=== PATIENT | male | born 1940 | race Caucasian/White ===

== ENCOUNTER 2024-06-18 13:44 | Outpatient (NON) | payer MEDICARE, SELFPAY ==
--- OUTSIDE RECORDS SUMMARY | 2024-06-18 13:55 | XMS_ITS | Clinical Summary ---
Author Organization [facility] Address [address] [place] [address] Care Team Providers Care Wash Tub Machine Operator Name Role Phone Wali Ashley MD Primary Care Provider [phone] Source Comments [facility],non-owned Affiliates and Associated Physician Practices is amultiple site organization consisting of ambulatory clinics and hospital sitesin [place], [place], [place] and [place]. This disclosure is being madepursuant to the Care Everywhere program and may not contain all information available regarding this patient. Last updated 17.[facility] Allergies Active Allergy Reactions Criticality Noted Date Comments Sulfa Drugs 05/04/2014 Medications * Be aware that medications may not be up to date on this document. Alwaysverify current medications with the patient. omeprazole (PRILOSEC) 20 MG capsule 5 Active donepezil (ARICEPT) 10 MG tablet 5 Active diltiazem coated beads 24hr (CARDIZEM CD) 300 MG capsule 5 Active fenofibrate (LOFIBRA) 160 MG tablet 5 Active losartan (COZAAR) 100 MG tablet 5 Active traMADol (ULTRAM) 50 MG tablet 0 5 Active VENTOLIN HFA 108 (90 BASE) MCG/ACT inhaler 0 5 Active VOLTAREN 1 % gel 1 5 Active fluticasone propionate (FLONASE) 50 MCG/ACT nasal spray 5 Active aspirin (ASPIRIN) 81 MG chew tablet Take 81 mg by mouth once daily. Active cetirizine (ZYRTEC ALLERGY) 10 MG tablet Take 10 mg by mouth once daily. Active acetaminophen (TYLENOL) 500 MG tabletIndicatio ns:Osteoarthrit is,Pseudogout,H and pain, unspecified laterality Take 2 Tabs by mouth 3 times daily. Maximum allowable Acetaminophen amount = 4 Grams (4000 mg) / 24 hours. 5 Active predniSONE (DELTASONE) 20 MG tabletIndicatio ns:Pseudogout Take 1 Tab by mouth 2 times daily. for 5 to 7 days for Arthritis flare ups 40 Tab 3 5 Active predniSONE (DELTASONE) 10 MG tabletIndicatio ns:Pseudogout Take 1-2 Tabs by mouth once daily. 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 Gender Identity Not on file Sexual Orientation Not on file Occupation Industry Job Start Date Job End Date REtired Not on file Not on file Not on file Last Filed Vital Signs Vital Sign Reading Time Taken Comments Blood Pressure 116/72 08/24/2014 1:09 PM CDT Pulse 60 08/24/2014 1:09 PM CDT Temperature - - Respiratory Rate - - Oxygen Saturation - - Inhaled Oxygen Concentration - - Weight 89 kg (196 lb 3.2 oz) 08/24/2014 1:09 PM CDT Height 175.3 cm (5' 9 ) 08/24/2014 1:09 PM CDT Body Mass Index 28.97 08/24/2014 1:09 PM CDT Plan of Treatment Health Maintenance Due Date Last Done Comments DTAP/TDAP/TD VACCINES (1 - Tdap) 10/03/1959 PNEUMOCOCCAL VACCINE 50+ (1 of 1 - PCV) 1990 ZOSTER VACCINE (1 of 2) 1990 Respiratory Syncytial Virus (RSV) Vaccine Pt: or over 60 yrs (1 - 1-dose 75+ series) 10/03/2015 COVID-19 VACCINE (3 - season) 2023 04/20/2020, 03/28/2020 DEPRESSION SCREENING 02/12/2024 MEDICARE AWV CALENDAR YEAR 2024 INFLUENZA VACCINE Completed 12/13/2023, , 11/21/2017, Additional history exists HEPATITIS B VACCINE Aged Out No longe r eligible based on patient's age to complete this topic HIB VACCINE Aged Out No longer eligi ble based on patient's age to complete this topic HPV VACCINE Aged Out No longer eligi ble based on patient's age to complete this topic MENINGOCOCCAL (Group B) VACCINE SHARED DECISION-MAKING Aged Out No longer eligible based on patient's age to complete this topic MENINGOCOCCAL GROUPS A/C/Y/W VACCINE Aged Out No longer eligible based on patient's age to complete this topic Insurance [facility] MANAGED MEDICARE ADV Care Teams Wash Tub Machine Operator Relationship Specialty Start Date End Date Wali Ashley MD PCP - General Gastroenterology 03/07/15
--- OUTSIDE RECORDS SUMMARY | 2024-06-18 13:55 | XMS_ITS | Encounter Summary ---
[facility] Address [address] [place] [address] Phone Care Team Providers Care Evp Strategy Name Role Phone Ranjan Lawrence MD Unavailable [phone] Thelma Love PT Unavailable Unavailable Karissa Salas PTA Unavailable Unavailable Salas Monterroso MD Primary Care Provider [phone] Stewart Rahman MD Unavailable Immanuel Conway MD Unavailable Angie Garcia MD Unavailable [phone] Rolando Narvaez NP Unavailable [phone] Grisel Almodovar OD Unavailable [phone] Horace Pacheco MD Unavailable [phone] Purvi Da Silva NP Unavailable [phone] Jon Mares MD Unavailable Salas Morales MD Unavailable [phone] Chase Mancuso MD Unavailable [phone] Agustin Lancaster MD PhD Unavailable [phone] Encounter Details Date Type Department Care Team (Late st Contact Info) Description 09/15/2019 Orders Only [facility] [address] [place] [address] Scanning, Provider Social History Tobacco Use Types Packs/Day Years Used Date Smoking Tobacco: Never Smokeless Tobacco: Never Alcohol Use Standard Drinks/Week Comments Yes 1 (1 standard drink = 0.6 oz pur e alcohol) occasionally PHQ-2 Answer Date Recorded PHQ-2 Score 1 02/19/2019 Sex and Gender Information Value Date Recorded Sex Assigned at Not on file 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 Gender Identity Not on file Sexual Orientation Not on file documented as of this encounter Plan of Treatment Not on file documented as of this encounter Procedures Procedure Name Priority Date/Time Associated Diagnosis Comments CARDIOLOGY DOCUMENT SCAN 09/15/2019 documented in this encounter Results * SCAN - CARDIOLOGY (09/15/2019) Anatomical Region Laterality Modality Other us Provider Scanning CV CARDIAC SERVICES PROCEDURES Final Result documented in this encounter Visit Diagnoses Not on filedocumented in this encounter Additional Health Concerns Infection Onset Date Last Indicated Resolved Time COVID: Suspected 10/27/2020 10/27/2020 10/27/2020 5:28 PM CDT COVID: Suspected 12/13/2023 12/13/2023 12/13/2023 12:03 PM CDT COVID: Suspected 12/26/2023 12/26/2023 12/26/2023 3:24 PM MUSICAL ENGINEER MDR gram neg/ESBL 04/26/2024 05/06/2024 documented as of this encounter Care Teams Evp Strategy Relationship Specialty Start Date End Date Salas Monterroso MD [address] [place] [address] PCP - General 02/27/18 Ranjan Lawrence MD Consulting Physician Cardiovascular Disease 09/11/16 Thelma Love, TISH Physical Therapist Physical Therapy 06/11/17 Karissa Salas PTA Equipment Operator [employer] Physical Therapy 06/17/17 Stewart Rahman MD [address] [place], [place] [address] Consulting Physician Cardiovascular Disease 04/19/18 [place] [address] [address] Consulting Physician Cardiology 08/30/18 Angie Garcia MD [address] [place], [place] [address] Consulting Physician Pain Management 08/12/19 Rolando Narvaez NP [address] [place] [address] Nurse Practitioner Pain Management 12/11/19 Grisel Almodovar OD [address] [place] [address] Consulting Physician Optometry 01/25/21 Horace Pacheco MD [address] [place] [address] Referring Physician Cardiology 06/21/21 Purvi Da Silva NP [address] [place] [address] Nurse Practitioner General Surgery 07/10/22 Jon Mares MD [address] [place] [address] Consulting Physician General Surgery 08/10/22 Salas Morales MD [address] [place] [address] Consulting Physician Nephrology 09/25/22 Chase Mancuso MD [id number] [place] [address] Surgeon Vascular Surgery 02/19/24 Agustin Lancaster MD PhD [address] [place] [address] Consulting Physician Neurosurgery 12/03/23 documented as of this encounter
--- OUTSIDE RECORDS SUMMARY | 2024-06-18 13:55 | XMS_ITS | Encounter Summary ---
Author Organization [facility] Address [address] [place] [address] Phone Care Team Providers Care Harness Repairer Name Role Phone Salas Monterroso MD Primary Care Provider [phone] Encounter Details Date Type Department Care Team (Late st Contact Info) Description 05/14/2024 [facility] [address] [place] [id number] Gabriela Musa, RETAIL FURNITURE SALES, PLATE SENSITIZER [address] [place] [address] Social History Tobacco Use Types Packs/Day Years Used Date Smoking Tobacco: Never Assessed [facility] Utilities Answer Date Recorded In the past 12 months has e electric, gas, oil, or water company threatened to shut off services in your home? No 05/18/2024 Social Connection and Isolation Panel [NHANES] A nswer Date Recorded In a typical week, how many times do you talk on the phone with family, friends, or neighbors? Three times a week 05/19/19 How often do you get togethe r with friends or relatives? Once a week 05/18/2024 How often do you attend chur ch or restoration services? 1 to 4 times per year 05/18/2024 Do you belong to any clubs o r organizations such as caodaism groups, unions, fraternal or athletic groups, or school groups? No 05/18/2024 How often do you attend meet ings of the clubs or organizations you belong to? Never 05/18/2024 Are you , , di vorced, , never , or living with a partner? Patient declined 05/18/2024 AUDIT-C Answer Date Recorded Q1: How often do you have a drink containing alcohol? Never 05/18/2024 Q2: How many drinks containi ng alcohol do you have on a typical day when you are drinking? Patient does not drink Q3: How often do you have si x or more drinks on one occasion? Never 05/18/2024 Overall Financial Resource Strain (CARDIA) Answe r Date Recorded How hard is it for you to pa y for the very basics like food, housing, medical care, and heating? Not very hard 05/18/2024 [facility] - Occupational Stress Questionnaire Answer Date Recorded Do you feel stress - tense, restless, nervous, or anxious, or unable to sleep at night because your mind is troubled all the time - these days? Only a little 05/18/2024 Exercise Vital Sign Answer Date Recorde d On average, how many days pe r week do you engage in moderate to strenuous exercise (like a brisk walk)? 0 days 05/18/2024 On average, how many minutes do you engage in exercise at this level? 0 min 05/18/2024 Hunger Vital Sign Answer Date Recorded Within the past 12 months, y ou worried that your food would run out before you got the money to buy more. Never true 05/19/19 25 Within the past 12 months, t he food you bought just didn't last and you didn't have money to get more. Never true 05/18/2024 PRAPARE - Transportation Answer Date Re corded In the past 12 months, has l ack of transportation kept you from medical appointments or from getting medications? No 08/2024 In the past 12 months, has l ack of transportation kept you from meetings, work, or from getting things needed for daily living? No 05/18/2024 Housing Stability Vital Sign Answer Derek e Recorded In the last 12 months, was t here a time when you were not able to pay the mortgage or rent on time? No 05/18/2024 In the past 12 months, how m any times have you moved where you were living? 1 05/18/2024 At any time in the past 12 m [facility], were you homeless or living in a alf (including now)? No 05/18/2024 Sex and Gender Information Value Date Recorded Sex Assigned at Not on file Legal Sex Male 12:29 AM CDT Gender Identity Not on file Sexual Orientation Not on file documented as of this encounter Plan of Treatment Not on file documented as of this encounter Visit Diagnoses Not on filedocumented in this encounter Care Teams Harness Repairer Relationship Specialty Start Date End Date Salas Monterroso MD [address], [place] [id number] PCP - General Infectious Disease 01/10/24 documented as of this encounter
--- OUTSIDE RECORDS SUMMARY | 2024-06-18 13:55 | XMS_ITS | Continuity of Care Document ---
Author Organization [facility] Address [address] [facility] [place] [address] Mel[address] [place] [phone] Phone Care Team Providers Care Square Cutter Name Role Phone Angela Ritter OD Unavailable Unavailable Allergies, Adverse Reactions, Alerts Substance Reaction Status Criticality Sulfa (Sulfonamide Antibiotics) Active No Information Medications Medication Instructions Dosage Effective Dates (start - stop) Status Comments Myxredlin (regular insulin) 100 unit/100 mL (1 unit/mL) IV solution - Active Repatha SureClick 140 mg/mL subcutaneous pen injector inject 1 milliliter by subcutaneous route every 2 weeks in the abdomen, thigh, or outer area of upper arm (rotate sites) 140 MG - Active PreserVision AREDS-2 250 mg-90 mg-40 mg-1 mg capsule take 1 capsule by oral route 2 times every day 1 capsule - Active Tylophen 500 mg capsule take 2 capsule by oral route every 6 hours as needed - Active aspirin 81 mg tablet,delayed release take 1 tablet by oral route every day 81 MG - Active buspirone 10 mg tablet take 1 tablet by oral route 2 times every day 10 MG - Active donepezil 10 mg tablet take 1 tablet by oral route every day in the evening 10 MG - Active famotidine 40 mg tablet take 1 tablet by oral route every day at bedtime 40 MG - Active Flovent Diskus 50 mcg/actuation powder for inhalation inhale 2 puff by inhalation route 2 times every day - Active metoprolol succinate ER 25 mg tablet,extended release 24 hr take 1 tablet by oral route every day 25 MG - Active nitroglycerin 0.[address] 1 tablet by sublingual route at 1st sign of attack; may repeat every 5 minutes up to 3 tabs; if norelief seek medical help 0.4 MG - Active spironolactone 25 mg tablet take 1 tablet by oral route every day 25 MG - Active tramadol 50 mg tablet take 1 tablet by oral route every 6 hours as needed 50 MG - Active Procedures Procedure Date No Charge Refraction Post-op Follow-up Visit No Charge Refraction After Cataract Laser Surgery Office/outpatient Visit, Est No Charge Refraction SCODI, Retina No Charge Optomap Fundus Photos 024 Eye Exam & Treatment No Charge Orbscan SCODI, Retina Office/outpatient Visit, Est Office/outpatient Visit, Est Fundus Photography W/ Report Eye Exam, New Patient Advance Directives Directive Yes / No Effective Date File Name No Information Encounters Encounter Description Practice Location Reason(s) For Visit Diagnoses Date Provider Providers Copied on [facility], [address], [place], [place], [id number], [place] tel:[phone] SEC Dese[place] Contrerasa l Post-Op (chief complaint) Post op visit 5 Stone MARCOS Angela. [address], [address], [place], [place], [id number], [place]. tel:[phone] Referring Provider: Salas Monterroso MD, [address], [place], [address]. tel:[phone] Office/outpa tient Visit, [facility], [address], [place], [place], [id number], [place] tel:[phone] SEC Desean TURNER Professiona l YAG capsulotomy evaluation (chief complaint) Other secondary cataract, left eyePresence of intraocular lens 5 Jewels Pedro. [address], [address], [place], [place], [id number], [place]. tel:[phone] Referring Provider: Salas Monterroso MD, [address], [place], [address]. tel:[phone] [facility], [address] [place] [address] [address], [place], [place], [id number], tel:[phone] SEC [place] Diabetic eye exam (chief complaint) Nexdtve age-related mclr degn, bilateral, intermed dry stageAnterio r basement membrane dystrophy (ABMD) of both eyesCentral corneal opacity of left eyePresence of intraocular lensVitreous degeneration , bilateralPre diabetesDry eye syndrome of bilateral lacrimal glands 4 Stone OD Angela. [address] [place] [address] [address], [address], [place], [place], [id number], . tel:[phone] Referring Provider: Salas Monterroso MD, [address], [place], [address]. tel:[phone] Office/outpa tient Visit, Est [facility], [address] [place] [address] [address], [place], [place], [id number], [place] tel:[phone] SEC [place] Professiona l Follow up visit (chief complaint) Nexdtve age-related mclr degn, bilateral, intermed dry stageAnterio r basement membrane dystrophy (ABMD) of both eyesCentral corneal opacity of left eyePresence of intraocular lensVitreous degeneration , bilateral 3 Stone OD Angela. [address] [place] [address] [address] [facility], [address], [place], [place], [id number], [place]. tel:[phone] Referring Provider: Salas Monterroso MD, [address], [place], [address]. tel:[phone] Office/outpa tient Visit, [facility], [address] [place] [address] [address], [place], [place], [id number], [place] tel:[phone] SEC [place] Professiona l redness (chief complaint) Subconjuncti marisela hemorrhage of left eye 3 Stone OD Angela. [address], [address], [place], [place], [id number], . tel:[phone] Referring Provider: Salas Monterroso MD, [address], [place], [address]. tel:[phone] [facility], [address] [facility] [address], [place], [place], [id number], tel:[phone] SEC [place] Professiona l Complete Exam (chief complaint) Presence of intraocular lensDry eye syndrome of bilateral lacrimal glandsVitreo us degeneration , bilateralNex dtve age-related mclr degn, bilateral, intermed dry stagePeriphe ral retinal degeneration Central corneal opacity of left eye 3 Stone MARCOS [place]. [address] [facility], [address], [place], [place], [id number], . tel:[phone] Referring Provider: Salas Monterroso MD, [address], [place], [address]. tel:[phone] Family History Family Member Type Diagnosis Age At Onset No Information Payers Payer name Insurance type Covered democrat ID Authoriza tion(s) No Information Social History Type Description Quantity Date Captured Comments Alcohol Use Details Caffeine Use Details Tobacco Use Status Current non-smoker Smoking Status Never smoker Non-Smoking Tobacco Use Details : No Details Available : No Details Available Sex Male Chief Complaint And Reason For Visit From encounter dated '04/23/2024 11:15'. Post-Op (chief complaint). Description: The 83 year old patient presents for a 10 day post op yag pc OS. Patient states his vision OS seems to be more clear. Patient states OD vision is still better then OS. Reason For Referral Reason For Referral No Information Plan Of Treatment Date Type Action Status Appointment Boni Green BOOKED Patient Education Dry Eyes: Care Instruct ions completed Patient Education Age-Related Ma cular Degeneration: Care Instructions completed Patient Education Subconjunctival Hemorrh age: Care Instructions completed Patient Education Dry Eyes: Care Instruct ions completed History Of Present Illness Encounter Date Complaint History Of Prese nt Illness Post-Op The 83 year old patient presents for a 10 day post op yag pc OS. Patient states his vision OS seems to be more clear. Patient states OD vision is still better then OS. YAG capsulotomy evaluation The 8 3 year old patient presents for evaluation of YAG capsulotomy evaluation in the left eye. Pt referred by Dr. Ritter for PCO OS. Pt is struggling to read small print even with glasses on. Pt has trouble seeing to drive in rain or at night due to glare from headlights. Diabetic eye exam The 83 year ol d patient presents for evaluation of Diabetic eye exam in the right eye and left eye. 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 Pt is unsure of last HA1C. Pt. states he feels his vision in OS is not as sharp as it was last year. Follow up visit The 82 year old patient presents for a 6 month AMD ou follow up. Patient states he has a few more floaters OU. Patient recently passed his DL test. redness The 81 year old patient presents for evaluation of redness in the left eye. Patient states after he started taking AREDS he noticed in his left eye in the corner was red and spreading to his Iris. Better today. Complete Exam The 81 year old patient presents for a complete exam ou. Patient is pseudo ou. Patient states he was told in the past he has beginning of AMD. Patient states it is hard to see street signs at night. Patient states he has Dry eyes and uses OTC AT. Functional Status Date Functional Assessmen t No Information Instructions Date Instruction Additional Infor neil Impression/Plan 3-4 weeks with Luis WING YAG Related to Other secondary cataract, left eye Impression/Plan Related to Other secondary cataract, left eye Impression/Plan Impression/Plan Impression/Plan Impression/Plan Assessments Type Assessment Date assessment Post op visit Patient Care Teams Name Effective Dates (start - stop) Status Members No Information
--- OUTSIDE RECORDS SUMMARY | 2024-06-18 13:55 | XMS_ITS | Clinical Summary ---
Author Organization [facility] Address [address] [place] [address] Care Team Providers Care Curator Of Collections Name Role Phone Unavailable Primary Care Provider Unavailabl e Encounters Date Type Department Care Team Description 05/12/2024 4:17 PM CDT - 05/12/2024 11:59 PM CDT Hospital Encounter [facility] [place] [address] Drew Mejia MD Discharge Disposition: Home or Self Care (Routine Discharge) 05/12/2024 Orders [place] [address] Drew Mejia MD from Last 3 Months Social History Tobacco Use Types Packs/Day Years Used Date Smoking Tobacco: Never Assessed Sex and Gender Information Value Date Recorded Sex Assigned at Not on file Legal Sex Male 4:16 PM CDT Gender Identity Not on file Sexual Orientation Not on file Plan of Treatment Health Maintenance Due Date Last Done Comments DTaP, Tdap and Td Vaccines ( 1 - Tdap) 10[birth year]03/1959 Pneumococcal Vaccine: 50+ Ye ars (1 of 1 - PCV) 1990 Zoster Vaccines (1 of 2) 1990 RSV Immunization or 60+ Years (1 - 1-dose 75+ series) 10/03/2015 COVID-19 Vaccine ( - 2023-2 5 season) 2023 Meningococcal B Vaccine Aged Out No l onger eligible based on patient's age to complete this topic Meningococcal Vaccine Aged Out No jaquelin alexy eligible based on patient's age to complete this topic RSV Immunizations Under 20 Months Aged Out No longer eligible based on patient's age to complete this topic Procedures Procedure Name Priority Date/Time Associated Diagnosis Comments BASIC METABOLIC PANEL Routine 05/12/2024 2:16 PM CDT Encounter for long-term (current) use of antibiotics CBC W/DIFF AUTOMATED Routine 05/12/2024 2:16 PM CDT Encounter for long-term (current) use of antibiotics from Last 3 Months Results * (ABNORMAL) BASIC METABOLIC PANEL (05/12/2024 2:16 PM CDT) [facility] GLUCOSE 135(H) 70 - 99 MG/DL 05/12/2024 4:41 PM CDT [facility] BUN 22(H) 7 - 18 MG/DL 05/12/2024 4:41 PM CDT [facility] CREATININE S/P/B 1.37(H) 0.7 - 1.3 MG/DL 05/12/2024 4:41 PM CDT [facility] SODIUM S/P/B 136 136 - 145 MMOL/L 05/12/2024 4:41 PM CDT [facility] POTASSIUM S/P/B 4.6 3.5 - 5.1 MMOL/L 05/12/2024 4:41 PM CDT [facility] CHLORIDE S/P/B 101 97 - 115 MMOL/L 05/12/2024 4:41 PM CDT [facility] CO2 27.7 21 - 32 MMOL/L 05/12/2024 4:41 PM CDT [facility] CALCIUM S/P/B 8.4(L) 8.5 - 10.1 MG/DL 05/12/2024 4:41 PM CDT [facility] ANION GAP 7.3 2 - 10 MMOL/L 05/12/2024 4:41 PM CDT [facility] BUN CREATININE RATIO 16.1 6 - 26 05/12/2024 4:41 PM CDT [facility] GFR ESTIMATE 51(L) >90 ML/MIN/1.7 3 M2 05/12/2024 4:41 PM CDT [facility] Comment: NOTE: eGFR is not calculated for patients <18 years of age or gender unknown. This is an estimated GFR calculation using the new CKD EPI creatinine equation without race and so does not require a correction factor for race. This estimated GFR should not be used for calculating drug doses. 05/12/2024 2:16 PM CDT Drew Mejia MD LABORATORY Final Result [facility] [address] [place] [address], * (ABNORMAL) CBC W/DIFF AUTOMATED (05/12/2024 2:16 PM CDT) WBC 9.24 4.5 - 11.0 x10'3/uL 05/12/2024 4:37 PM CDT [facility] RBC 3.27(L) 4.70 - 6.10 x10'6/uL 05/12/2024 4:37 PM CDT [facility] HGB 9.7(L) 14.0 - 18.0 G/DL 05/12/2024 4:37 PM CDT [facility] HCT 30.8(L) 43.0 - 54.0 % 05/12/2024 4:37 PM CDT [facility] MCV 94.2(H) 80.0 - 94.0 FL 05/12/2024 4:37 PM CDT [facility] MCH 29.7 27.0 - 31.0 PG 05/12/2024 4:37 PM CDT [facility] MCHC 31.5(L) 32.0 - 36.0 G/DL 05/12/2024 4:37 PM CDT [facility] RDW 16.7(H) 11.5 - 14.5 % 05/12/2024 4:37 PM CDT [facility] PLT 436(H) 130 - 400 x10'3/uL 05/12/2024 4:37 PM CDT [facility] MPV 9.1(L) 9.3 - 12.2 FL 05/12/2024 4:37 PM CDT [facility] DIFFERENTIAL TYPE AUTOMATED DIFFERENTIAL 05/12/2024 4:37 PM CDT [facility] NEUTROPHILS % 75.7 % 05/12/2024 4:37 PM CDT [facility] LYMPHOCYTES % 11.3 % 05/12/2024 4:37 PM CDT [facility] MONOCYTES % 12.2 % 05/12/2024 4:37 PM CDT [facility] EOSINOPHILS 0.0 % 05/12/2024 4:37 PM CDT [facility] BASOPHILS 0.3 % 05/12/2024 4:37 PM CDT [facility] IMMATURE GRANS % 0.5 % 05/13/19 4:37 PM CDT [facility] ABS. NEUTROPHILS 6.99 1.80 - 7.70 x10'3/uL 05/12/2024 4:37 PM CDT [facility] ABS. LYMPHOCYTES 1.04 1.00 - 4.80 x10'3/uL 05/12/2024 4:37 PM CDT [facility] ABS. MONOCYTES 1.13(H) 0.30 - 0.82 x10'3/uL 05/12/2024 4:37 PM CDT [facility] ABS. EOSINOPHILS 0.00(L) 0.04 - 0.54 x10'3/uL 05/12/2024 4:37 PM CDT [facility] ABS. BASOPHILS 0.03 0.01 - 0.08 x10'3/uL 05/12/2024 4:37 PM CDT [facility] ABS. IMMATURE GRANULOCYTES 0.05 0.00 - 0.49 x10'3/uL 05/12/2024 4:37 PM CDT [facility] 05/12/2024 2:16 PM CDT Drew Mejia MD LABORATORY Final Result [facility] [address] [place] [id number], from Last 3 Months
--- OUTSIDE RECORDS SUMMARY | 2024-06-18 13:55 | XMS_ITS | CONTINUITY OF CARE DOCUMENT ---
Author Name kin zakiakatherine Address Unknown Organization [facility] Address [address] [place] [address] Phone [phone] Care Team Providers Care Operating Room Nurse Name Role Phone Stewart Rahman MD Unavailable [phone] LILLIE MANCUSO MD Unavailable RANDAL VELÁZQUEZ MD Unavailable [phone] PROBLEMS Condition Status Date Provider Notes Cough active Rashaad [place] Family History of Hypertension: completed - Stewart Rahman MD Cardiovascular screening completed - Stewart Rahman MD AAA - CTA 5.1 cm 2023 active Wali Whitney CAD S/P CABG 06/2016 active Stewart Rahman MD Hyperlipidemia active ? Stewart Rahman MD Hypertension active ? Stewart Rahman MD CHF active Stewart Rahman MD CKD stage 3 (gfr 30-59) active Stewart Rahman MD DM - type 2 completed - Rashaad Mansfield NSTEMI active Stewart Rahman MD Left renal artery stenosis - CTA 60% 09/2018 active Stewart Rahman MD ENCOUNTERS Date Type Provider Location Encounter Diag nosis - In-person encounter Office Visit Stewart Rahman MD [facility] - [facility]-person encounter Office Visit Stewart Rahman MD [facility] - In-person encounter Office Visit Stewart Rahman MD [facility] AAA - CTA 5.1 cm 2023 - In-person encounter Office Visit Tommie Mari MD [facility] - In-person encounter Office Visit Stewart Rahman MD [facility] AAA - CTA 5.1 cm 4CAD S/P CABG 06/2016NSTEMILeft renal artery stenosis - CTA 60% 09/2018 - In-person encounter Office Visit Immanuel Conway MD [facility] - In-person encounter Office Visit Stewart Rahman MD [facility] DM - type 2 - In-person encounter Office Visit Stewart Rahman MD [facility] Family History of Hypertension:Cardiov ascular screeningAAA - CTA 5.1 cm 4CAD S/P CABG 06/2016Hyperlipidemia HypertensionCHFCKD stage 3 (gfr 30-59) VITAL SIGNS Date Observation Value Provider Body Mass Index (Ratio) 23.86 kg/m2 Lazaro matos [place] blood pressure, diastolic 88 mm[Hg] Srinivas [facility] blood pressure, systolic 143 mm[Hg] Kyl ia [place] oxygen saturation, oximetry 99 % [facility] pulse rate 79 /min [facility] respiratory rate E&M 12 /min Sandeep rolle weight E&M 161.6 [lb_av] [facility] blood pressure, cuff size regular Srinivas [facility] height E&M 69 [in_i] [facility] blood pressure, diastolic 87 mm[Hg] Li [facility] blood pressure, systolic 123 mm[Hg] Mai [facility] blood pressure, diastolic 87 mm[Hg] Ky geovany [place] blood pressure, systolic 123 mm[Hg] Kyl ia [place] oxygen saturation, oximetry 95 % [facility] pulse rate 76 /min Sandeep Hagen respiratory rate E&M 12 /min Sandeep rolle blood pressure, cuff size regular Srinivas [place] height E&M 69 [in_i] Sandeep Hieu Body Mass Index (Ratio) 26.73 kg/m2 Armando weldon [facility] blood pressure, diastolic 76 mm[Hg] Al tami [facility] blood pressure, systolic 122 mm[Hg] Maci josue [facility] weight E&M 181 [lb_av] Rashaad [facility] erg height E&M 69 [in_i] [facility] erg Body Mass Index (Ratio) 26.87 kg/m2 Mary Mari MD blood pressure, diastolic 78 mm[Hg] Fe nuirchard Villegas blood pressure, systolic 132 mm[Hg] Fel icia Villegas pulse rate 57 /min Oralia Villegas oxygen saturation, oximetry 96 % Oralia Villegas respiratory rate E&M 16 /min Oralia Villegas weight E&M 182 [lb_av] Oralia Villegas height E&M 69 [in_i] Oralia Villegas Body Mass Index (Ratio) 27.46 kg/m2 Stewart Rahman MD blood pressure, cuff size regular Santino isangie [place] blood pressure, diastolic 70 mm[Hg] Kr isty Nisha blood pressure, systolic 110 mm[Hg] Belia manuel [place] respiratory rate E&M 17 /min Naida Nisha oxygen saturation, oximetry 96 % Naida Nisha pulse rate 79 /min Naida [place] weight E&M 186 [lb_av] Naida [place] height E&M 69 [in_i] Naida Nisha Body Mass Index (Ratio) 27.91 kg/m2 Edmond Rileynn blood pressure, diastolic 68 mm[Hg] Kr isty [place] blood pressure, systolic 120 mm[Hg] Kri sty [place] oxygen saturation, oximetry 96 % Naida Nisha pulse rate 66 /min Naida [place] respiratory rate E&M 19 /min Naida [place] weight E&M 189 [lb_av] Naida [place] blood pressure, cuff size regular Kr isty Nisha height E&M 69 [in_i] Naida [place] Body Mass Index (Ratio) 27.76 kg/m2 Armando Álvarezberg oxygen saturation, oximetry 97 % [facility] pressure, diastolic 90 mm[Hg] astity Sahra blood pressure, systolic 132 mm[Hg] Rachael stity Sahra pulse rate 67 /min Chastity Sahra respiratory rate E&M 16 /min Chastit y Sahra weight E&M 188 [lb_av] Chastity Sahra height E&M 69 [in_i] Rachaelstity Sahra Body Mass Index (Ratio) 27.91 kg/m2 Stewart Rahman MD blood pressure, diastolic 80 mm[Hg] Santino isty [place] blood pressure, systolic 120 mm[Hg] Kri sty [place] oxygen saturation, oximetry 96 % Naida [place] blood pressure, resting Yes Donell angie Nisha pulse rate 67 /min Naida Nisha respiratory rate E&M 17 /min Naida Nisha blood pressure, cuff size regular Santino isty [place] height E&M 69 [in_i] Naida Nisha weight E&M 189 [lb_av] Naida [place] ALLERGIES Allergy Name Onset Date Reaction Criticality Status STATINS Low Criticality active SULFA High Criticality active RESULTS Date Observation Value Provider Reference Range Interpretation Location 2 LDL cholesterol, serum 38 mg/dL Zaria Fernandes [employer] 2 lipoprotein, beta, serum, point, quantitative, calculated 38 mg/dL [facility] 0-99 2 very low density lipoproteins 17 mg/dL [facility] 5-40 2 HDL cholesterol, serum 62 mg/dL [facility] >39 2 triglyceride, serum, random 83 mg/dL [facility] 0-149 2 cholesterol, serum 117 mg/dL [facility] [id number] 2328/09/1 3 hemoglobin A1C, blood, as % of total hemoglobin 7.5 % [facility] 8 triglyceride, serum, fasting 96 mg/dL [facility] 8 HDL cholesterol, serum 44 mg/dL [facility] 8 cholesterol, serum 97 mg/dL [facility] 6 pro brain natriuretic peptide 614 pg/[facility] 6 hemoglobin A1C, blood, as % of total hemoglobin 6.4 % [facility] 4.8-5.6 High 3 hemoglobin A1C, blood, as % of total hemoglobin 7.5 % Stewart Rahman MD 8 LDL cholesterol, serum 34 mg/dL Stewart Rahman MD 2 LDL cholesterol, serum 205 mg/dL [facility] HISTORY OF MEDICATION USE Medication Status Instructions Dates Provider Indications Com ments Nexletol 180 mg tablet active Take 1 tablet by mouth once a day 04/14 Stewart Wong 140 mg/mL pen injector completed ADMINISTER 1 ML UNDER THE SKIN EVERY 2 WEEKS 02/17 - 04/14 Stewart Wong 140 mg/mL pen injector completed Inject 140 mg subcutaneously every two weeks 04/09 - 02/17 Stewart Rahman MD furosemide 20 mg tablet completed as needed 04/09 - 03/30 Stewart Rahman MD FLONASE 50 MCG/ACT NASAL SUSPENSION active Use as directed 04/09 Naida Cameron albuterol sulfate 0.63 mg/3 mL solution for nebulization active as needed 04/09 Naida Cameron LASIX 40 MG ORAL TABLET completed take one tablet by mouth as needed 04/09 - 04/09 Stewart Rahman MD Co Q-10 200 mg capsule active Take 1 tablet by mouth once a day 04/09 Naida Cameron Adult Aspirin Regimen 81 mg tablet,delayed release (DR/EC) active Take 1 tablet by mouth once a day 04/09 Naida Cameron donepezil 5 mg tablet active 1 tablet once a day 04/09 Anny Rivers LEVOTHYROXINE SODIUM 25 MCG ORAL TABLET completed take one tablet by mouth once daily 04/09 - 08/28 Immanuel Conway MD isosorbide dinitrate 5 mg tablet completed Take 1-2 tablet every night as needed 02/21 - 03/30 Stewart Rahman MD #60, 30 days supply, Prescribed by MARCUS HODGE, Filled 09/02/2017 EZETIMIBE 10 MG ORAL TABLET completed take one tablet by mouth once daily 08/26 - 03/08 Rashaad Álvarezberg #30, 30 days supply, Prescribed by NAVEEN, Filled 09/23/2017 buspirone 10 mg tablet active Take 1 tablet by mouth once a day 02/18 Naida Cameron #180, 90 days supply, Prescribed by RANDAL VELÁZQUEZ, Filled 09/28/2017 spironolactone 25 mg tablet active Take 1 tablet by mouth once a day 09/30 Naida Cameron #90, 90 days supply, Prescribed by RANDAL VELÁZQUEZ, Filled 09/30/2017 metoprolol succinate 25 mg tablet extended release 24 hr active Take 1 tablet by mouth once a day 05/02 Stewart Rahman MD #30, 30 days supply, Prescribed by MARCUS HODGE, Filled 10/28/2017 SOCIAL HISTORY Date Observation Value Provider smoking status Never smoker Khadar Romo smoking status Never smoker Wali Dominguez [facility] social history reviewed E&M revi ewed - no changes required Zaria Fernandes NP smoking status Never smoker Oralia Villegas social history reviewed E&M revi ewed - no changes required Stewart Rahman MD social history E&M Smoking Histo ry: P rosemary has never smoked. Stewart Rahman MD smoking status Never smoker Naida Rodriguezby social history E&M S moking History: P rosemary has never smoked. Immanuel Conway MD social history reviewed E&M revi ewed - no changes required Immanuel Conway MD smoking status Never smoker Naida Rodriguezby smoking status Never smoker Stewart Torres social history reviewed E&M revi ewed - no changes required Stewart Rahman MD number of grandchildren Stewart Rahman MD social history E&M Smoking Histo ry: P rosemary has never smoked. Stewart Rahman MD social history reviewed E&M revi ewed - no changes required Stewart Rahman MD smoking status Never smoker Naida Cameron FUNCTIONAL STATUS Date Observation Value Provider HRA, CV Assess/Plan, Angina (inactive) Management Plan continue current therapy Joseph Garcia HRA, CV Assess/Plan, Angina (inactive) Management Plan continue current therapy Zaria Fernandes NP HRA, CV Assess/Plan, Angina (inactive) Management Plan continue current therapy Stewart Rahman MD HRA, CV Assess/Plan, Angina (inactive) Management Plan continue current therapy Immanuel Conway MD HRA, CV Assess/Plan, Angina (inactive) Management Plan continue current therapy Stewart Rahman MD HRA, CV Assess/Plan, Angina (inactive) Management Plan continue current therapy Stewart Rahman MD INSURANCE PROVIDERS Payer name Policy type / Coverage type [place] red green party ID [facility] MEDICARE ADVANTAGE PLAN (PPO) Medicare [id number] ADVANCE DIRECTIVES Name Date DISCUSSED - NO DECISION MADE TREATMENT PLAN Date Name Performer Cardiology:This visi t has been a part of the consistent, comprehensive, and ongoing management of the chronic medical condition(s) listed above for the patient. W ill continue to treat the patient medically. His updated medication list for this problem includes: Metoprolol Succinate 25 Mg Tablet Extended Release 24 Hr (Metoprolol succinate) ..... Take 1 tablet by mouth once a day Adult Aspirin Regimen 81 Mg Tablet,delayed Release (dr/ec) (Aspirin) ..... Take 1 tablet by mouth once a day Spironolactone 25 Mg Tablet (Spironolactone) ..... Take 1 tablet by mouth once a day BP today: 143/88 P rior BP: 123/87 (01/28/2024) Labs Reviewed: C hol: 117 (03/25/2019) HDL: 62 (03/25/2019) LDL: 38 (03/25/2019) T (03/25/2019) Khadar Romo Cardiology: T he following medications were removed from the medication list: Repatha Sureclick 140 Mg/ml Pen Injector (Evolocumab) ..... Administer 1 ml under the skin every 2 weeks His updated medication list for this problem includes: Nexletol 180 Mg Tablet (Bempedoic acid) ..... Take 1 tablet by mouth once a day Khadar Romo Cardiology: I schemia on stress CT/PET but no symptoms, thus will continue medical management. No CP or SOB. Khadar Romo Cardiology: H is updated medication list for this problem includes: Metoprolol Succinate 25 Mg Tablet Extended Release 24 Hr (Metoprolol succinate) ..... Take 1 tablet by mouth once a day Adult Aspirin Regimen 81 Mg Tablet,delayed Release (dr/ec) (Aspirin) ..... Take 1 tablet by mouth once a day Spironolactone 25 Mg Tablet (Spironolactone) ..... Take 1 tablet by mouth once a day Khadar Romo Cardiology:no surger y is planned W ill continue to treat the patient medically with BP control Khadar Romo TeleHealth: H is updated medication list for this problem includes: Repatha Sureclick 140 Mg/ml Pen Injector (Evolocumab) ..... Administer 1 ml under the skin every 2 weeks Joseph Garcia TeleHealth:This visi t has been a part of the consistent, comprehensive, and ongoing management of the chronic medical condition(s) listed above for the patient. Prior BP: 123/87 (01/28/2024) L abs Reviewed: C hol: 117 (03/25/2019) HDL: 62 (03/25/2019) LDL: 38 (03/25/2019) T (03/25/2019) His updated medication list for this problem includes: Metoprolol Succinate 25 Mg Tablet Extended Release 24 Hr (Metoprolol succinate) ..... Take 1 tablet by mouth once a day Adult Aspirin Regimen 81 Mg Tablet,delayed Release (dr/ec) (Aspirin) ..... Take 1 tablet by mouth once a day Spironolactone 25 Mg Tablet (Spironolactone) ..... Take 1 tablet by mouth once a day Joseph Garcia TeleHealth: I schemrichard on stress CT/PET but no symptoms, thus will continue medical management. No CP or SOB. Joseph Garcia TeleHealth:Sent to Brian Mancuso to discuss AAA repair - he wants to continue with routine surveillance at this time. I schemia on stress CT/PET but no symptoms, thus will continue medical management. No CP or SOB. Joseph Garcia Cardiology:Will obta in echo and PET stress for cardiac evaluation since pt had CABG surgery in 03/15/06. The following medications were removed from the medication list: Isosorbide Dinitrate 5 Mg Tablet (Isosorbide dinitrate) ..... Take 1-2 tablet every night as needed His updated medication list for this problem includes: Metoprolol Succinate 25 Mg Tablet Extended Release 24 Hr (Metoprolol succinate) ..... Take 1 tablet by mouth once a day Adult Aspirin Regimen 81 Mg Tablet,delayed Release (dr/ec) (Aspirin) ..... Take 1 tablet by mouth once a day Wali Cooper Cardiology:Pt had re cent admuission was found AAA measured 5.1 cm at [facility]. In hospital metoprolol was reduced from 50 to 25. We will refer to Dr. Mancuso for AAA repair. Will obtain echo and PET stress for cardiac evaluation since pt had CABG surgery in 03/15/06. Wali Cooper Cardiology: T he following medications were removed from the medication list: Furosemide 20 Mg Tablet (Furosemide) ..... As needed Isosorbide Dinitrate 5 Mg Tablet (Isosorbide dinitrate) ..... Take 1-2 tablet every night as needed His updated medication list for this problem includes: Metoprolol Succinate 25 Mg Tablet Extended Release 24 Hr (Metoprolol succinate) ..... Take 1 tablet by mouth once a day Adult Aspirin Regimen 81 Mg Tablet,delayed Release (dr/ec) (Aspirin) ..... Take 1 tablet by mouth once a day Spironolactone 25 Mg Tablet (Spironolactone) ..... Take 1 tablet by mouth once a day Wali Kenneth Cardiology: B P today: 123/87 P rior BP: 122/76 (03/08/2020) Labs Reviewed: C hol: 117 (03/25/2019) HDL: 62 (03/25/2019) LDL: 38 (03/25/2019) T (03/25/2019) The following medications were removed from the medication list: Furosemide 20 Mg Tablet (Furosemide) ..... As needed His updated medication list for this problem includes: Metoprolol Succinate 25 Mg Tablet Extended Release 24 Hr (Metoprolol succinate) ..... Take 1 tablet by mouth once a day Adult Aspirin Regimen 81 Mg Tablet,delayed Release (dr/ec) (Aspirin) ..... Take 1 tablet by mouth once a day Spironolactone 25 Mg Tablet (Spironolactone) ..... Take 1 tablet by mouth once a day This visit has been a part of the consistent, comprehensive, and ongoing management of the chronic medical condition(s) listed above for the patient. Wali Cooper Cardiology: H is updated medication list for this problem includes: Repatha Sureclick 140 Mg/ml Pen Injector (Evolocumab) ..... Administer 1 ml under the skin every 2 weeks This visit has been a part of the consistent, comprehensive, and ongoing management of the chronic medical condition(s) listed above for the patient. Wali Cooper TeleHealth:His [facility] ed medication list for this problem includes: Repatha Sureclick 140 Mg/ml Subcutaneous Solution Auto-injector (Evolocumab) ..... Inject 140mg subcutaneously once every 2 weeks Rashaad Mansfield TeleHealth:BP today: 122/76 P rior BP: 132/78 (09/08/2019) His updated medication list for this problem includes: Metoprolol Succinate Er 25 Mg Oral Tablet Extended Release 24 Hour (Metoprolol succinate) ..... Take 1 tablet by mouth every day Spironolactone 25 Mg Oral Tablet (Spironolactone) ..... Take one tablet by mouth once daily Furosemide 20 Mg Oral Tablet (Furosemide) ..... As needed Rashaad Shyla TeleHealth:Denies SO B. His updated medication list for this problem includes: Metoprolol Succinate Er 25 Mg Oral Tablet Extended Release 24 Hour (Metoprolol succinate) ..... Take 1 tablet by mouth every day Spironolactone 25 Mg Oral Tablet (Spironolactone) ..... Take one tablet by mouth once daily Isosorbide Dinitrate 5 Mg Oral Tablet (Isosorbide dinitrate) ..... Take 1-2 tablet(s) at bedtime as needed Furosemide 20 Mg Oral Tablet (Furosemide) ..... As needed Rashaad Shyla TeleHealth:No chest pain. His updated medication list for this problem includes: Adult Aspirin Regimen 81 Mg Oral Tablet Delayed Release (Aspirin) ..... Take one tablet by mouth once daily Metoprolol Succinate Er 25 Mg Oral Tablet Extended Release 24 Hour (Metoprolol succinate) ..... Take 1 tablet by mouth every day Isosorbide Dinitrate 5 Mg Oral Tablet (Isosorbide dinitrate) ..... Take 1-2 tablet(s) at bedtime as needed Rashaad Shyla TeleHealth:We discus sed the Select trial and the pt would like more information regarding the trial. Rashaad Shyla TeleHealth:No chest pain or SOB bt pt does report a cough. No fevers. He was advised to get a COVID-19 test. Rashaad [facility] TeleHealth:He had an MRI of his spine due to back pain, which incidentally showed the aortic aneurysm diameter of 4.5 cm. Last duplex in our office in September showed a diameter of 4.1cm and we will schedule a f/u AAA duplex. [facility] Cardiology:LDL was 3 8 on Repatha. Will continue Zetia and Repatha. Zaria Fernandes NP Cardiology:Well controlled. Nayely Fernandes NP Cardiology:Denies sy mptoms. Continues on Metoprolol, Isosorbide, Aldactone, and Lasix PRN. Zaria Fernandes NP Cardiology:No sympto ms. On ASA, Isosorbide, Metoprolol. Zaria Fernandes NP Cardiology:AAA duple x showed largest diameter of 4.1 cm. Will obtain f/u AAA duplex. Zariastephanie Fernandes NP Cardiology:Labs Revi ewed: H gBA1c: 6.4 (03/08/2018) [facility] Cardiology:His updat ed medication list for this problem includes: Metoprolol Succinate Er 25 Mg Oral Tablet Extended Release 24 Hour (Metoprolol succinate) ..... Take 1 tablet by mouth every day Spironolactone 25 Mg Oral Tablet (Spironolactone) ..... Take one tablet by mouth once daily Isosorbide Dinitrate 5 Mg Oral Tablet (Isosorbide dinitrate) ..... Take 1-2 tablet(s) at bedtime as needed Furosemide 20 Mg Oral Tablet (Furosemide) ..... As needed [facility] Cardiology:Discussed [employer]-[facility]. Not interested at this time. [facility] Cardiology:No chest pain. His updated medication list for this problem includes: Adult Aspirin Regimen 81 Mg Oral Tablet Delayed Release (Aspirin) ..... Take one tablet by mouth once daily Metoprolol Succinate Er 25 Mg Oral Tablet Extended Release 24 Hour (Metoprolol succinate) ..... Take 1 tablet by mouth every day Isosorbide Dinitrate 5 Mg Oral Tablet (Isosorbide dinitrate) ..... Take 1-2 tablet(s) at bedtime as needed [facility] Cardiology:He's now on Repatha and we will obtain a f/u lipid panel. His updated medication list for this problem includes: Repatha Sureclick 140 Mg/ml Subcutaneous Solution Auto-injector (Evolocumab) ..... Inject subcutaneously every 2 weeks Ezetimibe 10 Mg Oral Tablet (Ezetimibe) ..... Take one tablet by mouth once daily [facility] Cardiology:BP today: 110/70 P rior BP: 120/68 (08/28/2018) His updated medication list for this problem includes: Metoprolol Succinate Er 25 Mg Oral Tablet Extended Release 24 Hour (Metoprolol succinate) ..... Take 1 tablet by mouth every day Spironolactone 25 Mg Oral Tablet (Spironolactone) ..... Take one tablet by mouth once daily Furosemide 20 Mg Oral Tablet (Furosemide) ..... As needed [facility] Cardiology:Stable 60 % left renal artery stenosis was noted on CTA [facility] Cardiology:AAA duple x showed the diameter was 4.7 cm however CTA done in September 2018 showed the diameter was stable at 4.3 cm. We will obtain f/u AAA duplex. Rashaad [facility] Cardiology Immanuel Conway MD Cardiology Immanuel Conway MD Cardiology Immanuel Conway MD Cardiology Immanuel Conway MD Cardiology Immanuel Conway MD Cardiology Immanuel Conway MD Cardiology Immanuel Conway MD Cardiology:Orders: H EMOGLOBIN A1c (496) [facility] Cardiology:His updat ed medication list for this problem includes: Repatha Sureclick 140 Mg/ml Subcutaneous Solution Auto-injector (Evolocumab) ..... Inject subcutaneously every 2 weeks Ezetimibe 10 Mg Oral Tablet (Ezetimibe) ..... Take one tablet by mouth once daily Labs (after starting PCSK9 inhibitors): L DL: 34 (02/18/2018) CHOL: 97 (02/18/2018) HDL: 44 (02/18/2018) TRI (02/18/2018) [facility] Cardiology:BP today: 132/90 P rior BP: 120/80 (02/06/2018) His updated medication list for this problem includes: Lasix 40 Mg Oral Tablet (Furosemide) ..... One tab daily Spironolactone 25 Mg Oral Tablet (Spironolactone) ..... Take one tablet by mouth once daily Metoprolol Succinate Er 25 Mg Oral Tablet Extended Release 24 Hour (Metoprolol succinate) ..... Take 1 tablet by mouth every day [facility] Cardiology:CT showed the largest diameter of the AAA to be 4.3 cm. Will obtain f/u duplex in 6 months. [facility] Cardiology:His updat ed medication list for this problem includes: Adult Aspirin Regimen 81 Mg Oral Tablet Delayed Release (Aspirin) ..... Take one tablet by mouth once daily Isosorbide Dinitrate 5 Mg Oral Tablet (Isosorbide dinitrate) ..... Take 1-2 tablet(s) at bedtime as needed Metoprolol Succinate Er 25 Mg Oral Tablet Extended Release 24 Hour (Metoprolol succinate) ..... Take 1 tablet by mouth every day [facility] Cardiology:SOB impro tamela. His updated medication list for this problem includes: Lasix 40 Mg Oral Tablet (Furosemide) ..... One tab daily Isosorbide Dinitrate 5 Mg Oral Tablet (Isosorbide dinitrate) ..... Take 1-2 tablet(s) at bedtime as needed Spironolactone 25 Mg Oral Tablet (Spironolactone) ..... Take one tablet by mouth once daily Metoprolol Succinate Er 25 Mg Oral Tablet Extended Release 24 Hour (Metoprolol succinate) ..... Take 1 tablet by mouth every day Orders: P MEGAN, N TERMINAL ([id number]) [facility] Cardiology:Orders: C omplete Echo (CPT-90807) C arotid Duplex Bilateral (CPT-32906) C T Angio, abdomen (CPT-39222) C reatinine, Serum ([id number]) Stewart Rahman MD Cardiology [facility] [place] Cardiology:Orders: C omplete Echo (CPT-84417) Stewart Rahman MD Cardiology:BP today: 120/80 His updated medication list for this problem includes: Lasix 40 Mg Oral Tablet (Furosemide) ..... One tab daily Spironolactone 25 Mg Oral Tablet (Spironolactone) ..... Take one tablet by mouth once daily Metoprolol Succinate Er 25 Mg Oral Tablet Extended Release 24 Hour (Metoprolol succinate) ..... Take 1 tablet by mouth every day Stewart Rahman MD Cardiology:His [facility] ed medication list for this problem includes: Praluent 150 Mg/ml Subcutaneous Solution Pen-injector (Alirocumab) ..... Inject subcutaneously every 2 weeks Ezetimibe 10 Mg Oral Tablet (Ezetimibe) ..... Take one tablet by mouth once daily Stewart Rahman MD Cardiology:His [facility] ed medication list for this problem includes: Adult Aspirin Regimen 81 Mg Oral Tablet Delayed Release (Aspirin) ..... Take one tablet by mouth once daily Isosorbide Dinitrate 5 Mg Oral Tablet (Isosorbide dinitrate) ..... Take 1-2 tablet(s) at bedtime as needed Metoprolol Succinate Er 25 Mg Oral Tablet Extended Release 24 Hour (Metoprolol succinate) ..... Take 1 tablet by mouth every day Stewart Rahman MD Cardiology:Orders: C omplete Echo (CPT-29581) C arotid Duplex Bilateral (CPT-21271) C T Angio, abdomen (CPT-23477) C reatinine, Serum ([id number]) Stewart Rahman MD Date Name myocardial blood joe w (PET) Stress Cardiac PET-C T Complete Echo Aorta Duplex Ultraso und Aorta Duplex Ultraso und LIPID PANEL Aorta Duplex Ultraso und HEMOGLOBIN A1c PROBNP, N TERMINAL Creatinine, Serum CT Angio, abdomen Carotid Duplex Bilat eral Complete Echo HISTORY OF PROCEDURES Procedure Date Procedure Name Provider Procedure Notes S tatus Complex e/m visit ad d on Stewart Rahman MD completed EKG Stewart Rahman MD [02/03/2024 - milena] APPROVED [ 01/30/2024 - olivia] completed EKG Stewart Rahman MD completed EKG Orion Duke DO completed
--- OUTSIDE RECORDS SUMMARY | 2024-06-18 13:55 | XMS_ITS | Clinical Summary ---
Author Organization [facility] Address [address] [place] [address] Phone Care Team Providers Care Flat Surfacer Jewel Name Role Phone Salas Monterroso MD Primary Care Provider [phone] Allergies Active Allergy Reactions Criticality Noted Date Comments Statins Unknown 01/13/2024 Sulfa Antibiotics Unknown Medications donepezil (ARICEPT) 10 MG Tablet Take 1 Tablet by mouth nightly. Active albuterol (ProAir HFA) 108 (90 Base) MCG/ACT Aerosol Solution take 2 Puffs by inhalation every 4 hours as needed for Wheezing. Active busPIRone (BUSPAR) 10 MG Tablet Take 1 Tablet by mouth nightly. Active spironolactone (ALDACTONE) 25 MG Tablet Take 1 Tablet by mouth daily. Active nitroGLYCERIN (NITROSTAT) 0.4 MG SL Tablet 1 Tablet by Sublingual route every 5 minutes as needed for Chest pain. Place 1 tablet under the tongue every 5 minutes as needed for chest pain. If not resolved in 15 minutes, call 911. Active fluticasone (FLONASE) 50 MCG/ACT Suspension 1 [place] by Nasal route Daily as needed for Rhinitis. Active insulin lispro 100 UNIT/ML Solution Cartridge 1-5 Units by Subcutaneous route 3 times daily as needed for Other (diabetes). Inject per sliding scale: if 150-199=1 unit; 200-249=2 units; 250-299=3 units; 300-349=4 units; 350-400=5 units Active insulin glargine-yfgn 100 UNIT/ML Solution Pen-injector 10 Units by Subcutaneous route nightly. Active acetaminophen (TYLENOL) 500 MG Tablet Take 1,000 mg by mouth every 8 hours as needed for Mild or more severe pain. Active Coenzyme Q10 (CoQ10) 100 MG Capsule Take 1 Capsule by mouth daily. Active Multiple Vitamins-[place] als (PreserVision AREDS 2) Capsule Take 2 Capsules by mouth daily. Active ASPIRIN 81 PO Take 1 Tablet by mouth daily. Active metoprolol Succinate (TOPROL-XL) 25 MG TABLET SR 24 HR Take 25 mg by mouth daily. 01/28/20 24 Active enoxaparin (LOVENOX) 40 MG/0.4ML Solution Prefilled Syringe by Subcutaneous route every 12 hours. Active traMADol (ULTRAM) 50 MG Tablet Take 1 Tablet by mouth every 8 hours as needed for Mild or more severe pain or Moderate or more severe pain. Discontinu ed(Med List Clean Up) Evolocumab (Repatha SureClick) 140 MG/ML Solution Auto-injector 140 mg by Subcutaneous route every 14 days. Inject 140 mg subcutaneously every 2 weeks Discontinu ed(Med List Clean Up) ERTAPENEM SODIUM IVIndications: Septic Arthritis,Cont inue the treatment until 06/09/2024 1 g by Intravenous route daily. Discontinu ed(Duplica te Order) TRAZODONE HCL PO Take by mouth. Discontinu ed(Med List Clean Up) ertapenem (INVanz) 1 g Recon SolnIndication s:Bone and/or Joint Infection 1 g by Intravenous route every 24 hours for 18 days. Indications: Bone and/or Joint Infection 18 g 05/23/19 25 025 Active Problems Problem Noted Date Diagnosed Date Acute right-sided weakness 05/18/2024 Fracture 02/11/1969 Overview (05/18/2024): BACK Dyslipidemia HTN (hypertension) GERD (gastroesophageal reflux disease) DJD (degenerative joint disease) Hypertension Dementia Cognitive impairment Chronic kidney disease Anemia Chronic CHF (congestive heart failure) Anxiety and depression COPD (chronic obstructive pulmonary disease) Septic arthritis of knee, right PAF (paroxysmal atrial fibrillation) DM type 2 (diabetes mellitus, type 2) CAD (coronary artery disease) Resolved Problems Problem Noted Date Diagnosed Date Resolved Date Dysarthria 05/18/2024 05/18/2024 Encounters Date Type Department Care Team Description 05/18/2024 11:24 AM CDT - 05/21/2024 5:04 PM CDT Hospital Encounter [facility] [address] [place] [phone] Dain Talamantes DO Patel, Satyen V, MD Dianati, Behfar, MD Acute right-sided weakness Discharge Disposition: Discharged/Transferr ed to SNF 05/18/2024 Travel 05/14/2024 Nursing Facility [facility] [address] [place] [phone] Gabriela Musa, MARCO ANTONIO, IRASEMA from Last 3 Months Social History Tobacco Use Types Packs/Day Years Used Date Smoking Tobacco: Never Smokeless Tobacco: Never Tobacco Cessation:Counseling Given: Not Answered Alcohol Use Standard Drinks/Week Comments Yes 0 (1 standard drink = 0.6 oz pur e alcohol) [facility] Utilities Answer Date Recorded In the past 12 months has [employer], gas, oil, or water [employer] threatened to shut off services in your [...] often do you attend chur ch or oriental orthodox services? 1 to 4 times per year 05/18/2024 Do you belong to any clubs o r organizations such as faith groups, unions, fraternal or athletic groups, or [...] care, and heating? Not very hard 05/18/2024 [facility] Occupational Stress Questionnaire Answer Date Recorded [...] any time in the past 12 m [facility], were you homeless or living in a assisted (including now)? No 05/18/2024 Sex and Gender Information Value Date Recorded Sex Assigned at Not on file Legal Sex Male 12:29 AM CDT Gender Identity Not on file Sexual Orientation Not on file Last Filed Vital Signs Vital Sign Reading Time Taken Comments Blood Pressure 174/72 05/21/2024 4:00 PM CDT Pulse 68 05/21/2024 4:00 PM CDT Temperature 36.7 C (98.1 F) 05/21/2024 4:00 PM CDT Respiratory Rate 20 05/21/2024 4:00 PM CDT Oxygen Saturation 99% 05/21/2024 4:00 PM CDT Inhaled Oxygen Concentration - - Weight 68.5 kg (151 lb) 05/18/2024 11:45 AM CDT Height 175.3 cm (5' 9 ) 05/18/2024 11:45 AM CDT Body Mass Index 22.3 05/18/2024 11:45 AM CDT Plan of Treatment Health Maintenance Due Date Last Done Comments Diabetes: Foot Exam 1940 Hepatitis C Virus (HCV) Screening 1940 Zoster Immunization (1 of 2) 1990 Respiratory Syncytial Virus (RSV) Immunization (Adult) (1 - 1-dose 75+ series) 10/03/2015 SARS-COV-2 Immunization ( season) 2023 12/06/2022, 12/27/2021, 11/21/2020, Additional history exists Diabetes: Hemoglobin A1c 11/17/2024 025, 01/22/2024, 12/28/2023, Additional history exists Diabetes: Eye Exam 01/19/2025 01/20/2024, 01/02/2023 Diabetes: Nephropathy Screening 05/19/2025 05/19/2024, 05/18/2024 Pneumococcal Immunization (50+ years) Completed 12/19/2016, 02/02/2010 Pneumococcal Immunization Combined Discontinued 12/19/2016, 02/02/2010 DTaP/Tdap/Td Immunization Discontinued 08/21/2019 TdaP Immunization Completed 08/21/2019 Influenza Immunization Completed , 12/06/2022, 12/21/2021, Additional history exists Hepatitis B Immunization Aged Out No longer eligible based on patient's age to complete this topic Human Papillomavirus (HPV) Immunization Aged Out No longer eligible based on patient's age to complete this topic Meningococcal Immunization (ACWY) Aged Out No longer eligible based on patient's age to complete this topic Rotavirus Immunization Aged Out No lo nger eligible based on patient's age to complete this topic Procedures Procedure Name Priority Date/Time Associated Diagnosis Comments CBC WITH AUTO DIFFERENTIAL Routine 05/21/2024 3:53 AM CDT VANCOMYCIN Timed 05/21/2024 3:53 AM CDT BASIC METABOLIC PANEL W/ CALCIUM TOTAL Routine 05/21/2024 3:53 AM CDT COMPLETE BLOOD COUNT (CBC) WITH DIFF Routine 05/21/2024 3:53 AM CDT RHYTHM STRIP 05/21/2024 12:00 AM CDT RHYTHM STRIP 05/21/2024 12:00 AM CDT CBC WITH AUTO DIFFERENTIAL Routine 05/20/2024 4:39 AM CDT BASIC METABOLIC PANEL W/ CALCIUM TOTAL Routine 05/20/2024 4:39 AM CDT COMPLETE BLOOD COUNT (CBC) WITH DIFF Routine 05/20/2024 4:39 AM CDT RHYTHM STRIP 05/20/2024 12:00 AM CDT RHYTHM STRIP 05/20/2024 12:00 AM CDT RHYTHM STRIP 05/20/2024 12:00 AM CDT CULTURE, BLOOD STAT 05/19/2024 9:48 PM CDT LAVENDER TOP TUBE Routine 05/19/2024 4:2 0 AM CDT CMP (COMPREHENSIVE METABOLIC PANEL) Routine 05/19/2024 4:20 AM CDT EXTRA TUBES Routine 05/19/2024 4:20 AM CDT LIPID PANEL STAT 05/19/2024 4:20 AM CDT RHYTHM STRIP 05/19/2024 12:00 AM CDT RHYTHM STRIP 05/19/2024 12:00 AM CDT RHYTHM STRIP 05/19/2024 12:00 AM CDT RHYTHM STRIP 05/19/2024 12:00 AM CDT URINALYSIS REFLEX IF INDICATED BY ABNORMAL RESULTS Routine 05/18/2024 11:15 PM CDT MRSA NASAL PCR Routine 05/18/2024 4:27 PM CDT MRSA NASAL BY PCR Routine 05/18/2024 4:2 7 PM CDT TROPONIN I, HIGH SENSITIVITY (HSTRP) STAT 05/18/2024 3:45 PM CDT LACTIC ACID (LACTATE) STAT 05/18/2024 12:35 PM CDT XR CHEST SINGLE VIEW PORTABLE STAT 05/18/2024 12:[address] ANGIO HEAD AND NECK WWO CONTRAST W PP Stat with Interpretation 05/18/2024 11:52 AM CDT CBC WITH AUTO DIFFERENTIAL STAT 05/18/2024 11:49 AM CDT HEMOGLOBIN A1C W/ ESTIMATED GLUCOSE STAT 05/18/2024 11:49 AM CDT PROTIME (PT) (PROTHROMBIN TIME) STAT 05/18/2024 11:49 AM CDT TROPONIN I, HIGH SENSITIVITY (HSTRP) STAT 05/18/2024 11:49 AM CDT COMPLETE BLOOD COUNT (CBC) WITH DIFF STAT 05/18/2024 11:49 AM CDT CMP (COMPREHENSIVE METABOLIC PANEL) STAT 05/18/2024 11:[address] HEAD OR BRAIN WO CONTRAST Stat with Interpretation 05/18/2024 11:39 AM CDT POCT GLUCOSE STAT 05/18/2024 11:31 AM CDT EKG 12 LEAD STAT 05/18/2024 11:28 AM CDT CRITICAL CARE Routine 05/18/2024 11:25 AM CDT RHYTHM STRIP 05/18/2024 12:00 AM CDT RHYTHM STRIP 05/18/2024 12:00 AM CDT from Last 3 Months Results * (ABNORMAL) CBC with Auto Differential (05/21/2024 3:53 AM CDT) Only the most recent of3 resultswithin the time period is included. WBC 3.14(L) 4.00 - 12.00 10(3)/mcL 05/21/2024 4:47 AM CDT [facility] RBC 2.58(L) 4.40 - 5.80 10(6)/mcL 05/21/2024 4:47 AM CDT [facility] HEMOGLOBIN (HGB) 7.6(L) 13.0 - 16.5 g/dL 05/21/2024 4:47 AM CDT [facility] HEMATOCRIT (HCT) 24.5(L) 38.0 - 50.0 % 05/21/2024 4:47 AM CDT [facility] MCV 95.0 82.0 - 96.0 fL 05/21/2024 4:47 AM CDT [facility] MCH 29.5 26.0 - 32.0 pg 05/21/2024 4:47 AM CDT [facility] MCHC 31.0 31.0 - 36.0 g/dL 05/21/2024 4:47 AM CDT [facility] PLATELET COUNT 338 140 - 440 10(3)/mcL 05/21/2024 4:47 AM CDT [facility] RDW 16.0(H) 11.8 - 15.5 % 05/21/2024 4:47 AM CDT [facility] MPV 9.2 8.0 - 12.6 fL 05/21/2024 4:47 AM CDT [facility] NEUTROPHILS 58.0 40.0 - 68.0 % 05/21/2024 4:47 AM CDT [facility] LYMPHOCYTES 29.0 19.0 - 49.0 % 05/21/2024 4:47 AM CDT [facility] MONOCYTES 9.9 3.0 - 13.0 % 05/21/2024 4:47 AM CDT [facility] EOSINOPHILS 2.5 0.0 - 8.0 % 05/21/2024 4:47 AM CDT [facility] BASOPHILS 0.6 0.0 - 1.0 % 05/21/2024 4:47 AM CDT [facility] ABSOLUTE NEUTROPHILS 1.82 1.40 - 5.30 10(3)/mcL 05/21/2024 4:47 AM CDT [facility] ABSOLUTE LYMPHOCYTES 0.91 0.90 - 3.30 10(3)/mcL 05/21/2024 4:47 AM CDT [facility] ABSOLUTE MONOCYTES 0.31 0.10 - 0.90 10(3)/mcL 05/21/2024 4:47 AM CDT [facility] ABSOLUTE EOSINOPHIL 0.08 0.00 - 0.50 10(3)/mcL 05/21/2024 4:47 AM CDT [facility] ABSOLUTE BASOPHILS 0.02 0.00 - 0.10 10(3)/mcL 05/21/2024 4:47 AM CDT [facility] NRBC PER 100 WBC 0 05/22/19 25 4:47 AM CDT [facility] Blood Venipuncture / Unknown 05/21/2024 3:53 AM CDT 05/21/2024 4:39 AM CDT us Cara Shanks MACHINE BUILDER, ENTERPRISE ACCOUNT MANAGER HEMATOLOGY ORDERABLES Final Result [facility] [address] [place] [address] * Vancomycin Level (05/21/2024 3:53 AM CDT) [facility] VANCOMYCIN RESULT 20 20 - 40 mcg/mL 05/21/2024 5:01 AM CDT [facility] Blood Venipuncture / Unknown 05/21/2024 3:53 AM CDT 05/21/2024 4:39 AM CDT Narrative [facility] - 05/21/2024 5:01 AM CDT CALL PHARMACY FOR THERAPEUTIC RANGE. rDew Mejia MD CHEMISTRY ORDERABLES Final Res ult [facility] [address] [place] [address] * (ABNORMAL) Basic Metabolic Panel w/ Calcium Total (05/21/2024 3:53 AM CDT) Only the most recent of2 resultswithin the time period is included. SODIUM 141 136 - 145 mmol/L 05/21/2024 5:04 AM CDT [facility] POTASSIUM 3.8 3.5 - 5.1 mmol/L 05/21/2024 5:04 AM CDT [facility] CHLORIDE 111(H) 98 - 107 mmol/L 05/21/2024 5:04 AM CDT [facility] CO2, VENOUS 24 22 - 30 mmol/L 05/21/2024 5:04 AM CDT [facility] ANION GAP 9.8 <18.0 mmol/L 05/21/2024 5:04 AM CDT [facility] GLUCOSE 111(H) 70 - 99 mg/dL 05/21/2024 5:04 AM CDT [facility] BUN 20 8 - 26 mg/dL 05/21/2024 5:04 AM CDT [facility] CREATININE, BLOOD 0.95 0.70 - 1.30 mg/dL 05/21/2024 5:04 AM CDT [facility] BUN/CREATININE RATIO 21(H) 12 - 20 ratio 05/21/2024 5:04 AM CDT [facility] CALCIUM 8.2(L) 8.7 - 10.5 mg/dL 05/21/2024 5:04 AM CDT [facility] GFR, ESTIMATED >60 >=60 05/21/2024 5:04 AM CDT [facility] Comment: Creatinine Clearance is the preferred criteria for selecting drug dose adjustments in renally impaired patients. The GFR is provided as additional pertinent clinical information. GFR is reported in mL/min/1.73 sq m. Calculation based on the Chronic Kidney Disease Epidemiology Collaboration (CKD- EPI) equation refit without adjustment for race. GFR, EST. >60 >=60 025 5:04 AM CDT [facility] GFR, EST. NONAFRICAN >60 >=60 05/21/2024 5:04 AM CDT [facility] Blood Venipuncture / Unknown 05/21/2024 3:53 AM CDT 05/21/2024 4:39 AM CDT Cara Shanks MACHINE BUILDER, ENTERPRISE ACCOUNT MANAGER CHEMISTRY ORDERABLES Final Result Performing Organization Address City/[facility]/ZIP Co de Phone Number [facility] [place] [address] * RHYTHM STRIP (05/21/2024 12:00 AM CDT) Only the most recent of11 resultswithin the time period is included. 05/21/2024 us Provider Scan IMG ECG ORDERABLES Final Result RESULTING [facility]ENCY * Culture, Blood (05/19/2024 9:48 PM CDT) CULTURE RESULTS NO GROWTH WITHIN 5 DAYS, FINAL RESULT 05/24/2024 10:01 PM CDT [facility] Culture (Peripheral Vein) Venipuncture / Unknown 05/19/2024 9:48 PM CDT 05/19/2024 9:57 PM CDT Dar Glasgow MD MICROBIOLOGY - GENERAL O RDERABLES Final Result [facility] [address] [place] [address], [place] * Lavender Top Tube (05/19/2024 4:20 AM CDT) Blood No Phlebotomy Charged / Unknown 05/19/2024 4:20 AM CDT 05/19/2024 5:14 AM CDT us Shar Armas MD HEMATOLOGY ORDERABLES Final R esult [facility] [address] [place] [address] * (ABNORMAL) Lipid Panel (05/19/2024 4:20 AM CDT) CHOLESTEROL 95 <200 mg/dL 05/19/2024 5:43 AM CDT [facility] TRIGLYCERIDES 88 <150 mg/dL 05/19/2024 5:43 AM CDT [facility] HDL CHOLESTEROL 27(L) >40 mg/dL 5:43 AM CDT [facility] LDL 50 <130 mg/dL 05/19/2024 5:43 AM CDT [facility] VLDL 18 10 - 50 mg/dL 05/19/2024 5:43 AM CDT [facility] CHOL/HDL RATIO 3.5 0.0 - 4.4 05/19/2024 5:43 AM CDT [facility] NON-HDL CHOLESTEROL 68 <130 mg/dL 05/19/2024 5:43 AM CDT [facility] Blood Venipuncture / Unknown 05/19/2024 4:20 AM CDT 05/19/2024 5:13 AM CDT us Gabriela Musa MACHINE BUILDER, ENTERPRISE ACCOUNT MANAGER CHEMISTRY ORDERABLES Fi nal Result [facility] [address] [place] [address] * (ABNORMAL) CMP (Comprehensive Metabolic Panel) (05/19/2024 4:20 AM CDT) Only the most recent of2 resultswithin the time period is included. SODIUM 140 136 - 145 mmol/L 05/19/2024 9:52 AM CDT [facility] POTASSIUM 3.9 3.5 - 5.1 mmol/L 05/19/2024 9:52 AM CDT [facility] CHLORIDE 108(H) 98 - 107 mmol/L 05/19/2024 9:52 AM CDT [facility] CO2, VENOUS 24 22 - 30 mmol/L 05/19/2024 9:52 AM CDT [facility] ANION GAP 11.9 <18.0 mmol/L 05/19/2024 9:52 AM CDT [facility] GLUCOSE 100(H) 70 - 99 mg/dL 05/19/2024 9:52 AM CDT [facility] BUN 22 8 - 26 mg/dL 05/19/2024 9:52 AM CDT [facility] CREATININE, BLOOD 1.05 0.70 - 1.30 mg/dL 05/19/2024 9:52 AM CDT [facility] BUN/CREATININE RATIO 21(H) 12 - 20 ratio 05/19/2024 9:52 AM CDT [facility] TOTAL PROTEIN 6.3 6.0 - 8.0 g/dL 05/19/2024 9:52 AM CDT [facility] ALBUMIN 2.5(L) 3.5 - 5.0 g/dL 05/19/2024 9:52 AM CDT [facility] A/G RATIO 0.7(L) 1.0 - 2.2 05/19/2024 9:52 AM CDT [facility] CALCIUM 8.6(L) 8.7 - 10.5 mg/dL 05/19/2024 9:52 AM CDT [facility] T BILI 0.3 0.2 - 1.2 mg/dL 05/19/2024 9:52 AM CDT [facility] SGOT (AST) 17 <43 U/L 05/19/2024 9:52 AM CDT [facility] SGPT (ALT) <6 <56 U/L 05/19/2024 9:52 AM CDT [facility] ALKALINE PHOSPHATASE 65 40 - 150 U/L 05/19/2024 9:52 AM CDT [facility] GFR, ESTIMATED >60 >=60 05/19/2024 9:52 AM CDT [facility] Comment: Creatinine Clearance is the preferred criteria for selecting drug dose adjustments in renally impaired patients. The GFR is provided as additional pertinent clinical information. GFR is reported in mL/min/1.73 sq m. Calculation based on the Chronic Kidney Disease Epidemiology Collaboration (CKD- EPI) equation refit without adjustment for race. GFR, EST. >60 >=60 025 9:52 AM CDT [facility] GFR, EST. NONAFRICAN >60 >=60 05/19/2024 9:52 AM CDT [facility] Blood Venipuncture / Unknown 05/19/2024 4:20 AM CDT 05/19/2024 5:13 AM CDT us Behfar Roberto SOUSA CHEMISTRY ORDERABLES Final Res ult [facility] [address] [place] [address] * (ABNORMAL) URINALYSIS REFLEX IF INDICATED BY ABNORMAL RESULTS (05/18/2024 11:15 PM CDT) SPECIFIC GRAVITY 1.010 1.003 - 1.030 05/18/2024 11:51 PM CDT [facility] URINE PH 6.0 5.0 - 9.0 05/18/2024 11:51 PM CDT [facility] WBC ESTERASE Negative Negative 05/18/2024 11:51 PM CDT [facility] NITRITE Negative Negative 05/18/2024 11:51 PM CDT [facility] PROTEIN, RANDOM URINE 15 mg/dL(A) Negative 05/18/2024 11:51 PM CDT [facility] URINE GLUCOSE, QUAL Negative Negative 05/18/2024 11:51 PM CDT [facility] URINE KETONES Negative Negative 05/18/2024 11:51 PM CDT [facility] UROBILINOGEN Normal Normal mg/dL 05/18/2024 11:51 PM CDT [facility] URINE BLOOD 10 /uL(A) Negative asif/ul 05/18/2024 11:51 PM CDT [facility] URINALYSIS COLOR Pale yellow 025 11:51 PM CDT [facility] URINALYSIS CLARITY Clear 05/18/2024 11:51 PM CDT [facility] WBC (Urine) 0-5 Negative, 0-5 /hpf 05/18/2024 11:51 PM CDT [facility] URINE RBC'S 0-2 Negative, 0-2 /hpf 05/18/2024 11:51 PM CDT [facility] EPITHELIAL CELLS Negative /lpf 05/19/19 11:51 PM CDT [facility] BACTERIA, URINE Negative Negative /hpf 05/18/2024 11:51 PM CDT [facility] Urine (Straight Catheter) Non-Phlebotomy Collection / Unknown 05/18/2024 11:15 PM CDT 05/18/2024 11:26 PM CDT us Gabriela Musa MACHINE BUILDER, ENTERPRISE ACCOUNT MANAGER URINE ORDERABLES Final Result [facility] [address] [place] [address] * MRSA NASAL PCR (05/18/2024 4:27 PM CDT) [facility] MRSA PCR RESULT Negative Negative, Invalid 05/18/2024 5:46 PM CDT [facility] Other NASOPHARYNGEAL SWAB / Unknown Non-Phlebotomy Collection / Unknown 05/18/2024 4:27 PM CDT 05/18/2024 4:32 PM CDT Shar Armas MD MICROBIOLOGY - GENERAL ORDERA BLES Final Result Performing Organization Address City/[facility] Co de Phone Number [facility] [place] [address] * TROPONIN I, HIGH SENSITIVITY (HSTRP) (05/18/2024 3:45 PM CDT) Only the most recent of2 resultswithin the time period is included. [facility] TROPONIN I, HIGH SENSITIVITY- LEE 4 <=35 ng/L 05/18/2024 4:13 PM CDT [facility] Comment: High-sensitivity troponin I results are reported in ng/L making the result appear to be 1,000 times higher than the contemporary troponin I value which is reported in ng/ml. Results from [facility]. Blood Venipuncture / Unknown 05/18/2024 3:45 PM CDT 05/18/2024 3:45 PM CDT Dain Talamantes DO CHEMISTRY ORDERABLES Fi nal Result Performing Organization Address City/[facility]/ZIP Co de Phone Number [facility] [address] [place] [address] * Lactic Acid (Lactate) Serum (05/18/2024 12:35 PM CDT) [facility] LACTIC ACID 1.4 0.7 - 2.0 mmol/L 05/18/2024 12:59 PM CDT [facility] Blood Venipuncture / Unknown 05/18/2024 12:35 PM CDT 05/18/2024 12:41 PM CDT us Dain Talamantes DO CHEMISTRY ORDERABLES Fi nal Result [facility] [place] [address] * XR CHEST SINGLE VIEW PORTABLE (05/18/2024 12:25 PM CDT) Anatomical Region Laterality Modality Chest N/A Computed Radiogr aphy 05/18/2024 1:09 PM CDT Impressions 05/18/2024 1:12 PM CDT IMPRESSION: No acute cardiopulmonary findings Lucency under the right hemidiaphragm demonstrates probable haustral markings, probably gas-filled colon. Narrative 05/18/2024 1:12 PM CDT EXAM DESCRIPTION: XR CHEST SINGLE VIEW PORTABLE REASON FOR STUDY: Stroke protocol, Patient foun unresponsive, facial droop TECHNIQUE: 1 radiographic view(s) of the chest. COMPARISON: Spine radiographs from 09/11/2013 FINDINGS: LUNGS: Lucency underneath the right hemidiaphragm demonstrates haustral markings, compatible with gas-filled colon.. Minimal left base atelectasis is noted. No pneumonic consolidation or pulmonary edema is seen. HEART/MEDIASTINUM: Normal heart size and cardiomediastinal contours. Atrial appendage clip and median sternotomy wires are noted. LINES/TUBES: A right upper extremity PICC terminates at the superior vena cava. BONES: No acute displaced fracture or aggressive bone lesion is identified THIS IS AN ELECTRONICALLY VERIFIED FINAL REPORT 05/18/2024 1:09 PM - Electronically signed by Iker Thornton M.D. MZ: DIGNA Report ID: [id number] Reading Location: [id number] Procedure Note Iker Thornton MD - 05/18/2024 EXAM DESCRIPTION: XR CHEST SINGLE VIEW PORTABLE REASON FOR STUDY: Stroke protocol, Patient foun unresponsive, facial droop TECHNIQUE: 1 radiographic view(s) of the chest. COMPARISON: Spine radiographs from 09/11/2013 FINDINGS: LUNGS: Lucency underneath the right hemidiaphragm demonstrates haustral markings, compatible with gas-filled colon.. Minimal left base atelectasis is noted. No pneumonic consolidation or pulmonary edema is seen. HEART/MEDIASTINUM: Normal heart size and cardiomediastinal contours. Atrial appendage clip and median sternotomy wires are noted. LINES/TUBES: A right upper extremity PICC terminates at the superior vena cava. BONES: No acute displaced fracture or aggressive bone lesion is identified THIS IS AN ELECTRONICALLY VERIFIED FINAL REPORT 05/18/2024 1:09 PM - Electronically signed by Iker Thornton M.D. MZ: MZ Report ID: [id number] Reading Location: [id number] IMPRESSION: No acute cardiopulmonary findings Lucency under the right hemidiaphragm demonstrates probable haustral markings, probably gas-filled colon. us Dain Talamantes DO IMG DIAGNOSTIC ORDERABL ES Final Result * CT ANGIO HEAD AND NECK WWO CONTRAST W PP (05/18/2024 11:52 AM CDT) Anatomical Region Laterality Modality vascular N/A Computed Tomogra phy 05/18/2024 12:1 2 PM CDT Impressions 05/18/2024 12:15 PM CDT IMPRESSION: CAROTID CTA: No carotid or vertebral stenosis. 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 The results were called by myself to at 12:10 p.m.. 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 TECHNIQUE: Axial images were first obtained through the brain without contrast. Post IV contrast scanning, thin section axial imaging from the great vessel origins through the brain. 3D MIP images rendered on scanning unit and reviewed at time of interpretation. Carotid stenosis measurements are based on NASCET criteria. Automated exposure control was used as a dose optimization technique for this examination. CONTRAST TYPE/DOSE: 100mL of IOPAMIDOL 76 % IV SOLN injected via Intravenous COMPARISON: None FINDINGS: CAROTID AND VERTEBRAL ARTERIES: RIGHT CAROTIDS: No internal, external or common carotid stenosis. LEFT CAROTIDS: No internal, external or common carotid stenosis. RIGHT VERTEBRAL: Patent. No significant stenosis. No dissection. LEFT VERTEBRAL: Patent. No significant stenosis. No dissection. AORTIC ARCH: Normal three-vessel origin. Bilateral subclavian arteries are patent. No dissection. INCLUDED LUNGS: No acute abnormality. No worrisome nodules. NECK SOFT TISSUE: No mass, adenopathy. OTHER: No other significant finding. INTRACRANIAL VESSELS: [place]: The anterior, middle, posterior cerebral arteries are all patent. No evidence of aneurysm. 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 POSTERIOR CIRCULATION: The distal vertebral arteries are patent as is the basilar artery. No aneurysm. BRAIN: No gross enhancing lesions as visualized. THIS IS AN ELECTRONICALLY VERIFIED FINAL REPORT 05/18/2024 12:12 PM - Electronically signed by Sukhi Gomez M.D. 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 TECHNIQUE: Axial images were first obtained through the brain without contrast. Post IV contrast scanning, thin section axial imaging from the great vessel origins through the brain. 3D MIP images rendered on scanning unit and reviewed at time of interpretation. Carotid stenosis measurements are based on NASCET criteria. Automated exposure control was used as a dose optimization technique for this examination. CONTRAST TYPE/DOSE: 100mL of IOPAMIDOL 76 % IV SOLN injected via Intravenous COMPARISON: None FINDINGS: CAROTID AND VERTEBRAL ARTERIES: RIGHT CAROTIDS: No internal, external or common carotid stenosis. LEFT CAROTIDS: No internal, external or common carotid stenosis. RIGHT VERTEBRAL: Patent. No significant stenosis. No dissection. LEFT VERTEBRAL: Patent. No significant stenosis. No dissection. AORTIC ARCH: Normal three-vessel origin. Bilateral subclavian arteries are patent. No dissection. INCLUDED LUNGS: No acute abnormality. No worrisome nodules. NECK SOFT TISSUE: No mass, adenopathy. OTHER: No other significant finding. INTRACRANIAL VESSELS: [place]: The anterior, middle, posterior cerebral arteries are all patent. No evidence of aneurysm. 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 POSTERIOR CIRCULATION: The distal vertebral arteries are patent as is the basilar artery. No aneurysm. BRAIN: No gross enhancing lesions as visualized. THIS IS AN ELECTRONICALLY VERIFIED FINAL REPORT 05/18/2024 12:12 PM - Electronically signed by Sukhi Gomez M.D. MARIANGEL: MARIANGEL Report ID: [id number] Reading Location: [id number] IMPRESSION: CAROTID CTA: No carotid or vertebral stenosis. 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 The results were called by myself to at 12:10 p.m.. us Dain Talamantes DO IMG CT ORDERABLES Final Result * Hemoglobin A1C w/ Estimated Glucose (05/18/2024 11:49 AM CDT) HGB-A1C 5.8 4.0 - 6.0 % 05/18/2024 7:54 PM CDT [facility] Est Average Glucose 119.8 mg/dL 05/18/2024 7:54 PM CDT [facility] Blood Venipuncture / Unknown 05/18/2024 11:49 AM CDT 05/18/2024 11:57 AM CDT Narrative [facility] - 05/18/2024 7:54 PM CDT HEMOGLOBIN A1C: DIABETIC PATIENTS: WELL-CONTROLLED: 6.2 - 7.0 INTERMEDIATE WELL-CONTROLLED: 7.0 - 9.0 POORLY-CONTROLLED: >9.0 Specimens containing greater than 5% of Hemoglobin F may result in lower than expected % HbA1C results. us Gabriela Musa MACHINE BUILDER, ENTERPRISE ACCOUNT MANAGER CHEMISTRY ORDERABLES Fi nal Result Performing Organization Address City/[facility]/ZIP Co de Phone Number [facility] [place] [address] * (ABNORMAL) Protime (PT or Prothrombin Time) [id number] (05/18/2024 11:49 AM CDT) PROTIME-PATIENT 17.2(H) 11.6 - 14.8 sec 05/18/2024 2:11 PM CDT [facility] INR 1.4(H) 0.9 - 1.2 05/18/2024 2:11 PM CDT [facility] Comment: Therapeutic Ranges INR = 2.0-3.0: Venous thromb, atrial fib, pul embolism, tissue heart valve, ami. INR = 2.5-3.5: Mechanical heart valve Critical value for INR is >/= 4.5 Blood Venipuncture / Unknown 05/18/2024 11:49 AM CDT 05/18/2024 2:00 PM CDT us Dain Talamantes DO HEMATOLOGY ORDERABLES F inal Result Performing Organization Address [facility] Co de Phone Number [facility] [place] [address] * CT HEAD OR BRAIN WO CONTRAST (05/18/2024 11:39 AM CDT) Anatomical Region Laterality Modality Head N/A Computed Tomogra phy 05/18/2024 11:5 7 AM CDT Impressions 05/18/2024 12:00 PM CDT IMPRESSION: Small geographic focus of low absorption in the subcortical white matter of the right frontal lobe. 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 The results were called to the provider by the operations support center at 11:55 a.m. 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 TECHNIQUE: Axial images acquired through the brain without intravenous contrast. Images stored on PACS. Automated exposure control was used as a dose optimization technique for this examination. COMPARISON: None FINDINGS: BRAIN: There is no hemorrhage. A small geographic focus of low absorption is seen in the subcortical white matter of the right frontal lobe. The ventricular system and subarachnoid spaces are slightly enlarged. EXTRA-AXIAL SPACES: No fluid collections. No masses. CALVARIUM: No fracture. SINUSES/MASTOIDS: No fluid or mucosal thickening. ORBITS: No significant abnormality. OTHER: No other significant abnormality. 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 TECHNIQUE: Axial images acquired through the brain without intravenous contrast. Images stored on PACS. Automated exposure control was used as a dose optimization technique for this examination. COMPARISON: None FINDINGS: BRAIN: There is no hemorrhage. A small geographic focus of low absorption is seen in the subcortical white matter of the right frontal lobe. The ventricular system and subarachnoid spaces are slightly enlarged. EXTRA-AXIAL SPACES: No fluid collections. No masses. CALVARIUM: No fracture. SINUSES/MASTOIDS: No fluid or mucosal thickening. ORBITS: No significant abnormality. OTHER: No other significant abnormality. THIS IS AN ELECTRONICALLY VERIFIED FINAL REPORT 05/18/2024 11:57 AM - Electronically signed by Sukhi AUGUST: MARIANGEL Report ID: [id number] Reading Location: [id number] IMPRESSION: Small geographic focus of low absorption in the subcortical white matter of the right frontal lobe. 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 The results were called to the provider by the operations support center at 11:55 a.m. us Dain Talamantes DO IMG CT ORDERABLES Final Result * (ABNORMAL) POCT Glucose (05/18/2024 11:31 AM CDT) GLUCOSE,BEDSID E POCT 116(H) 70 - 99 mg/dL 05/18/2024 11:36 AM CDT [facility] Blood 05/18/2024 11:3 1 AM CDT 05/18/2024 11:36 AM CDT us None Provider POINT OF CARE TESTING Final Resu lt Performing Organization Address [facility] Co de Phone Number [facility] [place] [address] * EKG 12 LEAD (05/18/2024 11:28 AM CDT) Ventricular Rate 78 BPM EXTERNAL EKG QRS Duration 86 ms EXTERNAL EKG Q-T Duration 380 ms EXTERNAL EKG QTC CALCULATION 433 ms EXTERNAL EKG R [place] -16 degrees EXTERNAL EKG T [place] 70 degrees EXTERNAL EKG 05/18/2024 11:2 8 AM CDT Impressions EXTERNAL EKG - 05/19/2024 4:43 PM CDT Atrial fibrillation with premature ventricular or aberrantly conducted complexes Abnormal ECG No previous ECGs available Confirmed by MONTSE DIAZ ([id number]) on 05/19/2024 4:43:56 PM Narrative Procedure Note Montse Diaz MD - 05/19/2024 IMPRESSION: Atrial fibrillation with premature ventricular or aberrantly conductedcomplexes Abnormal ECG No previous ECGs available Confirmed by MONTSE DIAZ ([id number]) on 05/19/2024 4:43:56 PM us Dain Talamantes DO IMG ECG ORDERABLES Kailyn l Result Performing Organization Address City/[facility]/ZIP Co de Phone Number EXTERNAL EKG * Critical Care (05/18/2024 11:25 AM CDT) Narrative Dain Talamantes DO - 05/18/2024 11:25 AM CDT Dain Talamantes DO 05/18/2024 2:05 PM Critical Care Performed by: Dain Talamantes DO Authorized by: Dain Talamantes DO Critical care provider statement: Critical care time (minutes): 35 us Dain Talamantes DO PROCEDURE/MINOR SURGICA L ORDERABLES Final Result from Last 3 Months Insurance [facility] Directives Documents on File Type Date Recorded 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 PRE-ARREST: Use entire range of life support measures to stabilize the patient. * Full Code Date Activated Date Inactivated Comments 01/13/2024 11:37 AM 05/18/2024 2:02 PM Healthcare Agents on File Name Relationship Healthcare Agent Relationship Communication Terri Arizmendi Daughter/Step-Daughter Healthcare POA Care Teams Flat Surfacer Jewel Relationship Specialty Start Date End Date Salas Monterroso MD [facility], [address] [address] PCP - General Infectious Disease 01/10/24
--- OUTSIDE RECORDS SUMMARY | 2024-06-18 13:56 | XMS_ITS | Referral Summary ---
Author Organization [facility] Address [address] [place] [address] Care Team Providers Care Hatchery Worker Name Role Phone Thelma Love PT Unavailable Unavailable Karissa Salas PTA Unavailable Unavailable Randal Monterroso MD Primary Care Provider [phone] Stewart Rahman MD Unavailable Immanuel Conway MD Unavailable Angie Garcia MD Unavailable [phone] Rolando Narvaez CLAY ARTIST Unavailable [phone] Grisel Almodovar OD Unavailable [phone] Horace Pacheco MD Unavailable [phone] Purvi Da Silva NP Unavailable [phone] Jon Mares MD Unavailable Randal Morales MD Unavailable [phone] Chase Mancuso MD Unavailable [phone] Agustin Lancaster MD PhD Unavailable [phone] Encounters Date Type Department Care Team Description 06/18/2024 Telephone [facility] [address] [place] [address] Randal Monterroso MD 06/18/2024 Results Follow-Up [facility] [address] [place] [address] Randal Monterroso MD 06/17/2024 Telephone [facility] [address] [place] [address] Randal Monterroso MD 06/17/2024 Telephone [facility] [address] [place] [address] Randal Monterroso MD 06/17/2024 11:10 AM CDT Lab [facility] [address] [place] [phone] Hypertension associated with type 2 diabetes mellitus (HCC); Essential hypertension 06/17/2024 9:45 AM CDT Office Visit [facility] [address] [place] [phone] Randal Monterroso MD Acute right-sided weakness (Primary Dx); 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); Type 2 diabetes mellitus with stage 2 chronic kidney disease, with long-term current use of insulin (HCC); Hypertension associated with type 2 diabetes mellitus (HCC); Paroxysmal atrial fibrillation (HCC); Chronic obstructive pulmonary disease, unspecified COPD type (HCC); Mild intermittent asthma without complication; Hyperlipidemia associated with type 2 diabetes mellitus (HCC); Urinary tract infection due to extended-spectrum beta lactamase (ESBL) producing Escherichia coli; Coronary artery disease involving osage heart without angina pectoris, unspecified vessel or lesion type 06/15/2024 Telephone [facility] [address] [place] [address] Randal Monterroso MD missing IV antibiotics 06/12/2024 Telephone [facility] [address] [place] [phone] Edelmira Verduzco RN 06/11/2024 Telephone [facility] [address] [place] [address] Randal Monterroso MD Spoke With Home Health Provider 06/08/2024 Telephone [facility] [address] [facility] [address] [place] [address] Randal Monterroso MD Spoke With Home Health Provider 06/06/2024 Results Follow-Up [facility] [address] [facility] [address] [place] [address] Randal Monterroso MD 06/05/2024 Orders Only [facility] [address] [facility] [address] [place] [phone] ProviderMimi MD 05/26/2024 10:30 AM CDT Office Visit [facility] [address] [place] [address] [address] [place] [address] Cailin Joshi PA Aftercare following surgery (Primary Dx) 05/15/2024 5:49 PM CDT - 05/15/2024 11:59 [place] [address] Discharge Disposition: Discharge to home or self care 05/12/2024 Telephone [facility] [address] [place] [address] [address] [place] [address] Edward Fowler MD 05/09/2024 1:57 PM CDT - 05/09/2024 11:59 PM CDT Hospital Encounter [facility] Emergency, Room R Discharge Disposition: Discharge to home or self care 04/26/2024 3:21 PM CDT - 05/09/2024 1:55 PM CDT Hospital Encounter [facility] [address] [place] [phone] Rigo Orona MD Sargsyan, Narine, MD Nikolic, Jelena, MD Kheirkhahan, Nazanin, MD Acute pain of right knee (Primary Dx); Gram-negative bacteremia; Urinary tract infection due to extended-spectrum beta lactamase (ESBL) producing Escherichia coli; 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 05/07/2024 Documentation [facility] [address] [address] Juliet Pineda LPN IV Antibx /[facility] [place] ([facility] [place] /Facility Contact Number Frances [phone]//) 05/06/2024 2:10 PM CDT - 05/06/2024 4:10 PM CDT Surgery [facility] Operating Room [address] [place] [address] Edward Fowler MD RIGHT KNEE IRRIGATION AND DEBRIDEMENT WITH POLY EXCHANGE -CAROL 05/06/2024 12:07 PM CDT Anesthesia Event [facility] [address] [place] [address] Tee Hill MD Alexander, Jeffrey Michael, 04/27/2024 Telephone [facility] [address] [place] [phone] Aubrie Ferrell RN 04/06/2024 Telephone [facility] [address] [facility] [address] [place] [phone] Randal Monterroso MD from Last 3 Months Allergies Active Allergy Reactions Criticality Noted Date Comments Evolocumab Fatigue Medium 04/08/2024 Pt states after injection he will have back pain, hard time standing, chills, fatigue and runny nose. S/S will last up to four to five hours. 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,sign wirer Sxdzjoz-Wnp-Owr Reductase Inhibitors Muscle pain Medium 08/22/2017 Sulfa (Sulfonamide Antibiotics) Other (See comments) High Reaction: Paresthesias, , , Medications fluticasone propionate (FLONASE) 50 mcg/actuation nasal spray Administer 1 spray into each nostril daily as needed for rhinitis 03/23/19 22 Active nitroglycerin (NITROSTAT) 0.4 mg SL tabletIndicatio ns:Chronic coronary artery disease Place 1 tablet (0.4 mg total) under the tongue every 5 (five) minutes as needed for chest pain 25 tablet 1 12/22/19 22 Active acetaminophen (TYLENOL) 500 mg tablet Take 1-2 tablets (500-1,000 mg total) by mouth every 8 (eight) hours as needed 12/22/19 22 Active vit A/vit C/vit E/zinc/copper (PRESERVISION AREDS ORAL) Take by mouth Acti ve donepeziL (ARICEPT) 10 mg tabletIndicatio ns:Dementia without behavioral disturbance (HCC) TAKE 1 TABLET BY MOUTH AT NIGHT 90 tablet 3 06/30/19 24 Active pen needle, diabetic 31 gauge x 06/26 needleIndicatio ns:type 2 diabetes mellitus Use to inject 1-4 times daily as directed. 300 each 4 01/24/20 24 Active spironolactone (ALDACTONE) 25 mg tablet Take 1 tablet (25 mg total) by mouth daily 01/27/20 24 Active busPIRone (BUSPAR) 10 mg tabletIndicatio ns:Persistent mood disorder Take 1 tablet (10 mg total) by mouth nightly 90 tablet 1 02/03/20 24 Active albuterol HFA (PROVENTIL HFA,VENTOLIN HFA,PROAIR HFA) 90 mcg/actuation inhalerIndicati ons:Mild persistent asthma without complication Inhale 1 puff every 4 (four) hours as needed for wheezing 3 each 1 03/16/19 25 Active insulin lispro (HumaLOG, ADMELOG) 100 unit/mL pen for injectionIndica tions:type 2 diabetes mellitus Inject 1-5 units under the skin 3 (three) times a day with meals. Blood glucose mg/dL 150-199: 3 unit, 200-249: 5 units, 250-299: 7 units, 300-349: 10 units, 350 or greater: 5 units. Notify provider for blood glucose greater than 299 mg/dL. 03/16/19 25 Active metoprolol XL (TOPROL-XL) 25 mg extended release tabletIndicatio ns:Essential hypertension Take 0.5 tablets (12.5 mg total) by mouth daily 03/16/19 25 Active polyethylene glycol (MIRALAX) 17 gram/dose bulk powderIndicatio ns:constipation Take 17 g by mouth daily as needed (Constipation .) 06/18/19 25 Active insulin glargine 100 unit/mL (3 mL) pen for injection Inject 10 Units under the skin nightly 06/18/19 25 Active aspirin 81 mg enteric coated tabletIndicatio ns:Deep Vein Thrombosis Prevention Take 1 tablet (81 mg total) by mouth 2 (two) times a day 06/18/19 25 025 Active bempedoic acid (NEXLETOL ORAL) Take by mouth daily 025 Discontinued ertapenem 1,000 mg in sterile water 10 mL IV syringeIndicati ons:Bone/Joint Infection Infuse 10 mL (1,000 mg total) into a venous catheter daily for 5 minutes at 120 mL/hr 1 each 05/07/19 25 025 Discontinued(N o longer taking - Do not display on AVS) aspirin 81 mg enteric coated tabletIndicatio ns:Deep Vein Thrombosis Prevention Take 1 tablet (81 mg total) by mouth 2 (two) times a day 60 tablet 05/10/19 025 Discontinued traMADoL (ULTRAM) 50 mg tabletIndicatio ns:Odontoid fracture with type II morphology, anterior displacement, and routine healing, subsequent encounter Take 1 tablet (50 mg total) by mouth every 8 (eight) hours as needed for pain for up to 7 days 21 tablet 05/10/19 25 025 Discontinued(T herapy completed) naloxegoL (MOVANTIK) 25 mg tablet Take 0.5 tablets (12.5 mg total) by mouth daily before breakfast 15 tablet 05/10/19 25 025 traZODone (DESYREL) 50 mg tablet Take 1 tablet (50 mg total) by mouth nightly 30 tablet 05/10/19 25 025 Discontinued(N o longer taking - Do not display on AVS) polyethylene glycol (MIRALAX) 17 gram/dose bulk powderIndicatio ns:constipation Take 17 g by mouth daily 510 g 05/10/19 25 025 Discontinued oxyCODONE (ROXICODONE) 5 mg immediate release tabletIndicatio ns:Pain Take 1 tablet (5 mg total) by mouth every 6 (six) hours as needed for pain for up to 12 doses 12 tablet 05/10/19 025 Discontinued(N o longer taking - Do not display on AVS) enoxaparin (LOVENOX) 40 mg/0.4 mL syringeIndicati ons:Deep Vein Thrombosis Prevention Inject 0.4 mL (40 mg total) under the skin daily for 21 days 8.4 mL 05/10/19 25 025 insulin regular in 0.9% sodium chloride (Myxredlin) 100 unit/100 mL (1 unit/mL) solution Infuse 100 Units/hr into a venous catheter at 100 mL/hr 025 Discontinued(A lternate therapy) bempedoic acid (Nexletol) 180 mg tablet Take 180 mg by mouth daily 04/15/19 025 Discontinued(N o longer taking - Do not display on AVS) Active Problems Problem Noted Date Diagnosed Date Chronic obstructive pulmonary disease 06/17/2024 Assessment & Plan (06/17/2024 6:17 PM CDT): Mild, recommend continuing albuterol 90 mcg rescue inhaler as needed. Aftercare following surgery 05/26/2024 Acute right-sided weakness 05/18/2024 Assessment & Plan (06/17/2024 5:58 PM CDT): Acute problem about a month ago, was evaluated at [facility] hospitalized for about two days. No definite stroke or other cause was found. Recommend continuing aspirin 81 mg daily. Gram-negative bacteremia 04/30/2024 Urinary tract infection due to extended-spectrum beta lactamase (ESBL) producing Escherichia coli 04/30/2024 Assessment & Plan (06/17/2024 6:08 PM CDT): Acute problem as of about a month ago, hospitalized and treated at [facility]. He denies any current significant urinary symptoms of concern. Urinalysis about three weeks ago, to be scanned into his record, is fairly unremarkable. We will monitor clinically with the appropriate referrals as needed. Septic arthritis 04/27/2024 Assessment & Plan (06/17/2024 6:04 PM CDT): New problem as of about two months ago. He was admitted to [facility] about two months ago with ESBL GNR sepsis and secondary infection of his right total knee joint. He received appropriate antibiotics. The knee was washed out. He completed the planned course through the end of May and antibiotics were discontinued, PICC line was pulled. Currently the right knee is mildly warm and red. There is a small joint effusion. He has some mild discomfort in the knee. We ordered an image guided aspirate to evaluate for inflammation versus infection. Follow- up early as needed. UTI (urinary tract infection) 04/27/2024 Positive D dimer 04/27/2024 Acute pain of right knee 04/26/2024 Orthostatic hypotension 02/08/2024 Assessment & Plan (02/08/2024 10:35 AM BUCKLE STRINGER): Acute, worse in the last 3-4 days. 118/70 sitting VS 88/42 standing this AM with [facility]. 92/62 (96) in office today. Complicated by a large AAA. Consulted with Dr. Monterroso in office today we will have them cut metoprolol in half (12.5 mg daily) until his follow-up with Cardiology next week. Continue to stay off spironolactone and take isosorbide as prescribed. Push fluids. Hospital discharge follow-up 01/07/2024 Assessment & Plan (01/07/2024 6:21 PM BUCKLE STRINGER): See hospital details above for cellulitis and worsening odontoid fracture and neck, testing and labs reviewed with patient and daughter in office today. Med reconciliation completed. Neurosurgery was supposed to see him while he was in the hospital but that did not happen, daughter has phone number of physician at [facility] and is to set up appointment [facility]. He is currently completing a course of rehab at [facility] in [place]. No acute findings on exam today, vitals stable. He is wearing [place] J collar at all times. Cellulitis to wrist seems resolved, CBC upon discharge was unremarkable. Continue current regimen and call for follow-up upon discharge from the [facility] Macrocytic anemia 12/26/2023 Assessment & Plan (03/16/2024 4:04 AM BUCKLE STRINGER): New problem, uncertain cause or significance, additional testing ordered including a follow-up CBC. Lab Results Component Value Date WBC 5.4 01/22/2024 HGB 10.4 (L) 01/22/2024 HCT 33.7 (L) 01/22/2024 MCV 96.8 (H) 01/22/2024 LABPLAT 221 01/22/2024 Odontoid fracture with type II morphology, anterior displacement, and routine healing, subsequent encounter 10/22/2023 Assessment & Plan (03/17/2024 6:52 PM BUCKLE STRINGER): Acute problem as of several months ago, improving slowly. It was managed conservatively. Fall precautions reinforced. Assessment & Plan (01/26/2024 2:38 PM BUCKLE STRINGER): Chronic, status post fall in September. Cervical MRI upon recent hospitalization showed new displacement of fracture. He saw neurosurgery who deemed it non-surgical and thought he could come out of the aspen collar as tolerated and start PT. Continue Tylenol/tramadol as needed for pain. Assessment & Plan (01/07/2024 6:29 PM BUCKLE STRINGER): Chronic, status post fall in September. Cervical MRI upon recent hospitalization showed new displacement of fracture. He was supposed to see Neurosurgery in the hospital but that did not happen, they gave his daughter the number of Dr. Lancaster at [facility] she will make appointment adam. He is wearing [place] J collar at all times and currently completing PT OT at [facility] in [place]. Continue Tylenol/tramadol as needed for pain. Advised daughter to call for follow-up appointment when he gets discharged from SNF. Addendum: Patient has appointment with Dr. Lancaster on 01/13/24. Assessment & Plan (12/31/2023 3:03 PM BUCKLE STRINGER): He has a history of a known odontoid frature after a fall in September of this year, reports that his neck pain has also worsened over the last 2 days. 12/25 CT cervical spine showed mildly worse displacement of his odontoid fracture with increased moderate to sever several canal stenosis. --Neurosurgery evaluation: recommended C-spine MRI (showed unchanged odontoid fracture and severe cervical stenosis) and outpatient NSGY follow up with Dr. Lancaster - missed outpt apt today--> will reschedule for next week - [place] J collar in place at all times --PT and OT evaluations Assessment & Plan (12/13/2023 12:28 PM CDT): Acute problem from a fall when he was out of town in early October, improving. He is still wearing a hard collar and has some stiffness in his neck but no pain. A follow-up with Neurosurgery at [facility] is planned. In the meantime, we will start him on some physical therapy for generalized weakness and unsteady gait. He does have a walker. Assessment & Plan (10/22/2023 9:59 PM CDT): New problem, sustained on 10/10/23 s/p fall while in [place]. ER notes are in chart. 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 Wearing aspen J collar at all times. Tenderness as noted above, ROM was not tested today. No deformities noted. Will refer to Neurosurgery here and repeat Cervical XR in 2 weeks to assess healing. Will also refer back to pain management for neck/back pain. Will discuss with Dr. Monterroso about temporary refill of oxycodone. Might need to direct admit for uncontrolled pain- will discuss with Dr. Monterroso. Continue tylenol. Can remove collar only to wash skin. Advised good supportive pillow so collar does not dig in at night. Neck pain 10/22/2023 Assessment & Plan (10/22/2023 9:44 PM CDT): Related to recent odontoid fracture at C2, see plan above. Chronic bilateral low back pain without sciatica 10/22/2023 Assessment & Plan (10/22/2023 9:50 PM CDT): Chronic, uncontrolled. See recent fall with neck fracture as outline above. Multiple previous lumbar surgeries including fusion at L4-5 many years ago. Last MRI noted in 2018, no recent imaging. Scoliosis and minimal tenderness on exam, generalized weakness. Will refer back to pain management. Will discuss with Dr. Monterroso about temporary refill of oxycodone. Weakness 08/20/2023 Assessment & Plan (12/17/2023 1:18 PM BUCKLE STRINGER): New problem as of earlier this year, exacerbated by recent neck injury as described elsewhere. We are ordering some physical therapy. Follow-up in three months. Assessment & Plan (08/25/2023 12:01 PM CDT): With R hand/wrist after injury on 07/28/23, see plan for acute wrist pain above. Corneal epithelial basement membrane dystrophy 1 03/04/2022 Overview (01/27/2023): [facility] Secondary hyperparathyroidism of renal origin Overview (01/27/2023): Dr. Morales. Assessment & Plan (05/10/2023 11:50 AM CDT): Creatinine and potassium are mildly elevated. He sees Dr. Morales. We will check labs again before his next visit in six months. Lab Results Component Value Date GLUCOSE 114 05/06/2023 CALCIUM 9.3 05/06/2023 SODIUM 140 05/06/2023 POTASSIUM 5.0 (H) 05/06/2023 CO2 24 05/06/2023 CHLORIDE 106 05/06/2023 BUNSER 29 (H) 05/06/2023 CREATININE 1.46 (H) 05/06/2023 Assessment & Plan (01/28/2023 11:59 AM BUCKLE STRINGER): He is seeing Dr. Morales for his chronic kidney disease. He thinks he has a visit coming up early next year. Peripheral retinal degeneration 07/11/2022 Overview (09/08/2022): [facility]. Type 2 diabetes mellitus wit h stage 2 chronic kidney disease, with long-term current use of insulin 06/17/2021 Overview (03/16/2024): EGFR fluctuates. Assessment & Plan (06/17/2024 6:05 PM CDT): Chronic, present for several years, EGFR fluctuates. We reviewed scanned labs from about three weeks ago and ordered follow-up labs to be done today. Return in one month, or sooner if needed. Assessment & Plan (03/16/2024 4:03 AM BUCKLE STRINGER): Chronic, present for three or more years, controlled with diet. Kidney disease fluctuates with some improvement in EGFR recently Lab Results Component Value Date HGBA1C 6.6 (H) 01/22/2024 HGBA1C 6.7 (H) 12/28/2023 HGBA1C 6.4 (H) 11/30/2023 Lab Results Component Value Date LDLCALC 52 05/06/2023 CREATININE 1.16 01/22/2024 Assessment & Plan (01/07/2024 6:28 PM BUCKLE STRINGER): Chronic, controlled. Last A1c from 2 weeks ago was 6.7. No acute symptoms or findings on exam. Advised to continue current regimen of Lantus and sliding scale insulin. Assessment & Plan (12/17/2023 1:18 PM BUCKLE STRINGER): Chronic, present for more than two years, blood sugars are p retty good confirmed by a hemoglobin A1c level at goal of < 7.0% about a week ago. He is controlling his diabetes with diet. Continue same. Lab Results Component Value Date HGBA1C 6.4 (H) 11/30/2023 Assessment & Plan (08/29/2023 4:45 AM CDT): Chronic, controlled and at goal as of last hemoglobin A1c. He does not measure blood sugars at home. He is controlling diabetes with diet. He is due for his eye exam and we encouraged him to have this done before his next visit in about four months. Lab Results Component Value Date HGBA1C 6.9 (H) 05/22/2023 HGBA1C 7.1 (H) 05/06/2023 HGBA1C 6.7 (H) 10/23/2022 Lab Results Component Value Date LDLCALC 52 05/06/2023 CREATININE 1.61 (H) 07/31/2023 Assessment & Plan (05/10/2023 11:52 AM CDT): He is trying to control his diabetes with diet and is mostly succeeding, although HGB A1c did go up recently. He admits to a craving for sweets, especially candy bars. We suggested substituting fruit instead. Lab Results Component Value Date HGBA1C 7.1 (H) 05/06/2023 HGBA1C 6.7 (H) 10/23/2022 HGBA1C 6.9 (H) 06/20/2022 Lab Results Component Value Date LDLCALC 52 05/06/2023 CREATININE 1.46 (H) 05/06/2023 Assessment & Plan (01/28/2023 11:59 AM BUCKLE STRINGER): He is controlling his diabetes with diet. Diabetic labs will be due with his next visit in about three months. Assessment & Plan (11/01/2022 4:46 PM CDT): Diabetes is well controlled on diet. We will see him back in three months. Lab Results Component Value Date HGBA1C 6.7 (H) 10/23/2022 Assessment & Plan (07/25/2022 10:39 AM CDT): He is controlling this with diet. We will see him back in three months with a follow-up HbA1c. Lab Results Component Value Date HGBA1C 6.9 (H) 06/20/2022 HGBA1C 6.7 (H) 12/14/2021 HGBA1C 7.0 (H) 06/14/2021 Lab Results Component Value Date LDLCALC 55 12/14/2021 CREATININE 1.70 (H) 07/19/2022 Assessment & Plan (06/28/2022 3:24 PM CDT): He is controlling this with diet and doing pretty good job. Continue same. Lab Results Component Value Date HGBA1C 6.9 (H) 06/20/2022 HGBA1C 6.7 (H) 12/14/2021 HGBA1C 7.0 (H) 06/14/2021 Lab Results Component Value Date LDLCALC 55 12/14/2021 CREATININE 1.97 (H) 06/20/2022 Assessment & Plan (12/21/2021 12:01 PM BUCKLE STRINGER): He is controlling this with diet, and doing a good job. Continue same. Lab Results Component Value Date HGBA1C 6.7 (H) 12/14/2021 HGBA1C 7.0 (H) 06/14/2021 HGBA1C 6.8 (H) 10/31/2020 Lab Results Component Value Date LDLCALC 55 12/14/2021 CREATININE 1.82 (H) 12/14/2021 Assessment & Plan (06/21/2021 11:51 AM CDT): His diabetes is controlled with diet. Hemoglobin A1c is marginally higher. We will see him back in six months. 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 Assessment & Plan (06/21/2021 11:49 AM CDT): He was diagnosed at his last diabetic eye exam with bilateral dry macular degeneration. The left eye seems to be worse than the right. We will have him start an eye vitamin. Follow-up with a retina specialist. Monocular diplopia of left eye 08/12/2019 Overview (02/25/2020): Notes it while driving, signs and vehicle lights at a distance are horizontally , then converge as they get closer. Office exam is unremarkable. Assessment & Plan (03/05/2020 3:38 PM BUCKLE STRINGER): About six months ago, he started to notice some vertical diplopia in the left eye only. He notices it when driving. Vehicle lights will be stacked one on top of the other. He also notices toribio markers that are divided. He went to his public relations analyst who said there was nothing wrong and gave him dry eye drops. In the office, there is no diplopia reported. There is no dysconjugate gaze. He has had cataract surgery with intra-ocular lens implants. We will refer him to Ophthalmology for further evaluation. Laryngopharyngeal reflux (LPR) 03/13/2019 Overview (02/25/2020): On famotidine. Assessment & Plan (11/01/2022 4:45 PM CDT): He takes Pepcid at night as needed, which is relatively infrequently. Continue same. Assessment & Plan (08/20/2019 12:12 PM CDT): He is on famotidine to help control the symptoms. Continue same. Assessment & Plan (03/13/2019 8:40 AM BUCKLE STRINGER): Start Pepcid at bedtime LPR discussed and Handout provided Statin intolerance 04/15/2018 Overview (04/15/2018): Weakness and muscle pain to atorvastatin and rosuvastatin Hypertension associated with type 2 diabetes clover litus 03/07/2018 Assessment & Plan (06/17/2024 6:00 PM CDT): Chronic, present for 6-7 or more years, recommend continuing spironolactone and other medications listed elsewhere. Assessment & Plan (03/16/2024 3:56 AM BUCKLE STRINGER): Chronic, present for six or more years, controlled on metoprolol XL 25 mg daily and spironolactone 25 mg daily. Assessment & Plan (01/26/2024 2:36 PM BUCKLE STRINGER): Chronic, at goal. BP stable in office today, no acute symptoms or findings on exam. Repeat BMP was ordered for worsening kidney function s/p vancomycin in hospital but was never completed. Encouraged daughter that once she recovers from COVID infection she should bring dad in for repeat labs. Continue ASA, isosorbide, metoprolol as rxd. Assessment & Plan (01/07/2024 6:25 PM BUCKLE STRINGER): Chronic, at goal.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 recall of attending her . He is doing better now. He does have a couple of young people living with him who help out. We will continue to monitor and provide supportive care. Assessment & Plan (08/09/2018 4:43 PM CDT): He has mild cognitive impairment. This is manifested mostly as a mild trouble with his memory. He forgets where he leaves things. He seems pretty functional, works in the yard. He has been out of his Aricept and says our office did not approve a refill. However I think there is a miscommunication there, probably something to do with the electronic transmission of prescriptions. We sent in a refill today to the mail-order pharmacy. Abdominal aortic aneurysm (AAA) 02/23/2014 Overview (01/17/2024): 02/24/2014 USN: AAA 27 mm diameter. 01/30/2016 USN: Abdominal aortic aneurysm 35 to 39 mm in diameter 02/18/2018 CT: Infrarenal abdominal aortic aneurysm with maximum outer wall diameter of 4.3 cm and maximum luminal diameter of 3.4 cm; length is approximately 6.5 cm. 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 08/28/18 Office USN ([facility]): AAA 3.8 cm diameter, CT angio recommended, Dr. Rahman. Revised report?: Proximal AAA, 4.7-5.0 cm, SLHV sacular aneurysm, CT angio ordered. 03/26/2019 Office USN ([facility]): AAA 4.1 cm at largest point, study in [facility] office. 09/15/2019 Office USN ([facility]): AAA 4.1 cm of mid aorta, plaque demonstrated throughout. Follow-up ultrasound in April 2021: Mid abdominal aortic aneurysm noted now measuring 4.4 x 4.5 x 4.9 cm in AP by transverse by cc dimensions. CT A/P 12/26/23:Vasculature: 5.1 x 4.9 cm fusiform aneurysm of the infrarenal abdominal aorta. This previously measured 4.4 x 4.2 cm in 2019. Assessment & Plan (03/17/2024 6:46 PM BUCKLE STRINGER): Chronic, diagnosed about 10 years ago, expanding with recent CT imaging showing increased size. Followed by vascular surgery and a six month CT was recommended. Assessment & Plan (02/08/2024 10:27 AM BUCKLE STRINGER): Chronic, during recent hospitalization for Cellulitis/neck pain a CT A/P showed increased size of infrarenal aortic aneurysm. No abdominal complaints at this time. Will refer back to cardiology at this time. Advised daughter we like to keep the blood pressure on the low side with an aneurysm- cut metoprolol in half until seen by cardio on 01/28/24, continue isosorbide as rxd. Assessment & Plan (01/26/2024 2:35 PM BUCKLE STRINGER): Chronic, during recent hospitalization for Cellulitis/neck pain a CT A/P showed increased size of infrarenal aortic aneurysm. No abdominal complaints at this time. Will refer back to cardiology at this time. Advised daughter we like to keep the blood pressure on the low side with an aneurysm- continue metoprolol, isosorbide as rxd. Assessment & Plan (05/10/2023 11:45 AM CDT): He is followed in cardiology for a small and stable aneurysm. He denies any recent abdominal pain. Assessment & Plan (01/28/2023 11:57 AM BUCKLE STRINGER): He has a stable small abdominal aortic aneurysm that is being monitored in Cardiology with periodic imaging. He did have an episode of left-sided abdominal pain recently but it only lasted half a day and has not recurred. He denies blood in the stools. Assessment & Plan (07/14/2022 12:47 PM CDT): He has a stable small AAA in the lower abdomen. He denies abdominal pain but he does have back pain which is most likely due to osteoarthritis, as it is longstanding and he tends to have radicular symptoms. We will monitor the AAA with periodic imaging. Abdominal aortic aneurysm measuring up to 4.9 cm, likely unchanged in size from comparison study. Assessment & Plan (12/24/2021 1:15 PM BUCKLE STRINGER): He is due for a follow-up ultrasound in about six months. We are monitoring a small and possibly slowly enlarging aneurysm. He has also been followed intermittently by [facility]. Assessment & Plan (06/21/2021 11:46 AM CDT): He had at follow-up abdominal aortic ultrasound about two months ago which showed relatively stable findings at 4.4 cm compared to 4.1 cm about six months before that. He denies any new abdominal pain. We will continue to monitor. Assessment & Plan (04/21/2021 9:59 AM BUCKLE STRINGER): Patient has extensive peripheral vascular disease and is known to have an abdominal aortic aneurysm. He had an abdominal ultrasound 2 weeks ago that demonstrated 4.4 x 4.5 x 4.9 cm abdominal aneurysm. Prior to this he had a CTA in 2019 demonstrated of said aneurysm measured 4.3 cm in AP diameter. This is being followed by Dr. Monterroso - recommend repeating imaging in 6 months from now. Assessment & Plan (04/01/2021 3:39 PM BUCKLE STRINGER): He is due for a follow-up abdominal aortic aneurysm ultrasound in about a month. We will get that scheduled. He does not plan to follow-up with his pouch making machine operator going forward because of difficulty with virtual visits and other such problems. Assessment & Plan (09/05/2020 8:06 AM CDT): He has had stable findings on his abdominal aorta for several years. This is followed by his pouch making machine operator, Dr. Rahman. Ultrasound was ordered in April but I do not see a results. We will look into this. He did have several days of sharp epigastric pain about a month ago. He almost called the office for evaluation, but then the pain went away and has not recurred. There is no tenderness or mass on palpation. We will monitor clinically. Assessment & Plan (03/05/2020 3:39 PM BUCKLE STRINGER): He is due for follow-up imaging of his abdominal aortic aneurysm which is typically performed in the cardiology office. We will try request the report when done. Assessment & Plan (08/29/2019 1:03 PM CDT): This is being followed by Dr. Rahman at [facility]. He had a follow-up ultrasound in their office on 03/26/2019, and findings were stable. He sees Dr. Rahman next month for this and for his cardiac condition as well. Assessment & Plan (02/19/2019 12:56 PM BUCKLE STRINGER): He will be due for a follow-up CT scan or ultrasound soon. This is being scheduled by Dr. Rahman of Cardiology. The patient will check with him for details. Assessment & Plan (07/31/2018 11:57 AM CDT): He had a follow-up CT of the abdomen earlier this year that showed a slight increase in the size of the aneurysm. He is being followed closely by Cardiology. Follow- up imaging will be due in about six months. Assessment & Plan (04/19/2018 8:54 AM BUCKLE STRINGER): Recent CT (02/18/2018) nfrarenal abdominal aortic aneurysm with maximum outer wall diameter of 4.3 cm and maximum luminal diameter of 3.4 cm; length is approximately 6.[address] Monterroso-stable Assessment & Plan (02/04/2018 8:34 AM BUCKLE STRINGER): He had a small abdominal aortic aneurysm on imaging a few years ago with a follow-up about 18 months ago showing some mild enlargement. He says he had another one since then at [facility] that did not show any aneurysm, but I can't find that report. It may have been done at an unaffiliated imaging center. We will check a follow-up ultrasound and proceed from there. Stage 3 chronic kidney disease 02/23/2014 Overview (08/11/2023): >>OVERVIEW FOR NEPHROSCLEROSIS WRITTEN ON 07/31/2018 8:34 AM BY RANDAL MONTERROSO MD Chronic renal insufficiency, eGFR varies with hydration status, acute illness, etc. Assessment & Plan (01/07/2024 6:17 PM BUCKLE STRINGER): Chronic, Stable. See recent hospitalization above for cellulitis, creatinine on discharge was slightly higher than baseline 1.6 but they did give him vancomycin. No acute symptoms or findings on exam. Continue current medication regimen we will continue to monitor Assessment & Plan (12/31/2023 3:03 PM BUCKLE STRINGER): -Cr fluctuates between 1.2 to 1.8; today is 1.6 Assessment & Plan (10/22/2023 9:53 PM CDT): Chronic, controlled. Complicates management of chronic and acute pain. Most recent Creatinine in [place] ER was down to 1.29, baseline is around 1.5. he continues on spironolactone daily. Will continue to monitor. Assessment & Plan (08/11/2023 7:42 PM CDT): >>ASSESSMENT AND PLAN FOR NEPHROSCLEROSIS WRITTEN ON 07/24/2017 12:13 PM BY RANDAL MONTERROSO MD Creatinine on recent labs has been stable. Continue to monitor periodically. Assessment & Plan (08/11/2023 7:42 PM CDT): >>ASSESSMENT AND PLAN FOR NEPHROSCLEROSIS WRITTEN ON 07/31/2018 12:01 PM BY RANDAL MONTERROSO MD His most recent labs show a normal creatinine and satisfactory estimated GFR. His renal function fluctuates somewhat depending on his hydration status and presence or absence of acute illness. Continue to monitor. Assessment & Plan (01/28/2023 11:59 AM BUCKLE STRINGER): Kidney function is stable. He has some associated mild anemia due to CKD. We are monitoring periodically. Lab Results Component Value Date GLUCOSE 144 01/21/2023 CALCIUM 9.5 01/21/2023 SODIUM 140 01/21/2023 POTASSIUM 4.8 01/21/2023 CO2 23 01/21/2023 CHLORIDE 105 01/21/2023 BUNSER 27 (H) 01/21/2023 CREATININE 1.56 (H) 01/21/2023 Lab Results Component Value Date WBC 5.4 01/21/2023 HGB 11.6 (L) 01/21/2023 HCT 36.8 (L) 01/21/2023 MCV 100.5 (H) 01/21/2023 LABPLAT 178 01/21/2023 Assessment & Plan (11/01/2022 4:46 PM CDT): He sees Dr. Morales, next visit in about one week. He was advised to strictly avoid nonsteroidal medications. Kidney function improved slightly on his most recent labs compared to previously. Lab Results Component Value Date GLUCOSE 120 10/23/2022 CALCIUM 9.2 10/23/2022 SODIUM 139 10/23/2022 POTASSIUM 4.7 10/23/2022 CO2 23 10/23/2022 CHLORIDE 104 10/23/2022 BUNSER 26 (H) 10/23/2022 CREATININE 1.51 (H) 10/23/2022 Assessment & Plan (07/25/2022 10:38 AM CDT): Kidney function improved with better attention to hydration. He has a consult pending with Dr. Morales but they want three years of labs, so we are faxing those over. Assessment & Plan (06/28/2022 3:24 PM CDT): Kidney function has worsened somewhat. We ordered a renal ultrasound to make sure there is no obstruction. We will arrange for referral to Nephrology for their opinion and advice. In the meantime, we advised strict avoidance of nonsteroidal medications. We will check a BMP in about one month. Lab Results Component Value Date GLUCOSE 116 06/20/2022 CALCIUM 9.6 06/20/2022 SODIUM 138 06/20/2022 POTASSIUM 4.9 06/20/2022 CO2 22 06/20/2022 CHLORIDE 103 06/20/2022 BUNSER 36 (H) 06/20/2022 CREATININE 1.97 (H) 06/20/2022 Assessment & Plan (12/21/2021 12:00 PM BUCKLE STRINGER): Creatinine is little higher on recent labs, but still more or less in line with past values. He has been using ibuprofen OTC instead Tylenol for his aches and pains. He also has tramadol. We advised him to discontinue any nonsteroidal use and stick with Tylenol and tramadol. We will check a follow-up BMP in three months. Lab Results Component Value Date GLUCOSE 125 12/14/2021 CALCIUM 9.5 12/14/2021 SODIUM 139 12/14/2021 POTASSIUM 4.7 12/14/2021 CO2 25 12/14/2021 CHLORIDE 105 12/14/2021 BUNSER 35 (H) 12/14/2021 CREATININE 1.82 (H) 12/14/2021 Assessment & Plan (06/21/2021 11:52 AM CDT): Kidney function is stable or even slightly improved. Follow-up in six months. Lab Results Component Value Date GLUCOSE 134 06/14/2021 CALCIUM 9.2 06/14/2021 SODIUM 141 06/14/2021 POTASSIUM 4.6 06/14/2021 CO2 25 06/14/2021 CHLORIDE 105 06/14/2021 BUNSER 26 (H) 06/14/2021 CREATININE 1.48 (H) 06/14/2021 Paroxysmal atrial fibrillation 01/26/2014 Overview (06/16/2024): Paroxysmal atrial fibrillation, status post pulmonary vein isolation, subsequently in sinus rhythm. Assessment & Plan (06/17/2024 6:02 PM CDT): Chronic, diagnosed about 10 years ago, status post pulmonary vein isolation with subsequent yazidi of sinus rhythm. Recommend continued clinical monitoring at office visits for possible recurrence. 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 Tramadol appears on his list as e xpired. He requested refills. Risks of medication discussed including possible increased risk of falling again. He should minimize the use as much as possible. Assessment & Plan (08/25/2020 11:58 AM CDT): He has lots of aches and pains, most of which are probably degenerative in nature. He does not currently take any immune modulator. We will monitor clinically. Assessment & Plan (02/25/2020 12:04 PM BUCKLE STRINGER): This seems to be in remission. No new complaints voiced at this time. Continue clinical monitoring. Consider follow-up with rheumatology as needed. Assessment & Plan (07/24/2017 12:15 PM CDT): In the past, he was on methotrexate but has not taken it for awhile. He has no current acutely inflamed joint. He does deal with chronic pain which is controlled with tramadol. We will continue same. Assessment & Plan (04/18/2017 1:49 PM BUCKLE STRINGER): He continues on tramadol for various aches and pains as well as for spinal stenosis. There is no acutely inflamed joint on exam today. In the past, he was seeing a oil field tester and even took methotrexate for awhile, but was not terribly compliant with the treatment or follow-up. He does have a moderate amount of pain, and sometimes uses more than the prescribed dose of tramadol. He then runs out. I asked him to observe the prescribed amount of tramadol which is for his safety as well as to help relieve symptoms. We will continue to monitor. Spinal stenosis 07/12/2013 Overview (05/17/2016): Spinal stenosis Assessment & Plan (05/10/2023 11:51 AM CDT): He notes numbness in his anterior thighs if he stands for too long. He then has to sit down to rest. He takes tramadol as needed for pain, primarily in the left ankle. Shoulders are also somewhat stiff. Follow-up in three months. Assessment & Plan (07/25/2022 10:38 AM CDT): We refilled his tramadol. He also follows up with pain management. Assessment & Plan (07/14/2022 12:52 PM CDT): We are referring him to pain management for their opinion and advice on his worsening chronic low back pain. Assessment & Plan (06/21/2021 11:51 AM CDT): He takes Tylenol and tramadol as needed. Continue same. Assessment & Plan (03/23/2021 11:30 AM BUCKLE STRINGER): He has tramadol for use as needed. We sent in a refill. Assessment & Plan (02/25/2020 12:03 PM BUCKLE STRINGER): He is doing reasonably well with tramadol. He also has periodic followups with pain management. Continue same. Assessment & Plan (08/20/2019 12:14 PM CDT): He has chronic aches and pains in various parts of his body including shoulder, neck, lower back. He still gets around pretty well. He does use tramadol to help him cope which we refilled today. Assessment & Plan (01/23/2018 12:39 PM BUCKLE STRINGER): He had a flare of back pain and right-sided sciatica about a month ago. He has been attending physical therapy and has had some improvement although he still deals with pain. He takes tramadol which helps. Assessment & Plan (07/24/2017 12:16 PM CDT): He had a slight flare of his back pain recently with right sciatica, but it seems to have improved, with resolution of the sciatica. It only lasted a few days. Continue to monitor. Hyperlipidemia associated with type 2 diabetes [place] 06/27/2013 Overview (05/18/2016): MIXED HYPERLIPIDEMIA Assessment & Plan (06/17/2024 6:00 PM CDT): Chronic, present for 10 or more years, see discussion elsewhere regarding recommendations. Assessment & Plan (03/16/2024 3:56 AM BUCKLE STRINGER): Chronic, present for 7-8 years, treated with evolocumab/Repatha injections every two weeks due to statin intolerance. Continue same. Assessment & Plan (12/13/2023 12:26 PM CDT): Chronic, present for more than 10 years, currently controlled with Repatha injections every two weeks. Continue same. We will monitor labs periodically. Assessment & Plan (08/12/2023 12:05 PM CDT): Chronic, fair control. He is on Repatha from his pouch making machine operator. We actually refilled it last time in January. Continue same. Assessment & Plan (05/11/2023 2:42 PM CDT): He did not tolerate statins. We refilled his Repatha pen a few months ago. Assessment & Plan (01/28/2023 11:57 AM BUCKLE STRINGER): He is on Repatha originally prescribed by Cardiology. We will check lipids before his next visit in six months. Assessment & Plan (11/01/2022 4:44 PM CDT): He is intolerant of statins. He gets Repatha injections every two weeks. Continue same. Assessment & Plan (06/28/2022 3:15 PM CDT): He is intolerant of statins and other oral therapy so he gets Repatha every two weeks. We will check follow-up lipids before his next visit in six months. Assessment & Plan (12/21/2021 12:01 PM BUCKLE STRINGER): He is on Repatha. He is intolerant of statins. Lipids look pretty good. Lab Results Component Value Date CHOL 133 12/14/2021 CHOL 137 04/21/2021 CHOL 132 08/18/2020 Lab Results Component Value Date HDL 44 12/14/2021 HDL 47 08/18/2020 HDL 47 08/06/2019 Lab Results Component Value Date LDLCALC 55 12/14/2021 LDLCALC 67 08/18/2020 LDLCALC 39 08/06/2019 LDL 159 (H) 07/12/2017 LDL 171 (H) 07/21/2015 LDL 179 (H) 11/24/2013 LDLDIRECT 40 (L) 04/21/2021 LDLDIRECT 42 04/17/2018 LDLDIRECT 205 (H) 07/02/2016 Lab Results Component Value Date TRIG 172 (H) 12/14/2021 TRIG 270 (H) 04/21/2021 TRIG 90 08/18/2020 Lab Results Component Value Date ALT 13 12/14/2021 AST 25 12/14/2021 ALKPHOS 72 12/14/2021 BILITOT 0.4 12/14/2021 Assessment & Plan (04/21/2021 9:56 AM BUCKLE STRINGER): He has dyslipidemia and is currently on Repatha which she gets every 3 months. He is statin intolerant due to myalgias. Will repeat lipid panel. Assessment & Plan (03/23/2021 11:31 AM BUCKLE STRINGER): He is intolerant of statins. His pouch making machine operator started him on Repatha. He will need a refill in about 4 months, and we will take care of it at that time. Assessment & Plan (08/25/2020 11:59 AM CDT): He is on Repatha, being intolerant of other agents. His recent lipid profile is pretty favorable. Continue same. Lab Results Component Value Date CHOL 132 08/18/2020 CHOL 109 08/06/2019 CHOL 166 07/29/2018 Lab Results Component Value Date HDL 47 08/18/2020 HDL 47 08/06/2019 HDL 42 07/29/2018 Lab Results Component Value Date LDLCALC 67 08/18/2020 LDLCALC 39 08/06/2019 LDLCALC 101 07/29/2018 LDL 159 (H) 07/12/2017 LDL 171 (H) 07/21/2015 LDL 179 (H) 11/24/2013 LDLDIRECT 42 04/17/2018 LDLDIRECT 205 (H) 07/02/2016 Lab Results Component Value Date TRIG 90 08/18/2020 TRIG 113 08/06/2019 TRIG 114 07/29/2018 Assessment & Plan (02/25/2020 12:04 PM BUCKLE STRINGER): He is intolerant of statins. He does get Repatha. Continue same. Assessment & Plan (08/20/2019 12:13 PM CDT): He is on Repatha with good control of his cholesterol. Zetia was stopped, so we took it off his list. Assessment & Plan (02/28/2019 3:00 PM BUCKLE STRINGER): As discussed elsewhere, he is intolerant of statins but is on alternative therapy. Continue same and check lipids periodically. Assessment & Plan (08/09/2018 4:44 PM CDT): He is intolerant of statins. He is on Zetia. In the recent past, he has been on Repatha, but his insurance did not approve a renewal. This is unfortunate because the LDL and cholesterol were markedly suppressed by the IV therapy, but have now rebounded a bit. His pouch making machine operator will be working on getting him the approval. Lab Results Component Value Date CHOL 166 07/29/2018 CHOL 112 06/26/2018 CHOL 97 02/18/2018 Lab Results Component Value Date HDL 42 07/29/2018 HDL 47 06/26/2018 HDL 44 02/18/2018 Lab Results Component Value Date LDLCALC 101 07/29/2018 LDLCALC 41 06/26/2018 LDLCALC 34 02/18/2018 LDL 159 (H) 07/12/2017 LDL 171 (H) 07/21/2015 LDL 179 (H) 11/24/2013 LDLDIRECT 42 04/17/2018 LDLDIRECT 205 (H) 07/02/2016 Lab Results Component Value Date TRIG 114 07/29/2018 TRIG 119 06/26/2018 TRIG 96 02/18/2018 Assessment & Plan (04/19/2018 9:07 AM BUCKLE STRINGER): Starting evolocumab but still on Zetia. Suggest checking lipids in 2 momths and then if satisfactory, stopping the ezetimab Assessment & Plan (12/02/2017 6:41 AM CDT): He needed a refill of medications which was sent. Assessment & Plan (08/22/2017 10:57 AM CDT): His lipids are still S elevated he is unable to take rosuvastatin presumably a higher dose of 24 hr starting at 5 mg daily if he has more symptoms of every other day or twice a week I will start Zetia 10 mg at this point if he is unable to take this and his lipids are elevated then repassed that would be necessary considering the severe disease of his coronary arteries. Assessment & Plan (08/09/2017 5:29 AM CDT): Unfortunately, he is intolerant of every cholesterol medicine that has been tried. He gets severe muscle aches and pains. He is trying to control this with diet. His daughter, who is a nurse, will check his medicine at home to see if anything is changed. Also follow up with Dr. Lawrence as planned. Assessment & Plan (04/18/2017 1:48 PM BUCKLE STRINGER): He is on moderately high-dose generic Lipitor which is appropriate for his underlying history of coronary artery disease. He seems to be tolerating it. Continue same. Stricture of esophagus 02/24/2013 Overview (02/25/2020): Details lacking. Benign prostatic hyperplasia 02/11/2013 Overview (05/17/2016): BPH Assessment & Plan (03/23/2021 11:34 AM BUCKLE STRINGER): He denies dysuria or hematuria, but does have frequency and urgency. We will monitor clinically. Consider additional testing and intervention as needed. Lab Results Component Value Date PSA 2.29 08/18/2020 PSA 1.98 08/06/2019 Assessment & Plan (08/20/2019 12:10 PM CDT): He is urinating reasonably well. He has trouble with a slow stream, but only gets up once or twice at night to urinate. He is not currently on any specific medication. We will monitor clinically. Assessment & Plan (02/28/2019 2:57 PM BUCKLE STRINGER): Prostate exam is fairly unremarkable today. The patient asked about PSA testing, and it is certainly an option. He says an uncle had prostate cancer that started very small but spread quickly. We will check a PSA before his next office visit in six months per his request. Neuropathy 02/12/2004 Overview (05/17/2016): Neuropathy Osteoarthritis 02/11/1999 Overview (05/17/2016): Osteoarthritis Assessment & Plan (07/25/2022 10:37 AM CDT): He knows to strictly avoid nonsteroidal medications because of his chronic kidney disease. We refilled tramadol which does provide him with about 4 hours of relief after taking a 100 mg dose. Assessment & Plan (07/14/2022 12:49 PM CDT): He has quite a bit of chronic pain, currently his back bothers him a great deal. He wakes up with pain in the morning. Sometimes after being up for awhile he has to go back to bed to alleviate his pain. He use tramadol for as needed. He allso takes Tylenol and BuSpar. He wondered if there was something stronger he could take. We declined to increase his pain medication right now. I think there would be safer routes rather than giving him something s tronger than tramadol. Nonsteroidals are contraindicated because of his chronic kidney disease. He says he does not take nonsteroidal medications. In the past, he saw Dr. Garcia in pain management. We will arrange for another follow-up. Assessment & Plan (03/23/2021 11:31 AM BUCKLE STRINGER): He has no new complaints. We refilled his tramadol. He also has Tylenol for use as needed. Assessment & Plan (09/05/2020 8:04 AM CDT): He has aches and pains up and down his back, in his neck with radiation to the shoulders, and in the left ankle. They seem to be pretty well controlled with tramadol used as needed. He also takes Tylenol. Continue same. Assessment & Plan (02/28/2019 3:02 PM BUCKLE STRINGER): He has lots of pain in multiple joints and in his back. He seems to be more or less at baseline. Symptoms are pretty well controlled with tramadol. He doesn't have any acute joint pain at this time, but he does have a painful callus underlying the left fifth metatarsophalangeal joint. 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 It is slightly turned inward. He probably needs a review of his current footwear as well as treatment of the callus. We will refer him back to his radio adjuster, Dr.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 USE Routine 05/07/2024 3:04 PM CDT INSERT PICC LINE Routine 05/07/2024 3:04 PM CDT POTASSIUM LEVEL Timed 05/07/2024 12:05 PM CDT POCT GLUCOSE DEVICE Routine 05/07/2024 11:19 AM CDT ECG 12-LEAD STAT 05/07/2024 8:56 AM CDT POTASSIUM LEVEL STAT 05/07/2024 8:48 AM CDT POCT GLUCOSE DEVICE Routine 05/07/2024 7 :51 AM CDT EGFR Routine 05/07/2024 2:59 AM CDT PHOSPHORUS Routine 05/07/2024 2:59 AM CDT BASIC METABOLIC PANEL Routine 05/07/2024 2:59 AM CDT CBC WITHOUT DIFFERENTIAL Routine 05/07/2024 2:59 AM CDT POCT GLUCOSE DEVICE Routine 05/07/2024 1 :40 AM CDT POCT GLUCOSE DEVICE Routine 05/06/2024 8 :41 PM CDT POCT GLUCOSE DEVICE Routine 05/06/2024 4 :28 PM CDT POCT GLUCOSE DEVICE Routine 05/06/2024 2 :29 PM CDT TISSUE AEROBIC AND ANAEROBIC CULTURE AND GRAM STAIN Routine 05/06/2024 1:12 PM CDT GRAM STAIN - CERNER GHADA Routine 05/06/2024 12:55 PM CDT AEROBIC AND ANAEROBIC CULTURE AND GRAM STAIN STAT 05/06/2024 12:55 PM CDT VT AN ELECTIVE ENDOTRACHEAL AIRWAY Routine 05/06/2024 12:30 PM CDT ARTHROPLASTY TOTAL KNEE 05/06/2024 11:47 AM CDT RIGHT periprosthetic infection POCT GLUCOSE DEVICE Routine 05/06/2024 11:27 AM CDT SURGICAL PATHOLOGY Routine 05/06/2024 9: 38 AM CDT Infection POCT GLUCOSE DEVICE Routine 05/06/2024 7 :49 AM CDT EGFR Routine 05/06/2024 5:50 AM CDT PHOSPHORUS Routine 05/06/2024 5:50 AM CDT BASIC METABOLIC PANEL Routine 05/06/2024 5:50 AM CDT CBC WITHOUT DIFFERENTIAL Routine 05/06/2024 5:50 AM CDT POCT GLUCOSE DEVICE Routine 05/06/2024 2 :17 AM CDT POCT GLUCOSE DEVICE Routine 05/05/2024 7 :48 PM CDT POCT GLUCOSE DEVICE Routine 05/05/2024 4 :38 PM CDT POCT GLUCOSE DEVICE Routine 05/05/2024 11:26 AM CDT POCT GLUCOSE DEVICE Routine 05/05/2024 8 :02 AM CDT EGFR Routine 05/05/2024 7:18 AM CDT PHOSPHORUS Routine 05/05/2024 7:18 AM CDT BASIC METABOLIC PANEL Routine 05/05/2024 7:18 AM CDT CBC WITHOUT DIFFERENTIAL Routine 05/05/2024 7:18 AM CDT POCT GLUCOSE DEVICE Routine 05/05/2024 2 :23 AM CDT POCT GLUCOSE DEVICE Routine 05/04/2024 8 :00 PM CDT POCT GLUCOSE DEVICE Routine 05/04/2024 4 :21 PM CDT POCT GLUCOSE DEVICE Routine 05/04/2024 11:14 AM CDT POCT GLUCOSE DEVICE Routine 05/04/2024 7 :28 AM CDT EGFR Routine 05/04/2024 5:17 AM CDT PHOSPHORUS Routine 05/04/2024 5:17 AM CDT BASIC METABOLIC PANEL Routine 05/04/2024 5:17 AM CDT CBC WITHOUT DIFFERENTIAL Routine 05/04/2024 5:17 AM CDT POCT GLUCOSE DEVICE Routine 05/03/2024 9 :26 PM CDT POCT GLUCOSE DEVICE Routine 05/03/2024 4:25 PM CDT POCT GLUCOSE DEVICE Routine 05/03/2024 11:30 AM CDT POCT GLUCOSE DEVICE Routine 05/03/2024 7 :42 AM CDT EGFR Routine 05/03/2024 4:42 AM CDT PHOSPHORUS Routine 05/03/2024 4:42 AM CDT BASIC METABOLIC PANEL Routine 05/03/2024 4:42 AM CDT CBC WITHOUT DIFFERENTIAL Routine 05/03/2024 4:42 AM CDT POCT GLUCOSE DEVICE Routine 05/03/2024 3 :22 AM CDT POCT GLUCOSE DEVICE Routine 05/02/2024 8 :23 PM CDT POCT GLUCOSE DEVICE Routine 05/02/2024 4 :29 PM CDT POCT GLUCOSE DEVICE Routine 05/02/2024 11:46 AM CDT POCT GLUCOSE DEVICE Routine 05/02/2024 7 :51 AM CDT EGFR Routine 05/02/2024 2:39 AM CDT PHOSPHORUS Routine 05/02/2024 2:39 AM CDT BASIC METABOLIC PANEL Routine 05/02/2024 2:39 AM CDT CBC WITHOUT DIFFERENTIAL Routine 05/02/2024 2:39 AM CDT POCT GLUCOSE DEVICE Routine 05/02/2024 2 :18 AM CDT POCT GLUCOSE DEVICE Routine 05/01/2024 8 :11 PM CDT POCT GLUCOSE DEVICE Routine 05/01/2024 4 :42 PM CDT POCT GLUCOSE DEVICE Routine 05/01/2024 11:35 AM CDT POCT GLUCOSE DEVICE Routine 05/01/2024 7 :57 AM CDT EGFR Routine 05/01/2024 3:57 AM CDT PHOSPHORUS Routine 05/01/2024 3:57 AM CDT BASIC METABOLIC PANEL Routine 05/01/2024 3:57 AM CDT CBC WITHOUT DIFFERENTIAL Routine 05/01/2024 3:57 AM CDT POCT GLUCOSE DEVICE Routine 05/01/2024 2 :32 AM CDT POCT GLUCOSE DEVICE Routine 04/30/2024 8 :37 PM CDT POCT GLUCOSE DEVICE Routine 04/30/2024 4 :29 PM CDT US GUIDED ARTHROCENTESIS MAJOR JOINT IP Routine 04/30/2024 2:02 PM CDT CELL DIFFERENTIAL, BODY FLUID Routine 04/30/2024 1:50 PM CDT CRYSTAL ANALYSIS, BODY FLUID Routine 04/30/2024 1:50 PM CDT CELL COUNT W/REFLEX DIFFERENTIAL, BODY FLUID Routine 04/30/2024 1:50 PM CDT AEROBIC AND ANAEROBIC CULTURE AND GRAM STAIN Routine 04/30/2024 1:50 PM CDT POCT GLUCOSE DEVICE Routine 04/30/2024 11:43 AM CDT POCT GLUCOSE DEVICE Routine 04/30/2024 7 :58 AM CDT EGFR Routine 04/30/2024 2:34 AM CDT PHOSPHORUS Routine 04/30/2024 2:34 AM CDT BASIC METABOLIC PANEL Routine 04/30/2024 2:34 AM CDT CBC WITHOUT DIFFERENTIAL Routine 04/30/2024 2:34 AM CDT POCT GLUCOSE DEVICE Routine 04/30/2024 2 :04 AM CDT POCT GLUCOSE DEVICE Routine 04/29/2024 8 :40 PM CDT ERYTHROCYTE SEDIMENTATION RATE Add-On 04/29/2024 4:53 PM CDT POCT GLUCOSE DEVICE Routine 04/29/2024 4 :47 PM CDT POCT GLUCOSE DEVICE Routine 04/29/2024 11:27 AM CDT POCT GLUCOSE DEVICE Routine 04/29/2024 7 :38 AM CDT CRP (ACUTE PHASE) Add-On 04/29/2024 3:0 7 AM CDT EGFR Routine 04/29/2024 3:07 AM CDT PHOSPHORUS Routine 04/29/2024 3:07 AM CDT BASIC METABOLIC PANEL Routine 04/29/2024 3:07 AM CDT CBC WITHOUT DIFFERENTIAL Routine 04/29/2024 3:07 AM CDT POCT GLUCOSE DEVICE Routine 04/29/2024 2 :07 AM CDT POCT GLUCOSE DEVICE Routine 04/28/2024 8 :28 PM CDT POCT GLUCOSE DEVICE Routine 04/28/2024 4 :36 PM CDT POCT GLUCOSE DEVICE Routine 04/28/2024 11:37 AM CDT POCT GLUCOSE DEVICE Routine 04/28/2024 7 :26 AM CDT EGFR Routine 04/28/2024 3:24 AM CDT PHOSPHORUS Routine 04/28/2024 3:24 AM CDT BASIC METABOLIC PANEL Routine 04/28/2024 3:24 AM CDT CBC WITHOUT DIFFERENTIAL Routine 04/28/2024 3:24 AM CDT MAGNESIUM Routine 04/28/2024 3:24 AM CDT POCT GLUCOSE DEVICE Routine 04/28/2024 2 :[address] CHEST PE W CONTRAST ED Urgent/IP Urgent 04/28/2024 12:38 AM CDT POCT GLUCOSE DEVICE Routine 04/27/2024 7 :21 PM CDT POCT GLUCOSE DEVICE Routine 04/27/2024 4 :31 PM CDT POCT GLUCOSE DEVICE Routine 04/27/2024 11:49 AM CDT US VEIN DUPLEX LOWER EXTREMITY BILATERAL COMPLETE IP Routine 04/27/2024 9:52 AM CDT LACTATE Routine 04/27/2024 8:41 AM CDT BLOOD CULTURE STAT 04/27/2024 8:41 AM CDT EGFR STAT 04/27/2024 8:35 AM CDT CRP (ACUTE PHASE) STAT 04/27/2024 8:3 5 AM CDT ERYTHROCYTE SEDIMENTATION RATE STAT 04/27/2024 8:35 AM CDT CBC WITHOUT DIFFERENTIAL STAT 04/27/2024 8:35 AM CDT BASIC METABOLIC PANEL STAT 04/27/2024 8:35 AM CDT MAGNESIUM STAT 04/27/2024 8:35 AM CDT PHOSPHORUS STAT 04/27/2024 8:35 AM CDT HEPATIC FUNCTION PANEL STAT 04/27/2024 8:35 AM CDT BLOOD CULTURE STAT 04/27/2024 8:35 AM CDT POCT GLUCOSE DEVICE Routine 04/27/2024 8 :[address] KNEE RIGHT W CONTRAST ED 04/26/2024 10:11 PM CDT URINALYSIS, MICROSCOPIC ONLY STAT 04/26/2024 8:49 PM CDT URINE CULTURE STAT 04/26/2024 8:49 PM CDT URINALYSIS AND REFLEX TO MICROSCOPIC AND CULTURE STAT 04/26/2024 8:49 PM CDT XR CHEST 1 VIEW ED 04/26/2024 7:27 PM CDT EGFR STAT 04/26/2024 6:29 PM CDT DIFFERENTIAL AUTO STAT 04/26/2024 6:2 9 PM CDT D-DIMER, QUANTITATIVE STAT 04/26/2024 6:29 PM CDT COMPREHENSIVE METABOLIC PANEL STAT 04/26/2024 6:29 PM CDT CBC WITH AUTO DIFFERENTIAL STAT 04/26/2024 6:29 PM CDT XR KNEE RIGHT 4 OR MORE VIEWS ED 04/26/2024 4:36 PM CDT HEMOGLOBIN A1C Routine 01/22/2024 2:15 PM [employer] Type 2 diabetes mellitus with stage 3a chronic kidney disease, unspecified whether intermodal 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 service insulin 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 73 m2 Comment: Interpretive Data Reference Interval Normal >/= 90 mL/min/1.73m2 Mildly decreased* 60 - 89 mL/min/1.73m2 Mildly to moderately decreased 45 - 59 mL/min/1.73m2 Moderately to severely decreased 30 - 44 mL/min/1.73m2 Severely decreased 15 - 29 mL/min/1.73m2 Kidney Failure < 15 mL/min/1.73m2 *Relative to young adult level Estimated glomerular filtration rate is determined by the 2020 CKD-EPI equation recommended by the National Kidney Foundation (A Unifying Approach to GFR Estimation: Recommendations of the NKF-ASK Task Force on Reassessing the Inclusion of Race in Diagnosing Kidney Disease, JASN 2020). The CKD-EPI equation should not be used for patients with unstable renal function and has not been validated in children and those over 70. Current interpretive data was last reviewed 2020. Testing performed by: [address] [address] Blood 06/17/2024 11:0 2 AM CDT 06/17/2024 6:38 PM CDT us Randal Monterroso MD LAB BLOOD ORDERABLES Final Re sult [address] [place] [address] * Differential, auto (06/17/2024 11:02 AM CDT) Neutrophil abs 2.39 1.50 - 6.50 K/cumm Comment:Testing performed by : [address] [address] Imm gran abs 0.01 0.00 - 0.10 K/cumm TOM Comment:Testing performed by : [address] [address] Lymphocyte abs 1.41 0.80 - 3.30 K/cumm [facility] Comment:Testing performed by : [address] [address] Monocyte abs 0.60 0.20 - 0.80 K/cumm TOM Comment:Testing performed by : [address] [address] Eosinophil abs 0.03 0.00 - 0.50 K/cumm TOM Comment:Testing performed by : [facility], [address], [place]., [address] Basophil abs 0.03 0.00 - 0.10 K/cumm CERNER CH Comment:Testing performed by : [address] [address] Neutrophil pct 53.5 % CERNER CH Comment: Interpretive Data Percent cell count reference ranges are not reported, since discordance with absolute values may lead to misinterpretation of CBC data. Current Interpretive Data was last revised on 2017. Testing performed by: [address] [address] Imm gran pct 0.2 % CERNER CH Comment: Interpretive Data Percent cell count reference ranges are not reported, since discordance with absolute values may lead to misinterpretation of CBC data. Current Interpretive Data was last revised on 2017. Testing performed by: [address] [address] Lymphocyte pct 31.5 % CERNER CH Comment: Interpretive Data Percent cell count reference ranges are not reported, since discordance with absolute values may lead to misinterpretation of CBC data. Current Interpretive Data was last revised on 2017. Testing performed by: [address] [address] Monocyte pct 13.4 % CERNER CH Comment: Interpretive Data Percent cell count reference ranges are not reported, since discordance with absolute values may lead to misinterpretation of CBC data. Current Interpretive Data was last revised on 2017. Testing performed by: [address] [address] Eosinophil pct 0.7 % CERNER CH Comment: Interpretive Data Percent cell count reference ranges are not reported, since discordance with absolute values may lead to misinterpretation of CBC data. Current Interpretive Data was last revised on 2017. Testing performed by: [address] [address] Basophil pct 0.7 % CERNER CH Comment: Interpretive Data Percent cell count reference ranges are not reported, since discordance with absolute values may lead to misinterpretation of CBC data. Current Interpretive Data was last revised on 2017. Testing performed by: [address], [address] Blood 06/17/2024 11:0 2 AM CDT 06/17/2024 6:22 PM CDT Randal Monterroso MD LAB BLOOD ORDERABLES Final Re sult Performing Organization Address [facility] de Phone Number TOM [id number] [facility] [place] [address] * (ABNORMAL) Thyroid Function [place] (06/17/2024 11:02 AM CDT) Pathologist [facility] [place] TSH 4.33(H) 0.30 - 4.20 mcIUnit/mL Comment:Testing performed by : [address] [address] Blood 06/17/2024 11:0 2 AM CDT 06/17/2024 6:22 PM CDT Randal Monterroso MD LAB BLOOD ORDERABLES Final Re sult Performing Organization Address [facility] de Phone Number TOM [address] [facility] [place] [address] * (ABNORMAL) CBC with auto differential (06/17/2024 11:02 AM CDT) [facility] WBC 4.47 3.80 - 9.90 K/cumm Comment:Testing performed by : [facility], [address] [place] [address]., [address] Hgb 9.9(L) 13.0 - 17.5 g/dL TOM Comment:Testing performed by : [facility], [address] [place] [address]., [address] Hct 32.0(L) 38.9 - 50.3 % TOM Comment:Testing performed by : [address] [address] Plt 263 150 - 400 K/cumm TMO Comment:Testing performed by : [address] [address] MPV 9.3 9.1 - 12.3 fL TOM Comment:Testing performed by : [address] [address] RBC 3.29(L) 4.30 - 5.80 M/cumm [facility] Comment:Testing performed by : [facility], [address] [place] [address], [address] MCV 97.3(H) 81.3 - 96.[address] [facility] Comment:Testing performed by : [facility], [address] [place] [address], [address] MCH 30.1 27.1 - 33.3 pg TOM Comment:Testing performed by : [facility], [address] [place] [address], [address] MCHC 30.9(L) 32.3 - 35.7 g/dL [facility] Comment:Testing performed by : [address], [address] RDW CV 17.7(H) 11.1 - 14.9 % TOM Comment:Testing performed by : [address], [address] RDW SD 63.2(H) 35.7 - 48.1 fL TOM Comment:Testing performed by : [facility], [address] [place] [address], [address] NRBC abs 0.00 0.00 - 0.01 K/cumm TOM Comment:Testing performed by : [address], [address] Blood 06/17/2024 11:0 2 AM CDT 06/17/2024 6:22 PM CDT Randal Monterroso MD LAB BLOOD ORDERABLES Final Re sult [address] [place] [address] * (ABNORMAL) CRP (acute phase) (06/17/2024 11:02 AM CDT) CRP 10.4(H) <=10.0 mg/L Comment:Testing performed by : [address], [address] Blood 06/17/2024 11:0 2 AM CDT 06/17/2024 6:22 PM CDT us Randal Monterroso MD LAB BLOOD ORDERABLES Final Re sult Performing Organization Address [facility] Co de Phone Number TOM [address] [facility] [place] [address] * T4, free (06/17/2024 11:02 AM CDT) Pathologist [facility] [place] Free T4 1.08 0.90 - 1.70 ng/dL Comment:Testing performed by : [facility], [address] [place] [address]., [address] Blood 06/17/2024 11:0 2 AM CDT 06/17/2024 6:38 PM CDT us Randal Monterroso MD LAB BLOOD ORDERABLES Final Re sult Performing Organization Address [facility] de Phone Number TOM [facility] [place] [address] * Vitamin B12 (06/17/2024 11:02 AM CDT) [facility] Vitamin B12 300 230 - 1,250 pg/mL Comment:Testing performed by : [facility], [address] [place] [address]., [address] Blood 06/17/2024 11:0 2 AM CDT 06/17/2024 6:22 PM CDT us Randal Monterroso MD LAB BLOOD ORDERABLES Final Re sult Performing Organization Address [facility] de Phone Number [place] [id number] [facility] [address] * (ABNORMAL) Comprehensive metabolic panel (06/17/2024 11:02 AM CDT) [facility] Sodium 140 135 - 145 mmol/L Comment:Testing performed by : [facility], [address] [place] [address]., [address] Potassium, pl 4.8 3.3 - 4.9 mmol/L CERNER CH Comment:Testing performed by : [facility], [address] [place] [address]., [address] Chloride 103 97 - 110 mmol/L CERNER CH Comment:Testing performed by : [address] [address] CO2 25 22 - 32 mmol/L CERN[facility] CH Comment:Testing performed by : [address] [address] Anion gap 12 2 - 15 mmol/L CERNER CH Comment:Testing performed by : [facility], [address] [place] [address]., [address] BUN 24 6 - 25 mg/dL CERNER CH Comment:Testing performed by : [address] [address] Creatinine 1.40(H) 0.80 - 1.30 mg/dL CERNER CH Comment:Testing performed by : [address], [address] Glucose 94 70 - 199 mg/dL CERNER CH Comment: Interpretive Data Fasting glucose >/= 126 mg/dl is diagnostic for diabetes. Fasting is defined as no caloric intake for at least 8 hours. Fasting glucose between 100 mg/dl to 125 mg/dl is diagnostic of prediabetes. In a patient with classic symptoms of hyperglycemia or hyperglycemic crisis, a random glucose >/= 200 mg/dl is diagnostic for diabetes. In the absence of unequivocal hyperglycemia, results should be confirmed by repeat testing. The classification and Diagnosis of Diabetes Diabetes Care 2021; 46: S19-S40. Current interpretive data was last revised 2022. Testing performed by: [address] [address] Calcium 9.6 8.5 - 10.3 mg/dL CERNER CH Comment:Testing performed by : [address] [address] Bilirubin, total 0.2 0.1 - 1.2 mg/dL CERNER CH Comment:Testing performed by : [address] [address] Protein, pl 7.2 6.5 - 8.5 g/dL CERNER CH Comment:Testing performed by : [address] [address] Albumin 3.4(L) 3.5 - 5.0 g/dL [facility] Comment:Testing performed by : [facility], [address] [place] [address], [address] Alk phos 121 40 - 130 Units/L [facility] Comment:Testing performed by : [address], [address] ALT 12 7 - 55 Units/L [facility] Comment:Testing performed by : [facility], [address] [place] [address], [address] AST 27 10 - 50 Units/L [facility] Comment:Testing performed by : [facility], [address] [place] [address], [address] Blood 06/17/2024 11:0 2 AM CDT 06/17/2024 6:22 PM CDT Randal Monterroso MD LAB BLOOD ORDERABLES Final Re sult Performing Organization Address [facility] de Phone Number [address] [place] [address] * CBC with auto differential (05/27/2024 2:26 PM CDT) Blood Historical Provider LAB BLOOD ORDERABLES Kailyn l Result Performing Organization Address [facility] Co de Phone Number EXTERNAL LAB * CRP (acute phase) (05/27/2024 2:26 PM CDT) Blood Historical Provider LAB BLOOD ORDERABLES Kailyn l Result Performing Organization Address [facility] Co de Phone Number EXTERNAL LAB * (ABNORMAL) eGFR (05/15/2024 5:49 PM CDT) [facility] eGFR 47(L) >=60 mL/min/1. 73 m2 Comment: Interpretive Data Reference Interval Normal >/= 90 mL/min/1.73m2 Mildly decreased* 60 - 89 mL/min/1.73m2 Mildly to moderately decreased 45 - 59 mL/min/1.73m2 Moderately to severely decreased 30 - 44 mL/min/1.73m2 Severely decreased 15 - 29 mL/min/1.73m2 Kidney Failure < 15 mL/min/1.73m2 *Relative to young adult level Estimated glomerular filtration rate is determined by the 2020 CKD-EPI equation recommended by the National Kidney Foundation (A Unifying Approach to GFR Estimation: Recommendations of the NKF-ASK Task Force on Reassessing the Inclusion of Race in Diagnosing Kidney Disease, JASN 202). The CKD-EPI equation should not be used for patients with unstable renal function and has not been validated in children and those over 70. Current interpretive data was last reviewed 2020. Blood 05/15/2024 5:49 PM CDT 05/15/2024 6:34 PM CDT Drew Mejia MD LAB BLOOD ORDERABLES Final Res ult [facility] [address] [address] [place] [address] * (ABNORMAL) Differential, auto (05/15/2024 5:49 PM CDT) Neutrophil abs 7.32(H) 1.50 - 6.50 K/cumm Imm gran abs 0.04 0.00 - 0.10 K/cumm [facility] Lymphocyte abs 1.20 0.80 - 3.30 K/cumm [facility] Monocyte abs 1.04(H) 0.20 - 0.80 K/cumm [facility] Eosinophil abs 0.00 0.00 - 0.50 K/cumm [facility] Basophil abs 0.02 0.00 - 0.10 K/cumm [facility] Neutrophil pct 76.1 % TOM Comment: Interpretive Data Percent cell count reference ranges are not reported, since discordance with absolute values may lead to misinterpretation of CBC data. Current Interpretive Data was last revised on 2017. Imm gran pct 0.4 % TOM Comment: Interpretive Data Percent cell count reference ranges are not reported, since discordance with absolute values may lead to misinterpretation of CBC data. Current Interpretive Data was last revised on 2017. Lymphocyte pct 12.5 % CERNER Comment: Interpretive Data Percent cell count reference ranges are not reported, since discordance with absolute values may lead to misinterpretation of CBC data. Current Interpretive Data was last revised on 2017. Monocyte pct 10.8 % CERNER CH Comment: Interpretive Data Percent cell count reference ranges are not reported, since discordance with absolute values may lead to misinterpretation of CBC data. Current Interpretive Data was last revised on 2017. Eosinophil pct 0.0 % CERNER CH Comment: Interpretive Data Percent cell count reference ranges are not reported, since discordance with absolute values may lead to misinterpretation of CBC data. Current Interpretive Data was last revised on 2017. Basophil pct 0.2 % CERNER CH Comment: Interpretive Data Percent cell count reference ranges are not reported, since discordance with absolute values may lead to misinterpretation of CBC data. Current Interpretive Data was last revised on 2017. Blood 05/15/2024 5:49 PM CDT 05/15/2024 6:34 PM CDT us Drew Mejia MD LAB BLOOD ORDERABLES Final Res ult [facility] [address] [address] [place] [address] * (ABNORMAL) Comprehensive metabolic panel, serum (05/15/2024 5:49 PM CDT) Sodium 137 135 - 145 mmol/L Potassium, sr 4.7 3.6 - 5.2 mmol/L [facility] Chloride 100 97 - 110 mmol/L [facility] CO2 24 22 - 32 mmol/L [facility] Anion gap 13 2 - 15 mmol/L [facility] BUN 36(H) 6 - 25 mg/dL [facility] Creatinine 1.46(H) 0.80 - 1.30 mg/dL [facility] Glucose 139 70 - 199 mg/dL [facility] Comment: Interpretive Data Fasting glucose >/= 126 mg/dl is diagnostic for diabetes. Fasting is defined as no caloric intake for at least 8 hours. Fasting glucose between 100 mg/dl to 125 mg/dl is diagnostic of prediabetes. In a patient with classic symptoms of hyperglycemia or hyperglycemic crisis, a random glucose >/= 200 mg/dl is diagnostic for diabetes. In the absence of unequivocal hyperglycemia, results should be confirmed by repeat testing. The classification and Diagnosis of Diabetes Diabetes Care 2021; 46: S19-S40. Current interpretive data was last revised 2022. Calcium 8.7 8.5 - 10.3 mg/dL [facility] Bilirubin, total 0.2 0.1 - 1.2 mg/dL [facility] Protein, sr 6.3 6.2 - 8.2 g/dL [facility] Albumin 2.8(L) 3.5 - 5.0 g/dL [facility] Alk phos 88 40 - 130 Units/L [facility] ALT 9 7 - 55 Units/L [facility] AST 13 10 - 50 Units/L [facility] Blood 05/15/2024 5:49 PM CDT 05/15/2024 6:34 PM CDT Drew Mejia MD LAB BLOOD ORDERABLES Final Res ult [facility] [address] [place] [address] * (ABNORMAL) CBC with auto differential (05/15/2024 5:49 PM CDT) WBC 9.62 3.80 - 9.90 K/cumm Hgb 8.4(L) 13.0 - 17.5 g/dL [facility] Hct 27.3(L) 38.9 - 50.3 % [facility] Plt 362 150 - 400 K/cumm [facility] MPV 9.6 9.1 - 12.3 fL [facility] RBC 2.84(L) 4.30 - 5.80 M/cumm [facility] MCV 96.1 81.3 - 96.4 fL [facility] MCH 29.6 27.1 - 33.3 pg [facility] MCHC 30.8(L) 32.3 - 35.7 g/dL [facility] RDW CV 16.4(H) 11.1 - 14.9 % [facility] RDW SD 58.2(H) 35.7 - 48.[address] [facility] NRBC abs 0.00 0.00 - 0.01 K/cumm [facility] Blood 05/15/2024 5:49 PM CDT 05/15/2024 6:34 PM CDT Drew Mejia MD LAB BLOOD ORDERABLES Final Res ult [facility] [address] [address] Department [place] [address] * POCT glucose (05/09/2024 11:31 AM CDT) Glucose, POC 155 70 - 199 mg/dL Blood 05/09/2024 11:3 1 AM CDT 05/09/2024 11:31 AM CDT Skyla Cardenas MD LAB POCT ORDERABLES - DEV ICE Final Result Performing Organization Address City/[facility] Co de Phone Number TOM ALBARRAN ([place]) 1 [facility] [place] [address] * POCT glucose (05/09/2024 7:30 AM CDT) Glucose, POC 111 70 - 199 mg/dL Blood 05/09/2024 7:30 AM CDT 05/09/2024 7:30 AM CDT Skyla Cardenas MD LAB POCT ORDERABLES - DEV ICE Final Result Performing Organization Address City/[facility] Co de Phone Number TOM ALBARRAN ([place]) 1 [facility] [place] [address] * eGFR (05/09/2024 5:46 AM CDT) eGFR 60 >=60 mL/min/1. 73 m2 Comment: Interpretive Data Reference Interval Normal >/= 90 mL/min/1.73m2 Mildly decreased* 60 - 89 mL/min/1.73m2 Mildly to moderately decreased 45 - 59 mL/min/1.73m2 Moderately to severely decreased 30 - 44 mL/min/1.73m2 Severely decreased 15 - 29 mL/min/1.73m2 Kidney Failure < 15 mL/min/1.73m2 *Relative to young adult level Estimated glomerular filtration rate is determined by the 2020 CKD-EPI equation recommended by the National Kidney Foundation (A Unifying Approach to GFR Estimation: Recommendations of the NKF-ASK Task Force on Reassessing the Inclusion of Race in Diagnosing Kidney Disease, JASN 2020). The CKD-EPI equation should not be used for patients with unstable renal function and has not been validated in children and those over 70. Current interpretive data was last reviewed 2020. Blood 05/09/2024 5:46 AM CDT 05/09/2024 6:04 AM CDT us Cailin SAVAGE LAB BLOOD ORDERABLES Final Result [facility] ([place]) 1 [facility] [place] [address] * (ABNORMAL) CBC without differential (05/09/2024 5:46 AM CDT) WBC 6.1 3.8 - 9.9 K/cumm Hgb 8.6(L) 13.0 - 17.5 g/dL [facility] ([place]) Hct 26.7(L) 38.9 - 50.3 % [facility] ([place]) Plt 414(H) 150 - 400 K/cumm [facility] ([place]) MPV 9.2 9.1 - 12.3 fL [facility] ([place]) RBC 2.88(L) 4.30 - 5.80 M/cumm [facility] ([place]) MCV 92.7 81.3 - 96.4 fL [facility] ([place]) MCH 29.9 27.1 - 33.3 pg [facility] ([place]) MCHC 32.2(L) 32.3 - 35.7 g/dL [facility] ([place]) RDW CV 16.5(H) 11.1 - 14.9 % [facility] ([place] RDW SD 56.8(H) 35.7 - 48.1 fL [facility] ([place]) NRBC abs 0.00 0.00 - 0.01 K/cumm [facility] ([place] Blood 05/09/2024 5:46 AM CDT 05/09/2024 6:04 AM CDT us Cailin Joshi PA LAB BLOOD ORDERABLES Final Result [facility] ([place]) 1 [facility] [place] [address] * Phosphorus (05/09/2024 5:46 AM CDT) [facility] Phosphorus, pl 3.5 2.3 - 4.5 mg/dL Blood 05/09/2024 5:46 AM CDT 05/09/2024 6:04 AM CDT us Joyce Guerrero NP LAB BLOOD ORDERABLE S Final Result [facility] ([place]) 1 [facility] [place] [address] * (ABNORMAL) Basic metabolic panel (05/09/2024 5:46 AM CDT) Sodium 139 135 - 145 mmol/L Potassium, pl 4.8 3.3 - 4.9 mmol/L [facility] ([place]) Chloride 104 97 - 110 mmol/L [facility] ([place]) CO2 26 22 - 32 mmol/L [facility] ([place]) Anion gap 9 2 - 15 mmol/L [facility] ([place]) BUN 30(H) 6 - 25 mg/dL [facility] ([place]) Creatinine 1.20 0.80 - 1.30 mg/dL [facility] ([place]) Glucose 115 70 - 199 mg/dL [facility] ([place]) Comment: Interpretive Data Fasting glucose >/= 126 mg/dl is diagnostic for diabetes. Fasting is defined as no caloric intake for at least 8 hours. Fasting glucose between 100 mg/dl to 125 mg/dl is diagnostic of prediabetes. In a patient with classic symptoms of hyperglycemia or hyperglycemic crisis, a random glucose >/= 200 mg/dl is diagnostic for diabetes. In the absence of unequivocal hyperglycemia, results should be confirmed by repeat testing. The classification and Diagnosis of Diabetes Diabetes Care 202; 46: S19-S40. Current interpretive data was last revised 2022. Calcium 8.6 8.5 - 10.3 mg/dL [facility] ([place]) Blood 05/09/2024 5:46 AM CDT 05/09/2024 6:04 AM CDT us Cailin SAVAGE LAB BLOOD ORDERABLES Final Result Performing Organization Address [facility]/ZIP Co de Phone Number ROJELIOLEILA ALBARRAN ([place]) 1 [facility] [place] [address] * POCT glucose (05/09/2024 2:40 AM CDT) [facility] Signature Glucose, POC 111 70 - 199 mg/dL Blood 05/09/2024 2:40 AM CDT 05/09/2024 2:40 AM CDT us Skyla Cardenas MD LAB POCT ORDERABLES - DEV ICE Final Result Performing Organization Address City/[facility]/ZIP Co de Phone Number ROJELIOLEILA ALBARRAN ([place]) 1 [facility] [place] [address] * Transfuse RBC (05/08/2024 9:55 PM CDT) Blood us Skyla Cardenas MD BLOOD TRANSFUSION ORDERAB LES Final Result Performing Organization Address [facility]/ZIP Co de Phone Number ROJELIOLEILA ALBARRAN ([place]) 1 [facility] [place] [address] * POCT glucose (05/08/2024 8:14 PM CDT) Glucose, POC 161 70 - 199 mg/dL Blood 05/08/2024 8:14 PM CDT 05/08/2024 8:14 PM CDT Skyla Cardenas MD LAB POCT ORDERABLES - DEV ICE Final Result TOM AL[facility]AN ([place]) 1 [facility] [place] [address] * POCT glucose (05/08/2024 4:45 PM CDT) Glucose, POC 159 70 - 199 mg/dL Blood 05/08/2024 4:45 PM CDT 05/08/2024 4:45 PM CDT us Skyla Cardenas MD LAB POCT ORDERABLES - DEV ICE Final Result Performing Organization Address [facility] de Phone Number TOM ALBARRAN ([place]) 1 [facility] [place] [address] * Prepare RBC: 1 Units (05/08/2024 4:27 PM CDT) Units requested 1 Units requested Ready [facility] ([place]) Unit Number [id number] Product code [id number] [facility] ([place]) Blood Expiration Date [id number] [facility] ([place]) Product Blood Type (for scanning) 7300 [facility] ([place]) Product Blood Type BPOS [facility] ([place]) Dispense Status DISPENSED [facility] ([place]) Blood 05/08/2024 4:27 PM CDT 05/08/2024 4:27 PM CDT Skyla Cardenas MD BLOOD BANK PRODUCT ORDERA BLES Final Result [facility]OM [facility] ([place]) 1 [facility] [place] [address] * ABO/Rh (05/08/2024 3:57 PM CDT) ABO/Rh B Positive Blood 05/08/2024 3:57 PM CDT 05/08/2024 4:26 PM CDT Narrative [facility] ([place] - 05/08/2024 5:06 PM CDT Has the patient had Daratumumab or Isatuximab in the past 6 months?->Unknown Skyla Cardenas MD LAB BLOOD BANK TEST ORDER FAYE Final Result [facility] ([place]) 1 [place] [address] * Crossmatch (05/08/2024 3:57 PM CDT) Crossmatch Compatible [facility]OM Baeza ([place]) Unit number for crossmatch [id number] [facility] ([place]) Blood 05/08/2024 3:57 PM CDT 05/08/2024 4:26 PM CDT Skyla Cardenas MD LAB BLOOD BANK TEST ORDER FAYE Final Result [facility] ([place]) 1 [facility] [place] [address] * Antibody screen (05/08/2024 3:57 PM CDT) Burak, indirect, Gel Interpretation Negative ABSC Blood 05/08/2024 3:57 PM CDT 05/08/2024 4:26 PM CDT Narrative [facility] ([place] - 05/08/2024 5:06 PM CDT Has the patient had Daratumumab or Isatuximab in the past 6 months?->Unknown Skyla Cardenas MD LAB BLOOD BANK TEST ORDER FAYE Final Result [facility]OM [place]) 1 [facility] [place] [address] * POCT glucose (05/08/2024 11:02 AM CDT) Glucose, POC 150 70 - 199 mg/dL Blood 05/08/2024 11:0 2 AM CDT 05/08/2024 11:02 AM CDT Skyla Cardenas MD LAB POCT ORDERABLES - DEV ICE Final Result Performing Organization Address [facility] Co de Phone Number TOM [place]) 1 [facility] [address] * POCT glucose (05/08/2024 7:58 AM CDT) [facility] Signature Glucose, POC 119 70 - 199 mg/dL Blood 05/08/2024 7:58 AM CDT 05/08/2024 7:58 AM CDT Skyla Cardenas MD LAB POCT ORDERABLES - DEV ICE Final Result Performing Organization Address City/[facility] Co de Phone Number TOM ALBARRAN ([place]) 1 [facility] [address] * (ABNORMAL) eGFR (05/08/2024 5:45 AM CDT) eGFR 59(L) >=60 mL/min/1. 73 m2 Comment: Interpretive Data Reference Interval Normal >/= 90 mL/min/1.73m2 Mildly decreased* 60 - 89 mL/min/1.73m2 Mildly to moderately decreased 45 - 59 mL/min/1.73m2 Moderately to severely decreased 30 - 44 mL/min/1.73m2 Severely decreased 15 - 29 mL/min/1.73m2 Kidney Failure < 15 mL/min/1.73m2 *Relative to young adult level Estimated glomerular filtration rate is determined by the 2020 CKD-EPI equation recommended by the National Kidney Foundation (A Unifying Approach to GFR Estimation: Recommendations of the NKF-ASK Task Force on Reassessing the Inclusion of Race in Diagnosing Kidney Disease, JASN 2020). The CKD-EPI equation should not be used for patients with unstable renal function and has not been validated in children and those over 70. Current interpretive data was last reviewed 2020. Blood 05/08/2024 5:45 AM CDT 05/08/2024 5:51 AM CDT us Cailin SAVAGE LAB BLOOD ORDERABLES Final Result Performing Organization Address City/[facility]/ZIP Co de Phone Number TOM [facility] ([place]) [address] [place] [address] [employer] [place] [address] * (ABNORMAL) Iron profile w/ IBC (05/08/2024 5:45 AM CDT) Iron 24(L) 50 - 150 mcg/dL TIBC 137(L) 250 - 400 mcg/dL [facility] Transferrin saturation 18(L) 20 - 50 % [facility] ([place] Blood 05/08/2024 5:45 AM CDT 05/08/2024 5:51 AM CDT us Skyla Cardenas MD LAB BLOOD ORDERABLES Kailyn l Result TOM [facility] ([place]) [address] [place] [address] [employer] [place] [address] * (ABNORMAL) CBC without differential (05/08/2024 5:45 AM CDT) WBC 5.2 3.8 - 9.9 K/cumm Hgb 7.2(L) 13.0 - 17.5 g/dL [facility] ([place]) Hct 22.5(L) 38.9 - 50.3 % [facility] ([place]) Plt 379 150 - 400 K/cumm [facility] ([place]) MPV 9.2 9.1 - 12.3 fL [facility] ([place]) RBC 2.40(L) 4.30 - 5.80 M/cumm [facility] ([place]) MCV 93.8 81.3 - 96.4 fL [facility] ([place]) MCH 30.0 27.1 - 33.3 pg [facility] ([place]) MCHC 32.0(L) 32.3 - 35.7 g/dL [facility] ([place]) RDW CV 16.7(H) 11.1 - 14.9 % [facility] ([place]) RDW SD 58.1(H) 35.7 - 48.1 fL [facility] ([place]) NRBC abs 0.00 0.00 - 0.01 K/cumm [facility] ([place] Blood 05/08/2024 5:45 AM CDT 05/08/2024 5:51 AM CDT us Cailin Joshi PA LAB BLOOD ORDERABLES Final Result [facility]ARR[facility] ([place]) 1 [facility] [place] [address] * Phosphorus (05/08/2024 5:45 AM CDT) Phosphorus, pl 3.3 2.3 - 4.5 mg/dL Blood 05/08/2024 5:45 AM CDT 05/08/2024 5:51 AM CDT Joyce Guerrero CLAY ARTIST LAB BLOOD ORDERABLE S Final Result TOM [facility]AN ([place]) 1 [facility] [place] [address] * Folate (05/08/2024 5:45 AM CDT) Folic acid 5.3 >=5.0 ng/mL Comment:Slightly Hemolyzed S pecimen. Results may be affected. Blood 05/08/2024 5:45 AM CDT 05/08/2024 5:51 AM CDT Skyla Cardenas MD LAB BLOOD ORDERABLES Kailyn l Result Performing Organization Address City/[facility]/ZIP Co de Phone Number TOM AL[facility]ARRAN ([place]) 1 [place] [address] * Vitamin B12 (05/08/2024 5:45 AM CDT) Vitamin B12 356 230 - 1,250 pg/mL Blood 05/08/2024 5:45 AM CDT 05/08/2024 5:51 AM CDT Skyla Cardenas MD LAB BLOOD ORDERABLES Kailyn l Result Performing Organization Address [facility] de Phone Number [facility] ([place] 1 [facility] [address] * (ABNORMAL) Basic metabolic panel (05/08/2024 5:45 AM CDT) Sodium 137 135 - 145 mmol/L Potassium, pl 4.5 3.3 - 4.9 mmol/L [facility] ([place]) Chloride 103 97 - 110 mmol/L [facility] ([place]) CO2 26 22 - 32 mmol/L [facility] ([place]) Anion gap 9 2 - 15 mmol/L [facility] ([place]) BUN 34(H) 6 - 25 mg/dL [facility] ([place]) Creatinine 1.21 0.80 - 1.30 mg/dL [facility] ([place]) Glucose 105 70 - 199 mg/dL [facility] ([place]) Comment: Interpretive Data Fasting glucose >/= 126 mg/dl is diagnostic for diabetes. Fasting is defined as no caloric intake for at least 8 hours. Fasting glucose between 100 mg/dl to 125 mg/dl is diagnostic of prediabetes. In a patient with classic symptoms of hyperglycemia or hyperglycemic crisis, a random glucose >/= 200 mg/dl is diagnostic for diabetes. In the absence of unequivocal hyperglycemia, results should be confirmed by repeat testing. The classification and Diagnosis of Diabetes Diabetes Care 2021; 46: S19-S40. Current interpretive data was last revised 2022. Calcium 8.4(L) 8.5 - 10.3 mg/dL [facility] ([place]) Blood 05/08/2024 5:45 AM CDT 05/08/2024 5:51 AM CDT us Cailin SAVAGE LAB BLOOD ORDERABLES Final Result [facility]OM [facility] ([place]) 1 [facility] [place] [address] * POCT glucose (05/08/2024 2:07 AM CDT) Glucose, POC 127 70 - 199 mg/dL Blood 05/08/2024 2:07 AM CDT 05/08/2024 2:07 AM CDT Skyla Cardenas MD LAB POCT ORDERABLES - DEV ICE Final Result Performing Organization Address City/[facility] Co de Phone Number [facility] ([place] 1 [facility] [address] * POCT glucose (05/07/2024 8:25 PM CDT) Glucose, POC 187 70 - 199 mg/dL Blood 05/07/2024 8:25 PM CDT 05/07/2024 8:25 PM CDT Skyla Cardenas MD LAB POCT ORDERABLES - DEV ICE Final Result Performing Organization Address City/[facility]/ZIP Co de Phone Number [facility]OM [facility] ([place]) 1 [facility] [place] [address] * POCT glucose (05/07/2024 4:37 PM CDT) Glucose, POC 128 70 - 199 mg/dL Blood 05/07/2024 4:37 PM CDT 05/07/2024 4:37 PM CDT Skyla Cardenas MD LAB POCT ORDERABLES - DEV ICE Final Result Performing Organization Address [facility]/ZIP Co de Phone Number TOM ALBARRAN ([place]) [address] [place] [address] [place] [address] * Potassium (05/07/2024 3:50 PM CDT) [facility] Potassium, pl 4.8 3.3 - 4.9 mmol/L Blood 05/07/2024 3:50 PM CDT 05/07/2024 4:02 PM CDT Narrative [facility] ([place]) - 05/07/2024 4:21 PM CDT Provider to discontinue after two normal results. Skyla Cardenas MD LAB BLOOD ORDERABLES Kailyn l Result Performing Organization Address [facility] Co de Phone Number TOM AL[facility]ARRAN ([place]) [address] [place] [address] [place] [address] * Line ok to use (05/07/2024 3:04 PM CDT) Narrative Marylu Bundy RN - 05/07/2024 3:04 PM CDT Marylu Bundy RN 05/07/2024 3:05 PM Single lumen PICC inserted in right upper arm without difficulty using sterile technique. PICC tip confirmed in CAJ by EKG. Flushes easily with good blood return. No bleeding or hematoma noted at this time. Pt tolerated procedure well. Lucio Stafford MD IV THERAPY ORDERABLE S Final Result * Insert PICC line (05/07/2024 3:04 PM CDT) Narrative Marylu Bundy RN - 05/07/2024 3:04 PM CDT Marylu Bundy RN 05/07/2024 3:05 PM Single lumen PICC inserted in right upper arm without difficulty using sterile technique. PICC tip confirmed in CAJ by EKG. Flushes easily with good blood return. No bleeding or hematoma noted at this time. Pt tolerated procedure well. Lucio Stafford MD IV THERAPY ORDERABLE S Final Result * (ABNORMAL) Potassium (05/07/2024 12:05 PM CDT) Potassium, pl 5.0(H) 3.3 - 4.9 mmol/L Blood 05/07/2024 12:0 5 PM CDT 05/07/2024 12:20 PM CDT Narrative TOM AL[facility]ARRAN ([place]) - 05/07/2024 12:39 PM CDT Provider to discontinue after two normal results. Skyla Cardenas MD LAB BLOOD ORDERABLES Kailyn l Result Performing Organization Address City/[facility]/ZIP Co de Phone Number TOM ALBARRAN ([place]) 1 [facility] [employer] [place] [address] * POCT glucose (05/07/2024 11:19 AM CDT) Glucose, POC 179 70 - 199 mg/dL Blood 05/07/2024 11:1 9 AM CDT 05/07/2024 11:19 AM CDT Skyla Cardenas MD LAB POCT ORDERABLES - DEV ICE Final Result TOM [facility] ([place]) 1 [facility] [place] [address] * ECG 12 lead (05/07/2024 8:56 AM CDT) 05/07/2024 8:56 AM CDT Narrative [facility] - 05/07/2024 10:59 AM CDT Vent Rate: 76 bpm RR Interval: 782 msec VT Interval: 181 msec QRS Duration: 101 msec QT Interval: 393 msec QTC Interval: 424 msec P-R-T [place]: 54 - -31 - 73 degrees IMPRESSION: SINUS RHYTHM WITH OCCASIONAL VENTRICULAR PREMATURE COMPLEXES WITH OCCASIONAL SUPRAVENTRICULAR PREMATURE COMPLEXES LEFT AXIS DEVIATION [QRS AXIS < -30] LOW QRS VOLTAGE IN PRECORDIAL LEADS [QRS DEFLECTION < 1.0 mV IN CHEST LEADS] NONSPECIFIC T-WAVE ABNORMALITY ABNORMAL ECG Compared to prior EKG, PVCs are new Electronically Signed By: Tariq Enamorado MD Skyla Cardenas MD ECG ORDERABLES Final Res ult [employer] [facility] * (ABNORMAL) Potassium (05/07/2024 8:48 AM CDT) Pathologist [facility] Potassium, pl 5.0(H) 3.3 - 4.9 mmol/L Blood 05/07/2024 8:48 AM CDT 05/07/2024 9:07 AM CDT Skyla Cardenas MD LAB BLOOD ORDERABLES Kailyn l Result Performing Organization Address [facility] Co de Phone Number [facility] ([place]) 1 [facility] [employer] [place] [address] * POCT glucose (05/07/2024 7:51 AM CDT) [facility] Glucose, POC 100 70 - 199 mg/dL Blood 05/07/2024 7:51 AM CDT 05/07/2024 7:51 AM CDT Skyla Cardenas MD LAB POCT ORDERABLES - DEV ICE Final Result Performing Organization Address [facility] Co de Phone Number [facility] ([place]) 1 [facility] [place] [address] * (ABNORMAL) eGFR (05/07/2024 2:59 AM CDT) eGFR 55(L) >=60 mL/min/1. 73 m2 Comment: Interpretive Data Reference Interval Normal >/= 90 mL/min/1.73m2 Mildly decreased* 60 - 89 mL/min/1.73m2 Mildly to moderately decreased 45 - 59 mL/min/1.73m2 Moderately to severely decreased 30 - 44 mL/min/1.73m2 Severely decreased 15 - 29 mL/min/1.73m2 Kidney Failure < 15 mL/min/1.73m2 *Relative to young adult level Estimated glomerular filtration rate is determined by the 2020 CKD-EPI equation recommended by the National Kidney Foundation (A Unifying Approach to GFR Estimation: Recommendations of the NKF-ASK Task Force on Reassessing the Inclusion of Race in Diagnosing Kidney Disease, JASN 2020). The CKD-EPI equation should not be used for patients with unstable renal function and has not been validated in children and those over 70. Current interpretive data was last reviewed 2020. Blood 05/07/2024 2:59 AM CDT 05/07/2024 3:11 AM CDT Joyce Guerrero CLAY ARTIST LAB BLOOD ORDERABLE S Final Result [facility] ([place]) 1 [facility] Department of Laboratories [place] [id number] * (ABNORMAL) CBC without differential (05/07/2024 2:59 AM CDT) WBC 7.4 3.8 - 9.9 K/cumm Hgb 8.3(L) 13.0 - 17.5 g/dL [facility] ([place]) Hct 26.3(L) 38.9 - 50.3 % [facility] ([place]) Plt 400 150 - 400 K/cumm [facility] ([place]) MPV 9.1 9.1 - 12.3 fL [facility] ([place]) RBC 2.80(L) 4.30 - 5.80 M/cumm [facility] ([place]) MCV 93.9 81.3 - 96.4 fL [facility] ([place]) MCH 29.6 27.1 - 33.3 pg [facility] ([place]) MCHC 31.6(L) 32.3 - 35.7 g/dL [facility] ([place]) RDW CV 16.8(H) 11.1 - 14.9 % [facility] ([place]) RDW SD 58.5(H) 35.7 - 48.1 fL [facility] ([place]) NRBC abs 0.00 0.00 - 0.01 K/cumm [facility] ([place] Blood 05/07/2024 2:59 AM CDT 05/07/2024 3:11 AM CDT Joyce Guerrero CLAY ARTIST LAB BLOOD ORDERABLE S Final Result [facility] ([place]) 1 [facility] [place] [address] * (ABNORMAL) Phosphorus (05/07/2024 2:59 AM CDT) Phosphorus, pl 4.9(H) 2.3 - 4.5 mg/dL Blood 05/07/2024 2:59 AM CDT 05/07/2024 3:11 AM CDT Joyce Guerrero CLAY ARTIST LAB BLOOD ORDERABLE S Final Result Performing Organization Address City/[facility]/ZIP Co de Phone Number TOM [facility] ([place]) 1 [facility] [place] [address] * (ABNORMAL) Basic metabolic panel (05/07/2024 2:59 AM CDT) Sodium 137 135 - 145 mmol/L Potassium, pl 5.8(H) 3.3 - 4.9 mmol/L [facility] ([place] Chloride 103 97 - 110 mmol/L [facility] ([place]) CO2 23 22 - 32 mmol/L [facility] Anion gap 11 2 - 15 mmol/L [facility] ([place] BUN 35(H) 6 - 25 mg/dL [facility] Creatinine 1.30 0.80 - 1.30 mg/dL [facility] ([place]) Glucose 136 70 - 199 mg/dL [facility] ([place]) Comment: Interpretive Data Fasting glucose >/= 126 mg/dl is diagnostic for diabetes. Fasting is defined as no caloric intake for at least 8 hours. Fasting glucose between 100 mg/dl to 125 mg/dl is diagnostic of prediabetes. In a patient with classic symptoms of hyperglycemia or hyperglycemic crisis, a random glucose >/= 200 mg/dl is diagnostic for diabetes. In the absence of unequivocal hyperglycemia, results should be confirmed by repeat testing. The classification and Diagnosis of Diabetes Diabetes Care 2021; 46: [id number]. Current interpretive data was last revised 2022. Calcium 8.3(L) 8.5 - 10.3 mg/dL [facility] ([place]) Blood 05/07/2024 2:59 AM CDT 05/07/2024 3:11 AM CDT Joyce Guerrero NP LAB BLOOD ORDERABLE S Final Result [facility] [employer] [place] [address] * POCT glucose (05/07/2024 1:40 AM CDT) Glucose, POC 166 70 - 199 mg/dL Blood 05/07/2024 1:40 AM CDT 05/07/2024 1:40 AM CDT us Skyla Cardenas MD LAB POCT ORDERABLES - DEV ICE Final Result [facility] [employer] [place] [address] * POCT glucose (05/06/2024 8:41 PM CDT) Glucose, POC 137 70 - 199 mg/dL Blood 05/06/2024 8:41 PM CDT 05/06/2024 8:41 PM CDT Skyla Cardenas MD LAB POCT ORDERABLES - DEV ICE Final Result Performing Organization Address City/[facility]/ZIP Co de Phone Number [facility] [place] 1 [place] [address] * POCT glucose (05/06/2024 4:28 PM CDT) Glucose, POC 169 70 - 199 mg/dL Blood 05/06/2024 4:28 PM CDT 05/06/2024 4:28 PM CDT Skyla Cardenas MD LAB POCT ORDERABLES - DEV ICE Final Result Performing Organization Address [facility] Co de Phone Number [facility] ([place]) 1 [place] [address] * POCT glucose (05/06/2024 2:29 PM CDT) Glucose, POC 113 70 - 199 mg/dL Blood 05/06/2024 2:29 PM CDT 05/06/2024 2:29 PM CDT Skyla Cardenas MD LAB POCT ORDERABLES - DEV ICE Final Result Performing Organization Address [facility]/ZIP Co de Phone Number [facility] ([place]) 1 [place] [address] * (ABNORMAL) Tissue aerobic and anaerobic culture and gram stain Tissue Knee, right (05/06/2024 1:12 PM CDT) Direct Specimen Exam Stain: Moderate polymorphonuclear leukocytes seen. No organisms seen. Comment:Testing performed by : [facility], [address] [facility], [place]., [address] Report Final Report: Rare Escherichia coli The susceptibility pattern of this Escherichia coli indicates the possible production of an extended spectrum beta lactamase (ESBL). Patients infected with ESBL-producing organisms require contact isolation precautions. For therapeutic options for this organism, please contact infectious diseases. (.) [facility] ([place]) Comment:Testing performed by : [facility], [address] [facility], [place]., [address] Organism ESCHERICHIA COLI ROJELIO [facility] ([place]) Tissue (Knee, right) 05/06/2024 1:12 PM CDT 05/06/2024 4:19 PM CDT Narrative [facility] ([place]) - 05/11/2024 11:27 AM CDT Right knee notch Testing performed by [facility] ([phone]) Specimens submitted from normally sterile body sites will have all bacterial morphotypes identified. Specimens that contain grossly mixed rui and/or are from body sites that are not normally sterile will be examined for Staphylococcus aureus, Pseudomonas aeruginosa, beta-hemolytic strep, vancomycin-resistant Enterococcus, Bacteroides, Parabacteroides, Clostridium perfringens and fungus. If any of these are isolated, the organism will be reported. Current interpretive data was last revised on 2019. Organism Antibiotic Method Susceptibility Escherichia coli Ampicillin INTERPRETATION Resistant Escherichia coli Cefazolin INTERPRETATION Resistant Escherichia coli Gentamicin INTERPRETATION Susceptible Escherichia coli Trimethoprim with Sulfamethoxazole INTERPRETATION Resistant Escherichia coli Meropenem INTERPRETATION Susceptible Escherichia coli Cefepime INTERPRETATION Susceptible Dose-dependent Escherichia coli Ciprofloxacin INTERPRETATION Resistant Escherichia coli Ceftazidime INTERPRETATION Susceptible Escherichia coli Ceftriaxone INTERPRETATION Resistant Escherichia coli Amikacin INTERPRETATION Susceptible Escherichia coli Aztreonam INTERPRETATION Intermediate Escherichia coli Imipenem INTERPRETATION Susceptible Escherichia coli Ertapenem INTERPRETATION Susceptible Escherichia coli Minocycline INTERPRETATION Susceptible Escherichia coli Tobramycin INTERPRETATION Susceptible Escherichia coli Levofloxacin INTERPRETATION Susceptible Escherichia coli Doxycycline INTERPRETATION Resistant Edward Fowler MD LAB MICROBIOLOGY - [facility] ORDERABLES Final Result [facility] ([place]) 1 [facility] [place] [address] * Gram stain Miscellaneous (05/06/2024 12:55 PM CDT) Direct Specimen Exam Stain: No organisms seen. Many polymorphonuclear leukocytes seen. Miscellaneous 05/06/2024 12: 55 PM CDT 05/06/2024 1:16 PM CDT us Skyla Cardenas MD LAB MICROBIOLOGY - GENERA L ORDERABLES Final Result [facility] ([place]) 1 [facility] [place] [address] * (ABNORMAL) Aerobic and anaerobic culture and gram stain Wound Knee, right (05/06/2024 12:55 PM CDT) Direct Specimen Exam Stain: Rare polymorphonuclear leukocytes seen. No organisms seen. Comment:Testing performed by : [facility], 1 [place]., [address] Report Final Report: Rare Escherichia coli For susceptibility results, refer to accession number [id number] on the Right Knee Tissue culture from 05/06/2024 (.) [facility] ([place]) Comment:Testing performed by : [facility], [address] [place] [address]., [id number] Organism ESCHERICHIA COLI ROJELIO [facility] ([place]) Wound (Knee, right) 05/06/2024 12:55 PM CDT 05/06/2024 4:20 PM CDT Narrative [facility] ([place]) - 05/11/2024 11:26 AM CDT Right knee fluid Specimen received on an ESwab. Testing performed by [facility] ([phone]) Specimens submitted from normally sterile body sites will have all bacterial morphotypes identified. Specimens that contain grossly mixed rui and/or are from body sites that are not normally sterile will be examined for Staphylococcus aureus, Pseudomonas aeruginosa, beta-hemolytic strep, vancomycin-resistant Enterococcus, Bacteroides, Parabacteroides, Clostridium perfringens and fungus. If any of these are isolated, the organism will be reported. Current interpretive data was last revised on 2019. us Edward Fowler MD LAB MICROBIOLOGY - GENER AL ORDERABLES Final Result [facility] ([place]) 1 [facility] [place] [address] * VT AN ELECTIVE ENDOTRACHEAL AIRWAY (05/06/2024 12:30 PM CDT) Narrative Raphael Ortega CRNA - 05/06/2024 12:30 PM CDT Raphael Ortega CRNA 05/06/2024 12:31 PM Airway Patient location: OR Urgency: elective Date/time: 05/06/2024 12:19 PM Indications for airway management: anesthesia and airway protection Difficult airway: no Staff: Placed by: FORESTRY SUPPORT SPECIALIST: Raphael Ortega CRNA Emergent airway documentation: Risks and benefits discussed: yes Consent obtained: yes Consent given by: patient Airway prep: Preoxygenated: yes Patient position: reverse Trendelenburg Mask difficulty assessment: 0 - not attempted Spontaneous ventilation during airway: absent Sedation level during airway: GA Final airway details: Final airway type: endotracheal airway Tube type: ETT ETT size: 7.5 mm Cuffed: yes Technique used for successful ETT placement: video laryngoscopy Devices/Methods used in placement: intubating stylet Insertion site: oral Blade type: Izabella Video blade type: Finnegan Blade size: 4 Cormack-Lehane (video): grade I - full view of glottis Cuff volume: 6 mL Cuff inflated with: air ETT to lips: 22 cm Placement verified by: auscultation Airway secured with: silk tape Number of attempts: 1 Planned trial extubation: yes Additional comments: Atraumatic intubation. Neck kept neutral. No GERD sx today. Dentition/lips/oral cavity same as preop us Tee Hill MD ANESTHESIA ORDERABLES Final Result * POCT glucose (05/06/2024 11:27 AM CDT) Glucose, POC 99 70 - 199 mg/dL Blood 05/06/2024 11:2 7 AM CDT 05/06/2024 11:27 AM CDT us Skyla Cardenas MD LAB POCT ORDERABLES - DEV ICE Final Result [facility] ([place]) 1 [facility] [place] [address] * Surgical pathology (05/06/2024 9:38 AM CDT) Tissue specimen (specimen) (Bone Fragment(s),) 05/06/2024 1:53 PM CDT Narrative [facility] - 05/12/2024 10:30 AM CDT EPIC results best viewed via link to PDF [facility] Department of Pathology [address] [place] [id number] Note to Patients: This report may contain a detailed description of human tissue sent by a health care provider to the laboratory for pathologic evaluation. The content of this report is essential for diagnosis and may provide important critical findings. This information may be unfamiliar to patients to review without a medical professional present. It is advised that the patient review this report in the presence of a health care provider who can answer questions and explain the details. Final Report Patient Name: VICKY YINGBibiana Address: [address] [place] [address] [place] [address] Gender: M : 1940 (Age: 83) Service: Medical Location: [facility] Hospital #: [id number] Patient Type: [facility] Taken: 05/06/2024 Received: 05/07/2024 Accessioned: 05/07/2024 Reported: 05/12/2024 Physician(s):Dr. Edward Fowler M.D. Diagnosis: A. Right knee, debridement- Benign fibrofatty connective tissue demonstrating mixed inflammation including foreign body giant cell reaction Clinically, right knee periprosthetic infection Samara Orosco M.D. Report Electronically Reviewed and Signed Out By Samara Orosco M.D. 05/12/2024 10:30:37 Specimen(s) Received: A: Tissue right knee Microscopic Description: Microscopic examination corroborates the diagnosis. Clinical History: Right periprosthetic infection. Right knee irrigation and debridement with poly exchange - Carol. Gross Description: Received in a single formalin filled container labeled with VICKY YING and tissue right knee . It is an approximate 25 cc aggregate of multiple dense khoury fibrous tissue fragments. Represented in 2 cassettes. Jesica Flores R.N., P.A./Samara Orosco M.D. REPORT IMAGES AND SCANNED DOCUMENTS, IF INCLUDED, ONLY VIEWABLE IN PDF VERSION OF REPORT The performance characteristics of some immunohistochemical stains, fluorescence in-situ hybridization tests and immunophenotyping by flow cytometry cited in this report (if any) were determined by the Surgical Pathology Department at [facility] as part of an ongoing billing and quality technician program and in compliance with federally mandated regulations drawn from the Clinical Laboratory Improvement Act of 1988 (CLIA '88). Some of these tests rely on the use of analyte specific reagents and are subject to specific labeling requirements by the US Food and Drug Administration. Such diagnostic tests may only be performed in a facility that is certified by the Department of Health and Human Services as a high complexity laboratory under CLIA '88. The FDA has determined that such clearance or approval is not necessary. This test is used for clinical purposes. It should not be regarded as investigational or for research. Nevertheless, federal rules concerning the medical use of analyte specific reagents require that the following disclaimer be attached to the report: This test was developed and its performance characteristics determined by the Surgical Pathology Department [facility]. It has not been cleared or approved by the U. S. Food and Drug Administration. Note for decalcified specimens: This assay has not been validated on decalcified tissues. Results should be interpreted with caution given the possibility of false negativity on decalcified specimens Edward Fowler MD LAB PATHOLOGY ORDERABLES Final Result [facility] 1 [place] [address] * POCT glucose (05/06/2024 7:49 AM CDT) Glucose, POC 105 70 - 199 mg/dL Blood 05/06/2024 7:49 AM CDT 05/06/2024 7:49 AM CDT Skyla Cardenas MD LAB POCT ORDERABLES - DEV ICE Final Result [facility] ([place]) 1 [facility] [place] [address] * (ABNORMAL) eGFR (05/06/2024 5:50 AM CDT) eGFR 55(L) >=60 mL/min/1. 73 m2 Comment: Interpretive Data Reference Interval Normal >/= 90 mL/min/1.73m2 Mildly decreased* 60 - 89 mL/min/1.73m2 Mildly to moderately decreased 45 - 59 mL/min/1.73m2 Moderately to severely decreased 30 - 44 mL/min/1.73m2 Severely decreased 15 - 29 mL/min/1.73m2 Kidney Failure < 15 mL/min/1.73m2 *Relative to young adult level Estimated glomerular filtration rate is determined by the 2020 CKD-EPI equation recommended by the National Kidney Foundation (A Unifying Approach to GFR Estimation: Recommendations of the NKF-ASK Task Force on Reassessing the Inclusion of Race in Diagnosing Kidney Disease, JASN 2020). The CKD-EPI equation should not be used for patients with unstable renal function and has not been validated in children and those over 70. Current interpretive data was last reviewed 2020. Blood 05/06/2024 5:50 AM CDT 05/06/2024 5:56 AM CDT us Joyce Guerrero NP LAB BLOOD ORDERABLE S Final Result [facility] ([place] 1 [facility] [place] [address] * (ABNORMAL) CBC without differential (05/06/2024 5:50 AM CDT) Pathologist [facility] [place] WBC 7.7 3.8 - 9.9 K/cumm Hgb 9.0(L) 13.0 - 17.5 g/dL [facility] ([place]) Hct 28.5(L) 38.9 - 50.3 % [facility] ([place]) Plt 368 150 - 400 K/cumm [facility] ([place]) MPV 9.1 9.1 - 12.3 fL [facility] RBC 3.02(L) 4.30 - 5.80 M/cumm [facility] ([place]) MCV 94.4 81.3 - 96.4 fL [facility] ([place]) MCH 29.8 27.1 - 33.3 pg [facility] ([place]) MCHC 31.6(L) 32.3 - 35.7 g/dL [facility] ([place]) RDW CV 17.1(H) 11.1 - 14.9 % [facility] ([place]) RDW SD 59.4(H) 35.7 - 48.1 fL [facility] ([place]) NRBC abs 0.00 0.00 - 0.01 K/cumm [facility] ([place]) Blood 05/06/2024 5:50 AM CDT 05/06/2024 5:56 AM CDT Joyce Guerrero NP LAB BLOOD ORDERABLE S Final Result Performing Organization Address City/[facility]/ZIP Co de Phone Number [facility] ([place]) 1 [facility] [place] [address] * Phosphorus (05/06/2024 5:50 AM CDT) Pathologist [facility] [place] Phosphorus, pl 3.5 2.3 - 4.5 mg/dL Blood 05/06/2024 5:50 AM CDT 05/06/2024 5:56 AM CDT Joyce Guerrero CLAY ARTIST LAB BLOOD ORDERABLE S Final Result [facility] ([place]) [facility] [place] [address] * (ABNORMAL) Basic metabolic panel (05/06/2024 5:50 AM CDT) Sodium 134(L) 135 - 145 mmol/L Potassium, pl 4.5 3.3 - 4.9 mmol/L [facility] ([place] Chloride 99 97 - 110 mmol/L [facility]) CO2 26 22 - 32 mmol/L [facility]) Anion gap 9 2 - 15 mmol/L [facility] ([place] BUN 32(H) 6 - 25 mg/dL [facility] ([place]) Creatinine 1.30 0.80 - 1.30 mg/dL [facility] ([place]) Glucose 105 70 - 199 mg/dL [facility] ([place]) Comment: Interpretive Data Fasting glucose >/= 126 mg/dl is diagnostic for diabetes. Fasting is defined as no caloric intake for at least 8 hours. Fasting glucose between 100 mg/dl to 125 mg/dl is diagnostic of prediabetes. In a patient with classic symptoms of hyperglycemia or hyperglycemic crisis, a random glucose >/= 200 mg/dl is diagnostic for diabetes. In the absence of unequivocal hyperglycemia, results should be confirmed by repeat testing. The classification and Diagnosis of Diabetes Diabetes Care 2021; 46: S19-S40. Current interpretive data was last revised 2022. Calcium 8.8 8.5 - 10.3 mg/dL [facility] ([place]) Blood 05/06/2024 5:50 AM CDT 05/06/2024 5:56 AM CDT us Joyce Guerrero NP LAB BLOOD ORDERABLE S Final Result [facility] ([place]) 1 [facility] [employer] [place] [address] * POCT glucose (05/06/2024 2:17 AM CDT) Glucose, POC 114 70 - 199 mg/dL Comment:Glu2: RN/ Notified Blood 05/06/2024 2:17 AM CDT 05/06/2024 2:17 AM CDT us Yaquelin Slaughter MD LAB POCT ORDERABLES - DEVICE F inal Result [facility] ([place] 1 [facility] [employer] [place] [address] * POCT glucose (05/05/2024 7:48 PM CDT) Glucose, POC 135 70 - 199 mg/dL Comment:Glu2: RN/MD Notified Blood 05/05/2024 7:48 PM CDT 05/05/2024 7:48 PM CDT us Yaquelin Slaughter MD LAB POCT ORDERABLES - DEVICE F inal Result Performing Organization Address City/[facility]/ZIP Co de Phone Number [facility] ([place] 1 [facility] [place] [address] * POCT glucose (05/05/2024 4:38 PM CDT) Glucose, POC 122 70 - 199 mg/dL Blood 05/05/2024 4:38 PM CDT 05/05/2024 4:38 PM CDT Yaquelin Slaughter MD LAB POCT ORDERABLES - DEVICE F inal Result Performing Organization Address [facility] Co de Phone Number [facility] ([place]) 1 [facility] [address] * POCT glucose (05/05/2024 11:26 AM CDT) Glucose, POC 126 70 - 199 mg/dL Blood 05/05/2024 11:2 6 AM CDT 05/05/2024 11:26 AM CDT us Yaquelin Slaughter MD LAB POCT ORDERABLES - DEVICE F inal Result Performing Organization Address City/[facility]/ZIP Co de Phone Number [facility] ([place]) 1 [facility] [place] [address] * POCT glucose (05/05/2024 8:02 AM CDT) Glucose, POC 109 70 - 199 mg/dL Blood 05/05/2024 8:02 AM CDT 05/05/2024 8:02 AM CDT us Yaquelin Slaughter MD LAB POCT ORDERABLES - DEVICE F inal Result Performing Organization Address City/[facility]/ZIP Co de Phone Number [facility] ([place]) 1 [facility] [place] [address] * eGFR (05/05/2024 7:18 AM CDT) Pathologist [facility] [place] eGFR 62 >=60 mL/min/1. 73 m2 Comment: Interpretive Data Reference Interval Normal >/= 90 mL/min/1.73m2 Mildly decreased* 60 - 89 mL/min/1.73m2 Mildly to moderately decreased 45 - 59 mL/min/1.73m2 Moderately to severely decreased 30 - 44 mL/min/1.73m2 Severely decreased 15 - 29 mL/min/1.73m2 Kidney Failure < 15 mL/min/1.73m2 *Relative to young adult level Estimated glomerular filtration rate is determined by the 2020 CKD-EPI equation recommended by the National Kidney Foundation (A Unifying Approach to GFR Estimation: Recommendations of the NKF-ASK Task Force on Reassessing the Inclusion of Race in Diagnosing Kidney Disease, JASN 2020). The CKD-EPI equation should not be used for patients with unstable renal function and has not been validated in children and those over 70. Current interpretive data was last reviewed 2020. Blood 05/05/2024 7:18 AM CDT 05/05/2024 7:32 AM CDT Joyce Guerrero NP LAB BLOOD ORDERABLE S Final Result [facility] ([place]) 1 [facility] [place] [address] * (ABNORMAL) CBC without differential (05/05/2024 7:18 AM CDT) [facility] WBC 8.7 3.8 - 9.9 K/cumm Hgb 9.5(L) 13.0 - 17.5 g/dL [facility] Hct 29.5(L) 38.9 - 50.3 % [facility] ([place]) Plt 379 150 - 400 K/cumm [facility] ([place]) MPV 9.4 9.1 - 12.3 fL [facility] ([place] RBC 3.15(L) 4.30 - 5.80 M/cumm [facility] ([place]) MCV 93.7 81.3 - 96.4 fL [facility] ([place]) MCH 30.2 27.1 - 33.3 pg [facility] ([place]) MCHC 32.2(L) 32.3 - 35.7 g/dL [facility] ([place]) RDW CV 17.2(H) 11.1 - 14.9 % [facility] ([place]) RDW SD 58.7(H) 35.7 - 48.1 fL [facility] ([place]) NRBC abs 0.00 0.00 - 0.01 K/cumm [facility] ([place] Blood 05/05/2024 7:18 AM CDT 05/05/2024 7:32 AM CDT Joyce Guerrero CLAY ARTIST LAB BLOOD ORDERABLE S Final Result [facility] ([place]) 1 [facility] [place] [address] * Phosphorus (05/05/2024 7:18 AM CDT) [facility] Phosphorus, pl 3.1 2.3 - 4.5 mg/dL Blood 05/05/2024 7:18 AM CDT 05/05/2024 7:32 AM CDT Joyce Shirleyshashi Guerrero CLAY ARTIST LAB BLOOD ORDERABLE S Final Result [facility] ([place]) 1 [facility] [place] [address] * (ABNORMAL) Basic metabolic panel (05/05/2024 7:18 AM CDT) Pathologist [facility] [place] Sodium 136 135 - 145 mmol/L Potassium, pl 4.7 3.3 - 4.9 mmol/L [facility] ([place]) Chloride 100 97 - 110 mmol/L [facility] ([place]) CO2 26 22 - 32 mmol/L [facility] ([place]) Anion gap 10 2 - 15 mmol/L [facility] ([place]) BUN 29(H) 6 - 25 mg/dL [facility] ([place]) Creatinine 1.16 0.80 - 1.30 mg/dL [facility] ([place]) Glucose 116 70 - 199 mg/dL [facility] ([place]) Comment: Interpretive Data Fasting glucose >/= 126 mg/dl is diagnostic for diabetes. Fasting is defined as no caloric intake for at least 8 hours. Fasting glucose between 100 mg/dl to 125 mg/dl is diagnostic of prediabetes. In a patient with classic symptoms of hyperglycemia or hyperglycemic crisis, a random glucose >/= 200 mg/dl is diagnostic for diabetes. In the absence of unequivocal hyperglycemia, results should be confirmed by repeat testing. The classification and Diagnosis of Diabetes Diabetes Care 2021; 46: S19-S40. Current interpretive data was last revised 2022. Calcium 9.1 8.5 - 10.3 mg/dL [facility] ([place]) Blood 05/05/2024 7:18 AM CDT 05/05/2024 7:32 AM CDT us Joyce Guerrero CLAY ARTIST LAB BLOOD ORDERABLE S Final Result Performing Organization Address City/[facility]/ZIP Co de Phone Number [facility] ([place] 1 [facility] [place] [address] * POCT glucose (05/05/2024 2:23 AM CDT) Glucose, POC 140 70 - 199 mg/dL Blood 05/05/2024 2:23 AM CDT 05/05/2024 2:23 AM CDT us Yaquelin Slaughter MD LAB POCT ORDERABLES - DEVICE F inal Result [facility] ([place] 1 [facility] [address] * (ABNORMAL) POCT glucose (05/04/2024 8:00 PM CDT) Glucose, POC 224(H) 70 - 199 mg/dL Blood 05/04/2024 8:00 PM CDT 05/04/2024 8:00 PM CDT Yaquelin Slaughter MD LAB POCT ORDERABLES - DEVICE F inal Result [facility] ([place]) 1 [place] [address] * POCT glucose (05/04/2024 4:21 PM CDT) Glucose, POC 153 70 - 199 mg/dL Blood 05/04/2024 4:21 PM CDT 05/04/2024 4:21 PM CDT Yaquelin Slaughter MD LAB POCT ORDERABLES - DEVICE F inal Result Performing Organization Address City/[facility]/ZIP Co de Phone Number [facility] ([place]) 1 [place] [address] * POCT glucose (05/04/2024 11:14 AM CDT) Glucose, POC 132 70 - 199 mg/dL Blood 05/04/2024 11:1 4 AM CDT 05/04/2024 11:14 AM CDT Yaquelin Slaughter MD LAB POCT ORDERABLES - DEVICE F inal Result [facility] ([place]) 1 [facility] [address] * POCT glucose (05/04/2024 7:28 AM CDT) Glucose, POC 119 70 - 199 mg/dL Blood 05/04/2024 7:28 AM CDT 05/04/2024 7:28 AM CDT us Yaquelin Slaughter MD LAB POCT ORDERABLES - DEVICE F inal Result Performing Organization Address City/[facility]/ZIP Co de Phone Number [facility] ([place]) 1 [facility] [place] [address] * eGFR (05/04/2024 5:17 AM CDT) eGFR 66 >=60 mL/min/1. 73 m2 Comment: Interpretive Data Reference Interval Normal >/= 90 mL/min/1.73m2 Mildly decreased* 60 - 89 mL/min/1.73m2 Mildly to moderately decreased 45 - 59 mL/min/1.73m2 Moderately to severely decreased 30 - 44 mL/min/1.73m2 Severely decreased 15 - 29 mL/min/1.73m2 Kidney Failure < 15 mL/min/1.73m2 *Relative to young adult level Estimated glomerular filtration rate is determined by the 2020 CKD-EPI equation recommended by the National Kidney Foundation (A Unifying Approach to GFR Estimation: Recommendations of the NKF-ASK Task Force on Reassessing the Inclusion of Race in Diagnosing Kidney Disease, JASN 2020). The CKD-EPI equation should not be used for patients with unstable renal function and has not been validated in children and those over 70. Current interpretive data was last reviewed 2020. Blood 05/04/2024 5:17 AM CDT 05/04/2024 5:27 AM CDT us Joyce Guerrero NP LAB BLOOD ORDERABLE S Final Result TOM ALBARRAN ([place]) 1 [facility] [place] [address] * (ABNORMAL) CBC without differential (05/04/2024 5:17 AM CDT) WBC 8.3 3.8 - 9.9 K/cumm Hgb 9.3(L) 13.0 - 17.5 g/dL [facility] ([place]) Hct 28.8(L) 38.9 - 50.3 % [facility] ([place]) Plt 355 150 - 400 K/cumm [facility] ([place]) MPV 9.4 9.1 - 12.3 fL [facility] ([place]) RBC 3.10(L) 4.30 - 5.80 M/cumm [facility] ([place]) MCV 92.9 81.3 - 96.4 fL [facility] ([place]) MCH 30.0 27.1 - 33.3 pg [facility] ([place]) MCHC 32.3 32.3 - 35.7 g/dL [facility] ([place]) RDW CV 17.3(H) 11.1 - 14.9 % [facility] ([place]) RDW SD 58.4(H) 35.7 - 48.1 fL [facility] ([place]) NRBC abs 0.00 0.00 - 0.01 K/cumm [facility] ([place]) Blood 05/04/2024 5:17 AM CDT 05/04/2024 5:27 AM CDT Joyce Guerrero CLAY ARTIST LAB BLOOD ORDERABLE S Final Result TOM ALBARRAN ([place]) 1 [facility] [place] [address] * Phosphorus (05/04/2024 5:17 AM CDT) Phosphorus, pl 3.4 2.3 - 4.5 mg/dL Blood 05/04/2024 5:17 AM CDT 05/04/2024 5:27 AM CDT Joyce Guerrero CLAY ARTIST LAB BLOOD ORDERABLE S Final Result TOM ALBARRAN ([place]) 1 [facility] [place] [address] * (ABNORMAL) Basic metabolic panel (05/04/2024 5:17 AM CDT) Sodium 135 135 - 145 mmol/L Potassium, pl 4.5 3.3 - 4.9 mmol/L [facility] ([place]) Chloride 100 97 - 110 mmol/L [facility] ([place]) CO2 24 22 - 32 mmol/L [facility] ([place]) Anion gap 11 2 - 15 mmol/L [facility] ([place]) BUN 26(H) 6 - 25 mg/dL [facility] ([place]) Creatinine 1.11 0.80 - 1.30 mg/dL [facility] ([place]) Glucose 140 70 - 199 mg/dL [facility] ([place]) Comment: Interpretive Data Fasting glucose >/= 126 mg/dl is diagnostic for diabetes. Fasting is defined as no caloric intake for at least 8 hours. Fasting glucose between 100 mg/dl to 125 mg/dl is diagnostic of prediabetes. In a patient with classic symptoms of hyperglycemia or hyperglycemic crisis, a random glucose >/= 200 mg/dl is diagnostic for diabetes. In the absence of unequivocal hyperglycemia, results should be confirmed by repeat testing. The classification and Diagnosis of Diabetes Diabetes Care 2021; 46: S19-S40. Current interpretive data was last revised 2022. Calcium 8.8 8.5 - 10.3 mg/dL [facility] ([place]) Blood 05/04/2024 5:17 AM CDT 05/04/2024 5:27 AM CDT Joyce Guerrero CLAY ARTIST LAB BLOOD ORDERABLE S Final Result [facility] ([place]) 1 [facility] Department of [facility] [place], [place] [id number] * POCT glucose (05/03/2024 9:26 PM CDT) Glucose, POC 173 70 - 199 mg/dL Blood 05/03/2024 9:26 PM CDT 05/03/2024 9:26 PM CDT Yaquelin Slaughter MD LAB POCT ORDERABLES - DEVICE F inal Result TOM ALBARRAN ([place]) 1 [facility] [address] * POCT glucose (05/03/2024 4:25 PM CDT) Glucose, POC 127 70 - 199 mg/dL Blood 05/03/2024 4:25 PM CDT 05/03/2024 4:25 PM CDT Yaquelin Slaughter MD LAB POCT ORDERABLES - DEVICE F inal Result Performing Organization Address City/[facility]/ZIP Co de Phone Number [facility] ([place]) 1 [facility] [address] * POCT glucose (05/03/2024 11:30 AM CDT) Glucose, POC 161 70 - 199 mg/dL Blood 05/03/2024 11:3 0 AM CDT 05/03/2024 11:30 AM CDT Yaquelin Slaughter MD LAB POCT ORDERABLES - DEVICE F inal Result Performing Organization Address City/[facility]/ZIP Co de Phone Number [facility] ([place]) 1 [facility] [address] * POCT glucose (05/03/2024 7:42 AM CDT) Glucose, POC 116 70 - 199 mg/dL Blood 05/03/2024 7:42 AM CDT 05/03/2024 7:42 AM CDT Yaquelin Slaughter MD LAB POCT ORDERABLES - DEVICE F inal Result [facility] ([place]) 1 [facility] [address] * eGFR (05/03/2024 4:42 AM CDT) eGFR 67 >=60 mL/min/1. 73 m2 Comment: Interpretive Data Reference Interval Normal >/= 90 mL/min/1.73m2 Mildly decreased* 60 - 89 mL/min/1.73m2 Mildly to moderately decreased 45 - 59 mL/min/1.73m2 Moderately to severely decreased 30 - 44 mL/min/1.73m2 Severely decreased 15 - 29 mL/min/1.73m2 Kidney Failure < 15 mL/min/1.73m2 *Relative to young adult level Estimated glomerular filtration rate is determined by the 2020 CKD-EPI equation recommended by the National Kidney Foundation (A Unifying Approach to GFR Estimation: Recommendations of the NKF-ASK Task Force on Reassessing the Inclusion of Race in Diagnosing Kidney Disease, JASN 2020). The CKD-EPI equation should not be used for patients with unstable renal function and has not been validated in children and those over 70. Current interpretive data was last reviewed 2020. Blood 05/03/2024 4:42 AM CDT 05/03/2024 4:49 AM CDT Joyce Guerrero NP LAB BLOOD ORDERABLE S Final Result [facility] ([place] 1 [facility] [place] [address] * (ABNORMAL) CBC without differential (05/03/2024 4:42 AM CDT) Pathologist [facility] [place] WBC 6.8 3.8 - 9.9 K/cumm Hgb 9.4(L) 13.0 - 17.5 g/dL [facility] ([place]) Hct 29.3(L) 38.9 - 50.3 % [facility] ([place]) Plt 297 150 - 400 K/cumm [facility] ([place]) MPV 9.6 9.1 - 12.3 fL [facility] ([place]) RBC 3.13(L) 4.30 - 5.80 M/cumm [facility] ([place]) MCV 93.6 81.3 - 96.4 fL [facility] ([place]) MCH 30.0 27.1 - 33.3 pg [facility] ([place]) MCHC 32.1(L) 32.3 - 35.7 g/dL [facility] ([place]) RDW CV 17.2(H) 11.1 - 14.9 % [facility] ([place]) RDW SD 59.0(H) 35.7 - 48.1 fL [facility] ([place]) NRBC abs 0.00 0.00 - 0.01 K/cumm [facility] ([place] Blood 05/03/2024 4:42 AM CDT 05/03/2024 4:49 AM CDT Joyce Guerrero CLAY ARTIST LAB BLOOD ORDERABLE S Final Result Performing Organization Address City/[facility]/ZIP Co de Phone Number [facility] ([place]) 1 [facility] [employer] [place] [address] * Phosphorus (05/03/2024 4:42 AM CDT) Phosphorus, pl 3.5 2.3 - 4.5 mg/dL Blood 05/03/2024 4:42 AM CDT 05/03/2024 4:49 AM CDT Joyce Guerrero CLAY ARTIST LAB BLOOD ORDERABLE S Final Result [facility] ([place]) 1 [facility] [place] [address] * (ABNORMAL) Basic metabolic panel (05/03/2024 4:42 AM CDT) Sodium 134(L) 135 - 145 mmol/L Potassium, pl 4.5 3.3 - 4.9 mmol/L [facility] ([place]) Chloride 101 97 - 110 mmol/L [facility] ([place]) CO2 24 22 - 32 mmol/L [facility] ([place]) Anion gap 9 2 - 15 mmol/L [facility] ([place]) BUN 27(H) 6 - 25 mg/dL [facility] ([place]) Creatinine 1.10 0.80 - 1.30 mg/dL [facility] ([place]) Glucose 123 70 - 199 mg/dL [facility] ([place]) Comment: Interpretive Data Fasting glucose >/= 126 mg/dl is diagnostic for diabetes. Fasting is defined as no caloric intake for at least 8 hours. Fasting glucose between 100 mg/dl to 125 mg/dl is diagnostic of prediabetes. In a patient with classic symptoms of hyperglycemia or hyperglycemic crisis, a random glucose >/= 200 mg/dl is diagnostic for diabetes. In the absence of unequivocal hyperglycemia, results should be confirmed by repeat testing. The classification and Diagnosis of Diabetes Diabetes Care 2021; 46: S19-S40. Current interpretive data was last revised 2022. Calcium 8.7 8.5 - 10.3 mg/dL [facility] ([place]) Blood 05/03/2024 4:42 AM CDT 05/03/2024 4:49 AM CDT us Joyce Guerrero NP LAB BLOOD ORDERABLE S Final Result [facility] ([place]) 1 [facility] [employer] [place] [address] * POCT glucose (05/03/2024 3:22 AM CDT) Glucose, POC 124 70 - 199 mg/dL Blood 05/03/2024 3:22 AM CDT 05/03/2024 3:22 AM CDT us Yaquelin Slaughter MD LAB POCT ORDERABLES - DEVICE F inal Result [facility] ([place]) 1 [facility] [employer] [place] [address] * POCT glucose (05/02/2024 8:23 PM CDT) Glucose, POC 144 70 - 199 mg/dL Blood 05/02/2024 8:23 PM CDT 05/02/2024 8:23 PM CDT us Yaquelin Slaughter MD LAB POCT ORDERABLES - DEVICE F inal Result Performing Organization Address [facility] Co de Phone Number [facility] ([place] 1 [facility] [address] * POCT glucose (05/02/2024 4:29 PM CDT) Glucose, POC 123 70 - 199 mg/dL Blood 05/02/2024 4:29 PM CDT 05/02/2024 4:29 PM CDT Yaquelin Slaughter MD LAB POCT ORDERABLES - DEVICE F inal Result Performing Organization Address [facility] Phone Number [facility] ([place] 1 [facility] [address] * POCT glucose (05/02/2024 11:46 AM CDT) Glucose, POC 169 70 - 199 mg/dL Blood 05/02/2024 11:4 6 AM CDT 05/02/2024 11:46 AM CDT Yaquelin Slaughter MD LAB POCT ORDERABLES - DEVICE F inal Result Performing Organization Address [facility] Co de Phone Number [facility] [place] 1 [facility] [address] * POCT glucose (05/02/2024 7:51 AM CDT) Glucose, POC 115 70 - 199 mg/dL Blood 05/02/2024 7:51 AM CDT 05/02/2024 7:51 AM CDT us Yaquelin Slaughter MD LAB POCT ORDERABLES - DEVICE F inal Result Performing Organization Address City/[facility]/ZIP Co de Phone Number TOM ALBARRAN ([place]) 1 [facility] [place] [address] * eGFR (05/02/2024 2:39 AM CDT) Pathologist [facility] [place] eGFR 64 >=60 mL/min/1. 73 m2 Comment: Interpretive Data Reference Interval Normal >/= 90 mL/min/1.73m2 Mildly decreased* 60 - 89 mL/min/1.73m2 Mildly to moderately decreased 45 - 59 mL/min/1.73m2 Moderately to severely decreased 30 - 44 mL/min/1.73m2 Severely decreased 15 - 29 mL/min/1.73m2 Kidney Failure < 15 mL/min/1.73m2 *Relative to young adult level Estimated glomerular filtration rate is determined by the 2020 CKD-EPI equation recommended by the National Kidney Foundation (A Unifying Approach to GFR Estimation: Recommendations of the NKF-ASK Task Force on Reassessing the Inclusion of Race in Diagnosing Kidney Disease, JASN 2020). The CKD-EPI equation should not be used for patients with unstable renal function and has not been validated in children and those over 70. Current interpretive data was last reviewed 2020. Blood 05/02/2024 2:39 AM CDT 05/02/2024 3:08 AM CDT Joyce Guerrero NP LAB BLOOD ORDERABLE S Final Result TOM ALBARRAN ([place]) 1 [facility] [place] [address] * (ABNORMAL) CBC without differential (05/02/2024 2:39 AM CDT) Pathologist [facility] [place] WBC 8.8 3.8 - 9.9 K/cumm Hgb 9.4(L) 13.0 - 17.5 g/dL [facility] ([place]) Hct 29.3(L) 38.9 - 50.3 % [facility] ([place]) Plt 263 150 - 400 K/cumm [facility] ([place]) MPV 9.8 9.1 - 12.3 fL [facility] ([place]) RBC 3.18(L) 4.30 - 5.80 M/cumm [facility] ([place]) MCV 92.1 81.3 - 96.4 fL [facility] ([place]) MCH 29.6 27.1 - 33.3 pg [facility] ([place]) MCHC 32.1(L) 32.3 - 35.7 g/dL [facility] ([place]) RDW CV 17.2(H) 11.1 - 14.9 % [facility] ([place]) RDW SD 58.2(H) 35.7 - 48.1 fL [facility] ([place]) NRBC abs 0.00 0.00 - 0.01 K/cumm [facility] ([place] Blood 05/02/2024 2:39 AM CDT 05/02/2024 3:11 AM CDT Joyce Guerrero CLAY ARTIST LAB BLOOD ORDERABLE S Final Result TOM ALB[facility]AN ([place]) 1 [facility] [place] [address] * Phosphorus (05/02/2024 2:39 AM CDT) Pathologist [facility] [place] Phosphorus, pl 3.2 2.3 - 4.5 mg/dL Blood 05/02/2024 2:39 AM CDT 05/02/2024 3:08 AM CDT Joyce Guerrero CLAY ARTIST LAB BLOOD ORDERABLE S Final Result TOM ALBARRAN ([place]) 1 [facility] [place] [address] * (ABNORMAL) Basic metabolic panel (05/02/2024 2:39 AM CDT) Sodium 135 135 - 145 mmol/L Potassium, pl 4.3 3.3 - 4.9 mmol/L [facility] ([place]) Chloride 101 97 - 110 mmol/L [facility] ([place]) CO2 23 22 - 32 mmol/L [facility] ([place]) Anion gap 11 2 - 15 mmol/L [facility] ([place]) BUN 28(H) 6 - 25 mg/dL [facility] ([place]) Creatinine 1.13 0.80 - 1.30 mg/dL [facility] ([place]) Glucose 134 70 - 199 mg/dL [facility] ([place]) Comment: Interpretive Data Fasting glucose >/= 126 mg/dl is diagnostic for diabetes. Fasting is defined as no caloric intake for at least 8 hours. Fasting glucose between 100 mg/dl to 125 mg/dl is diagnostic of prediabetes. In a patient with classic symptoms of hyperglycemia or hyperglycemic crisis, a random glucose >/= 200 mg/dl is diagnostic for diabetes. In the absence of unequivocal hyperglycemia, results should be confirmed by repeat testing. The classification and Diagnosis of Diabetes Diabetes Care 2021; 46: S19-S40. Current interpretive data was last revised 2022. Calcium 8.5 8.5 - 10.3 mg/dL [facility] ([place]) Blood 05/02/2024 2:39 AM CDT 05/02/2024 3:08 AM CDT us Joyce Guerrero NP LAB BLOOD ORDERABLE S Final Result Performing Organization Address City/[facility]/ZIP Co de Phone Number [facility] ([place]) 1 [facility] [place] [address] * POCT glucose (05/02/2024 2:18 AM CDT) Glucose, POC 153 70 - 199 mg/dL Blood 05/02/2024 2:18 AM CDT 05/02/2024 2:18 AM CDT us Yaquelin Slaughter MD LAB POCT ORDERABLES - DEVICE F inal Result [facility] 1 [facility] [place] [address] * POCT glucose (05/01/2024 8:11 PM CDT) Glucose, POC 187 70 - 199 mg/dL Blood 05/01/2024 8:11 PM CDT 05/01/2024 8:11 PM CDT Yaquelin Slaughter MD LAB POCT ORDERABLES - DEVICE F inal Result Performing Organization Address City/[facility]/ZIP Co de Phone Number [facility] ([place]) 1 [facility] [address] * POCT glucose (05/01/2024 4:42 PM CDT) Glucose, POC 151 70 - 199 mg/dL Blood 05/01/2024 4:42 PM CDT 05/01/2024 4:42 PM CDT Yaquelin Slaughter MD LAB POCT ORDERABLES - DEVICE F inal Result Performing Organization Address [facility] Co de Phone Number [facility] ([place]) 1 [facility] [address] * POCT glucose (05/01/2024 11:35 AM CDT) Glucose, POC 126 70 - 199 mg/dL Blood 05/01/2024 11:3 5 AM CDT 05/01/2024 11:35 AM CDT Yaquelin Slaughter MD LAB POCT ORDERABLES - DEVICE F inal Result Performing Organization Address City/[facility] Co de Phone Number [facility] ([place]) 1 [facility] [address] * POCT glucose (05/01/2024 7:57 AM CDT) Glucose, POC 139 70 - 199 mg/dL Blood 05/01/2024 7:57 AM CDT 05/01/2024 7:57 AM CDT us Yaquelin Slaughter MD LAB POCT ORDERABLES - DEVICE F inal Result TOM ALB[facility]AN ([place]) 1 [facility] [place] [address] * (ABNORMAL) eGFR (05/01/2024 3:57 AM CDT) eGFR 59(L) >=60 mL/min/1. 73 m2 Comment: Interpretive Data Reference Interval Normal >/= 90 mL/min/1.73m2 Mildly decreased* 60 - 89 mL/min/1.73m2 Mildly to moderately decreased 45 - 59 mL/min/1.73m2 Moderately to severely decreased 30 - 44 mL/min/1.73m2 Severely decreased 15 - 29 mL/min/1.73m2 Kidney Failure < 15 mL/min/1.73m2 *Relative to young adult level Estimated glomerular filtration rate is determined by the 2020 CKD-EPI equation recommended by the National Kidney Foundation (A Unifying Approach to GFR Estimation: Recommendations of the NKF-ASK Task Force on Reassessing the Inclusion of Race in Diagnosing Kidney Disease, JASN 2020). The CKD-EPI equation should not be used for patients with unstable renal function and has not been validated in children and those over 70. Current interpretive data was last reviewed 2020. Blood 05/01/2024 3:57 AM CDT 05/01/2024 4:04 AM CDT us Joyce Guerrero NP LAB BLOOD ORDERABLE S Final Result TOM AL[facility] ([place]) 1 [facility] [place] [address] * (ABNORMAL) CBC without differential (05/01/2024 3:57 AM CDT) WBC 8.6 3.8 - 9.9 K/cumm Hgb 9.3(L) 13.0 - 17.5 g/dL [facility] ([place]) Hct 28.6(L) 38.9 - 50.3 % [facility] ([place]) Plt 199 150 - 400 K/cumm [facility] ([place]) MPV 9.6 9.1 - 12.3 fL [facility] ([place]) RBC 3.11(L) 4.30 - 5.80 M/cumm [facility] ([place]) MCV 92.0 81.3 - 96.4 fL [facility] ([place]) MCH 29.9 27.1 - 33.3 pg [facility] ([place]) MCHC 32.5 32.3 - 35.7 g/dL [facility] ([place]) RDW CV 17.2(H) 11.1 - 14.9 % [facility] ([place]) RDW SD 58.5(H) 35.7 - 48.1 fL [facility] ([place]) NRBC abs 0.00 0.00 - 0.01 K/cumm [facility] ([place]) Blood 05/01/2024 3:57 AM CDT 05/01/2024 4:02 AM CDT Joyce Guerrero NP LAB BLOOD ORDERABLE S Final Result Performing Organization Address City/[facility]/ZIP Co de Phone Number TOM [facility] ([place]) 1 [facility] [address] * Phosphorus (05/01/2024 3:57 AM CDT) Pathologist [facility] [place] Phosphorus, pl 3.0 2.3 - 4.5 mg/dL Blood 05/01/2024 3:57 AM CDT 05/01/2024 4:04 AM CDT Joyce Guerrero CLAY ARTIST LAB BLOOD ORDERABLE S Final Result TOM AL[facility] ([place]) 1 [facility] [place] [address] * (ABNORMAL) Basic metabolic panel (05/01/2024 3:57 AM CDT) Sodium 134(L) 135 - 145 mmol/L Potassium, pl 4.3 3.3 - 4.9 mmol/L [facility] ([place]) Chloride 101 97 - 110 mmol/L [facility] ([place]) CO2 24 22 - 32 mmol/L [facility] ([place]) Anion gap 10 2 - 15 mmol/L [facility] ([place]) BUN 29(H) 6 - 25 mg/dL [facility] ([place]) Creatinine 1.22 0.80 - 1.30 mg/dL [facility] ([place]) Glucose 128 70 - 199 mg/dL [facility] ([place]) Comment: Interpretive Data Fasting glucose >/= 126 mg/dl is diagnostic for diabetes. Fasting is defined as no caloric intake for at least 8 hours. Fasting glucose between 100 mg/dl to 125 mg/dl is diagnostic of prediabetes. In a patient with classic symptoms of hyperglycemia or hyperglycemic crisis, a random glucose >/= 200 mg/dl is diagnostic for diabetes. In the absence of unequivocal hyperglycemia, results should be confirmed by repeat testing. The classification and Diagnosis of Diabetes Diabetes Care 2021; 46: S19-S40. Current interpretive data was last revised 2022. Calcium 8.7 8.5 - 10.3 mg/dL [facility] ([place]) Blood 05/01/2024 3:57 AM CDT 05/01/2024 4:04 AM CDT us Joyce Guerrero NP LAB BLOOD ORDERABLE S Final Result [facility] ([place]) 1 [facility] [place] [address] * POCT glucose (05/01/2024 2:32 AM CDT) Glucose, POC 131 70 - 199 mg/dL Blood 05/01/2024 2:32 AM CDT 05/01/2024 2:32 AM CDT us Yaquelin Slaughter MD LAB POCT ORDERABLES - DEVICE F inal Result Performing Organization Address [facility] Co de Phone Number [facility] ([place]) 1 [place] [address] * POCT glucose (04/30/2024 8:37 PM CDT) Glucose, POC 186 70 - 199 mg/dL Blood 04/30/2024 8:37 PM CDT 04/30/2024 8:37 PM CDT Yaquelin Slaughter MD LAB POCT ORDERABLES - DEVICE F inal Result Performing Organization Address [facility] Co de Phone Number [facility] ([place]) 1 [place] [address] * POCT glucose (04/30/2024 4:29 PM CDT) Glucose, POC 134 70 - 199 mg/dL Blood 04/30/2024 4:29 PM CDT 04/30/2024 4:29 PM CDT Yaquelin Slaughter MD LAB POCT ORDERABLES - DEVICE F inal Result Performing Organization Address [facility] Co de Phone Number [facility] ([place]) 1 [place] [address] * US Guided Aspiration or Injection of Major Joint (04/30/2024 2:02 PM CDT) Anatomical Region Laterality Modality Entire body N/A Ultrasound 04/30/2024 3:28 PM CDT Narrative 04/30/2024 3:30 PM CDT EXAM DESCRIPTION: US GUIDED ASPIRATION OR INJECTION OF MAJOR JOINT REASON FOR STUDY: rule out septic arthritis COMPARISON: 04/26/2024 TECHNIQUE/FINDINGS: The risks, potential benefits and alternatives were discussed with the patient's POA and written informed consent was obtained. Immediately prior to the procedure, the healthcare team performed a time out procedure and verbally confirmed that the patient, the planned procedure, the site and side were accurate. Preprocedure focused ultrasound scanning remonstrate the right suprapatellar joint effusion. Skin was prepped for the procedure using standard aseptic technique. Local anesthesia was achieved with injection of 5 cc of 1% lidocaine in the skin and superficial tissues. Using ultrasound guidance, the fluid collection was accessed with a 22 needle. Fluid was clear yellow . Approximately 45 mL of yellow cloudy fluid was removed. Samples were sent to microbiology. The needle was removed, and the access site was cleaned. A sterile bandage was applied. Postprocedure ultrasound scanning demonstrates interval decrease in size of the fluid collection. The patient tolerated the procedure with no complication and in stable condition. IMPRESSION: 1. Technically successful ultrasound-guided aspiration of the previously visualized right knee suprapatellar joint effusion with aspiration of 45 mL of yellow cloudy fluid. 2. Microbiology analysis is pending. THIS IS AN ELECTRONICALLY VERIFIED FINAL REPORT 04/30/2024 3:30 PM - Electronically signed by Nya Batista D.O. PS: PS Report ID: [id number] Reading Location: [id number] Procedure Note Nya Batista, DO - 04/30/2024 EXAM DESCRIPTION: US GUIDED ASPIRATION OR INJECTION OF MAJOR JOINT REASON FOR STUDY: rule out septic arthritis COMPARISON: 04/26/2024 TECHNIQUE/FINDINGS: The risks, potential benefits and alternatives were discussed with the patient's POA and written informed consent was obtained. Immediately priorto the procedure, the healthcare team performed a time out procedure andverbally confirmed that the patient, the planned procedure, the site and side were accurate. Preprocedure focused ultrasound scanning remonstrate the rightsuprapatellar joint effusion. Skin was prepped for the procedure using standard aseptic technique. Local anesthesia was achieved with injection of 5 cc of 1% lidocaine in the skin and superficial tissues. Using ultrasound guidance, the fluid collection was accessed with a 22needle. Fluid was clear yellow . Approximately 45 mL of yellow cloudy fluid was removed. Samples were sent to microbiology. The needle was removed, andthe access site was cleaned. A sterile bandage was applied. Postprocedure ultrasound scanning demonstrates interval decrease in size of the fluid collection. The patient tolerated the procedure with no complication and in stable condition. IMPRESSION: 1. Technically successful ultrasound-guided aspiration of the previously visualized right knee suprapatellar joint effusion with aspiration of 45mL of yellow cloudy fluid. 2. Microbiology analysis is pending. THIS IS AN ELECTRONICALLY VERIFIED FINAL REPORT 04/30/2024 3:30 PM - Electronically signed by Nya Batista D.O. PS: PS Report ID: [id number] Reading Location: [place] [id number] Joyce Guerrero CLAY ARTIST IMG US PROCEDURES F inal Result * (ABNORMAL) Crystal Analysis, Body Fluid (04/30/2024 1:50 PM CDT) Specimen type, fld Synovial Crystals Ca Pyrophosphate Crystals present(A) [facility] ([place]) Fluid 04/30/2024 1:50 PM CDT 04/30/2024 2:34 PM CDT Joyce Guerrero CLAY ARTIST LAB BODY FLUIDS AND STOOLS ORDERABLES Final Result [facility] ([place]) 1 [facility] Department of [place] [address] * Cell Differential, Body Fluid (04/30/2024 1:50 PM CDT) Total cells diffed 100 % Comment: Interpretive Data Unless otherwise specified, the reference range and other method performance specifications have not been established for CSF/Body Fluid tests. The test results should be integrated into the clinical context for interpretation. Current interpretive data was last revised on 2018. Neutrophils, fld 91 % [facility] ([place]) Lymphs, fld 1 % [facility] ([place]) Monocyte, fld 6 % [facility] ([place]) Macrophages, fld 2 % [facility] ([place]) Fluid 04/30/2024 1:50 PM CDT 04/30/2024 2:34 PM CDT Joyce Guerrero CLAY ARTIST LAB BODY FLUIDS AND STOOLS ORDERABLES Final Result Performing Organization Address [facility]/ZIP Co de Phone Number TOM ALBARRAN ([place]) 1 [facility] [place] [address] * Cell count w/rflx diff, body fluid (04/30/2024 1:50 PM CDT) Specimen type, fld Synovial Body site, fld Right knee [facility] ([place]) Color, fld Yellow [facility] ([place]) Clarity, fld Turbid [facility] ([place]) Nucleated cells, fld 38,250 /cumm [facility] ([place]) Comment: Interpretive Data Unless otherwise specified, the reference range and other method performance specifications have not been established for CSF/Body Fluid tests. The test results should be integrated into the clinical context for interpretation. Current interpretive data was last revised on 2018. RBC, fld 10,000 /cumm [facility] ([place]) Fluid 04/30/2024 1:50 PM CDT 04/30/2024 2:34 PM CDT Joyce Guerrero CLAY ARTIST LAB BODY FLUIDS AND STOOLS ORDERABLES Final Result Performing Organization Address City/[facility] Co de Phone Number TOM ALBARRAN ([place]) 1 [facility] [place] [address] * (ABNORMAL) Aerobic and anaerobic culture and gram stain Synovial fluid Knee, right (04/30/2024 1:50PM CDT) Direct Specimen Exam Stain: Cytospin Gram stain shows: Abundant polymorphonuclear leukocytes seen. No organisms seen. Comment:Testing performed by : [facility], [address] [facility], [place]., [address] Report Final Report: Few Escherichia coli The susceptibility pattern of this Escherichia coli indicates the possible production of an extended spectrum beta lactamase (ESBL). Patients infected with ESBL-producing organisms require contact isolation precautions. For therapeutic options for this organism, please contact infectious diseases. (.) TOM ALBARRAN ([place]) Comment:Testing performed by : [facility], [address] [place]., [address] Organism ESCHERICHIA COLI ROJELIO ALBARRAN ([place]) Synovial fluid (Knee, right) 04/30/2024 1:50 PM CDT 04/30/2024 6:07 PM CDT Narrative TOM ALBARRAN ([place]) - 05/06/2024 2:28 PM CDT Testing performed by [facility] ([phone]) Specimens submitted from normally sterile body sites will have all bacterial morphotypes identified. Specimens that contain grossly mixed rui and/or are from body sites that are not normally sterile will be examined for Staphylococcus aureus, Pseudomonas aeruginosa, beta-hemolytic strep, vancomycin-resistant Enterococcus, Bacteroides, Parabacteroides, Clostridium perfringens and fungus. If any of these are isolated, the organism will be reported. Current interpretive data was last revised on 2019. Organism Antibiotic Method Susceptibility Escherichia coli Ampicillin INTERPRETATION Resistant Escherichia coli Cefazolin INTERPRETATION Resistant Escherichia coli Gentamicin INTERPRETATION Susceptible Escherichia coli Trimethoprim with Sulfamethoxazole INTERPRETATION Resistant Escherichia coli Meropenem INTERPRETATION Susceptible Escherichia coli Cefepime INTERPRETATION Susceptible Dose-dependent Escherichia coli Ciprofloxacin INTERPRETATION Resistant Escherichia coli Ceftazidime INTERPRETATION Susceptible Escherichia coli Ceftriaxone INTERPRETATION Resistant Escherichia coli Amikacin INTERPRETATION Susceptible Escherichia coli Aztreonam INTERPRETATION Intermediate Escherichia coli Imipenem INTERPRETATION Susceptible Escherichia coli Ertapenem INTERPRETATION Susceptible Escherichia coli Minocycline INTERPRETATION Susceptible Escherichia coli Tobramycin INTERPRETATION Susceptible Escherichia coli Levofloxacin INTERPRETATION Intermediate Escherichia coli Doxycycline INTERPRETATION Resistant us Joyce Guerrero NP LAB MICROBIOLOGY - GENERAL ORDERABLES Final Result TOM ALBARRAN ([place]) 1 [facility] Department [place] [address] * POCT glucose (04/30/2024 11:43 AM CDT) Glucose, POC 154 70 - 199 mg/dL Comment:Glu2: RN/ Notified Blood 04/30/2024 11:4 3 AM CDT 04/30/2024 11:43 AM CDT Yaquelin Slaughter MD LAB POCT ORDERABLES - DEVICE F inal Result TOM ALBARRAN ([place]) 1 [facility] [address] * POCT glucose (04/30/2024 7:58 AM CDT) Glucose, POC 108 70 - 199 mg/dL Blood 04/30/2024 7:58 AM CDT 04/30/2024 7:58 AM CDT Yaquelin Slaughter MD LAB POCT ORDERABLES - DEVICE F inal Result Performing Organization Address City/[facility] Co de Phone Number TOM ALBARRAN ([place]) 1 [facility] [address] * (ABNORMAL) eGFR (04/30/2024 2:34 AM CDT) eGFR 52(L) >=60 mL/min/1. 73 m2 Comment: Interpretive Data Reference Interval Normal >/= 90 mL/min/1.73m2 Mildly decreased* 60 - 89 mL/min/1.73m2 Mildly to moderately decreased 45 - 59 mL/min/1.73m2 Moderately to severely decreased 30 - 44 mL/min/1.73m2 Severely decreased 15 - 29 mL/min/1.73m2 Kidney Failure < 15 mL/min/1.73m2 *Relative to young adult level Estimated glomerular filtration rate is determined by the 2020 CKD-EPI equation recommended by the National Kidney Foundation (A Unifying Approach to GFR Estimation: Recommendations of the NKF-ASK Task Force on Reassessing the Inclusion of Race in Diagnosing Kidney Disease, JASN 2020). The CKD-EPI equation should not be used for patients with unstable renal function and has not been validated in children and those over 70. Current interpretive data was last reviewed 2020. Blood 04/30/2024 2:34 AM CDT 04/30/2024 3:56 AM CDT Joyce Guerrero CLAY ARTIST LAB BLOOD ORDERABLE S Final Result [facility] ([place]) 1 [facility] [place] [address] * (ABNORMAL) CBC without differential (04/30/2024 2:34 AM CDT) WBC 9.6 3.8 - 9.9 K/cumm Hgb 9.0(L) 13.0 - 17.5 g/dL [facility] ([place]) Hct 27.9(L) 38.9 - 50.3 % [facility] ([place]) Plt 161 150 - 400 K/cumm [facility] ([place]) MPV 10.2 9.1 - 12.3 fL [facility] ([place]) RBC 2.98(L) 4.30 - 5.80 M/cumm [facility] ([place]) MCV 93.6 81.3 - 96.4 fL [facility] ([place]) MCH 30.2 27.1 - 33.3 pg [facility] ([place]) MCHC 32.3 32.3 - 35.7 g/dL [facility] ([place]) RDW CV 17.3(H) 11.1 - 14.9 % [facility] ([place]) RDW SD 60.2(H) 35.7 - 48.1 fL [facility] ([place]) NRBC abs 0.00 0.00 - 0.01 K/cumm [facility] ([place]) Blood 04/30/2024 2:34 AM CDT 04/30/2024 3:56 AM CDT Joyce Guerrero CLAY ARTIST LAB BLOOD ORDERABLE S Final Result [facility] ([place]) 1 [facility] [place] [address] * Phosphorus (04/30/2024 2:34 AM CDT) Phosphorus, pl 2.7 2.3 - 4.5 mg/dL Blood 04/30/2024 2:34 AM CDT 04/30/2024 3:56 AM CDT Joyce Watson Yolanda CLAY ARTIST LAB BLOOD ORDERABLE S Final Result [facility] ([place]) 1 [facility] [place] [address] * (ABNORMAL) Basic metabolic panel (04/30/2024 2:34 AM CDT) Sodium 134(L) 135 - 145 mmol/L Potassium, pl 4.2 3.3 - 4.9 mmol/L [facility] ([place]) Chloride 102 97 - 110 mmol/L [facility] ([place]) CO2 21(L) 22 - 32 mmol/L [facility] ([place]) Anion gap 11 2 - 15 mmol/L [facility] ([place]) BUN 29(H) 6 - 25 mg/dL [facility] ([place]) Creatinine 1.35(H) 0.80 - 1.30 mg/dL [facility] ([place]) Glucose 128 70 - 199 mg/dL [facility] ([place]) Comment: Interpretive Data Fasting glucose >/= 126 mg/dl is diagnostic for diabetes. Fasting is defined as no caloric intake for at least 8 hours. Fasting glucose between 100 mg/dl to 125 mg/dl is diagnostic of prediabetes. In a patient with classic symptoms of hyperglycemia or hyperglycemic crisis, a random glucose >/= 200 mg/dl is diagnostic for diabetes. In the absence of unequivocal hyperglycemia, results should be confirmed by repeat testing. The classification and Diagnosis of Diabetes Diabetes Care 2021; 46: S19-S40. Current interpretive data was last revised 2022. Calcium 8.4(L) 8.5 - 10.3 mg/dL [facility] ([place]) Blood 04/30/2024 2:34 AM CDT 04/30/2024 3:56 AM CDT us Joyce Guerrero CLAY ARTIST LAB BLOOD ORDERABLE S Final Result TOM ALBARRAN ([place]) 1 [facility] [address] * POCT glucose (04/30/2024 2:04 AM CDT) Glucose, POC 141 70 - 199 mg/dL Blood 04/30/2024 2:04 AM CDT 04/30/2024 2:04 AM CDT us Zaida Klein MD LAB POCT ORDERABLES - DEVICE Final Result Performing Organization Address City/[facility]/ZIP Co de Phone Number TOM ALBARRAN ([place]) 1 [facility] [address] * POCT glucose (04/29/2024 8:40 PM CDT) Glucose, POC 167 70 - 199 mg/dL Blood 04/29/2024 8:40 PM CDT 04/29/2024 8:40 PM CDT us Zaida Klein MD LAB POCT ORDERABLES - DEVICE Final Result Performing Organization Address City/[facility]/ZIP Co de Phone Number TOM ALBARRAN ([place]) 1 [facility] [address] * (ABNORMAL) Erythrocyte sedimentation rate (04/29/2024 4:53 PM CDT) Erythrocyte sedimentation rate 93(H) 1 - 20 mm/hr Blood 04/29/2024 4:53 PM CDT 04/29/2024 5:01 PM CDT us Joyce Guerrero CLAY ARTIST LAB BLOOD ORDERABLE S Final Result TOM ALBARRAN ([place]) 1 [facility] [place] [address] * POCT glucose (04/29/2024 4:47 PM CDT) Glucose, POC 160 70 - 199 mg/dL Blood 04/29/2024 4:47 PM CDT 04/29/2024 4:47 PM CDT Zaida Klein MD LAB POCT ORDERABLES - DEVICE Final Result TOM ALBARRAN ([place]) 1 [facility] [address] * POCT glucose (04/29/2024 11:27 AM CDT) Glucose, POC 176 70 - 199 mg/dL Blood 04/29/2024 11:2 7 AM CDT 04/29/2024 11:27 AM CDT us Zaida Klein MD LAB POCT ORDERABLES - DEVICE Final Result Performing Organization Address [facility]/ZIP Co de Phone Number [facility] ([place]) 1 [facility] [address] * POCT glucose (04/29/2024 7:38 AM CDT) Glucose, POC 129 70 - 199 mg/dL Blood 04/29/2024 7:38 AM CDT 04/29/2024 7:38 AM CDT Zaida Klein MD LAB POCT ORDERABLES - DEVICE Final Result Performing Organization Address City/[facility] Co de Phone Number TOM ALBARRAN ([place]) 1 [facility] [address] * (ABNORMAL) eGFR (04/29/2024 3:07 AM CDT) Pathologist [facility] [place] eGFR 52(L) >=60 mL/min/1. 73 m2 Comment: Interpretive Data Reference Interval Normal >/= 90 mL/min/1.73m2 Mildly decreased* 60 - 89 mL/min/1.73m2 Mildly to moderately decreased 45 - 59 mL/min/1.73m2 Moderately to severely decreased 30 - 44 mL/min/1.73m2 Severely decreased 15 - 29 mL/min/1.73m2 Kidney Failure < 15 mL/min/1.73m2 *Relative to young adult level Estimated glomerular filtration rate is determined by the 2020 CKD-EPI equation recommended by the National Kidney Foundation (A Unifying Approach to GFR Estimation: Recommendations of the NKF-ASK Task Force on Reassessing the Inclusion of Race in Diagnosing Kidney Disease, JASN 2020). The CKD-EPI equation should not be used for patients with unstable renal function and has not been validated in children and those over 70. Current interpretive data was last reviewed 2020. Blood 04/29/2024 3:07 AM CDT 04/29/2024 4:38 AM CDT Joyce Guerrero CLAY ARTIST LAB BLOOD ORDERABLE S Final Result [facility] ([place]) 1 [facility] Department [place] [address] * (ABNORMAL) CBC without differential (04/29/2024 3:07 AM CDT) WBC 10.6(H) 3.8 - 9.9 K/cumm Hgb 9.7(L) 13.0 - 17.5 g/dL [facility] ([place]) Hct 30.5(L) 38.9 - 50.3 % [facility] ([place]) Plt 151 150 - 400 K/cumm [facility] ([place]) MPV 10.3 9.1 - 12.3 fL [facility] ([place]) RBC 3.23(L) 4.30 - 5.80 M/cumm [facility] ([place]) MCV 94.4 81.3 - 96.4 fL [facility] ([place]) MCH 30.0 27.1 - 33.3 pg [facility] ([place]) MCHC 31.8(L) 32.3 - 35.7 g/dL [facility] ([place]) RDW CV 17.7(H) 11.1 - 14.9 % [facility] ([place]) RDW SD 63.1(H) 35.7 - 48.1 fL [facility] ([place]) NRBC abs 0.00 0.00 - 0.01 K/cumm [facility] ([place] Blood 04/29/2024 3:07 AM CDT 04/29/2024 3:28 AM CDT Joyce Guerrero CLAY ARTIST LAB BLOOD ORDERABLE S Final Result TOM ALBARRAN ([place]) 1 [facility] [address] * (ABNORMAL) CRP (acute phase) (04/29/2024 3:07 AM CDT) CRP 169.8(H) <=10.0 mg/L Blood 04/29/2024 3:07 AM CDT 04/29/2024 3:57 PM CDT Joyce Guerrero CLAY ARTIST LAB BLOOD ORDERABLE S Final Result Performing Organization Address City/[facility]/ZIP Co de Phone Number TOM ALBARRAN ([place]) 1 [facility] [address] * Phosphorus (04/29/2024 3:07 AM CDT) Phosphorus, pl 2.7 2.3 - 4.5 mg/dL Blood 04/29/2024 3:07 AM CDT 04/29/2024 3:28 AM CDT Joyce Dovere Yolanda CLAY ARTIST LAB BLOOD ORDERABLE S Final Result TOM ALBARRAN ([place]) 1 [facility] [address] * (ABNORMAL) Basic metabolic panel (04/29/2024 3:07 AM CDT) Sodium 135 135 - 145 mmol/L Potassium, pl 4.5 3.3 - 4.9 mmol/L [facility] ([place]) Chloride 103 97 - 110 mmol/L [facility] ([place]) CO2 21(L) 22 - 32 mmol/L [facility] ([place]) Anion gap 11 2 - 15 mmol/L [facility] ([place]) BUN 29(H) 6 - 25 mg/dL [facility] ([place]) Creatinine 1.36(H) 0.80 - 1.30 mg/dL [facility] ([place]) Glucose 125 70 - 199 mg/dL [facility] ([place]) Comment: Interpretive Data Fasting glucose >/= 126 mg/dl is diagnostic for diabetes. Fasting is defined as no caloric intake for at least 8 hours. Fasting glucose between 100 mg/dl to 125 mg/dl is diagnostic of prediabetes. In a patient with classic symptoms of hyperglycemia or hyperglycemic crisis, a random glucose >/= 200 mg/dl is diagnostic for diabetes. In the absence of unequivocal hyperglycemia, results should be confirmed by repeat testing. The classification and Diagnosis of Diabetes Diabetes Care 2021; 46: S19-S40. Current interpretive data was last revised 2022. Calcium 8.9 8.5 - 10.3 mg/dL [facility] ([place]) Blood 04/29/2024 3:07 AM CDT 04/29/2024 3:28 AM CDT us Joyce Guerrero NP LAB BLOOD ORDERABLE S Final Result [facility] ([place]) 1 [facility] [place] [address] * POCT glucose (04/29/2024 2:07 AM CDT) Glucose, POC 126 70 - 199 mg/dL Blood 04/29/2024 2:07 AM CDT 04/29/2024 2:07 AM CDT us Zaida Klein MD LAB POCT ORDERABLES - DEVICE Final Result TOM ALBARRAN ([place]) 1 [facility] [address] * POCT glucose (04/28/2024 8:28 PM CDT) Glucose, POC 155 70 - 199 mg/dL Blood 04/28/2024 8:28 PM CDT 04/28/2024 8:28 PM CDT us Zaida Klein MD LAB POCT ORDERABLES - DEVICE Final Result Performing Organization Address City/[facility]/ZIP Co de Phone Number TOM ALBARRAN ([place]) 1 [facility] [address] * POCT glucose (04/28/2024 4:36 PM CDT) Glucose, POC 129 70 - 199 mg/dL Blood 04/28/2024 4:36 PM CDT 04/28/2024 4:36 PM CDT us Zaida Klein MD LAB POCT ORDERABLES - DEVICE Final Result TOM ALBARRAN ([place]) 1 [facility] [address] * POCT glucose (04/28/2024 11:37 AM CDT) Glucose, POC 169 70 - 199 mg/dL Blood 04/28/2024 11:3 7 AM CDT 04/28/2024 11:37 AM CDT us Zaida Klein MD LAB POCT ORDERABLES - DEVICE Final Result TOM ALBARRAN ([place]) 1 [facility] [address] * POCT glucose (04/28/2024 7:26 AM CDT) Glucose, POC 112 70 - 199 mg/dL Blood 04/28/2024 7:26 AM CDT 04/28/2024 7:26 AM CDT us Zaida Klein MD LAB POCT ORDERABLES - DEVICE Final Result TOM ALBARRAN ([place]) 1 [facility] [place] [address] * (ABNORMAL) eGFR (04/28/2024 3:24 AM CDT) eGFR 47(L) >=60 mL/min/1. 73 m2 Comment: Interpretive Data Reference Interval Normal >/= 90 mL/min/1.73m2 Mildly decreased* 60 - 89 mL/min/1.73m2 Mildly to moderately decreased 45 - 59 mL/min/1.73m2 Moderately to severely decreased 30 - 44 mL/min/1.73m2 Severely decreased 15 - 29 mL/min/1.73m2 Kidney Failure < 15 mL/min/1.73m2 *Relative to young adult level Estimated glomerular filtration rate is determined by the 2020 CKD-EPI equation recommended by the National Kidney Foundation (A Unifying Approach to GFR Estimation: Recommendations of the NKF-ASK Task Force on Reassessing the Inclusion of Race in Diagnosing Kidney Disease, JASN 2020). The CKD-EPI equation should not be used for patients with unstable renal function and has not been validated in children and those over 70. Current interpretive data was last reviewed 2020. Blood 04/28/2024 3:24 AM CDT 04/28/2024 3:50 AM CDT us Joyce Guerrero NP LAB BLOOD ORDERABLE S Final Result [facility] ([place]) 1 [facility] [place] [address] * (ABNORMAL) CBC without differential (04/28/2024 3:24 AM CDT) WBC 15.3(H) 3.8 - 9.9 K/cumm Hgb 9.5(L) 13.0 - 17.5 g/dL [facility] ([place]) Hct 30.1(L) 38.9 - 50.3 % [facility] ([place]) Plt 127(L) 150 - 400 K/cumm [facility] ([place]) MPV 10.1 9.1 - 12.3 fL [facility] ([place]) RBC 3.14(L) 4.30 - 5.80 M/cumm [facility] ([place]) MCV 95.9 81.3 - 96.4 fL [facility] ([place]) MCH 30.3 27.1 - 33.3 pg [facility] ([place]) MCHC 31.6(L) 32.3 - 35.7 g/dL [facility] ([place]) RDW CV 18.1(H) 11.1 - 14.9 % [facility] ([place]) RDW SD 63.9(H) 35.7 - 48.1 fL [facility] ([place]) NRBC abs 0.00 0.00 - 0.01 K/cumm [facility] ([place]) Blood 04/28/2024 3:24 AM CDT 04/28/2024 3:50 AM CDT Joyce Guerrero NP LAB BLOOD ORDERABLE S Final Result [facility] ([place]) 1 [facility] [place] [address] * Phosphorus (04/28/2024 3:24 AM CDT) Phosphorus, pl 2.8 2.3 - 4.5 mg/dL Blood 04/28/2024 3:24 AM CDT 04/28/2024 3:50 AM CDT Joyce Guerrero NP LAB BLOOD ORDERABLE S Final Result TOM ALBARRAN ([place]) 1 [facility] [place] [address] * Magnesium (04/28/2024 3:24 AM CDT) Pathologist [facility] [place] Magnesium 1.9 1.4 - 2.5 mg/dL Blood 04/28/2024 3:24 AM CDT 04/28/2024 3:50 AM CDT us Rigo Orona MD LAB BLOOD ORDERABLES Final Resu lt Performing Organization Address City/[facility]/ZIP Co de Phone Number TOM ALBARRAN ([place]) 1 [facility] [place] [address] * (ABNORMAL) Basic metabolic panel (04/28/2024 3:24 AM CDT) Sodium 131(L) 135 - 145 mmol/L Potassium, pl 4.8 3.3 - 4.9 mmol/L [facility] ([place]) Chloride 100 97 - 110 mmol/L [facility] ([place]) CO2 20(L) 22 - 32 mmol/L [facility] ([place]) Anion gap 10 2 - 15 mmol/L [facility] ([place]) BUN 32(H) 6 - 25 mg/dL [facility] ([place]) Creatinine 1.48(H) 0.80 - 1.30 mg/dL [facility] ([place]) Glucose 129 70 - 199 mg/dL [facility] ([place]) Comment: Interpretive Data Fasting glucose >/= 126 mg/dl is diagnostic for diabetes. Fasting is defined as no caloric intake for at least 8 hours. Fasting glucose between 100 mg/dl to 125 mg/dl is diagnostic of prediabetes. In a patient with classic symptoms of hyperglycemia or hyperglycemic crisis, a random glucose >/= 200 mg/dl is diagnostic for diabetes. In the absence of unequivocal hyperglycemia, results should be confirmed by repeat testing. The classification and Diagnosis of Diabetes Diabetes Care 2021; 46: S19-S40. Current interpretive data was last revised 2022. Calcium 8.6 8.5 - 10.3 mg/dL TOM [facility] ([place]) Blood 04/28/2024 3:24 AM CDT 04/28/2024 3:50 AM CDT us Joyce Guerrero NP LAB BLOOD ORDERABLE S Final Result TOM ALBARRAN ([place]) 1 [facility] [place] [address] * POCT glucose (04/28/2024 2:15 AM CDT) [facility] Signature Glucose, POC 130 70 - 199 mg/dL Comment:Glu2: RN/ Notified Blood 04/28/2024 2:15 AM CDT 04/28/2024 2:15 AM CDT Zaida Klein MD LAB POCT ORDERABLES - DEVICE Final Result TOM ALBARRAN ([place]) 1 [facility] [place] [address] * CT Chest PE (CTA) W Contrast (04/28/2024 12:38 AM CDT) Anatomical Region Laterality Modality Body N/A Computed Tomogra phy 04/28/2024 12:4 5 AM CDT Narrative 04/28/2024 12:51 AM CDT EXAM DESCRIPTION: CT CHEST PE (CTA) W CONTRAST REASON FOR STUDY: Pulmonary embolism (PE) suspected, low to intermediate prob, positive D-dimer Patient hospitalized for knee pain, denied shortness of breath, chest pain or any chest complaints at this time. Elevated d dimer 04/26 TECHNIQUE: CT angiogram of the chest performed with intravenous contrast using helical scanning technique with dynamic intravenous contrast injection. Reconstructed coronal and sagittal MPR images reviewed. All images stored on PACS. 3D MIP images rendered on scanning unit and reviewed at time of interpretation. Automated exposure control was used as a dose optimization technique for this examination. CONTRAST TYPE/DOSE: 100mL of IOVERSOL 350 MG IODINE/ML INTRAVENOUS SYRINGE injected via intravenous COMPARISON: 02/10/2024 FINDINGS: VASCULATURE: No identified pulmonary emboli. LUNGS: No nodules or masses. No pneumonia. PLEURA: No effusion. No pneumothorax. MEDIASTINUM/MARISELA: No identified masses or abnormal nodes. HEART: Heart size is normal with no pericardial effusion. Coronary artery calcification. Median sternotomy. AXILLA: No adenopathy. CHEST WALL: No masses. No subcutaneous air. Bilateral gynecomastia. HARDWARE/LINES/TUBES: None. UPPER ABDOMEN: Stable indeterminate 2.1 cm cystic lesion within the pancreatic head. Consider characterization with nonemergent pancreatic MRI with contrast.. MUSCULOSKELETAL: No significant abnormality. OTHER: No significant abnormality. IMPRESSION: No CT evidence for pulmonary embolus. Coronary artery calcification. Stable indeterminate 2.1 cm cystic lesion within the pancreatic head compared with 02/10/2024. Consider characterization with nonemergent pancreatic MRI with contrast. THIS IS AN ELECTRONICALLY VERIFIED FINAL REPORT 04/28/2024 12:51 AM - Electronically signed by Tesfaye Rubalcava M.D. KT: LORRAINE Report ID: [id number] Reading Location: [place] [address] Procedure Note Tesfaye Rubalcava MD - 04/28/2024 EXAM DESCRIPTION: CT CHEST PE (CTA) W CONTRAST REASON FOR STUDY: Pulmonary embolism (PE) suspected, low to intermediate prob, positive D-dimer Patient hospitalized for knee pain, denied shortness of breath, chest painor any chest complaints at this time. Elevated d dimer 04/26 TECHNIQUE: CT angiogram of the chest performed with intravenous contrastusing helical scanning technique with dynamic intravenous contrast injection. Reconstructed coronal and sagittal MPR images reviewed. All images storedon PACS. 3D MIP images rendered on scanning unit and reviewed at time of interpretation. Automated exposure control was used as a doseoptimization technique for this examination. CONTRAST TYPE/DOSE: 100mL of IOVERSOL 350 MG IODINE/ML INTRAVENOUSSYRINGE injected via intravenous COMPARISON: 02/10/2024 FINDINGS: VASCULATURE: No identified pulmonary emboli. LUNGS: No nodules or masses. No pneumonia. PLEURA: No effusion. No pneumothorax. MEDIASTINUM/MARISELA: No identified masses or abnormal nodes. HEART: Heart size is normal with no pericardial effusion. Coronaryartery calcification. Median sternotomy. AXILLA: No adenopathy. CHEST WALL: No masses. No subcutaneous air. Bilateral gynecomastia. HARDWARE/LINES/TUBES: None. UPPER ABDOMEN: Stable indeterminate 2.1 cm cystic lesion within the pancreatic head. Consider characterization with nonemergent pancreaticMRI with contrast.. MUSCULOSKELETAL: No significant abnormality. OTHER: No significant abnormality. IMPRESSION: No CT evidence for pulmonary embolus. Coronary artery calcification. Stable indeterminate 2.1 cm cystic lesion within the pancreatic headcompared with 02/10/2024. Consider characterization with nonemergent pancreatic MRI with contrast. THIS IS AN ELECTRONICALLY VERIFIED FINAL REPORT 04/28/2024 12:51 AM - Electronically signed by Tesfaye Rubalcava M.D. KT: LORRAINE Report ID: [id number] Reading Location: [place] [address] Joyce Guerrero CLAY ARTIST IMG CT PROCEDURES F inal Result * (ABNORMAL) POCT glucose (04/27/2024 7:21 PM CDT) Glucose, POC 213(H) 70 - 199 mg/dL Comment:Glu2: RN/ Notified Blood 04/27/2024 7:21 PM CDT 04/27/2024 7:21 PM CDT Zaida Klein MD LAB POCT ORDERABLES - DEVICE Final Result [facility] [place] [facility] [place] [address] * POCT glucose (04/27/2024 4:31 PM CDT) Glucose, POC 131 70 - 199 mg/dL Blood 04/27/2024 4:31 PM CDT 04/27/2024 4:31 PM CDT us Zaida Klein MD LAB POCT ORDERABLES - DEVICE Final Result TOM ALBARRAN ([place]) 1 [facility] [place] [address] * POCT glucose (04/27/2024 11:49 AM CDT) Glucose, POC 171 70 - 199 mg/dL Blood 04/27/2024 11:4 9 AM CDT 04/27/2024 11:49 AM CDT Zaida Klein MD LAB POCT ORDERABLES - DEVICE Final Result Performing Organization Address [facility] Co de Phone Number TOM [facility] ([place]) 1 [facility] [place] [address] * US Vein Duplex Lower Extremity Bilateral Complete (04/27/2024 9:52 AM CDT) Anatomical Region Laterality Modality Vascular Bilateral Ultrasound 04/27/2024 12:4 6 PM CDT Narrative 04/27/2024 12:47 PM CDT EXAM DESCRIPTION: US VEIN DUPLEX LOWER EXTREMITY BILATERAL COMPLETE REASON FOR STUDY: Pain in Leg, Right, elevated d dimer, swelling TECHNIQUE: Grayscale, color and spectral Doppler imaging of the deep venous system of the bilateral lower extremities was performed. Images stored on PACS. COMPARISON: None FINDINGS: The common femoral, common femoral-saphenous vein confluence, visualized profunda femoral, superficial femoral, and popliteal veins are readily compressible bilaterally with no intraluminal thrombus on omalley scale images. There is normal color and spectral Doppler signal, including augmentation. Greater saphenous vein appears patent. Calf veins are not well visualized. THIS IS AN ELECTRONICALLY VERIFIED FINAL REPORT 04/27/2024 12:47 PM - Electronically signed by Alicia Meyer M.D. FT: FT Report ID: [id number] Reading Location: [id number] Procedure Note Alicia Cobos MD - 04/27/2024 EXAM DESCRIPTION: US VEIN DUPLEX LOWER EXTREMITY BILATERAL COMPLETE REASON FOR STUDY: Pain in Leg, Right, elevated d dimer, swelling TECHNIQUE: Grayscale, color and spectral Doppler imaging of the deepvenous system of the bilateral lower extremities was performed. Images stored onPACS. COMPARISON: None FINDINGS: The common femoral, common femoral-saphenous vein confluence, visualized profunda femoral, superficial femoral, and popliteal veins are readily compressible bilaterally with no intraluminal thrombus on omalley scaleimages. There is normal color and spectral Doppler signal, including augmentation. Greater saphenous vein appears patent. Calf veins are not well visualized. THIS IS AN ELECTRONICALLY VERIFIED FINAL REPORT 04/27/2024 12:47 PM - Electronically signed by Alicia Meyer M.D. FT: FT Report ID: [id number] Reading Location: [id number] us Joyce Guerrero NP IMG US PROCEDURES F inal Result * Lactate (04/27/2024 8:41 AM CDT) Lactate 1.1 0.7 - 2.0 mmol/L Blood 04/27/2024 8:41 AM CDT 04/27/2024 8:44 AM CDT us Rigo Orona MD LAB BLOOD ORDERABLES Final Resu lt [facility] ([place]) 1 [facility] [place] [address] * Blood culture Blood (04/27/2024 8:41 AM CDT) Report Final Report: No growth Comment:Testing performed by : [facility], [address] [facility], [place]., [address] Blood 04/27/2024 8:41 AM CDT 04/27/2024 12:15 PM CDT Narrative TOM ALBARRAN ([place]) - 05/01/2024 4:00 PM CDT From a different site than #1. Collection->Peripheral 1. Blood cultures are incubated for 4 days on a continuously monitored blood culture system. The first report of a negative culture is issued within 24 hours of receipt of the specimen in the laboratory. 2. Positive culture results are reported as soon as they are detected. 3. The most important factor for detection of microbes in the setting of bloodstream infection is the volume of blood submitted for culture. Failure to collect an optimal blood volume can result in false negative blood cultures. 4. For pediatric patients, the recommended blood volume to collect follows a weight based strategy. See the electronic test catalog for collection instructions. 5. For positive blood cultures, a rapid molecular test may be performed for organism identification using the arnold ePlex blood culture identification panel for gram positive (BCID-GP) and gram negative (BCID-GN) organisms. This nucleic acid amplification test detects microbial DNA in positive blood culture broth. This assay has been cleared by the [place] Food and Drug Administration and its performance characteristics have been verified by the [facility] Microbiology Laboratory. For questions about this culture, contact the Microbiology Laboratory at [phone]. Interpretive data was last revised on 23. Joyce Guerrero NP LAB MICROBIOLOGY - GENERAL ORDERABLES Final Result TOM [facility]AN ([place]) 1 [facility] [place] [address] * (ABNORMAL) eGFR (04/27/2024 8:35 AM CDT) eGFR 49(L) >=60 mL/min/1. 73 m2 Comment: Interpretive Data Reference Interval Normal >/= 90 mL/min/1.73m2 Mildly decreased* 60 - 89 mL/min/1.73m2 Mildly to moderately decreased 45 - 59 mL/min/1.73m2 Moderately to severely decreased 30 - 44 mL/min/1.73m2 Severely decreased 15 - 29 mL/min/1.73m2 Kidney Failure < 15 mL/min/1.73m2 *Relative to young adult level Estimated glomerular filtration rate is determined by the 2020 CKD-EPI equation recommended by the National Kidney Foundation (A Unifying Approach to GFR Estimation: Recommendations of the NKF-ASK Task Force on Reassessing the Inclusion of Race in Diagnosing Kidney Disease, JASN 2020). The CKD-EPI equation should not be used for patients with unstable renal function and has not been validated in children and those over 70. Current interpretive data was last reviewed 2020. Blood 04/27/2024 8:35 AM CDT 04/27/2024 8:44 AM CDT us Joyce Guerrero NP LAB BLOOD ORDERABLE S Final Result [facility] ([place]) 1 [facility] [place] [address] * (ABNORMAL) Blood culture Blood (04/27/2024 8:35 AM CDT) Direct Specimen Exam Stain: Gram Negative Bacilli Time to culture positivity (aerobic media): 10.7 hours Time to culture positivity (anaerobic media): 14.1 hours Notification of: Gram Negative Bacilli called to and read back by: Kalani Campo MLT ([phone]) on 04/27/2024 23:26:00 by: Ruben Staples Jr, MT Test result called to and read back by zora duncan on 04/28/2024 0212 by kalain campo Comment:Testing performed by : [facility], 1 [place]., [address] Direct Specimen Exam Molecular Analysis: Presumptive Escherichia coli detected by arnold ePlex BCID-GN panel. This test does not exclude the possibility of a mixed bacterial infection. CTX-M Extended Spectrum Beta-Lactamase (ESBL) detected. Carbapenem antibiotics are the recommended treatment for ESBL-producing isolates. Patients infected with ESBL-producing organisms require contact isolation precautions. Correlation with susceptibility testing is recommended. Notification of: Presumptive Escherichia coli detected by arnold ePlex BCID-GN panel. CTX-M Extended Spectrum Beta-Lactamase (ESBL) called to and read back by: Kalani See MLT ([phone]) on 04/28/2024 01:15:31 by: Ruben Staples Jr RI TOM [facility] ([place]) Comment:Testing performed by : [facility], [address] [place]., [address] Report Final Report: Escherichia coli The susceptibility pattern of this Escherichia coli indicates the possible production of an extended spectrum beta lactamase (ESBL). Patients infected with ESBL-producing organisms require contact isolation precautions. For therapeutic options for this organism, please contact infectious diseases. (.) TOM [facility] ([place]) Comment:Testing performed by : [facility], [address] [place]., [address] Organism ESCHERICHIA COLI ROJELIO ALBARRAN ([place]) Blood 04/27/2024 8:35 AM CDT 04/27/2024 12:15 PM CDT Narrative TOM AL[facility] ([place]) - 05/01/2024 11:10 AM CDT Collection->Peripheral 1. Blood cultures are incubated for 4 days on a continuously monitored blood culture system. The first report of a negative culture is issued within 24 hours of receipt of the specimen in the laboratory. 2. Positive culture results are reported as soon as they are detected. 3. The most important factor for detection of microbes in the setting of bloodstream infection is the volume of blood submitted for culture. Failure to collect an optimal blood volume can result in false negative blood cultures. 4. For pediatric patients, the recommended blood volume to collect follows a weight based strategy. See the electronic test catalog for collection instructions. 5. For positive blood cultures, a rapid molecular test may be performed for organism identification using the arnold ePlex blood culture identification panel for gram positive (BCID-GP) and gram negative (BCID-GN) organisms. This nucleic acid amplification test detects microbial DNA in positive blood culture broth. This assay has been cleared by the [place] Food and Drug Administration and its performance characteristics have been verified by the [facility] Microbiology Laboratory. For questions about this culture, contact the Microbiology Laboratory at [phone]. Interpretive data was last revised on 23. Organism Antibiotic Method Susceptibility Escherichia coli Ampicillin INTERPRETATION Resistant Escherichia coli Cefazolin INTERPRETATION Resistant Escherichia coli Gentamicin INTERPRETATION Susceptible Escherichia coli Trimethoprim with Sulfamethoxazole IN TERPRETATION Resistant Escherichia coli Meropenem INTERPRETATION Susceptible Escherichia coli Cefepime INTERPRETATION Resistant Escherichia coli Ciprofloxacin INTERPRETATION Resistant Escherichia coli Ceftazidime INTERPRETATION Resistant Escherichia coli Ceftriaxone INTERPRETATION Resistant Escherichia coli Piperacillin/Tazobactam INTERPRETATIO N Resistant Escherichia coli Amikacin INTERPRETATION Susceptible Escherichia coli Aztreonam INTERPRETATION Resistant Escherichia coli Imipenem INTERPRETATION Susceptible Escherichia coli Ertapenem INTERPRETATION Susceptible Escherichia coli Minocycline INTERPRETATION Susceptible Escherichia coli Tobramycin INTERPRETATION Susceptible Escherichia coli Levofloxacin INTERPRETATION Susceptible Escherichia coli Doxycycline INTERPRETATION Resistant Joyce Guerrero NP LAB MICROBIOLOGY - GENERAL ORDERABLES Final Result TOM [facility] ([place]) [address] [place] [address] [place] [address] * (ABNORMAL) Erythrocyte sedimentation rate (04/27/2024 8:35 AM CDT) [facility] Erythrocyte sedimentation rate 62(H) 1 - 20 mm/hr Blood 04/27/2024 8:35 AM CDT 04/27/2024 8:44 AM CDT Joyce Guerrero CLAY ARTIST LAB BLOOD ORDERABLE S Final Result TOM [facility] ([place]) [address] [place] [address] [place] [address] * (ABNORMAL) CBC without differential (04/27/2024 8:35 AM CDT) Pathologist [facility] [place] WBC 19.0(H) 3.8 - 9.9 K/cumm Hgb 9.8(L) 13.0 - 17.5 g/dL [facility] ([place]) Hct 30.2(L) 38.9 - 50.3 % [facility] ([place]) Plt 127(L) 150 - 400 K/cumm [facility] ([place]) MPV 10.1 9.1 - 12.3 fL [facility] ([place]) RBC 3.21(L) 4.30 - 5.80 M/cumm [facility] ([place]) MCV 94.1 81.3 - 96.4 fL [facility] ([place]) MCH 30.5 27.1 - 33.3 pg [facility] ([place]) MCHC 32.5 32.3 - 35.7 g/dL [facility] ([place]) RDW CV 18.2(H) 11.1 - 14.9 % [facility] ([place]) RDW SD 63.0(H) 35.7 - 48.1 fL [facility] ([place]) NRBC abs 0.00 0.00 - 0.01 K/cumm [facility] ([place]) Blood 04/27/2024 8:35 AM CDT 04/27/2024 8:44 AM CDT Joyce Guerrero CLAY ARTIST LAB BLOOD ORDERABLE S Final Result TOM [facility]ARRAN ([place]) 1 [facility] [place] [address] * (ABNORMAL) CRP (acute phase) (04/27/2024 8:35 AM CDT) CRP 190.0(H) <=10.0 mg/L Blood 04/27/2024 8:35 AM CDT 04/27/2024 8:44 AM CDT Joyce Guerrero CLAY ARTIST LAB BLOOD ORDERABLE S Final Result TOM AL[facility]ARRAN ([place]) 1 [facility] [place] [address] * Phosphorus (04/27/2024 8:35 AM CDT) Phosphorus, pl 2.7 2.3 - 4.5 mg/dL Blood 04/27/2024 8:35 AM CDT 04/27/2024 8:44 AM CDT Joyce Guerrero CLAY ARTIST LAB BLOOD ORDERABLE S Final Result TOM AL[facility]ARRAN ([place]) 1 [facility] [place] [address] * Magnesium (04/27/2024 8:35 AM CDT) Pathologist [facility] [place] Magnesium 1.7 1.4 - 2.5 mg/dL Blood 04/27/2024 8:35 AM CDT 04/27/2024 8:44 AM CDT Jyoce Guerrero CLAY ARTIST LAB BLOOD ORDERABLE S Final Result Performing Organization Address City/[facility]/ZIP Co de Phone Number TOM AL[facility]ARRAN ([place]) 1 [facility] [place] [address] * (ABNORMAL) Hepatic function panel (04/27/2024 8:35 AM CDT) [facility] Bilirubin, total 0.4 0.1 - 1.2 mg/dL Bilirubin, direct 0.2 0.1 - 0.3 mg/dL [facility] ([place]) Protein, pl 6.4(L) 6.5 - 8.5 g/dL [facility] ([place]) Albumin 3.1(L) 3.5 - 5.0 g/dL [facility] ([place]) Alk phos 64 40 - 130 Units/L [facility] ([place]) ALT 8 7 - 55 Units/L [facility] ([place]) AST 16 10 - 50 Units/L [facility] ([place]) Blood 04/27/2024 8:35 AM CDT 04/27/2024 8:44 AM CDT Joyce Guerrero CLAY ARTIST LAB BLOOD ORDERABLE S Final Result TOM AL[facility]ARRAN ([place]) 1 [facility] [place] [address] * (ABNORMAL) Basic metabolic panel (04/27/2024 8:35 AM CDT) Sodium 132(L) 135 - 145 mmol/L Potassium, pl 4.5 3.3 - 4.9 mmol/L [facility] ([place]) Chloride 100 97 - 110 mmol/L [facility] ([place]) CO2 19(L) 22 - 32 mmol/L [facility] ([place]) Anion gap 13 2 - 15 mmol/L [facility] ([place]) BUN 27(H) 6 - 25 mg/dL [facility] ([place]) Creatinine 1.43(H) 0.80 - 1.30 mg/dL [facility] ([place]) Glucose 129 70 - 199 mg/dL [facility] ([place]) Comment: Interpretive Data Fasting glucose >/= 126 mg/dl is diagnostic for diabetes. Fasting is defined as no caloric intake for at least 8 hours. Fasting glucose between 100 mg/dl to 125 mg/dl is diagnostic of prediabetes. In a patient with classic symptoms of hyperglycemia or hyperglycemic crisis, a random glucose >/= 200 mg/dl is diagnostic for diabetes. In the absence of unequivocal hyperglycemia, results should be confirmed by repeat testing. The classification and Diagnosis of Diabetes Diabetes Care 202; 46: S19-S40. Current interpretive data was last revised 2022. Calcium 8.6 8.5 - 10.3 mg/dL [facility] ([place]) Blood 04/27/2024 8:35 AM CDT 04/27/2024 8:44 AM CDT us Joyce Guerrero NP LAB BLOOD ORDERABLE S Final Result [facility] ([place] 1 [facility] [place] [address] * POCT glucose (04/27/2024 8:00 AM CDT) Glucose, POC 141 70 - 199 mg/dL Blood 04/27/2024 8:00 AM CDT 04/27/2024 8:00 AM CDT us Zaida Klein MD LAB POCT ORDERABLES - DEVICE Final Result [facility] [place]) 1 [facility] [place] [address] * CT Knee Right W Contrast (04/26/2024 10:11 PM CDT) Anatomical Region Laterality Modality Lower Extremities Right Computed Tomog rosalinda 04/26/2024 10:1 7 PM CDT Narrative 04/26/2024 10:22 PM CDT EXAM DESCRIPTION: CT KNEE RIGHT W CONTRAST REASON FOR STUDY: Knee pain, stress fracture suspected, neg xray C/o right knee pain that started when he woke up this morning. Denies injury. Hx of surgery to right knee TECHNIQUE: Multidetector CT scan of the right knee was performed after intravenous contrast. Coronal and sagittal images were reconstructed. Dose modulation adjustment of the mA and/or kV has been performed per [facility] protocols according to patient size and indication CONTRAST TYPE/DOSE: 75mL of IOVERSOL 350 MG IODINE/ML INTRAVENOUS SYRINGE injected via intravenous COMPARISON: Plain film study 04/26/2024 FINDINGS: Severe artifact is created metallic joint replacement hardware obscuring the patella, distal femur and proximal tibia. Hardware appears to be in good position and alignment. No clear evidence of a fracture or dislocation is seen. There does appear to be a npxkv-wm-imhzqyim anterior joint effusion visualized above the patella. Soft tissues appear grossly unremarkable. No other fluid collections are seen. IMPRESSION: Gyrwj-fl-ggtaficp anterior joint effusion is of questionable significance. The study is severely hampered metal artifact. THIS IS AN ELECTRONICALLY VERIFIED FINAL REPORT 04/26/2024 10:22 PM - Electronically signed by Tesfaye Dowell M.D. KH: MARIAJOSE Report ID: [id number] Reading Location: [id number] Procedure Note Tesfaye Dowell MD - 04/26/2024 EXAM DESCRIPTION: CT KNEE RIGHT W CONTRAST REASON FOR STUDY: Knee pain, stress fracture suspected, neg xray C/o right knee pain that started when he woke up this morning. Deniesinjury. Hx of surgery to right knee TECHNIQUE: Multidetector CT scan of the right knee was performed after intravenous contrast. Coronal and sagittal images were reconstructed. Dose modulation adjustment of the mA and/or kV has been performed per [facility] protocols according to patient size and indication CONTRAST TYPE/DOSE: 75mL of IOVERSOL 350 MG IODINE/ML INTRAVENOUSSYRINGE injected via intravenous COMPARISON: Plain film study 04/26/2024 FINDINGS: Severe artifact is created metallic joint replacement hardware obscuringthe patella, distal femur and proximal tibia. Hardware appears to be in good position and alignment. No clear evidence of a fracture or dislocation is seen. There does appear to be a wmpcl-uf-hcxjtulv anterior joint effusionvisualized above the patella. Soft tissues appear grossly unremarkable. No otherfluid collections are seen. IMPRESSION: Vxppn-zo-kpxipqzl anterior joint effusion is of questionablesignificance. The study is severely hampered metal artifact. THIS IS AN ELECTRONICALLY VERIFIED FINAL REPORT 04/26/2024 10:22 PM - Electronically signed by Tesfaye Dowell M.D. KH: MARIAJOSE Report ID: [id number] Reading Location: [place] [address] [address] [facility] [place] PROCEDURES Final Result * (ABNORMAL) Urinalysis reflex to microscopic and culture Urine, bladder (04/26/2024 8:49 PM CDT) Color, ur Yellow Yellow Clarity, ur Turbid(A) Clear [facility] ([place]) Specific gravity, ur 1.020 1.003 - 1.030 [facility] ([place]) pH, urine 5.0 [facility] ([place]) Comment: Interpretive Data U rine pH is affected by diet, medications, systemic acid-base disturbances, and renal tubular function. pH may affect urinary stone formation. For example, urine pH below 6.0 may help reduce the tendency for calcium phosphate stones and pH greater than 6.0 may reduce the tendency for uric acid stone formation. Source: [employer] Current Interpretive Data was last revised on 2017 Protein, ur ql Trace Negative [facility] ([place]) Glucose, ur ql Negative Negative [facility] ([place]) Ketones, ur Negative Negative [facility] ([place]) Bilirubin, ur Negative Negative [facility] ([place]) Blood, ur Negative Negative [facility] ([place]) Urobilinogen, ur <2.0 <2.0 mg/dL [facility] ([place]) Nitrite, ur Positive(A) Negative [facility] ([place]) Leukocyte esterase, ur 4+(A) Negative [facility] ([place]) UA reflex comment Reflex to microscopic UA will be performed. [facility] ([place]) Urine, bladder 04/26/2024 8: 49 PM CDT 04/26/2024 8:52 PM CDT Rigo Orona MD LAB MICROBIOLOGY - [facility] Final Result Performing Organization Address [facility] Co de Phone Number TOM [facility] ([place]) 1 [facility] [employer] [place] [address] * (ABNORMAL) Urinalysis, microscopic only (04/26/2024 8:49 PM CDT) WBC, ur >50(A) 0 - 5 /HPF RBC, ur 3-5(A) 0 - 2 /HPF [facility] ([place]) Epithelial cells, squamous, ur 1-5 0 - 5 /HPF [facility] ([place]) Bacteria, ur 4+(A) [facility] ([place]) Mucous, ur Present(A) [facility] ([place]) Hyaline casts, ur 11-20(A) 0 - 10 /LPF [facility] ([place]) Culture Reflex Comment Reflex to urine culture will be performed. [facility] ([place]) Urine, bladder 04/26/2024 8: 49 PM CDT 04/26/2024 8:52 PM CDT Rigo Orona MD LAB URINE ORDERABLES Final Resu lt Performing Organization Address [facility] Co de Phone Number [facility] ([place]) 1 [facility] [place] [address] * (ABNORMAL) Urine culture Urine, bladder (04/26/2024 8:49 PM CDT) Report Final Report: Greater than or equal to 100,000 colonies/mL of Escherichia coli The susceptibility pattern of this Escherichia coli indicates the possible production of an extended spectrum beta lactamase (ESBL). Patients infected with ESBL-producing organisms require contact isolation precautions. For therapeutic options for this organism, please contact infectious diseases. Plus growth of clinically insignificant bacterial rui. (.) Comment:Testing performed by : [facility], [address] [place]., [address] Organism ESCHERICHIA COLI ROJELIO ALBARRAN ([place]) Organism PLUS GROWTH OF CLINICALLY INSIGNIFICANT RUI. [facility]OM [facility] ([place]) Urine, bladder 04/26/2024 8: 49 PM CDT 04/27/2024 4:40 AM CDT Narrative [facility]OM [facility] ([place]) - 04/30/2024 12:37 PM CDT Urine culture reflexed based upon urinalysis results. Testing performed by [facility] Microbiology Laboratory ([phone]) Organism Antibiotic Method Susceptibility Escherichia coli Ampicillin INTERPRETATION Resistant Escherichia coli Cefazolin INTERPRETATION Resistant Escherichia coli Nitrofurantoin INTERPRETATION Susceptible Escherichia coli Gentamicin INTERPRETATION Susceptible Escherichia coli Trimethoprim with Sulfamethoxazole INTERPRETATION Resistant Escherichia coli Meropenem INTERPRETATION Susceptible Escherichia coli Cefepime INTERPRETATION Susceptible Dose-dependent Escherichia coli Ciprofloxacin INTERPRETATION Susceptible Escherichia coli Ceftazidime INTERPRETATION Susceptible Escherichia coli Ceftriaxone INTERPRETATION Resistant Escherichia coli Cephalexin INTERPRETATION Resistant Escherichia coli Cefuroxime-axetil INTERPRETATION Resistant Escherichia coli Cefdinir INTERPRETATION Resistant Escherichia coli Amikacin INTERPRETATION Susceptible Escherichia coli Aztreonam INTERPRETATION Resistant Escherichia coli Imipenem INTERPRETATION Susceptible Escherichia coli Ertapenem INTERPRETATION Susceptible Escherichia coli Minocycline INTERPRETATION Susceptible Escherichia coli Tobramycin INTERPRETATION Susceptible Escherichia coli Levofloxacin INTERPRETATION Susceptible Escherichia coli Doxycycline INTERPRETATION Resistant Escherichia coli Fosfomycin INTERPRETATION Susceptible us Rigo Orona MD LAB MICROBIOLOGY - GENERAL ORDE MERI Final Result ROJELIOLEILA ALBARRAN ([place]) 1 [facility] [place] [address] * XR Chest 1 Vw Portable (04/26/2024 7:27 PM CDT) Anatomical Region Laterality Modality Body, Chest N/A Computed Radiogr aphy 04/26/2024 7:50 PM CDT Narrative 04/26/2024 7:52 PM CDT EXAM DESCRIPTION: XR CHEST 1 VIEW REASON FOR STUDY: general weakness General Weakness Today. Presents for evaluation of right knee pain. No injury he is aware of, happened in the middle of the night. No DVT history. Does have previous knee replacement to this knee. TECHNIQUE: Single portable radiographic view(s) of the chest. COMPARISON: 12/26/2023 FINDINGS: Redemonstrated is bibasilar atelectasis. No focal pneumonic consolidation or pleural effusion. No pulmonary edema or pneumothorax. Cardiomediastinal silhouette is similar compared to prior examination. Calcified athero scleroses of the thoracic aorta. Median sternotomy wires line intact. Left atrial appendage clip is seen. 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 IMPRESSION: Bibasilar atelectasis. THIS IS AN ELECTRONICALLY VERIFIED FINAL REPORT 04/26/2024 7:52 PM - Electronically signed by Brendan Amin M.D. BB: JULIANNE Report ID: [id number] Reading Location: [id number] Procedure Note Brendan Amin MD PhD - 04/26/2024 EXAM DESCRIPTION: XR CHEST 1 VIEW REASON FOR STUDY: general weakness General Weakness Today. Presents for evaluation of right knee pain.No injury he is aware of, happened in the middle of the night. No DVThistory. Does have previous knee replacement to this knee. TECHNIQUE: Single portable radiographic view(s) of the chest. COMPARISON: 12/26/2023 FINDINGS: Redemonstrated is bibasilar atelectasis. No focal pneumonic consolidationor pleural effusion. No pulmonary edema or pneumothorax. Cardiomediastinal silhouette is similar compared to prior examination. Calcified athero scleroses of the thoracic aorta. Median sternotomy wires line intact.Left atrial appendage clip is seen. 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 IMPRESSION: Bibasilar atelectasis. THIS IS AN ELECTRONICALLY VERIFIED FINAL REPORT 04/26/2024 7:52 PM - Electronically signed by Brendan Amin M.D. BB: JULIANNE Report ID: [id number] Reading Location: [place] [address] Mary SAVAGE IMG XR PROCEDURES Final Result * (ABNORMAL) eGFR (04/26/2024 6:29 PM CDT) eGFR 46(L) >=60 mL/min/1. 73 m2 Comment: Interpretive Data Reference Interval Normal >/= 90 mL/min/1.73m2 Mildly decreased* 60 - 89 mL/min/1.73m2 Mildly to moderately decreased 45 - 59 mL/min/1.73m2 Moderately to severely decreased 30 - 44 mL/min/1.73m2 Severely decreased 15 - 29 mL/min/1.73m2 Kidney Failure < 15 mL/min/1.73m2 *Relative to young adult level Estimated glomerular filtration rate is determined by the 2020 CKD-EPI equation recommended by the National Kidney Foundation (A Unifying Approach to GFR Estimation: Recommendations of the NKF-ASK Task Force on Reassessing the Inclusion of Race in Diagnosing Kidney Disease, JASN 2020). The CKD-EPI equation should not be used for patients with unstable renal function and has not been validated in children and those over 70. Current interpretive data was last reviewed 2020. Blood 04/26/2024 6:29 PM CDT 04/26/2024 6:34 PM CDT Mary SAVAGE LAB BLOOD ORDERABLES Final Resu lt TOM ALBARRAN [place]) [facility] [place] [address] * (ABNORMAL) Differential, auto (04/26/2024 6:29 PM CDT) Neutrophil abs 21.0(H) 1.5 - 6.5 K/cumm Imm gran abs 0.2(H) 0.0 - 0.1 K/cumm [facility] ([place]) Lymphocyte abs 1.5 0.8 - 3.3 K/cumm [facility] ([place]) Monocyte abs 1.2(H) 0.2 - 0.8 K/cumm [facility] ([place]) Eosinophil abs 0.0 0.0 - 0.5 K/cumm [facility] ([place]) Basophil abs 0.0 0.0 - 0.1 K/cumm [facility] ([place]) Neutrophil pct 87.9 % [facility] ([place]) Comment: Interpretive Data Percent cell count reference ranges are not reported, since discordance with absolute values may lead to misinterpretation of CBC data. Current Interpretive Data was last revised on 2017. Imm gran pct 0.7 % [facility] ([place]) Comment: Interpretive Data Percent cell count reference ranges are not reported, since discordance with absolute values may lead to misinterpretation of CBC data. Current Interpretive Data was last revised on 2017. Lymphocyte pct 6.1 % [facility] ([place]) Comment: Interpretive Data Percent cell count reference ranges are not reported, since discordance with absolute values may lead to misinterpretation of CBC data. Current Interpretive Data was last revised on 2017. Monocyte pct 5.2 % [facility] ([place]) Comment: Interpretive Data Percent cell count reference ranges are not reported, since discordance with absolute values may lead to misinterpretation of CBC data. Current Interpretive Data was last revised on 2017. Eosinophil pct 0.0 % [facility] ([place]) Comment: Interpretive Data Percent cell count reference ranges are not reported, since discordance with absolute values may lead to misinterpretation of CBC data. Current Interpretive Data was last revised on 2017. Basophil pct 0.1 % [facility] ([place]) Comment: Interpretive Data Percent cell count reference ranges are not reported, since discordance with absolute values may lead to misinterpretation of CBC data. Current Interpretive Data was last revised on 2017. Blood 04/26/2024 6:29 PM CDT 04/26/2024 6:34 PM CDT Mary SAVAGE LAB BLOOD ORDERABLES Final Resu lt TOM ALBARR[facility] ([place]) 1 [facility] [place] [address] * (ABNORMAL) CBC with auto differential (04/26/2024 6:29 PM CDT) [facility] WBC 23.8(H) 3.8 - 9.9 K/cumm Hgb 10.7(L) 13.0 - 17.5 g/dL [facility] ([place]) Hct 33.4(L) 38.9 - 50.3 % [facility] ([place]) Plt 155 150 - 400 K/cumm [facility] ([place]) MPV 9.8 9.1 - 12.3 fL [facility] ([place]) RBC 3.54(L) 4.30 - 5.80 M/cumm [facility] ([place]) MCV 94.4 81.3 - 96.4 fL [facility] ([place]) MCH 30.2 27.1 - 33.3 pg [facility] ([place]) MCHC 32.0(L) 32.3 - 35.7 g/dL [facility] ([place]) RDW CV 18.5(H) 11.1 - 14.9 % [facility] ([place]) RDW SD 64.2(H) 35.7 - 48.1 fL [facility] ([place]) NRBC abs 0.00 0.00 - 0.01 K/cumm [facility] ([place]) Blood 04/26/2024 6:29 PM CDT 04/26/2024 6:34 PM CDT Mary SAVAGE LAB BLOOD ORDERABLES Final Resu lt TOM AL[facility]ARR[facility] ([place]) [facility] [place] [address] * (ABNORMAL) D-dimer, quantitative (04/26/2024 6:29 PM CDT) [facility] D-Dimer 2,624(H) <=499 ng/mL FEU [facility] ([place]) Comment: Interpretive data FDA approved the D-dimer, in conjunction with a low or moderate pretest probability score, to exclude venous thromboembolic events (VTE) (PE and DVT) in outpatients when the D-dimer result is < 500 ng/ml FEU. Evidence supports using an age-adjusted D-dimer cut-off for outpatients older than 50 (age x 10) to improve specificity without sacrificing sensitivity. Example: age 68, VTE cut-off 680 ng/ml FEU. References; Schoutmendoza HT et al. Brit Med J. 2013;346:f2492. Yanira et al. Annals Int Med. 2015;163:701-11. Current interpretive data was last revised on 2018. Blood 04/26/2024 6:29 PM CDT 04/26/2024 6:34 PM CDT Mary SAVAGE LAB BLOOD ORDERABLES Final Resu lt [facility] ([place]) [facility] Department of Laboratories [place], [place] [id number] * (ABNORMAL) Comprehensive metabolic panel (04/26/2024 6:29 PM CDT) Pathologist [facility] [place] Sodium 135 135 - 145 mmol/L Potassium, pl 4.3 3.3 - 4.9 mmol/L [facility] ([place]) Chloride 102 97 - 110 mmol/L [facility] ([place]) CO2 18(L) 22 - 32 mmol/L [facility] ([place]) Anion gap 15 2 - 15 mmol/L [facility] ([place]) BUN 31(H) 6 - 25 mg/dL [facility] ([place] Creatinine 1.51(H) 0.80 - 1.30 mg/dL [facility] Glucose 120 70 - 199 mg/dL [facility] ([place]) Comment: Interpretive Data Fasting glucose >/= 126 mg/dl is diagnostic for diabetes. Fasting is defined as no caloric intake for at least 8 hours. Fasting glucose between 100 mg/dl to 125 mg/dl is diagnostic of prediabetes. In a patient with classic symptoms of hyperglycemia or hyperglycemic crisis, a random glucose >/= 200 mg/dl is diagnostic for diabetes. In the absence of unequivocal hyperglycemia, results should be confirmed by repeat testing. The classification and Diagnosis of Diabetes Diabetes Care 2021; 46: S19-S40. Current interpretive data was last revised 2022. Calcium 9.0 8.5 - 10.3 mg/dL [facility] ([place]) Bilirubin, total 0.4 0.1 - 1.2 mg/dL [facility] ([place]) Protein, pl 7.2 6.5 - 8.5 g/dL [facility] ([place]) Albumin 3.5 3.5 - 5.0 g/dL [facility] ([place]) Alk phos 69 40 - 130 Units/L [facility] ([place]) ALT 9 7 - 55 Units/L [facility] ([place]) AST 17 10 - 50 Units/L [facility] ([place]) Blood 04/26/2024 6:29 PM CDT 04/26/2024 6:34 PM CDT us Mary SAVAGE LAB BLOOD ORDERABLES Final Resu lt TOM ALBARR[facility] ([place]) 1 [facility] [place] [address] * XR Knee Right 4 or More Views (04/26/2024 4:36 PM CDT) Anatomical Region Laterality Modality Lower Extremities, Knee Right Computed Radiography 04/26/2024 4:45 PM CDT Narrative 04/26/2024 4:46 PM CDT EXAM DESCRIPTION: XR KNEE RIGHT 4 OR MORE VIEWS REASON FOR STUDY: pain Pt to the ED via [facility] with c/o right knee pain that started when he woke this morning. Pain increases with pressure on leg. Denies fall or injury TECHNIQUE: 4 radiographic view(s) of the right knee . COMPARISON: None FINDINGS: Right knee replacement is evident. The prosthetic components appear to be in good position and alignment. No fracture or dislocation is seen. The bones are somewhat osteopenic. IMPRESSION: Right knee replacement. Nothing acute seen. THIS IS AN ELECTRONICALLY VERIFIED FINAL REPORT 04/26/2024 4:46 PM - Electronically signed by Tesfaye BILLY: MARIAJOSE Report ID: [id number] Reading Location: [id number] Procedure Note Tesfaye Dowell MD - 04/26/2024 EXAM DESCRIPTION: XR KNEE RIGHT 4 OR MORE VIEWS REASON FOR STUDY: pain Pt to the ED via [facility] with c/o right knee pain that started when hewoke this morning. Pain increases with pressure on leg. Denies fall or injury TECHNIQUE: 4 radiographic view(s) of the right knee . COMPARISON: None FINDINGS: Right knee replacement is evident. The prosthetic components appear to bein good position and alignment. No fracture or dislocation is seen. Thebones are somewhat osteopenic. IMPRESSION: Right knee replacement. Nothing acute seen. THIS IS AN ELECTRONICALLY VERIFIED FINAL REPORT 04/26/2024 4:46 PM - Electronically signed by Tesfaye Dowell M.D. KH: MARIAJOSE Report ID: [id number] Reading Location: [id number] Rigo Orona MD IMG XR PROCEDURES Final Result * (ABNORMAL) Hemoglobin A1c (01/22/2024 2:15 PM BUCKLE STRINGER) Pathologist [facility] [place] Hgb A1C 6.6(H) 4.0 - 5.6 % Comment:Testing performed by : [facility], [address] [place] [address], [place]., [address] Estimated Average Glucose 143 mg/dL TOM WILL Comment: The ADA recommends reporting an estimated Average Glucose (eAG) with all Hemoglobin A1c results using the equation derived from a study of 507 normal and diabetic adults. Minority populations were underrepresented and children were not included. (Diabetes Care 31:1750-2537, 2008). The eAG is not equivalent to a fasting glucose. Testing performed by: [facility], [address] [place] [address]., [id number] Blood 01/22/2024 2:15 PM BUCKLE STRINGER 01/22/2024 8:36 PM BUCKLE STRINGER Randal Monterroso MD LAB BLOOD ORDERABLES Final Re sult Performing Organization Address [facility] Co de Phone Number TOM [address] Department [place] [address] * DIABETES EYE EXAM (01/20/2024 4:02 PM BUCKLE STRINGER) SCRIBED DIABETIC DILATED EYE EXAM Normal Historical Provider HEALTH MAINTENANCE Final Result * Albumin Creatinine Ratio, Urine (05/06/2023 9:12 AM CDT) Albumin Ur <12.0 mg/L Comment: Interpretive Data No reference range established. Current interpretive data was last revised 2018. Creatinine Ur 83.9 mg/dL [facility] Comment: Interpretive Data No reference range established. Current interpretive data was last revised 2018. Albumin Creatinine Ratio, Ur <14 1 - 29 mg/g TOM Urine 05/06/2023 9:12 AM CDT 05/06/2023 1:[address] [facility] Randal Monterroso MD LAB URINE ORDERABLES Final Re sult Performing Organization Address [facility] Co de Phone Number TOM WILL [address] [place] [address] * Lipid panel (05/06/2023 9:12 AM CDT) Cholesterol 119 30 - 199 mg/dL Comment: Interpretive Data Ages < or = 19 years Acceptable: <170 mg/dL Borderline high: 170-199 mg/dL High: >or= 200 mg/dL Ages > or = 20 years Desirable: <200 mg/dL Borderline high: 200-239 mg/dL High: >or= 240 mg/dL Literature References: 1. Expert Panel on Integrated Guidelines for Cardiovascular Health and Risk Reduction in Children and Adolescents. Pediatrics 2011;128:S213 2. NCEP Expert Panel. Circulation 2004;110:227 Current Interpretive Data was last revised on 2017. Triglycerides 124 <=149 mg/dL TOM WILL Comment: Interpretive Data Ages < or = 9 years Acceptable: <75 mg/dL Borderline high: 75-99 mg/dL High: >or= 100 mg/dL Ages 10 to 20 years Acceptable: <90 mg/dL Borderline high: 90-129 mg/dL High: >or= 130 mg/dL Ages > or = 20 years Desirable: <150 mg/dL Borderline high: 150-199 mg/dL High: 200-499 mg/dL Very high: >or= 499 mg/dL Literature References: 1. Expert Panel on Integrated Guidelines for Cardiovascular Health and Risk Reduction in Children and Adolescents. Pediatrics 2011;128:S213 2. NCEP Expert Panel. Circulation 2004;110:227 Current Interpretive Data was last revised on 2017. HDL 42 >=40 mg/dL TOM WILL Comment: Interpretive Data Ages < or = 19 years Acceptable: >45 mg/dL Borderline low: 40-45 mg/dL Low: <40 mg/dL Ages > or = 20 years Desirable: >or= 60 mg/dL Low: <40 mg/dL Literature References: 1. Expert Panel on Integrated Guidelines for Cardiovascular Health and Risk Reduction in Children and Adolescents. Pediatrics 2011;128:S213 2. NCEP Expert Panel. Circulation 2004;110:227 Current Interpretive Data was last revised on 2017. LDL, calculated 52 <=129 mg/dL TOM WILL Comment: Interpretive Data Ages < or = 19 years Acceptable: <110 mg/dL Borderline high: 110-129 mg/dL High: >or= 130 mg/dL Ages > or = 20 years Optimal: <100 mg/dL Near optimal: 100-129 mg/dL Borderline high: 130-159 mg/dL High: >160 mg/dL Literature References: 1. Expert Panel on Integrated Guidelines for Cardiovascular Health and Risk Reduction in Children and Adolescents. Pediatrics 2011;128:S213 2. NCEP Expert Panel. Circulation 2004;110:227 Current Interpretive Data was last revised on 2017. Non-HDL Cholesterol 77 mg/dL TOM WILL Comment: Interpretive Data Ages < or = 19 years Acceptable: <120 mg/dL Borderline high: 120-144 mg/dL High: >145 mg/dL Ages > or = 20 years When triglycerides are >200 mg/dL, Non-HDL cholesterol is a secondary target of therapy with treatment goals that are 30 mg/dL greater than the LDL cholesterol target. Literature References: 1. Expert Panel on Integrated Guidelines for Cardiovascular Health and Risk Reduction in Children and Adolescents. Pediatrics 2011;128:S213 2. NCEP Expert Panel. Circulation 2004;110:227 Current Interpretive Data was last revised on 2017. Chol/HDL ratio 3 TOM WILL Blood 05/06/2023 9:12 AM CDT 05/06/2023 1:40 PM CDT Randal Monterroso MD LAB BLOOD ORDERABLES Final Re sult TOM [address] [address] [place] [address] from Last 3 Months or Most Recently Relevant to Health Maintenance Additional Health Concerns Infection Onset Date Last Indicated MDR gram neg/ESBL 04/26/2024 05/06/2024 Insurance [employer] MEDICARE [facility] MEDICARE ADVANTAGE [employer] MEDICARE ADVANTAGE Advance Directives For more information, please contact: [phone] * Full Code (Latest Code Status on File) Date Activated Date Inactivated Comments 05/06/2024 4:22 PM 05/09/2024 6:00 PM * Full Code Date Activated Date Inactivated Comments 05/05/2024 4:41 PM 05/06/2024 4:22 PM * Full Code Date Activated Date Inactivated Comments 12/28/2023 2:11 AM 12/31/2023 8:29 PM * Full Code Date Activated Date Inactivated Comments 02/27/2018 9:23 AM 02/27/2018 3:15 PM * Full Code Date Activated Date Inactivated Comments 02/27/2018 9:23 AM 02/27/2018 9:23 AM Care Teams Hatchery Worker Relationship Specialty Start Date End Date Randal Monterroso MD [address] [place] [address] PCP - General 02/27/18 Thelma Love, PT Physical Therapist Physical Therapy 06/11/17 Karissa Salas, LABORATORY INSPECTOR Racing Secretary And Handicapper Physical Therapy 06/17/17 Stewart Rahman MD [address] [place] [address] Consulting Physician Cardiovascular Disease 04/19/18 [place] [id number] [address] Consulting Physician Cardiology 08/30/18 Angie Garcia MD [address] [place] [address] Consulting Physician Pain Management 08/12/19 Rolando Narvaez NP [address] [place] [address] Nurse Practitioner Pain Management 12/11/19 Grisel Almodovar OD [address] [place] [address] Consulting Physician Optometry 01/25/21 Horace Pacheco MD [address] [place] [address] Referring Physician Cardiology 06/21/21 Purvi Da Silva NP [address] [place] [address] Nurse Practitioner General Surgery 07/10/22 Jon Mares MD [address] [place] [address] Consulting Physician General Surgery 08/10/22 Randal Morales MD [address] [place] [address] Consulting Physician Nephrology 09/25/22 Chase Mancuso MD [address] [facility] [id number] [place] [address] Surgeon Vascular Surgery 02/19/24 Agustin [place] MD PhD [address] [place] [address] Consulting Physician Neurosurgery 12/03/23
--- OUTSIDE RECORDS SUMMARY | 2024-06-18 13:57 | XMS_ITS | Encounter Summary ---
Author Organization [facility] Healthcare Address [address] [place] [address] Care Team Providers Care Ensemble Member Name Role Phone Robbiechiquita Thelma PT Unavailable Unavailable Karissa Salas PTA Unavailable Unavailable Salas Monterroso MD Primary Care Provider [phone] Stewart Rahman MD Unavailable Immanuel Conway MD Unavailable Angie Garcia MD Unavailable [phone] Rolando Narvaez LEATHER STRETCHER Unavailable [phone] Grisel Almodovar OD Unavailable [phone] Horace Pacheco MD Unavailable [phone] Purvi Da Silva NP Unavailable [phone] Jon Mares MD Unavailable Salas Morales MD Unavailable [phone] Chase Mancuso MD Unavailable [phone] Agustin Lancaster MD PhD Unavailable [phone] Encounter Details Date Type Department Care Team (Late st Contact Info) Description 06/17/2024 11:10 AM CDT Lab [facility] [address] [place] [address] Hypertension associated with type 2 diabetes mellitus (HCC); Essential hypertension Social History Tobacco Use Types Packs/Day Years Used Date Smoking Tobacco: Never Smokeless Tobacco: Never Alcohol Use Standard Drinks/Week Comments Yes 1 (1 standard drink = 0.6 oz pur e alcohol) occasionally [facility] Utilities Answer Date Recorded In the past 12 months has th e electric, gas, oil, or water company [...] week 04/27/2024 How often do you attend zoroastrianism or quaker serv ices? Never 04/27/2024 Do you belong to any clubs o r organizations such as zoroastrianism groups, unions, fraternal or athletic groups, or [...] any time in the past 12 m [facility], were you homeless or living in a jail (including now)? No 04/27/2024 Personal Safety Answer Date Recorded Have you ever been in or are you currently in a harmful physical or emotional relationship or is someone making you feel afraid or unsafe? Denies 05/06/2024 Sex and Gender Information Value Date Recorded Sex Assigned at Not on file Legal Sex Male 11:53 PM [employer] Gender Identity Not on file Sexual Orientation Not on file documented as of this encounter Plan of Treatment Not on file documented as of this encounter Procedures Procedure Name Priority Date/Time Associated Diagnosis Comments EGFR Routine 06/17/2024 11:02 AM CDT Hypertension associated with type 2 diabetes mellitus (HCC) DIFFERENTIAL AUTO Routine 06/17/2024 11: 02 AM CDT Hypertension associated with type 2 diabetes mellitus (HCC) THYROID FUNCTION CASCADE Routine 06/17/2024 11:02 AM CDT Essential hypertension CBC WITH AUTO DIFFERENTIAL Routine 06/17/2024 11:02 AM CDT Hypertension associated with type 2 diabetes mellitus (HCC) CRP (ACUTE PHASE) Routine 06/17/2024 11: 02 AM CDT Hypertension associated with type 2 diabetes mellitus (HCC) T4, FREE Routine 06/17/2024 11:02 AM CDT Essential hypertension VITAMIN B12 Routine 06/17/2024 11:02 AM CDT Essential hypertension COMPREHENSIVE METABOLIC PANEL Routine 06/17/2024 11:02 AM CDT Hypertension associated with type 2 diabetes mellitus (HCC) documented in this encounter Results * (ABNORMAL) eGFR (06/17/2024 11:02 AM CDT) eGFR 50(L) >=60 mL/min/1. 73 m2 Comment: [...] was last reviewed 2020. Testing performed by: [address] [address] Blood 06/17/2024 11:0 2 AM CDT 06/17/2024 6:38 PM CDT us Salas Monterroso MD LAB BLOOD ORDERABLES Final Re sult TOM [id number] [facility] Department [place] [address] * T4, free (06/17/2024 11:02 AM CDT) Free T4 1.08 0.90 - 1.70 ng/dL Comment:Testing performed by : [address] [address] Blood 06/17/2024 11:0 2 AM CDT 06/17/2024 6:38 PM CDT us Salas Monterroso MD LAB BLOOD ORDERABLES Final Re sult [address] Department [place] [address] * Differential, auto (06/17/2024 11:02 AM CDT) Neutrophil abs 2.39 1.50 - 6.50 K/cumm Comment:Testing performed by : [address] [address] Imm gran abs 0.01 0.00 - 0.10 K/cumm [facility] Comment:Testing performed by : [address] [address] Lymphocyte abs 1.41 0.80 - 3.30 K/cumm [facility] Comment:Testing performed by : , [address] [place] [address]., [address] Monocyte abs 0.60 0.20 - 0.80 K/cumm [facility] Comment:Testing performed by : [address] [address] Eosinophil abs 0.03 0.00 - 0.50 K/cumm [facility] Comment:Testing performed by : [address] [address] Basophil abs 0.03 0.00 - 0.10 K/cumm [facility] Comment:Testing performed by : [address] [address] Neutrophil pct 53.5 % [facility] Comment: Interpretive Data Percent cell count reference ranges are not reported, since discordance with absolute values may lead to misinterpretation of CBC data. Current Interpretive Data was last revised on 2017. Testing performed by: [address] [address] Imm gran pct 0.2 % [facility] Comment: Interpretive Data Percent cell count reference ranges are not reported, since discordance with absolute values may lead to misinterpretation of CBC data. Current Interpretive Data was last revised on 2017. Testing performed by: , [address] [place] [address]., [address] Lymphocyte pct 31.5 % [facility] Comment: Interpretive Data Percent cell count reference ranges are not reported, since discordance with absolute values may lead to misinterpretation of CBC data. Current Interpretive Data was last revised on 2017. Testing performed by: [address] [address] Monocyte pct 13.4 % [facility] Comment: Interpretive Data Percent cell count reference ranges are not reported, since discordance with absolute values may lead to misinterpretation of CBC data. Current Interpretive Data was last revised on 2017. Testing performed by: [address] [address] Eosinophil pct 0.7 % [facility] Comment: Interpretive Data Percent cell count reference ranges are not reported, since discordance with absolute values may lead to misinterpretation of CBC data. Current Interpretive Data was last revised on 2017. Testing performed by: [address] [address] Basophil pct 0.7 % [facility] Comment: Interpretive Data Percent cell count reference ranges are not reported, since discordance with absolute values may lead to misinterpretation of CBC data. Current Interpretive Data was last revised on 2017. Testing performed by: [address] [address] Blood 06/17/2024 11:0 2 AM CDT 06/17/2024 6:22 PM CDT us Salas Monterroso MD LAB BLOOD ORDERABLES Final Re sult TOM Aurelio Valery Department [place] [address] * (ABNORMAL) Comprehensive metabolic panel (06/17/2024 11:02 AM CDT) Sodium 140 135 - 145 mmol/L Comment:Testing performed by : [address] [address] Potassium, pl 4.8 3.3 - 4.9 mmol/L [facility] Comment:Testing performed by : [address] [address] Chloride 103 97 - 110 mmol/L [facility] Comment:Testing performed by : , [address] [place] [address]., [address] CO2 25 22 - 32 mmol/L [facility] Comment:Testing performed by : [address] [address] Anion gap 12 2 - 15 mmol/L [facility] Comment:Testing performed by : [address] [address] BUN 24 6 - 25 mg/dL [facility] Comment:Testing performed by : [address] [address] Creatinine 1.40(H) 0.80 - 1.30 mg/dL [facility] Comment:Testing performed by : [address] [address] Glucose 94 70 - 199 mg/dL CERNER [...] was last revised 2022. Testing performed by: , [address] [place] [address]., [address] Calcium 9.6 8.5 - 10.3 mg/dL [facility] Comment:Testing performed by : [address] [address] Bilirubin, total 0.2 0.1 - 1.2 mg/dL [facility] Comment:Testing performed by : [address] [address] Protein, pl 7.2 6.5 - 8.5 g/dL [facility] Comment:Testing performed by : [address] [place]., [address] Albumin 3.4(L) 3.5 - 5.0 g/dL [facility] Comment:Testing performed by : , [address] [place] [address]., [address] Alk phos 121 40 - 130 Units/L [facility] Comment:Testing performed by : , [address] [place] [address]., [address] ALT 12 7 - 55 Units/L [facility] Comment:Testing performed by : , [address] [place] [address]., [address] AST 27 10 - 50 Units/L [facility] Comment:Testing performed by : [address], [address] Blood 06/17/2024 11:0 2 AM CDT 06/17/2024 6:22 PM CDT Salas Monterroso MD LAB BLOOD ORDERABLES Final Re sult Performing Organization Address [facility] Co de Phone Number [place] [phone] [facility] [place] [address] * Vitamin B12 (06/17/2024 11:02 AM CDT) Vitamin B12 300 230 - 1,250 pg/mL Comment:Testing performed by : [address], [address] Blood 06/17/2024 11:0 2 AM CDT 06/17/2024 6:22 PM CDT Salas Monterroso MD LAB BLOOD ORDERABLES Final Re sult Performing Organization Address [facility]/ZIP Co de Phone Number [place] [phone] [facility] Department [place] [address] * (ABNORMAL) Thyroid Function [place] (06/17/2024 11:02 AM CDT) TSH 4.33(H) 0.30 - 4.20 mcIUnit/mL Comment:Testing performed by : [address] [address] Blood 06/17/2024 11:0 2 AM CDT 06/17/2024 6:22 PM CDT Salas Monterroso MD LAB BLOOD ORDERABLES Final Re sult [address] Department [place] [address] * (ABNORMAL) CBC with auto differential (06/17/2024 11:02 AM CDT) WBC 4.47 3.80 - 9.90 K/cumm Comment:Testing performed by : [address], [address] Hgb 9.9(L) 13.0 - 17.5 g/dL [facility] Comment:Testing performed by : [address], [address] Hct 32.0(L) 38.9 - 50.3 % [facility] Comment:Testing performed by : [address], [address] Plt 263 150 - 400 K/cumm [facility] Comment:Testing performed by : [address], [address] MPV 9.3 9.1 - 12.3 fL [facility] Comment:Testing performed by : [address], [address] RBC 3.29(L) 4.30 - 5.80 M/cumm [facility] Comment:Testing performed by : [address], [address] MCV 97.3(H) 81.3 - 96.4 fL [facility] Comment:Testing performed by : [address], [address] MCH 30.1 27.1 - 33.3 pg [facility] Comment:Testing performed by : [address], [address] MCHC 30.9(L) 32.3 - 35.7 g/dL [facility] Comment:Testing performed by : [facility], [address] [place] [address]., [address] RDW CV 17.7(H) 11.1 - 14.9 % [facility] Comment:Testing performed by : [address], [address] RDW SD 63.2(H) 35.7 - 48.1 fL [facility] Comment:Testing performed by : , [address] [place] [address], [address] NRBC abs 0.00 0.00 - 0.01 K/cumm TOM Comment:Testing performed by : [address], [address] Blood 06/17/2024 11:0 2 AM CDT 06/17/2024 6:22 PM CDT Salas Monterroso MD LAB BLOOD ORDERABLES Final Re sult Performing Organization Address [facility] Co de Phone Number TOM [phone] [facility] Department [place] [address] * (ABNORMAL) CRP (acute phase) (06/17/2024 11:02 AM CDT) CRP 10.4(H) <=10.0 mg/L Comment:Testing performed by : [address], [address] Blood 06/17/2024 11:0 2 AM CDT 06/17/2024 6:22 PM CDT Salas Monterroso MD LAB BLOOD ORDERABLES Final Re sult Performing Organization Address [facility] Co de Phone Number TOM [address] [facility] [place] [address] documented in this encounter Visit Diagnoses Diagnosis Hypertension associated with type 2 diabetes mellitus (HCC) Essential hypertension Unspecified essential hypertension documented in this encounter Additional Health Concerns Infection Onset Date Last Indicated Resolved Time MDR gram neg/ESBL 04/26/2024 05/06/2024 documented as of this encounter Care Teams Ensemble Member Relationship Specialty Start Date End Date Salas Monterroso MD [address] [place] [address] PCP - General 02/27/18 Thelma Love, PT Physical Therapist Physical Therapy 06/11/17 Karissa Salas, [employer] Scholarship Counselor Physical Therapy 06/17/17 Stewart Rahman MD [address] [place] [address] Consulting Physician Cardiovascular Disease 04/19/18 [place] [address] [address] Consulting Physician Cardiology 08/30/18 Angie Garcia MD [address] [place] [address] Consulting Physician Pain Management 08/12/19 Rolando Narvaez NP [address] [place] [address] Nurse Practitioner Pain Management 12/11/19 Grisel Almodovar OD [address] [place] [address] Consulting Physician Optometry 01/25/21 Horace Pacheco MD [address] [place] [address] Referring Physician Cardiology 06/21/21 Purvi Da Silva NP [address] [place] [address] Nurse Practitioner General Surgery 07/10/22 Jon Mares MD [address] [place] [address] Consulting Physician General Surgery 08/10/22 Salas Morales MD [address] [place] [address] [place] [address] Consulting Physician Nephrology 09/25/22 Chase Mancuso MD [address] [facility] [id number] [place] [address] Surgeon Vascular Surgery 02/19/24 Agustin Lancaster MD PhD [address] [place] [address] Consulting Physician Neurosurgery 12/03/23 documented as of this encounter
--- OUTSIDE RECORDS SUMMARY | 2024-06-18 13:57 | XMS_ITS | Clinical Summary ---
Author Organization [facility] Address [address] [place] [address] Care Team Providers Care Glazing Superintendent Name Role Phone Thelma Love PT Unavailable Unavailable Karissa Salas PTA Unavailable Unavailable Randal Monterroso MD Primary Care Provider [phone] Stewart Rahman MD Unavailable Immanuel Conway MD Unavailable Angie Garcia MD Unavailable [phone] Rolando Narvaez ENAMEL MACHINE OPERATOR Unavailable [phone] Grisel Almodovar OD Unavailable [phone] Horace Pacheco MD Unavailable Purvi Da Silva NP Unavailable [phone] Jon Mares MD Unavailable Randal Morales MD Unavailable [phone] Chase Mancuso MD Unavailable [phone] Agustin Lancaster MD PhD Unavailable [phone] Allergies Active Allergy Reactions Criticality Noted Date Comments Evolocumab Fatigue Medium 04/08/2024 Pt states after injection he will have back pain, hard time standing, chills, fatigue and runny nose. S/S will last up to four to five hours. 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 [employer] Tnuajtu-Zsv-Pou Reductase Inhibitors Muscle pain Medium 08/22/2017 Sulfa [...] (two) times a day 60 tablet 05/10/19 25 025 Discontinued traMADoL (ULTRAM) 50 mg tabletIndicatio [...] total) by mouth nightly 30 tablet 05/10/19 025 Discontinued(N o longer taking - Do not display on AVS) polyethylene glycol (MIRALAX) 17 gram/dose bulk powderIndicatio ns:constipation Take 17 g by mouth daily 510 g 05/10/19 025 Discontinued oxyCODONE (ROXICODONE) 5 mg immediate [...] daily for 21 days 8.4 mL 05/10/19 025 insulin regular in 0.9% sodium chloride [...] about a month ago, was evaluated at [facility] hospitalized for about two days. No definite stroke or other cause was found. Recommend continuing aspirin 81 mg daily. Gram-negative bacteremia 04/30/2024 Urinary tract infection due to extended-spectrum beta lactamase (ESBL) producing Escherichia coli 04/30/2024 Assessment & Plan (06/17/2024 6:08 PM CDT): Acute problem as of about a month ago, hospitalized and treated at [facility]. He denies any current significant urinary symptoms of concern. Urinalysis about three weeks ago, to be scanned into his record, is fairly unremarkable. We will monitor clinically with the appropriate referrals as needed. Septic arthritis 04/27/2024 Assessment & Plan (06/17/2024 6:04 PM CDT): New problem as of about two months ago. He was admitted to [facility] about two months ago with ESBL [...] 02/08/2024 Assessment & Plan (02/08/2024 10:35 AM FILM DEVELOPING MACHINE OPERATOR): Acute, worse in the last 3-4 days. 118/70 sitting VS 88/42 standing this AM with [facility]. 92/62 (96) in office today. Complicated by a large AAA. Consulted with Dr. Monterroso in office today we will have them cut metoprolol in half (12.5 mg daily) until his follow-up with Cardiology next week. Continue to stay off spironolactone and take isosorbide as prescribed. Push fluids. Hospital discharge follow-up 01/07/2024 Assessment & Plan (01/07/2024 6:21 PM FILM DEVELOPING MACHINE OPERATOR): See hospital details above for cellulitis and worsening odontoid fracture and neck, testing and labs reviewed with patient and daughter in office today. Med reconciliation completed. Neurosurgery was supposed to see him while he was in the hospital but that did not happen, daughter has phone number of physician at [facility] and is to set up appointment adam. He is currently completing a course of rehab at [facility]. No acute findings on exam today, vitals stable. He is wearing [place] J collar at all times. Cellulitis to wrist seems resolved, CBC upon discharge was unremarkable. Continue current regimen and [facility] Macrocytic anemia 12/26/2023 Assessment & Plan (03/16/2024 4:04 AM FILM DEVELOPING MACHINE OPERATOR): New problem, uncertain cause or significance, additional testing ordered including a follow-up CBC. Lab Results Component Value Date WBC 5.4 01/22/2024 HGB 10.4 (L) 01/22/2024 HCT 33.7 (L) 01/22/2024 MCV 96.8 (H) 01/22/2024 LABPLAT 221 01/22/2024 Odontoid fracture with type II morphology, anterior displacement, and routine healing, subsequent encounter 10/22/2023 Assessment & Plan (03/17/2024 6:52 PM FILM DEVELOPING MACHINE OPERATOR): Acute problem as of several months ago, improving slowly. It was managed conservatively. Fall precautions reinforced. Assessment & Plan (01/26/2024 2:38 PM FILM DEVELOPING MACHINE OPERATOR): Chronic, status post fall in September. Cervical MRI upon recent hospitalization showed new displacement of fracture. He saw neurosurgery who deemed it non-surgical and thought he could come out of the aspen collar as tolerated and start PT. Continue Tylenol/tramadol as needed for pain. Assessment & Plan (01/07/2024 6:29 PM FILM DEVELOPING MACHINE OPERATOR): Chronic, status post fall in September. Cervical MRI upon recent hospitalization showed new displacement of fracture. He was supposed to see Neurosurgery in the hospital but that did not happen, they gave his daughter the number of Dr. Lancaster at [facility] she will make appointment adam. He is wearing Wayzata J collar at all times and currently completing PT OT at [facility]. Continue Tylenol/tramadol as needed for pain. Advised daughter to call for follow-up appointment when he gets discharged from [facility]. Addendum: Patient has appointment with Dr. Lancaster on 01/13/24. Assessment & Plan (12/31/2023 3:03 PM FILM DEVELOPING MACHINE OPERATOR): He has a history of a known [...] today--> will reschedule for next week - [place] [employer] [place] J collar in place at all times --PT and OT evaluations Assessment & Plan (12/13/2023 12:28 PM CDT): Acute problem from a fall when he was out of town in early October, improving. He is still wearing a hard collar and has some stiffness in his neck but no pain. A follow-up with Neurosurgery at [place] is planned. In the meantime, we will start him on some physical therapy for generalized weakness and unsteady gait. He does have a walker. Assessment & Plan (10/22/2023 9:59 PM CDT): New problem, sustained on 10/10/23 s/p fall while in [place]. ER notes are in chart. CT cervical [...] 08/20/2023 Assessment & Plan (12/17/2023 1:18 PM FILM DEVELOPING MACHINE OPERATOR): New problem as of earlier this year, [...] 05/06/2023 Assessment & Plan (01/28/2023 11:59 AM FILM DEVELOPING MACHINE OPERATOR): He is seeing Dr. Morales for his [...] needed. Assessment & Plan (03/16/2024 4:03 AM FILM DEVELOPING MACHINE OPERATOR): Chronic, present for three or more years, controlled with diet. Kidney disease fluctuates with some improvement in EGFR recently Lab Results Component Value Date HGBA1C 6.6 (H) 01/22/2024 HGBA1C 6.7 (H) 12/28/2023 HGBA1C 6.4 (H) 11/30/2023 Lab Results Component Value Date LDLCALC 52 05/06/2023 CREATININE 1.16 01/22/2024 Assessment & Plan (01/07/2024 6:28 PM FILM DEVELOPING MACHINE OPERATOR): Chronic, controlled. Last A1c from 2 weeks ago was 6.7. No acute symptoms or findings on exam. Advised to continue current regimen of Lantus and sliding scale insulin. Assessment & Plan (12/17/2023 1:18 PM FILM DEVELOPING MACHINE OPERATOR): Chronic, present for more than two years, [...] 05/06/2023 Assessment & Plan (01/28/2023 11:59 AM FILM DEVELOPING MACHINE OPERATOR): He is controlling his diabetes with diet. [...] 06/20/2022 Assessment & Plan (12/21/2021 12:01 PM FILM DEVELOPING MACHINE OPERATOR): He is controlling this with diet, and [...] Dilated eye exam, 01/25/2021, Grisel Almodovar, OD, [facility]. Bilateral dry macular degeneration, no diabetic [...] unremarkable. Assessment & Plan (03/05/2020 3:38 PM FILM DEVELOPING MACHINE OPERATOR): About six months ago, he started to notice some vertical diplopia in the left eye only. He notices it when driving. Vehicle lights will be stacked one on top of the other. He also notices toribio markers that are divided. He went to his remote inpatient coder who said there was nothing wrong and [...] same. Assessment & Plan (03/13/2019 8:40 AM FILM DEVELOPING MACHINE OPERATOR): Start Pepcid at bedtime LPR discussed and Handout provided Statin intolerance 04/15/2018 Overview (04/15/2018): Weakness and muscle pain to atorvastatin and rosuvastatin Hypertension associated with type 2 diabetes clover litus 03/07/2018 Assessment & Plan (06/17/2024 6:00 PM CDT): Chronic, present for 6-7 or more years, recommend continuing spironolactone and other medications listed elsewhere. Assessment & Plan (03/16/2024 3:56 AM FILM DEVELOPING MACHINE OPERATOR): Chronic, present for six or more years, controlled on metoprolol XL 25 mg daily and spironolactone 25 mg daily. Assessment & Plan (01/26/2024 2:36 PM FILM DEVELOPING MACHINE OPERATOR): Chronic, at goal. BP stable in office today, no acute symptoms or findings on exam. Repeat BMP was ordered for worsening kidney function s/p vancomycin in hospital but was never completed. Encouraged daughter that once she recovers from COVID infection she should bring dad in for repeat labs. Continue ASA, isosorbide, metoprolol as rxd. Assessment & Plan (01/07/2024 6:25 PM FILM DEVELOPING MACHINE OPERATOR): Chronic, at goal. BP stable in office [...] same. Assessment & Plan (01/28/2023 11:58 AM FILM DEVELOPING MACHINE OPERATOR): Blood pressure is in a good range [...] same. Assessment & Plan (12/21/2021 11:58 AM FILM DEVELOPING MACHINE OPERATOR): Blood pressure is in a good range on current therapy. He does not experience angina, but has nitroglycerin on hand for use as needed. We sent in a refill. Assessment & Plan (04/21/2021 9:55 AM FILM DEVELOPING MACHINE OPERATOR): Blood pressure in clinic today was found [...] time. Assessment & Plan (04/01/2021 3:38 PM FILM DEVELOPING MACHINE OPERATOR): Blood pressure is in a reasonable range, [...] therapy. Assessment & Plan (01/23/2018 12:35 PM FILM DEVELOPING MACHINE OPERATOR): Blood pressure is in a good range [...] Rahman. Assessment & Plan (04/21/2021 9:55 AM FILM DEVELOPING MACHINE OPERATOR): Patient has bilateral coronary artery stenosis about 50%. He is being followed by Dr. Rahman. We will continue focus on managing cardiovascular risk factors. 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 Rahman. Assessment & Plan (03/16/2024 3:55 AM FILM DEVELOPING MACHINE OPERATOR): Chronic, present for six or more years, fair control, managed with metoprolol XL 25 mg daily and spironolactone 25 mg daily. Assessment & Plan (01/26/2024 2:36 PM FILM DEVELOPING MACHINE OPERATOR): Chronic, stable on current regimen. Cardiac exam is stable with no murmur audible today, vitals stable. Repeat BMP was ordered for worsening kidney function s/p vancomycin in hospital but was never completed. Encouraged daughter that once she recovers from COVID infection she should bring dad in for repeat labs. Continue ASA, isosorbide, metoprolol as rxd. Assessment & Plan (12/28/2023 2:54 AM FILM DEVELOPING MACHINE OPERATOR): Noted on office echocardiogram in 2019 reportedly with ischemic cardiomyopathy with diastolic dysfunction. - [facility] - Continue home spironolactone, metoprolol and repatha. Assessment & Plan (12/17/2023 1:14 PM FILM DEVELOPING MACHINE OPERATOR): Chronic, present for five or more years, [...] his legs. He is on spironolactone. His tree planter told him to take furosemide as needed. [...] clinically. 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 Assessment & Plan (04/19/2018 8:56 AM FILM DEVELOPING MACHINE OPERATOR): Noted. Pressure controllled. Will be assessed along with kidney size during assessment of the abdominal aneurysm, unless BP becomes problematic Hx of adenomatous colonic polyps 01/24/2018 Overview (02/25/2020): Added automatically from request for surgery [id number], normal colonoscopy, 02/17/2018, Dr. Barajas. Hearing loss [...] same. Assessment & Plan (12/21/2021 11:59 AM FILM DEVELOPING MACHINE OPERATOR): He says his mood is good. He takes buspirone. Continue same. Assessment & Plan (06/21/2021 11:51 AM CDT): He is doing well on buspirone. We sent in a refill. Assessment & Plan (03/23/2021 11:30 AM FILM DEVELOPING MACHINE OPERATOR): He seems to be doing pretty well [...] months. Assessment & Plan (02/25/2020 12:04 PM FILM DEVELOPING MACHINE OPERATOR): His mood seems pretty stable at this [...] busy. Assessment & Plan (02/28/2019 3:02 PM FILM DEVELOPING MACHINE OPERATOR): He says his mood is pretty good. [...] same. Assessment & Plan (01/23/2018 12:38 PM FILM DEVELOPING MACHINE OPERATOR): He seems less anxious, more settled. Continue [...] while visiting at hospital, S/P CABG at [place].severe 3 vessel disease He had JASMYN to LAD, SVG to marginal and EVG to PDA by Lj Barragan Assessment & Plan (03/16/2024 3:57 AM FILM DEVELOPING MACHINE OPERATOR): Chronic, status post three-vessel bypass in 2017, now maintained on medical therapy with aspirin 81 mg daily and other medications listed elsewhere. Comanaged with Cardiology. Assessment & Plan (01/17/2024 2:04 PM FILM DEVELOPING MACHINE OPERATOR): Chronic, stable on current regimen. Cardiac exam is stable with no murmur audible today, vitals stable. Repeat BMP was ordered for worsening kidney function s/p vancomycin in hospital but was never completed. Encouraged daughter that once she recovers from COVID infection she should bring dad in for repeat labs. Continue ASA, isosorbide, metoprolol, spironolactone as rxd. Assessment & Plan (12/17/2023 1:16 PM FILM DEVELOPING MACHINE OPERATOR): Chronic, diagnosed more than five years ago, [...] recently. Assessment & Plan (01/28/2023 11:58 AM FILM DEVELOPING MACHINE OPERATOR): He denies any chest pain symptoms recently. [...] 2017. Assessment & Plan (12/21/2021 11:58 AM FILM DEVELOPING MACHINE OPERATOR): He has been stable on his current [...] therapy. Assessment & Plan (03/23/2021 11:32 AM FILM DEVELOPING MACHINE OPERATOR): He is doing well. No new symptoms reported on his medical regimen. He will follow-up with his new cardiovascular surgeon at [facility]. Assessment & Plan (10/31/2020 12:37 PM CDT): [...] AM CDT): Scanned telemedicine visit, Dr. Rahman, [facility]. Assessment & Plan (02/25/2020 12:07 PM FILM DEVELOPING MACHINE OPERATOR): He has not had any angina type [...] therapy. Assessment & Plan (02/28/2019 2:59 PM FILM DEVELOPING MACHINE OPERATOR): He seems to be doing well on [...] Cardiology. Assessment & Plan (02/04/2018 8:34 AM FILM DEVELOPING MACHINE OPERATOR): He had bypass surgery about 18 months ago at [place]. He has done fairly well since then [...] needed. Assessment & Plan (04/18/2017 1:46 PM FILM DEVELOPING MACHINE OPERATOR): Dr. Lawrence put him on long-acting nitroglycerin [...] Coronary artery disease 07/05/2016 Overview (04/21/2021): S/P FL, subsequent CABG, [facility]. Assessment & Plan (06/17/2024 6:00 PM CDT): Chronic, present for 7-8 years or more, status post bypass grafting. Recommend continuing aspirin 81 mg daily and metoprolol XL 12.5 mg daily. He is intolerant of statins. For awhile he was receiving Repatha, but had a possible allergic reaction so I do not think it is a good choice. His tree planter prescribed bempedoic acid but it was too expensive so we did not pick it up. Recommend he discuss alternative treatments such as Inclisiran with his tree planter Dr. Rahman at his appointment in July. Assessment & Plan (12/28/2023 2:40 AM FILM DEVELOPING MACHINE OPERATOR): S/p FL and subsequent CABG in 2016. - On biweekly repatha injections. - Hold ASA for possible procedure. - Continue home ISORDIL Assessment & Plan (04/21/2021 9:53 AM FILM DEVELOPING MACHINE OPERATOR): Patient is known to have coronary artery [...] Pseudogout Assessment & Plan (03/17/2024 6:54 PM FILM DEVELOPING MACHINE OPERATOR): Chronic/recurrent, present for 10 or more years, with recent severe flare. Things have settled down with conservative management. Assessment & Plan (02/08/2024 10:35 AM FILM DEVELOPING MACHINE OPERATOR): Chronic, uncontrolled. Worsening redness and swelling in [...] disease Assessment & Plan (12/28/2023 2:40 AM FILM DEVELOPING MACHINE OPERATOR): Continue home famotidine. Assessment & Plan (08/20/2019 12:11 PM CDT): He continues to have some degree of epigastric pain, but it seems to be controlled with nighttime doses of famotidine. CBC is stable. We sent in a refill. Assessment & Plan (02/28/2019 2:58 PM FILM DEVELOPING MACHINE OPERATOR): He gets occasional heartburn for which he [...] Dementia Assessment & Plan (12/28/2023 2:55 AM FILM DEVELOPING MACHINE OPERATOR): Continue home donepezil Assessment & Plan (05/10/2023 [...] refill. Assessment & Plan (02/28/2019 3:00 PM FILM DEVELOPING MACHINE OPERATOR): He continues on donepezil. Seems to be [...] cm from its origin. 08/28/18 Office USN ([facility]): AAA 3.8 cm diameter, CT angio recommended, Dr. Rahman. Revised report?: Proximal AAA, 4.7-5.0 cm, [facility] sacular aneurysm, CT angio ordered. 03/26/2019 Office USN ([facility]): AAA 4.1 cm at largest point, study in [facility] office. 09/15/2019 Office USN ([facility]): AAA 4.1 cm of mid aorta, plaque demonstrated throughout. Follow-up ultrasound in April 2021: Mid abdominal aortic aneurysm noted now measuring 4.4 x 4.5 x 4.9 cm in AP by transverse by cc dimensions. CT A/P 12/26/23:Vasculature: 5.1 x 4.9 cm fusiform aneurysm of the infrarenal abdominal aorta. This previously measured 4.4 x 4.2 cm in 2019. Assessment & Plan (03/17/2024 6:46 PM FILM DEVELOPING MACHINE OPERATOR): Chronic, diagnosed about 10 years ago, expanding with recent CT imaging showing increased size. Followed by vascular surgery and a six month CT was recommended. Assessment & Plan (02/08/2024 10:27 AM FILM DEVELOPING MACHINE OPERATOR): Chronic, during recent hospitalization for Cellulitis/neck pain [...] rxd. Assessment & Plan (01/26/2024 2:35 PM FILM DEVELOPING MACHINE OPERATOR): Chronic, during recent hospitalization for Cellulitis/neck pain [...] pain. Assessment & Plan (01/28/2023 11:57 AM FILM DEVELOPING MACHINE OPERATOR): He has a stable small abdominal aortic [...] study. Assessment & Plan (12/24/2021 1:15 PM FILM DEVELOPING MACHINE OPERATOR): He is due for a follow-up ultrasound in about six months. We are monitoring a small and possibly slowly enlarging aneurysm. He has also been followed intermittently by [facility]. Assessment & Plan (06/21/2021 11:46 AM CDT): He had at follow-up abdominal aortic ultrasound about two months ago which showed relatively stable findings at 4.4 cm compared to 4.1 cm about six months before that. He denies any new abdominal pain. We will continue to monitor. Assessment & Plan (04/21/2021 9:59 AM FILM DEVELOPING MACHINE OPERATOR): Patient has extensive peripheral vascular disease and [...] now. Assessment & Plan (04/01/2021 3:39 PM FILM DEVELOPING MACHINE OPERATOR): He is due for a follow-up abdominal aortic aneurysm ultrasound in about a month. We will get that scheduled. He does not plan to follow-up with his tree planter going forward because of difficulty with virtual visits and other such problems. Assessment & Plan (09/05/2020 8:06 AM CDT): He has had stable findings on his abdominal aorta for several years. This is followed by his tree planter, Dr. Rahman. Ultrasound was ordered in April [...] clinically. Assessment & Plan (03/05/2020 3:39 PM FILM DEVELOPING MACHINE OPERATOR): He is due for follow-up imaging of his abdominal aortic aneurysm which is typically performed in the cardiology office. We will try request the report when done. Assessment & Plan (08/29/2019 1:03 PM CDT): This is being followed by Dr. Rahman at [facility]. He had a follow-up ultrasound in their office on 03/26/2019, and findings were stable. He sees Dr. Rahman next month for this and for his cardiac condition as well. Assessment & Plan (02/19/2019 12:56 PM FILM DEVELOPING MACHINE OPERATOR): He will be due for a follow-up [...] months. Assessment & Plan (04/19/2018 8:54 AM FILM DEVELOPING MACHINE OPERATOR): Recent CT (02/18/2018) nfrarenal abdominal aortic aneurysm with maximum outer wall diameter of 4.3 cm and maximum luminal diameter of 3.4 cm; length is approximately 6.[address]. [address] Sorenson Assessment & Plan (02/04/2018 8:34 AM FILM DEVELOPING MACHINE OPERATOR): He had a small abdominal aortic aneurysm on imaging a few years ago with a follow-up about 18 months ago showing some mild enlargement. He says he had another one since then at [facility] that did not show any aneurysm, but [...] etc. Assessment & Plan (01/07/2024 6:17 PM FILM DEVELOPING MACHINE OPERATOR): Chronic, Stable. See recent hospitalization above for cellulitis, creatinine on discharge was slightly higher than baseline 1.6 but they did give him vancomycin. No acute symptoms or findings on exam. Continue current medication regimen we will continue to monitor Assessment & Plan (12/31/2023 3:03 PM FILM DEVELOPING MACHINE OPERATOR): -Cr fluctuates between 1.2 to 1.8; today is 1.6 Assessment & Plan (10/22/2023 9:53 PM CDT): Chronic, controlled. Complicates management of chronic and acute pain. Most recent Creatinine in [place] ER was down to 1.29, baseline is [...] monitor. Assessment & Plan (01/28/2023 11:59 AM FILM DEVELOPING MACHINE OPERATOR): Kidney function is stable. He has some [...] 06/20/2022 Assessment & Plan (12/21/2021 12:00 PM FILM DEVELOPING MACHINE OPERATOR): Creatinine is little higher on recent labs, [...] status post pulmonary vein isolation with subsequent gnosticism of sinus rhythm. Recommend continued clinical monitoring at office visits for possible recurrence. 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 Assessment & Plan (02/25/2020 12:04 PM FILM DEVELOPING MACHINE OPERATOR): This seems to be in remission. No [...] same. Assessment & Plan (04/18/2017 1:49 PM FILM DEVELOPING MACHINE OPERATOR): He continues on tramadol for various aches and pains as well as for spinal stenosis. There is no acutely inflamed joint on exam today. In the past, he was seeing a automatic mounter and even took methotrexate for awhile, but [...] same. Assessment & Plan (03/23/2021 11:30 AM FILM DEVELOPING MACHINE OPERATOR): He has tramadol for use as needed. We sent in a refill. Assessment & Plan (02/25/2020 12:03 PM FILM DEVELOPING MACHINE OPERATOR): He is doing reasonably well with tramadol. [...] today. Assessment & Plan (01/23/2018 12:39 PM FILM DEVELOPING MACHINE OPERATOR): He had a flare of back pain [...] recommendations. Assessment & Plan (03/16/2024 3:56 AM FILM DEVELOPING MACHINE OPERATOR): Chronic, present for 7-8 years, treated with evolocumab/Repatha injections every two weeks due to statin intolerance. Continue same. Assessment & Plan (12/13/2023 12:26 PM CDT): Chronic, present for more than 10 years, currently controlled with Repatha injections every two weeks. Continue same. We will monitor labs periodically. Assessment & Plan (08/12/2023 12:05 PM CDT): Chronic, fair control. He is on Repatha from his tree planter. We actually refilled it last time in January. Continue same. Assessment & Plan (05/11/2023 2:42 PM CDT): He did not tolerate statins. We refilled his Repatha pen a few months ago. Assessment & Plan (01/28/2023 11:57 AM FILM DEVELOPING MACHINE OPERATOR): He is on Repatha originally prescribed by [...] months. Assessment & Plan (12/21/2021 12:01 PM FILM DEVELOPING MACHINE OPERATOR): He is on Repatha. He is intolerant [...] 12/14/2021 Assessment & Plan (04/21/2021 9:56 AM FILM DEVELOPING MACHINE OPERATOR): He has dyslipidemia and is currently on Repatha which she gets every 3 months. He is statin intolerant due to myalgias. Will repeat lipid panel. Assessment & Plan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 [facility], [address] [place] [address]., [address] Potassium, pl 4.8 3.3 - 4.9 mmol/L CERNER CH Comment:Testing performed by : [facility], [address] [place] [address]., [address] Chloride 103 97 - 110 mmol/L CERNER CH Comment:Testing performed by : [address] [address] CO2 25 22 - 32 mmol/L CERNER CH Comment:Testing performed by : [facility], [address] [place] [address]., [address] Anion gap 12 2 - 15 mmol/L CERNER CH Comment:Testing performed by : [address] [address] BUN 24 6 - 25 mg/dL CERNER CH Comment:Testing performed by : [address] [address] Creatinine 1.40(H) 0.80 - 1.30 mg/dL CERNER CH Comment:Testing performed by : [address] [address] Glucose 94 70 - 199 mg/dL CERNER [...] was last revised 2022. Testing performed by: [address] [address] Calcium 9.6 8.5 - 10.3 mg/dL CERNER CH Comment:Testing performed by : [address] [address] Bilirubin, total 0.2 0.1 - 1.2 mg/dL CERNER CH Comment:Testing performed by : [address] [address] Protein, pl 7.2 6.5 - 8.5 g/dL CERNER CH Comment:Testing performed by : [facility], [address] [place] [address], [address] Albumin 3.4(L) 3.5 - 5.0 g/dL CERNER CH Comment:Testing performed by : [facility], [address] [place] [address], [address] Alk phos 121 40 - 130 Units/L CERNER CH Comment:Testing performed by : [facility], [address] [place] [address], [address] ALT 12 7 - 55 Units/L CERNER CH Comment:Testing performed by : [address], [address] AST 27 10 - 50 Units/L CERNER CH Comment:Testing performed by : [address], [address] Blood 06/17/2024 11:0 2 AM CDT 06/17/2024 6:22 PM CDT Result [facility] Randal Monterroso MD LAB BLOOD ORDERABLES Final Re sult Performing Organization Address [facility] Co de Phone Number [address] Department [place] [address] * CBC with auto differential (05/27/2024 2:26 PM CDT) Blood Historical Provider LAB BLOOD ORDERABLES Kailyn l Result Performing Organization Address [facility]/ZIP Co de Phone Number EXTERNAL LAB * CRP (acute phase) (05/27/2024 2:26 PM CDT) Blood Historical Provider LAB BLOOD ORDERABLES Kailyn l Result Performing Organization Address [facility] Co de Phone Number EXTERNAL LAB * (ABNORMAL) eGFR (05/15/2024 5:49 PM CDT) [facility] eGFR 47(L) >=60 mL/min/1. 73 m2 [...] MD LAB BLOOD ORDERABLES Final Res ult [facility] [address] [address] Department [place] [address] * (ABNORMAL) Differential, auto (05/15/2024 5:49 PM CDT) Neutrophil abs 7.32(H) 1.50 - 6.50 K/cumm Imm gran abs 0.04 0.00 - 0.10 K/cumm [facility] Lymphocyte abs 1.20 0.80 - 3.30 K/cumm [facility] Monocyte abs 1.04(H) 0.20 - 0.80 K/cumm [facility] Eosinophil abs 0.00 0.00 - 0.50 K/cumm [facility] Basophil abs 0.02 0.00 - 0.10 K/cumm [facility] Neutrophil pct 76.1 % [facility] Comment: Interpretive Data Percent cell count reference ranges are not reported, since discordance with absolute values may lead to misinterpretation of CBC data. Current Interpretive Data was last revised on 2017. Imm gran pct 0.4 % CERNER Comment: Interpretive Data Percent cell count reference ranges are not reported, since discordance with absolute values may lead to misinterpretation of CBC data. Current Interpretive Data was last revised on 2017. Lymphocyte pct 12.5 % CERNER CH Comment: Interpretive Data Percent cell count reference ranges are not reported, since discordance with absolute values may lead to misinterpretation of CBC data. Current Interpretive Data was last revised on 2017. Monocyte pct 10.8 % CERNER Comment: Interpretive Data Percent cell [...] on 2017. Basophil pct 0.2 % CERNER Comment: Interpretive Data Percent cell count reference ranges are not reported, since discordance with absolute values may lead to misinterpretation of CBC data. Current Interpretive Data was last revised on 2017. Blood 05/15/2024 5:49 PM CDT 05/15/2024 6:34 PM CDT us Drew Mejia MD LAB BLOOD ORDERABLES Final Res ult [facility] [address] [address] [place] [address] * (ABNORMAL) Comprehensive metabolic panel, serum (05/15/2024 5:49 PM CDT) Sodium 137 135 - 145 mmol/L Potassium, sr 4.7 3.6 - 5.2 mmol/L [facility] Chloride 100 97 - 110 mmol/L [facility] CO2 24 22 - 32 mmol/L [facility] Anion gap 13 2 - 15 mmol/L [facility] BUN 36(H) 6 - 25 mg/dL [facility] Creatinine 1.46(H) 0.80 - 1.30 mg/dL CERNER CH Glucose 139 70 - 199 mg/dL CERNER CH Comment: [...] MD LAB BLOOD ORDERABLES Final Res ult [facility] [address] [address] Department [place] [address] * (ABNORMAL) CBC with auto differential (05/15/2024 5:49 PM CDT) Pathologist [facility] WBC 9.62 3.80 - 9.90 K/cumm Hgb 8.4(L) 13.0 - 17.5 g/dL CERNER CH Hct 27.3(L) 38.9 - 50.3 % CERNER CH Plt 362 150 - 400 K/cumm CERNER CH MPV 9.6 9.1 - 12.3 fL CERNER CH RBC 2.84(L) 4.30 - 5.80 M/cumm CERNER CH MCV 96.1 81.3 - 96.4 fL CERNER CH MCH 29.6 27.1 - 33.3 pg CERNER CH MCHC 30.8(L) 32.3 - 35.7 g/dL CERNER CH RDW CV 16.4(H) 11.1 - 14.9 % CERNER CH RDW SD 58.2(H) 35.7 - 48.1 fL CERNER CH NRBC abs 0.00 0.00 - 0.01 K/cumm CERNER CH Blood 05/15/2024 5:49 PM CDT 05/15/2024 6:34 PM CDT Drew Mejia MD LAB BLOOD ORDERABLES Final Res ult TOM WILL [address] [address] [place] [address] * POCT glucose (05/09/2024 11:31 AM CDT) Glucose, POC 155 70 - 199 mg/dL Blood 05/09/2024 11:3 1 AM CDT 05/09/2024 11:31 AM CDT Skyla Cardenas MD LAB POCT ORDERABLES - DEV ICE Final Result Performing Organization Address City/[facility]/ZIP Co de Phone Number TOM [facility] ([place]) 1 [facility] [place] [address] * POCT glucose (05/09/2024 7:30 AM CDT) Glucose, POC 111 70 - 199 mg/dL Blood 05/09/2024 7:30 AM CDT 05/09/2024 7:30 AM CDT Skyla Cardenas MD LAB POCT ORDERABLES - DEV ICE Final Result Performing Organization Address City/[facility]/ZIP Co de Phone Number TOM [facility] ([place]) 1 [facility] [place] [address] * eGFR (05/09/2024 5:46 AM CDT) eGFR [...] SAVAGE LAB BLOOD ORDERABLES Final Result TOM [facility] ([place]) 1 [facility] Department [place] [address] * (ABNORMAL) CBC without differential (05/09/2024 5:46 AM CDT) Pathologist [facility] WBC 6.1 3.8 - 9.9 K/cumm Hgb 8.6(L) 13.0 - 17.5 g/dL [facility] ([place]) Hct 26.7(L) 38.9 - 50.3 % [facility] ([place]) Plt 414(H) 150 - 400 K/cumm [facility] ([place]) MPV 9.2 9.1 - 12.3 fL [facility] ([place]) RBC 2.88(L) 4.30 - 5.80 M/cumm [facility] ([place]) MCV 92.7 81.3 - 96.4 fL [facility] ([place]) MCH 29.9 27.1 - 33.3 pg [facility] ([place]) MCHC 32.2(L) 32.3 - 35.7 g/dL [facility] ([place]) RDW CV 16.5(H) 11.1 - 14.9 % [facility] ([place]) RDW SD 56.8(H) 35.7 - 48.1 fL [facility] ([place]) NRBC abs 0.00 0.00 - 0.01 K/cumm [facility] ([place]) Blood 05/09/2024 5:46 AM CDT 05/09/2024 6:04 AM CDT us Cailin Joshi PA LAB BLOOD ORDERABLES Final Result Performing Organization Address City/[facility]/ZIP Co de Phone Number TOM [facility] ([place]) 1 [facility] [place] [address] * Phosphorus (05/09/2024 5:46 AM CDT) Phosphorus, pl 3.5 2.3 - 4.5 mg/dL Blood 05/09/2024 5:46 AM CDT 05/09/2024 6:04 AM CDT us Joyce Guerrero NP LAB BLOOD ORDERABLE S Final Result Performing Organization Address City/[facility]/ZIP Co de Phone Number [facility] ([place]) 1 [facility] [place] [address] * (ABNORMAL) Basic metabolic panel (05/09/2024 5:46 AM CDT) Sodium 139 135 - 145 mmol/L Potassium, pl 4.8 3.3 - 4.9 mmol/L [facility] ([place]) Chloride 104 97 - 110 mmol/L [facility] ([place]) CO2 26 22 - 32 mmol/L [facility] ([place]) Anion gap 9 2 - 15 mmol/L [facility] ([place]) BUN 30(H) 6 - 25 mg/dL [facility] ([place]) Creatinine 1.20 0.80 - 1.30 mg/dL [facility] ([place]) Glucose 115 70 - 199 mg/dL [facility] ([place]) Comment: Interpretive Data Fasting glucose >/= [...] Calcium 8.6 8.5 - 10.3 mg/dL [facility] ([place]) Blood 05/09/2024 5:46 AM CDT 05/09/2024 6:04 AM CDT us Cailin [facility] LAB BLOOD ORDERABLES Final Result TOM [facility] ([place]) 1 [facility] [place] [place] [address] * POCT glucose (05/09/2024 2:40 AM CDT) Glucose, POC 111 70 - 199 mg/dL Blood 05/09/2024 2:40 AM CDT 05/09/2024 2:40 AM CDT us Skyla Cardenas MD LAB POCT ORDERABLES - DEV ICE Final Result TOM [facility] ([place]) 1 [facility] [place] [place] [address] * Transfuse RBC (05/08/2024 9:55 PM CDT) Blood Skyla Cardenas MD BLOOD TRANSFUSION ORDERAB LES Final Result TOM [facility] ([place]) 1 [facility] [place] [address] * POCT glucose (05/08/2024 8:14 PM CDT) Glucose, POC 161 70 - 199 mg/dL Blood 05/08/2024 8:14 PM CDT 05/08/2024 8:14 PM CDT us Skyla Cardenas MD LAB POCT ORDERABLES - DEV ICE Final Result TOM [facility] ([place]) 1 [facility] [place] [address] * POCT glucose (05/08/2024 4:45 PM CDT) [facility] Glucose, POC 159 70 - 199 mg/dL Blood 05/08/2024 4:45 PM CDT 05/08/2024 4:45 PM CDT us Skyla Cardenas MD LAB POCT ORDERABLES - DEV ICE Final Result TOM [facility] ([place]) 1 [facility] [place] [address] * Prepare RBC: 1 Units (05/08/2024 4:27 PM CDT) [facility] Units requested 1 Units requested Ready [facility] ([place]) Unit Number [id number] Product code [id number] [facility] ([place]) Blood Expiration Date [id number] [facility] ([place]) Product Blood Type (for scanning) 7300 [facility] ([place]) Product Blood Type BPOS [facility] ([place]) Dispense Status DISPENSED [facility] ([place]) Blood 05/08/2024 4:27 PM CDT 05/08/2024 4:27 PM CDT Skyla Cardenas MD BLOOD BANK PRODUCT ORDERA BLES Final Result TOM [facility] ([place]) 1 [facility] [place] [address] * ABO/Rh (05/08/2024 3:57 PM CDT) ABO/Rh B Positive Blood 05/08/2024 3:57 PM CDT 05/08/2024 4:26 PM CDT Narrative TOM [facility] ([place]) - 05/08/2024 5:06 PM CDT Has the patient had Daratumumab or Isatuximab in the past 6 months?->Unknown Skyla Cardenas MD LAB BLOOD BANK TEST ORDER FAYE Final Result Performing Organization Address [facility] Co de Phone Number TOM [facility] ([place]) 1 [facility] [place] [address] * Crossmatch (05/08/2024 3:57 PM CDT) Crossmatch Compatible TOM [facility] ([place]) Unit number for crossmatch [id number] TOM [facility] ([place]) Blood 05/08/2024 3:57 PM CDT 05/08/2024 4:26 PM CDT Skyla Cardenas MD LAB BLOOD BANK TEST ORDER FAYE Final Result Performing Organization Address City/[facility]/ZIP Co de Phone Number TOM [facility] ([place]) 1 [facility] [place] [address] * Antibody screen (05/08/2024 3:57 PM CDT) Burak, indirect, Gel Interpretation Negative ABSC Blood 05/08/2024 3:57 PM CDT 05/08/2024 4:26 PM CDT Narrative TOM [facility] ([place]) - 05/08/2024 5:06 PM CDT Has the patient had Daratumumab or Isatuximab in the past 6 months?->Unknown Skyla Cardenas MD LAB BLOOD BANK TEST ORDER FAYE Final Result Performing Organization Address City/[facility]/ZIP Co de Phone Number TOM [facility] ([place]) 1 [facility] [place] [address] * POCT glucose (05/08/2024 11:02 AM CDT) Glucose, POC 150 70 - 199 mg/dL Blood 05/08/2024 11:0 2 AM CDT 05/08/2024 11:02 AM CDT Skyla Cardenas MD LAB POCT ORDERABLES - DEV ICE Final Result Performing Organization Address [facility] Co de Phone Number TOM [facility] ([place]) 1 [facility] [place] [address] * POCT glucose (05/08/2024 7:58 AM CDT) [facility] Glucose, POC 119 70 - 199 mg/dL Blood 05/08/2024 7:58 AM CDT 05/08/2024 7:58 AM CDT Skyla Cardenas MD LAB POCT ORDERABLES - DEV ICE Final Result Performing Organization Address City/[facility] Co de Phone Number TOM [facility] ([place]) 1 [facility] [place] [address] * (ABNORMAL) eGFR (05/08/2024 5:45 AM CDT) [...] 5:45 AM CDT 05/08/2024 5:51 AM CDT Cailin [facility] LAB BLOOD ORDERABLES Final Result Performing Organization Address City/[facility]/ZIP Co de Phone Number TOM [facility] ([place]) [address] [place] [address] [place] [address] * (ABNORMAL) Iron profile w/ IBC (05/08/2024 5:45 AM CDT) Iron 24(L) 50 - 150 mcg/dL TIBC 137(L) 250 - 400 mcg/dL [facility] ([place]) Transferrin saturation 18(L) 20 - 50 % [facility] ([place]) Blood 05/08/2024 5:45 AM CDT 05/08/2024 5:51 AM CDT us Skyla Cardenas MD LAB BLOOD ORDERABLES Kailyn l Result TOM [facility] ([place]) [address] [place] [address] [place] [address] * (ABNORMAL) CBC without differential (05/08/2024 5:45 AM CDT) WBC 5.2 3.8 - 9.9 K/cumm Hgb 7.2(L) 13.0 - 17.5 g/dL [facility] ([place]) Hct 22.5(L) 38.9 - 50.3 % [facility] ([place]) Plt 379 150 - 400 K/cumm [facility] ([place]) MPV 9.2 9.1 - 12.3 fL [facility] ([place]) RBC 2.40(L) 4.30 - 5.80 M/cumm [facility] ([place]) MCV 93.8 81.3 - 96.4 fL [facility] ([place]) MCH 30.0 27.1 - 33.3 pg [facility] ([place]) MCHC 32.0(L) 32.3 - 35.7 g/dL [facility] ([place]) RDW CV 16.7(H) 11.1 - 14.9 % [facility] ([place]) RDW SD 58.1(H) 35.7 - 48.1 fL [facility] ([place]) NRBC abs 0.00 0.00 - 0.01 K/cumm [facility] ([place]) Blood 05/08/2024 5:45 AM CDT 05/08/2024 5:51 AM CDT us Cailin [facility] LAB BLOOD ORDERABLES Final Result [facility] ([place]) 1 [facility] [place] [address] * Phosphorus (05/08/2024 5:45 AM CDT) Phosphorus, pl 3.3 2.3 - 4.5 mg/dL Blood 05/08/2024 5:45 AM CDT 05/08/2024 5:51 AM CDT us Joyce Guerrero ENAMEL MACHINE OPERATOR LAB BLOOD ORDERABLE S Final Result TOM [facility] ([place]) 1 [facility] [place] [address] * Folate (05/08/2024 5:45 AM CDT) [facility] Folic acid 5.3 >=5.0 ng/mL Comment:Slightly Hemolyzed S pecimen. Results may be affected. Blood 05/08/2024 5:45 AM CDT 05/08/2024 5:51 AM CDT Skyla Cardenas MD LAB BLOOD ORDERABLES Kailyn l Result TOM [facility] ([place]) 1 [facility] [place] [address] * Vitamin B12 (05/08/2024 5:45 AM CDT) [facility] Vitamin B12 356 230 - 1,250 pg/mL Blood 05/08/2024 5:45 AM CDT 05/08/2024 5:51 AM CDT Skyla Cardenas MD LAB BLOOD ORDERABLES Kailyn l Result Performing Organization Address City/[facility] Co de Phone Number TOM [facility] ([place]) 1 [facility] [place] [address] * (ABNORMAL) Basic metabolic panel (05/08/2024 5:45 AM CDT) [facility] Sodium 137 135 - 145 mmol/L Potassium, pl 4.5 3.3 - 4.9 mmol/L [facility] ([place]) Chloride 103 97 - 110 mmol/L [facility] ([place]) CO2 26 22 - 32 mmol/L [facility] ([place]) Anion gap 9 2 - 15 mmol/L [facility] ([place]) BUN 34(H) 6 - 25 mg/dL [facility] ([place]) Creatinine 1.21 0.80 - 1.30 mg/dL [facility] ([place]) Glucose 105 70 - 199 mg/dL [facility] ([place]) Comment: Interpretive Data Fasting glucose >/= [...] 2022. Calcium 8.4(L) 8.5 - 10.3 mg/dL OTM [facility] ([place]) Blood 05/08/2024 5:45 AM CDT 05/08/2024 5:51 AM CDT Cailin [facility] LAB BLOOD ORDERABLES Final Result RO[facility]ELIOLE[facility]A [facility] ([place]) 1 [facility] [place] [address] * POCT glucose (05/08/2024 2:07 AM CDT) Glucose, POC 127 70 - 199 mg/dL Blood 05/08/2024 2:07 AM CDT 05/08/2024 2:07 AM CDT Skyla Cardenas MD LAB POCT ORDERABLES - DEV ICE Final Result Performing Organization Address City/[facility]/ZIP Co de Phone Number TOM [facility] ([place]) 1 [facility] [place] [address] * POCT glucose (05/07/2024 8:25 PM CDT) Glucose, POC 187 70 - 199 mg/dL Blood 05/07/2024 8:25 PM CDT 05/07/2024 8:25 PM CDT Skyla Cardenas MD LAB POCT ORDERABLES - DEV ICE Final Result Performing Organization Address City/[facility]/ZIP Co de Phone Number TOM [facility] ([place]) 1 [place] [address] * POCT glucose (05/07/2024 4:37 PM CDT) Glucose, POC 128 70 - 199 mg/dL Blood 05/07/2024 4:37 PM CDT 05/07/2024 4:37 PM CDT Skyla Cardenas MD LAB POCT ORDERABLES - DEV ICE Final Result Performing Organization Address City/[facility]/ZIP Co de Phone Number TOM [facility] ([place]) [address] [place] [address] * Potassium (05/07/2024 3:50 PM CDT) Potassium, pl 4.8 3.3 - 4.9 mmol/L Blood 05/07/2024 3:50 PM CDT 05/07/2024 4:02 PM CDT Narrative TOM [facility] ([place]) - 05/07/2024 4:21 PM CDT Provider to discontinue after two normal results. Skyla Cardenas MD LAB BLOOD ORDERABLES Kailyn l Result Performing Organization Address City/[facility]/ZIP Co de Phone Number TOM [facility] ([place]) [address] [place] [address] * Line ok to use (05/07/2024 3:04 PM CDT) Narrative Marylu Bundy, ORA - 05/07/2024 3:04 PM CDT Marylu Bundy, RN 05/07/2024 3:05 PM Single lumen PICC inserted in right upper arm without difficulty using sterile technique. PICC tip confirmed in CAJ by EKG. Flushes easily with good blood return. No bleeding or hematoma noted at this time. Pt tolerated procedure well. us Lucio Stafford MD IV THERAPY ORDERABLE S Final Result * Insert PICC line (05/07/2024 3:04 PM CDT) Narrative Marylu Bundy RN - 05/07/2024 3:04 PM CDT Marylu Bundy, RN 05/07/2024 3:05 PM Single lumen PICC inserted in right upper arm without difficulty using sterile technique. PICC tip confirmed in CAJ by EKG. Flushes easily with good blood return. No bleeding or hematoma noted at this time. Pt tolerated procedure well. us Lucio Stafford MD IV THERAPY ORDERABLE S Final Result * (ABNORMAL) Potassium (05/07/2024 12:05 PM CDT) Potassium, pl 5.0(H) 3.3 - 4.9 mmol/L Blood 05/07/2024 12:0 5 PM CDT 05/07/2024 12:20 PM CDT Narrative TOM [facility] ([place]) - 05/07/2024 12:39 PM CDT Provider to discontinue after two normal results. us Skyla Cardenas MD LAB BLOOD ORDERABLES Kailyn l Result TOM [facility] ([place]) 1 [facility] [place] [address] * POCT glucose (05/07/2024 11:19 AM CDT) Glucose, POC 179 70 - 199 mg/dL Blood 05/07/2024 11:1 9 AM CDT 05/07/2024 11:19 AM CDT Skyla Cardenas MD LAB POCT ORDERABLES - DEV ICE Final Result TOM [facility] ([place]) 1 [facility] [place] [address] * ECG 12 lead (05/07/2024 8:56 AM CDT) 05/07/2024 8:56 AM CDT Narrative [facility] - 05/07/2024 10:59 AM CDT Vent Rate: 76 bpm RR Interval: 782 msec [place] Interval: 181 msec QRS Duration: 101 msec QT Interval: 393 msec QTC Interval: 424 msec P-R-T Hubbell: 54 - -31 - 73 degrees IMPRESSION: [...] Cardenas MD ECG ORDERABLES Final Res ult Performing Organization Address [facility] Co de Phone Number [id number] * (ABNORMAL) Potassium (05/07/2024 8:48 AM CDT) Potassium, pl 5.0(H) 3.3 - 4.9 mmol/L Blood 05/07/2024 8:48 AM CDT 05/07/2024 9:07 AM CDT Skyla Cardenas MD LAB BLOOD ORDERABLES Kailyn l Result Performing Organization Address [facility] Co de Phone Number [facility] ([place]) [facility] [place] [address] * POCT glucose (05/07/2024 7:51 AM CDT) Glucose, POC 100 70 - 199 mg/dL Blood 05/07/2024 7:51 AM CDT 05/07/2024 7:51 AM CDT Skyla Cardenas MD LAB POCT ORDERABLES - DEV ICE Final Result Performing Organization Address [facility] CENTER Co de Phone Number [facility] ([place]) 1 [facility] [place] [address] * (ABNORMAL) eGFR (05/07/2024 2:59 AM CDT) [...] S Final Result [facility] ([place]) 1 [facility] [place] [address] * (ABNORMAL) CBC without differential (05/07/2024 2:59 [...] ([place]) MCV 93.9 81.3 - 96.4 fL [facility] ([place]) MCH 29.6 27.1 - 33.3 pg [facility] ([place]) MCHC 31.6(L) 32.3 - 35.7 g/dL [facility] ([place]) RDW CV 16.8(H) 11.1 - 14.9 % [facility] ([place]) RDW SD 58.5(H) 35.7 - 48.1 fL [facility] ([place]) NRBC abs 0.00 0.00 - 0.01 K/cumm [facility] ([place]) Blood 05/07/2024 2:59 AM CDT 05/07/2024 3:11 AM CDT Joyce Guerrero NP LAB BLOOD ORDERABLE S Final Result Performing Organization Address City/[facility]/ZIP Co de Phone Number [facility] ([place]) 1 [facility] [place] [address] * (ABNORMAL) Phosphorus (05/07/2024 2:59 AM CDT) Phosphorus, pl 4.9(H) 2.3 - 4.5 mg/dL Blood 05/07/2024 2:59 AM CDT 05/07/2024 3:11 AM CDT Joyce Guerrero ENAMEL MACHINE OPERATOR LAB BLOOD ORDERABLE S Final Result TOM AL[facility]ARRAN ([place]) 1 [facility] [place] [address] * (ABNORMAL) Basic metabolic panel (05/07/2024 2:59 AM CDT) Sodium 137 135 - 145 mmol/L Potassium, pl 5.8(H) 3.3 - 4.9 mmol/L [facility] ([place]) Chloride 103 97 - 110 mmol/L [facility] ([place]) CO2 23 22 - 32 mmol/L [facility] ([place]) Anion gap 11 2 - 15 mmol/L [facility] ([place]) BUN 35(H) 6 - 25 mg/dL [facility] ([place]) Creatinine 1.30 0.80 - 1.30 mg/dL [facility] ([place]) Glucose 136 70 - 199 mg/dL [facility] ([place]) Comment: Interpretive Data Fasting [...] 2022. Calcium 8.3(L) 8.5 - 10.3 mg/dL [facility] ([place]) Blood 05/07/2024 2:59 AM CDT 05/07/2024 3:11 AM CDT us Joyce Guerrero NP LAB BLOOD ORDERABLE S Final Result [facility] ([place]) 1 [facility] [place] [address] * POCT glucose (05/07/2024 1:40 AM CDT) Glucose, POC 166 70 - 199 mg/dL Blood 05/07/2024 1:40 AM CDT 05/07/2024 1:40 AM CDT us Skyla Cardenas MD LAB POCT ORDERABLES - DEV ICE Final Result TOM [facility] ([place]) 1 [facility] [employer] [place] [address] * POCT glucose (05/06/2024 8:41 PM CDT) Glucose, POC 137 70 - 199 mg/dL Blood 05/06/2024 8:41 PM CDT 05/06/2024 8:41 PM CDT Skyla Cardenas MD LAB POCT ORDERABLES - DEV ICE Final Result Performing Organization Address City/[facility]/ZIP Co de Phone Number [facility] ([place]) 1 [facility] [place] [address] * POCT glucose (05/06/2024 4:28 PM CDT) Glucose, POC 169 70 - 199 mg/dL Blood 05/06/2024 4:28 PM CDT 05/06/2024 4:28 PM CDT Skyla Cardenas MD LAB POCT ORDERABLES - DEV ICE Final Result Performing Organization Address City/[facility]/ZIP Co de Phone Number [facility] ([place]) 1 [facility] [place] [address] * POCT glucose (05/06/2024 2:29 PM CDT) Glucose, POC 113 70 - 199 mg/dL Blood 05/06/2024 2:29 PM CDT 05/06/2024 2:29 PM CDT Skyla Cardenas MD LAB POCT ORDERABLES - DEV ICE Final Result Performing Organization Address City/[facility]/ZIP Co de Phone Number [facility] ([place]) 1 [facility] [place] [address] * (ABNORMAL) Tissue aerobic and anaerobic culture and gram stain Tissue Knee, right (05/06/2024 1:12 PM CDT) [facility] Direct Specimen Exam Stain: Moderate polymorphonuclear leukocytes seen. No organisms seen. Comment:Testing performed by : [facility], 1 [place] [address] Report Final Report: Rare Escherichia coli The susceptibility pattern of this Escherichia coli indicates the possible production of an extended spectrum beta lactamase (ESBL). Patients infected with ESBL-producing organisms require contact isolation precautions. For therapeutic options for this organism, please contact infectious diseases. (.) TOM [facility] ([place]) Comment:Testing performed by : [facility], [address] [place]., [address] Organism ESCHERICHIA COLI ROJELIO ALBARRAN ([place]) Tissue (Knee, right) 05/06/2024 1:12 PM CDT 05/06/2024 4:19 PM CDT Narrative TOM AL[facility]ARRAN ([place]) - 05/11/2024 11:27 AM CDT Right knee notch Testing performed by [facility] Microbiology Laboratory ([phone]) Specimens submitted from normally sterile body sites [...] INTERPRETATION Susceptible Escherichia coli Doxycycline INTERPRETATION Resistant us Edward Fowler MD LAB MICROBIOLOGY - GENER AL ORDERABLES Final Result TOM AL[facility]AN ([place]) 1 [facility] Department [place] [address] * Gram stain Miscellaneous (05/06/2024 12:55 PM CDT) Direct Specimen Exam Stain: No organisms seen. Many polymorphonuclear leukocytes seen. Miscellaneous 05/06/2024 12: 55 PM CDT 05/06/2024 1:16 PM CDT Skyla Cardenas MD LAB MICROBIOLOGY - GENERA L ORDERABLES Final Result TOM [facility]AN ([place]) 1 [facility] Department [place] [address] * (ABNORMAL) Aerobic and anaerobic culture and gram stain Wound Knee, right (05/06/2024 12:55 PM CDT) Direct Specimen Exam Stain: Rare polymorphonuclear leukocytes seen. No organisms seen. Comment:Testing performed by : [facility], [address] [place]., [address] Report Final Report: Rare Escherichia coli For susceptibility results, refer to accession number [id number] on the Right Knee Tissue culture from 05/06/2024 (.) TOM ALBARRAN ([place]) Comment:Testing performed by : [facility], [address] [place] [address], [place]., [address] Organism ESCHERICHIA COLI ROJELIO AL[facility]ARRAN ([place]) Wound (Knee, right) 05/06/2024 12:55 PM CDT 05/06/2024 4:20 PM CDT Narrative TOM AL[facility]ARRAN ([place]) - 05/11/2024 11:26 AM CDT Right knee fluid Specimen received on an ESwab. Testing performed by [facility]biology Laboratory ([phone]) Specimens submitted from normally sterile body sites [...] us Edward Fowler MD LAB MICROBIOLOGY - [facility] AL ORDERABLES Final Result ROJELIOOEJ FDR ([place] [facility] Department of Laboratories [place] [id number] * AK AN ELECTIVE ENDOTRACHEAL AIRWAY (05/06/2024 12:30 PM CDT) Narrative Raphael Ortega CRNA - 05/06/2024 12:30 PM CDT Raphael Ortega CRNA 05/06/2024 12:31 PM Airway Patient location: OR Urgency: elective Date/time: 05/06/2024 12:19 PM Indications for airway management: anesthesia and airway protection Difficult airway: no Staff: Placed by: SPARE [employer] C[employer]ING: Raphael Ortega CRNA Emergent airway documentation: Risks [...] ORDERABLES - DEV ICE Final Result TOM [facility] ([place]) [address] [place] [address] Department [place] [address] * Surgical pathology (05/06/2024 9:38 AM CDT) Tissue specimen (specimen) (Bone Fragment(s),) 05/06/2024 1:53 PM CDT Narrative PATHOLOGY [facility] ([place]) - 05/12/2024 10:30 AM CDT EPIC results best viewed via link to PDF [facility] Department of Pathology [address] [place] [id number] Note to Patients: This report may contain [...] the details. Final Report Patient Name: VICKY YING Address: [facility] [address], [place] [address] Gender: M : 1940 (Age: 83) Service: Medical [facility] Hospital #: [id number] Patient Type: [facility] Taken: 05/06/2024 Received: 05/07/2024 Accessioned: [...] irrigation and debridement with poly exchange - [place]. Gross Description: Received in a single formalin [...] determined by the Surgical Pathology Department at [facility] as part of an ongoing automotive quality manager program and in compliance with federally mandated [...] characteristics determined by the Surgical Pathology Department [facility]. It has not been cleared or approved by the U. S. Food and Drug Administration. Note for decalcified specimens: This assay has not been validated on decalcified tissues. Results should be interpreted with caution given the possibility of false negativity on decalcified specimens us Edward Fowler MD LAB PATHOLOGY ORDERABLES Final Result Performing Organization Address City/[facility] Co de Phone Number PATHOLOGY [facility] ([place]) 1 [place] [address] * POCT glucose (05/06/2024 7:49 AM CDT) Glucose, POC 105 70 - 199 mg/dL Blood 05/06/2024 7:49 AM CDT 05/06/2024 7:49 AM CDT Skyla Cardenas MD LAB POCT ORDERABLES - DEV ICE Final Result Performing Organization Address City/[facility] Co de Phone Number TOM AL[facility]ARRAN ([place]) 1 [facility] Department [place] [address] * (ABNORMAL) eGFR (05/06/2024 5:50 AM CDT) Pathologist [facility] eGFR 55(L) >=60 mL/min/1. 73 m2 Comment: [...] S Final Result TOM ALBARRAN ([place]) 1 [facility] [place] [address] * (ABNORMAL) CBC without differential (05/06/2024 5:50 AM CDT) Pathologist [facility] WBC 7.7 3.8 - 9.9 K/cumm Hgb 9.0(L) 13.0 - 17.5 g/dL [facility] ([place]) Hct 28.5(L) 38.9 - 50.3 % [facility] ([place]) Plt 368 150 - 400 K/cumm [facility] ([place]) MPV 9.1 9.1 - 12.3 fL [facility] ([place]) RBC 3.02(L) 4.30 - 5.80 M/cumm [facility] ([place]) MCV 94.4 81.3 - 96.4 fL [facility] ([place]) MCH 29.8 27.1 - 33.3 pg [facility] ([place]) MCHC 31.6(L) 32.3 - 35.7 g/dL [facility] ([place]) RDW CV 17.1(H) 11.1 - 14.9 % [facility] ([place]) RDW SD 59.4(H) 35.7 - 48.1 fL [facility] ([place]) NRBC abs 0.00 0.00 - 0.01 K/cumm [facility] ([place]) Blood 05/06/2024 5:50 AM CDT 05/06/2024 5:56 AM CDT Joyce Guerrero ENAMEL MACHINE OPERATOR LAB BLOOD ORDERABLE S Final Result TOM AL[facility]ARRAN ([place]) 1 [facility] [employer] [place], [place] [id number] * Phosphorus (05/06/2024 5:50 AM CDT) [facility] Phosphorus, pl 3.5 2.3 - 4.5 mg/dL Blood 05/06/2024 5:50 AM CDT 05/06/2024 5:56 AM CDT Joyce Guerrero ENAMEL MACHINE OPERATOR LAB BLOOD ORDERABLE S Final Result TOM ALBARRAN ([place]) 1 [facility] [place] [address] * (ABNORMAL) Basic metabolic panel (05/06/2024 5:50 AM CDT) Pathologist [facility] Sodium 134(L) 135 - 145 mmol/L Potassium, pl 4.5 3.3 - 4.9 mmol/L [facility] ([place]) Chloride 99 97 - 110 mmol/L [facility] ([place]) CO2 26 22 - 32 mmol/L [facility] ([place]) Anion gap 9 2 - 15 mmol/L [facility] ([place]) BUN 32(H) 6 - 25 mg/dL [facility] ([place]) Creatinine 1.30 0.80 - 1.30 mg/dL [facility] ([place]) Glucose 105 70 - 199 mg/dL [facility] ([place]) Comment: Interpretive Data Fasting glucose >/= [...] Calcium 8.8 8.5 - 10.3 mg/dL [facility] ([place]) Blood 05/06/2024 5:50 AM CDT 05/06/2024 5:56 AM CDT us Joyce Guerrero ENAMEL MACHINE OPERATOR LAB BLOOD ORDERABLE S Final Result Performing Organization Address City/[facility]/ZIP Co de Phone Number [facility] ([place]) 1 [facility] [place] [address] * POCT glucose (05/06/2024 2:17 AM CDT) [facility] Signature Glucose, POC 114 70 - 199 mg/dL Comment:Glu2: RN/ Notified Blood 05/06/2024 2:17 AM CDT 05/06/2024 2:17 AM CDT us Yaquelin Slaughter MD LAB POCT ORDERABLES - DEVICE F inal Result TOM [facility] ([place]) [address] [place] [address] * POCT glucose (05/05/2024 7:48 PM CDT) Glucose, POC 135 70 - 199 mg/dL Comment:Glu2: RN/ Notified Blood 05/05/2024 7:48 PM CDT 05/05/2024 7:48 PM CDT Yaquelin Slaughter MD LAB POCT ORDERABLES - DEVICE F inal Result [facility] ([place]) 1 [place] [address] * POCT glucose (05/05/2024 4:38 PM CDT) Glucose, POC 122 70 - 199 mg/dL Blood 05/05/2024 4:38 PM CDT 05/05/2024 4:38 PM CDT Yaquelin Slaughter MD LAB POCT ORDERABLES - DEVICE F inal Result Performing Organization Address City/[facility]/ZIP Co de Phone Number [facility] ([place]) 1 [place] [address] * POCT glucose (05/05/2024 11:26 AM CDT) Glucose, POC 126 70 - 199 mg/dL Blood 05/05/2024 11:2 6 AM CDT 05/05/2024 11:26 AM CDT Yaquelin Slaughter MD LAB POCT ORDERABLES - DEVICE F inal Result [facility] ([place]) 1 [place] [address] * POCT glucose (05/05/2024 8:02 AM CDT) Glucose, POC 109 70 - 199 mg/dL Blood 05/05/2024 8:02 AM CDT 05/05/2024 8:02 AM CDT us Yaquelin Slaughter MD LAB POCT ORDERABLES - DEVICE F inal Result Performing Organization Address City/[facility]/ZIP Co de Phone Number TOM [facility] ([place]) 1 [facility] [place] [address] * eGFR (05/05/2024 7:18 AM CDT) eGFR 62 >=60 mL/min/1. 73 m2 Comment: [...] 05/05/2024 7:32 AM CDT us Joyce Guerrero NP LAB BLOOD ORDERABLE S Final Result TOM [facility] ([place]) 1 [facility] [place] [address] * (ABNORMAL) CBC without differential (05/05/2024 7:18 AM CDT) WBC 8.7 3.8 - 9.9 K/cumm Hgb 9.5(L) 13.0 - 17.5 g/dL [facility] ([place]) Hct 29.5(L) 38.9 - 50.3 % [facility] ([place]) Plt 379 150 - 400 K/cumm [facility] ([place]) MPV 9.4 9.1 - 12.3 fL [facility] ([place]) RBC 3.15(L) 4.30 - 5.80 M/cumm [facility] ([place]) MCV 93.7 81.3 - 96.4 fL [facility] ([place]) MCH 30.2 27.1 - 33.3 pg [facility] ([place]) MCHC 32.2(L) 32.3 - 35.7 g/dL [facility] ([place]) RDW CV 17.2(H) 11.1 - 14.9 % [facility] ([place]) RDW SD 58.7(H) 35.7 - 48.1 fL [facility] ([place]) NRBC abs 0.00 0.00 - 0.01 K/cumm [facility] ([place]) Blood 05/05/2024 7:18 AM CDT 05/05/2024 7:32 AM CDT Joyce Guerrero ENAMEL MACHINE OPERATOR LAB BLOOD ORDERABLE S Final Result TOM AL[facility]ARRAN ([place]) 1 [facility] [place] [address] * Phosphorus (05/05/2024 7:18 AM CDT) Phosphorus, pl 3.1 2.3 - 4.5 mg/dL Blood 05/05/2024 7:1 8 AM CDT 05/05/2024 7:32 AM CDT Joyce Guerrero ENAMEL MACHINE OPERATOR LAB BLOOD ORDERABLE S Final Result [facility] ([place]) 1 [facility] [place] [address] * (ABNORMAL) Basic metabolic panel (05/05/2024 7:18 AM CDT) Sodium 136 135 - 145 mmol/L Potassium, pl 4.7 3.3 - 4.9 mmol/L [facility] ([place]) Chloride 100 97 - 110 mmol/L [facility] ([place]) CO2 26 22 - 32 mmol/L [facility] ([place]) Anion gap 10 2 - 15 mmol/L [facility] ([place]) BUN 29(H) 6 - 25 mg/dL [facility] ([place]) Creatinine 1.16 0.80 - 1.30 mg/dL [facility] ([place]) Glucose 116 70 - 199 mg/dL [facility] ([place]) Comment: Interpretive Data Fasting glucose >/= [...] 2022. Calcium 9.1 8.5 - 10.3 mg/dL [facility] ([place]) Blood 05/05/2024 7:18 AM CDT 05/05/2024 7:32 AM CDT Joyce Guerrero ENAMEL MACHINE OPERATOR LAB BLOOD ORDERABLE S Final Result TOM [facility] ([place]) 1 [facility] Department [place] [address] * POCT glucose (05/05/2024 2:23 AM CDT) Glucose, POC 140 70 - 199 mg/dL Blood 05/05/2024 2:23 AM CDT 05/05/2024 2:23 AM CDT Yaquelin Slaughter MD LAB POCT ORDERABLES - DEVICE F inal Result Performing Organization Address City/[facility]/ZIP Co de Phone Number TOM AL[facility]AN ([place]) 1 [facility] [place] [address] * (ABNORMAL) POCT glucose (05/04/2024 8:00 PM CDT) Glucose, POC 224(H) 70 - 199 mg/dL Blood 05/04/2024 8:00 PM CDT 05/04/2024 8:00 PM CDT Yaquelin Slaughter MD LAB POCT ORDERABLES - DEVICE F inal Result Performing Organization Address [facility] de Phone Number [facility] ([place]) 1 [facility] [place] [address] * POCT glucose (05/04/2024 4:21 PM CDT) Glucose, POC 153 70 - 199 mg/dL Blood 05/04/2024 4:21 PM CDT 05/04/2024 4:21 PM CDT Yaquelin Slaughter MD LAB POCT ORDERABLES - DEVICE F inal Result Performing Organization Address [facility] Co de Phone Number [facility] ([place]) 1 [facility] [place] [address] * POCT glucose (05/04/2024 11:14 AM CDT) Glucose, POC 132 70 - 199 mg/dL Blood 05/04/2024 11:1 4 AM CDT 05/04/2024 11:14 AM CDT Yaquelin Slaughter MD LAB POCT ORDERABLES - DEVICE F inal Result Performing Organization Address City/[facility]/ZIP Co de Phone Number TOM AL[facility]ARRAN ([place]) 1 [facility] [place] [address] * POCT glucose (05/04/2024 7:28 AM CDT) Glucose, POC 119 70 - 199 mg/dL Blood 05/04/2024 7:28 AM CDT 05/04/2024 7:28 AM CDT Yaquelin Slaughter MD LAB POCT ORDERABLES - DEVICE F inal Result Performing Organization Address City/[facility]/ZIP Co de Phone Number [facility] ([place]) 1 [place] [address] * eGFR (05/04/2024 5:17 AM CDT) eGFR [...] BLOOD ORDERABLE S Final Result [facility] ([place]) 1 [facility] [place] [address] * (ABNORMAL) CBC without differential (05/04/2024 5:17 [...] CDT 05/04/2024 5:27 AM CDT Joyce Guerrero NP LAB BLOOD ORDERABLE S Final Result [facility] ([place]) 1 [facility] Department [place] [address] * Phosphorus (05/04/2024 5:17 AM CDT) Phosphorus, pl 3.4 2.3 - 4.5 mg/dL Blood 05/04/2024 5:17 AM CDT 05/04/2024 5:27 AM CDT Joyce Shirley Yolanda ENAMEL MACHINE OPERATOR LAB BLOOD ORDERABLE S Final Result TOM [facility] ([place]) 1 [facility] [place] [address] * (ABNORMAL) Basic metabolic panel (05/04/2024 5:17 AM CDT) Sodium 135 135 - 145 mmol/L Potassium, pl 4.5 3.3 - 4.9 mmol/L [facility] ([place]) Chloride 100 97 - 110 mmol/L [facility] ([place]) CO2 24 22 - 32 mmol/L [facility] ([place]) Anion gap 11 2 - 15 mmol/L [facility] ([place]) BUN 26(H) 6 - 25 mg/dL [facility] ([place]) Creatinine 1.11 0.80 - 1.30 mg/dL [facility] ([place]) Glucose 140 70 - 199 mg/dL [facility] ([place]) Comment: Interpretive Data Fasting glucose >/= [...] Calcium 8.8 8.5 - 10.3 mg/dL [facility] ([place]) Blood 05/04/2024 5:17 AM CDT 05/04/2024 5:27 AM CDT Joyce Guerrero ENAMEL MACHINE OPERATOR LAB BLOOD ORDERABLE S Final Result TOM [facility]AN ([place]) 1 [facility] [place] [address] * POCT glucose (05/03/2024 9:26 PM CDT) Glucose, POC 173 70 - 199 mg/dL Blood 05/03/2024 9:26 PM CDT 05/03/2024 9:26 PM CDT us Yaquelin Slaughter MD LAB POCT ORDERABLES - DEVICE F inal Result Performing Organization Address [facility] Co de Phone Number [facility] 1 [facility] [place] [address] * POCT glucose (05/03/2024 4:25 PM CDT) Glucose, POC 127 70 - 199 mg/dL Blood 05/03/2024 4:25 PM CDT 05/03/2024 4:25 PM CDT us Yaquelin Slaughter MD LAB POCT ORDERABLES - DEVICE F inal Result Performing Organization Address [facility] de Phone Number [facility] ([place] 1 [facility] [place] [address] * POCT glucose (05/03/2024 11:30 AM CDT) Glucose, POC 161 70 - 199 mg/dL Blood 05/03/2024 11:3 0 AM CDT 05/03/2024 11:30 AM CDT Yaquelin Slaughter MD LAB POCT ORDERABLES - DEVICE F inal Result Performing Organization Address [facility] Co de Phone Number [facility] ([place]) 1 [facility] [place] [address] * POCT glucose (05/03/2024 7:42 AM CDT) Glucose, POC 116 70 - 199 mg/dL Blood 05/03/2024 7:42 AM CDT 05/03/2024 7:42 AM CDT us Yaquelin Slaughter MD LAB POCT ORDERABLES - DEVICE F inal Result Performing Organization Address City/[facility]/ZIP Co de Phone Number TOM [facility]AN ([place]) 1 [facility] [place] [address] * eGFR (05/03/2024 4:42 AM CDT) Pathologist [facility] eGFR 67 >=60 mL/min/1. 73 m2 Comment: [...] S Final Result TOM ALBARRAN ([place]) 1 [facility] Department [place] [address] * (ABNORMAL) CBC without differential (05/03/2024 4:42 AM CDT) Pathologist [facility] WBC 6.8 3.8 - 9.9 K/cumm Hgb 9.4(L) 13.0 - 17.5 g/dL [facility] ([place]) Hct 29.3(L) 38.9 - 50.3 % [facility] ([place]) Plt 297 150 - 400 K/cumm [facility] ([place]) MPV 9.6 9.1 - 12.3 fL [facility] ([place]) RBC 3.13(L) 4.30 - 5.80 M/cumm [facility] ([place]) MCV 93.6 81.3 - 96.4 fL [facility] ([place]) MCH 30.0 27.1 - 33.3 pg [facility] ([place]) MCHC 32.1(L) 32.3 - 35.7 g/dL [facility] ([place]) RDW CV 17.2(H) 11.1 - 14.9 % [facility] ([place]) RDW SD 59.0(H) 35.7 - 48.1 fL [facility] ([place]) NRBC abs 0.00 0.00 - 0.01 K/cumm [facility] ([place]) Blood 05/03/2024 4:42 AM CDT 05/03/2024 4:49 AM CDT Joyce Guerrero ENAMEL MACHINE OPERATOR LAB BLOOD ORDERABLE S Final Result TOM [facility] ([place]) 1 [facility] [place] [address] * Phosphorus (05/03/2024 4:42 AM CDT) Pathologist [facility] Phosphorus, pl 3.5 2.3 - 4.5 mg/dL Blood 05/03/2024 4:42 AM CDT 05/03/2024 4:49 AM CDT Joyce Guerrero ENAMEL MACHINE OPERATOR LAB BLOOD ORDERABLE S Final Result TOM [facility] ([place]) 1 [facility] [place] [address] * (ABNORMAL) Basic metabolic panel (05/03/2024 4:42 AM CDT) Sodium 134(L) 135 - 145 mmol/L Potassium, pl 4.5 3.3 - 4.9 mmol/L [facility] ([place]UTH) Chloride 101 97 - 110 mmol/L [facility] ([place]) CO2 24 22 - 32 mmol/L [facility] ([place]) Anion gap 9 2 - 15 mmol/L [facility] ([place]) BUN 27(H) 6 - 25 mg/dL [facility] ([place]) Creatinine 1.10 0.80 - 1.30 mg/dL [facility] ([place]) Glucose 123 70 - 199 mg/dL [facility] ([place]) Comment: Interpretive Data Fasting glucose >/= [...] Calcium 8.7 8.5 - 10.3 mg/dL [facility] ([place]) Blood 05/03/2024 4:42 AM CDT 05/03/2024 4:49 AM CDT us Joyce Guerrero ENAMEL MACHINE OPERATOR LAB BLOOD ORDERABLE S Final Result Performing Organization Address City/[facility]/ZIP Co de Phone Number [facility] ([place]) [address] [facility] [place] [place] [address] * POCT glucose (05/03/2024 3:22 AM CDT) Glucose, POC 124 70 - 199 mg/dL Blood 05/03/2024 3:22 AM CDT 05/03/2024 3:22 AM CDT us Yaquelin Slaughter MD LAB POCT ORDERABLES - DEVICE F inal Result [facility] ([place]) [address] [facility] [place] [address] * POCT glucose (05/02/2024 8:23 PM CDT) Glucose, POC 144 70 - 199 mg/dL Blood 05/02/2024 8:23 PM CDT 05/02/2024 8:23 PM CDT Yaquelin Slaughter MD LAB POCT ORDERABLES - DEVICE F inal Result [facility] ([place]) [address] [facility] [place] [address] * POCT glucose (05/02/2024 4:29 PM CDT) Glucose, POC 123 70 - 199 mg/dL Blood 05/02/2024 4:29 PM CDT 05/02/2024 4:29 PM CDT Yaquelin Slaughter MD LAB POCT ORDERABLES - DEVICE F inal Result Performing Organization Address [facility] Co de Phone Number [facility] ([place]) 1 [facility] [place] [address] * POCT glucose (05/02/2024 11:46 AM CDT) Glucose, POC 169 70 - 199 mg/dL Blood 05/02/2024 11:4 6 AM CDT 05/02/2024 11:46 AM CDT Yaquelin Slaughter MD LAB POCT ORDERABLES - DEVICE F inal Result Performing Organization Address City/[facility] Co de Phone Number [facility] ([place]) 1 [facility] [place] [address] * POCT glucose (05/02/2024 7:51 AM CDT) Glucose, POC 115 70 - 199 mg/dL Blood 05/02/2024 7:51 AM CDT 05/02/2024 7:51 AM CDT us Yaquelin Slaughter MD LAB POCT ORDERABLES - DEVICE F inal Result TOM [facility] ([place]) 1 [facility] [place] [address] * eGFR (05/02/2024 2:39 AM CDT) eGFR 64 >=60 mL/min/1. 73 m2 Comment: [...] BLOOD ORDERABLE S Final Result TOM [facility] ([place]) 1 [facility] [place] [address] * (ABNORMAL) CBC without differential (05/02/2024 2:39 AM CDT) WBC 8.8 3.8 - 9.9 K/cumm Hgb 9.4(L) 13.0 - 17.5 g/dL [facility] ([place]) Hct 29.3(L) 38.9 - 50.3 % [facility] ([place]) Plt 263 150 - 400 K/cumm [facility] ([place]) MPV 9.8 9.1 - 12.3 fL [facility] ([place]) RBC 3.18(L) 4.30 - 5.80 M/cumm [facility] ([place]) MCV 92.1 81.3 - 96.4 fL [facility] ([place]) MCH 29.6 27.1 - 33.3 pg [facility] ([place]) MCHC 32.1(L) 32.3 - 35.7 g/dL [facility] ([place]) RDW CV 17.2(H) 11.1 - 14.9 % [facility] ([place]) RDW SD 58.2(H) 35.7 - 48.1 fL [facility] ([place]) NRBC abs 0.00 0.00 - 0.01 K/cumm [facility] ([place]) Blood 05/02/2024 2:39 AM CDT 05/02/2024 3:11 AM CDT Joyce Guerrero NP LAB BLOOD ORDERABLE S Final Result TOM [facility] ([place]) 1 [facility] [place] [address] * Phosphorus (05/02/2024 2:39 AM CDT) Pathologist [facility] Phosphorus, pl 3.2 2.3 - 4.5 mg/dL Blood 05/02/2024 2:39 AM CDT 05/02/2024 3:08 AM CDT Joyce Guerrero ENAMEL MACHINE OPERATOR LAB BLOOD ORDERABLE S Final Result TOM [facility] ([place]) 1 [facility] [place] [address] * (ABNORMAL) Basic metabolic panel (05/02/2024 2:39 AM CDT) Sodium 135 135 - 145 mmol/L Potassium, pl 4.3 3.3 - 4.9 mmol/L [facility] ([place]) Chloride 101 97 - 110 mmol/L [facility] ([place]) CO2 23 22 - 32 mmol/L [facility] ([place]) Anion gap 11 2 - 15 mmol/L [facility] ([place]) BUN 28(H) 6 - 25 mg/dL [facility] ([place]) Creatinine 1.13 0.80 - 1.30 mg/dL [facility] ([place]) Glucose 134 70 - 199 mg/dL [facility] ([place]) Comment: Interpretive Data Fasting glucose >/= [...] Calcium 8.5 8.5 - 10.3 mg/dL [facility] ([place]) Blood 05/02/2024 2:39 AM CDT 05/02/2024 3:08 AM CDT us Joyce Guerrero NP LAB BLOOD ORDERABLE S Final Result TOM [facility] ([place]) 1 [facility] [place] [address] * POCT glucose (05/02/2024 2:18 AM CDT) Glucose, POC 153 70 - 199 mg/dL Blood 05/02/2024 2:18 AM CDT 05/02/2024 2:18 AM CDT us Yaquelin Slaughter MD LAB POCT ORDERABLES - DEVICE F inal Result TOM [facility] ([place]) 1 [facility] [place] [address] * POCT glucose (05/01/2024 8:11 PM CDT) Glucose, POC 187 70 - 199 mg/dL Blood 05/01/2024 8:11 PM CDT 05/01/2024 8:11 PM CDT Yaquelin Slaughter MD LAB POCT ORDERABLES - DEVICE F inal Result Performing Organization Address [facility]/ZIP Co de Phone Number TOM [facility] ([place]) 1 [facility] [place] [address] * POCT glucose (05/01/2024 4:42 PM CDT) Glucose, POC 151 70 - 199 mg/dL Blood 05/01/2024 4:42 PM CDT 05/01/2024 4:42 PM CDT Yaquelin Slaughter MD LAB POCT ORDERABLES - DEVICE F inal Result Performing Organization Address [facility]/ZIP Co de Phone Number [facility] ([place]) 1 [facility] [place] [address] * POCT glucose (05/01/2024 11:35 AM CDT) Glucose, POC 126 70 - 199 mg/dL Blood 05/01/2024 11:3 5 AM CDT 05/01/2024 11:35 AM CDT us Yaquelin Slaughter MD LAB POCT ORDERABLES - DEVICE F inal Result [facility] ([place]) 1 [facility] [place] [address] * POCT glucose (05/01/2024 7:57 AM CDT) Glucose, POC 139 70 - 199 mg/dL Blood 05/01/2024 7:57 AM CDT 05/01/2024 7:57 AM CDT us Yaquelin Slaughter MD LAB POCT ORDERABLES - DEVICE F inal Result Performing Organization Address City/[facility]/ZIP Co de Phone Number TOM [facility] ([place]) 1 [facility] [place] [address] * (ABNORMAL) eGFR (05/01/2024 3:57 AM CDT) [...] S Final Result [facility] ([place]) 1 [facility] [place] [address] * (ABNORMAL) CBC without differential (05/01/2024 3:57 [...] CDT 05/01/2024 4:02 AM CDT Joyce Guerrero ENAMEL MACHINE OPERATOR LAB BLOOD ORDERABLE S Final Result Performing Organization Address City/[facility] Co de Phone Number [facility] ([place]) 1 [facility] [place] [address] * Phosphorus (05/01/2024 3:57 AM CDT) Phosphorus, pl 3.0 2.3 - 4.5 mg/dL Blood 05/01/2024 3:57 AM CDT 05/01/2024 4:04 AM CDT Joyce Guerrero ENAMEL MACHINE OPERATOR LAB BLOOD ORDERABLE S Final Result Performing Organization Address City/State/[facility] Co de Phone Number TOM [facility] ([place]) 1 [facility] [place] [address] * (ABNORMAL) Basic metabolic panel (05/01/2024 3:57 AM CDT) Sodium 134(L) 135 - 145 mmol/L Potassium, pl 4.3 3.3 - 4.9 mmol/L [facility] ([place]) Chloride 101 97 - 110 mmol/L [facility] ([place]) CO2 24 22 - 32 mmol/L [facility] ([place]) Anion gap 10 2 - 15 mmol/L [facility] ([place]) BUN 29(H) 6 - 25 mg/dL [facility] ([place]) Creatinine 1.22 0.80 - 1.30 mg/dL [facility] ([place]) Glucose 128 70 - 199 mg/dL [facility] ([place]) Comment: Interpretive Data Fasting glucose >/= [...] Calcium 8.7 8.5 - 10.3 mg/dL [facility] ([place]) Blood 05/01/2024 3:57 AM CDT 05/01/2024 4:04 AM CDT us Joyce Guerrero NP LAB BLOOD ORDERABLE S Final Result TOM STEINBER[place]) 1 [facility] [place] [address] * POCT glucose (05/01/2024 2:32 AM CDT) Glucose, POC 131 70 - 199 mg/dL Blood 05/01/2024 2:32 AM CDT 05/01/2024 2:32 AM CDT Yaquelin Slaughter MD LAB POCT ORDERABLES - DEVICE F inal Result Performing Organization Address [facility] Co de Phone Number TOM [facility] ([place]) 1 [facility] [place] [address] * POCT glucose (04/30/2024 8:37 PM CDT) Glucose, POC 186 70 - 199 mg/dL Blood 04/30/2024 8:37 PM CDT 04/30/2024 8:37 PM CDT Yaquelin Slaughter MD LAB POCT ORDERABLES - DEVICE F inal Result Performing Organization Address [facility] Co de Phone Number TOM AL[facility]ARRAN ([place]) 1 [facility] [place] [address] * POCT glucose (04/30/2024 4:29 PM CDT) Glucose, POC 134 70 - 199 mg/dL Blood 04/30/2024 4:29 PM CDT 04/30/2024 4:29 PM CDT Yaquelin Slaughter MD LAB POCT ORDERABLES - DEVICE F inal Result Performing Organization Address [facility] Co de Phone Number TOM [facility] ([place]) 1 [facility] [place] [address] * US Guided Aspiration or Injection of [...] Nya Batista D.O. PS: PS Report ID: [id number] Reading Location: [id number] Procedure Note Nya Batista DO - 04/30/2024 EXAM DESCRIPTION: US GUIDED [...] Nya Batista D.O. PS: PS Report ID: [id number] Reading Location: [place] [address] Joyce Guerrero ENAMEL MACHINE OPERATOR IMG US PROCEDURES F inal Result * (ABNORMAL) Crystal Analysis, Body Fluid (04/30/2024 1:50 PM CDT) Specimen type, fld Synovial Crystals Ca Pyrophosphate Crystals present(A) [facility]OM [facility] ([place]) Fluid 04/30/2024 1:50 PM CDT 04/30/2024 2:34 PM CDT Joyce Guerrero ENAMEL MACHINE OPERATOR LAB BODY FLUIDS AND STOOLS ORDERABLES Final Result TOM [facility] ([place]) 1 [facility] Department [place] [address] * Cell Differential, Body Fluid (04/30/2024 1:50 PM CDT) Total cells diffed 100 % Comment: Interpretive Data Unless otherwise specified, the reference range and other method performance specifications have not been established for CSF/Body Fluid tests. The test results should be integrated into the clinical context for interpretation. Current interpretive data was last revised on 2018. Neutrophils, fld 91 % ROJELIO [facility] ([place]) Lymphs, fld 1 % [facility] ([place]) Monocyte, fld 6 % [facility] ([place]) Macrophages, fld 2 % [facility] ([place]) Fluid 04/30/2024 1:50 PM CDT 04/30/2024 2:34 PM CDT [facility] ENAMEL MACHINE OPERATOR LAB BODY FLUIDS AND STOOLS ORDERABLES Final Result Performing Organization Address City/[facility]/ZIP Co de Phone Number [facility] ([place]) 1 [facility] [place] [address] * Cell count w/rflx diff, body fluid (04/30/2024 1:50 PM CDT) Specimen type, fld Synovial Body site, fld Right knee [facility] ([place]) Color, fld Yellow [facility] ([place]) [...] CDT 04/30/2024 2:34 PM CDT Joyce Guerrero ENAMEL MACHINE OPERATOR LAB BODY FLUIDS AND STOOLS ORDERABLES Final Result Performing Organization Address City/[facility]/ZIP Co de Phone Number TOM [facility] ([place]) 1 [facility] [place] [address] * (ABNORMAL) Aerobic and anaerobic culture and gram stain Synovial fluid Knee, right (04/30/2024 1:50PM CDT) Direct Specimen Exam Stain: Cytospin Gram stain shows: Abundant polymorphonuclear leukocytes seen. No organisms seen. Comment:Testing performed by : [facility], [address] [place] [address] Report Final Report: Few Escherichia coli The susceptibility pattern of this Escherichia coli indicates the possible production of an extended spectrum beta lactamase (ESBL). Patients infected with ESBL-producing organisms require contact isolation precautions. For therapeutic options for this organism, please contact infectious diseases. (.) TOM [facility]AN ([place]) Comment:Testing performed by : [facility], [address] [place]., [address] Organism ESCHERICHIA COLI ROJELIO [facility] ([place]) Synovial fluid (Knee, right) 04/30/2024 1:50 PM CDT 04/30/2024 6:07 PM CDT Narrative TOM [facility]AN ([place]) - 05/06/2024 2:28 PM CDT Testing performed by [facility] ([phone]) Specimens submitted from normally sterile body sites [...] ORDERABLES Final Result TOM AL[facility]ARRAN ([place]) 1 [facility] [place] [address] * POCT glucose (04/30/2024 11:43 AM CDT) Glucose, POC 154 70 - 199 mg/dL Comment:Glu2: RN/ Notified Blood 04/30/2024 11:4 3 AM CDT 04/30/2024 11:43 AM CDT Yaquelin Slaughter MD LAB POCT ORDERABLES - DEVICE F inal Result [facility] ([place]) 1 [facility] [place] [address] * POCT glucose (04/30/2024 7:58 AM CDT) Glucose, POC 108 70 - 199 mg/dL Blood 04/30/2024 7:58 AM CDT 04/30/2024 7:58 AM CDT Yaquelin Slaughter MD LAB POCT ORDERABLES - DEVICE F inal Result Performing Organization Address [facility] Co de Phone Number [facility] ([place]) 1 [facility] [place] [address] * (ABNORMAL) eGFR (04/30/2024 2:34 AM CDT) [...] CDT 04/30/2024 3:56 AM CDT Joyce Guerrero ENAMEL MACHINE OPERATOR LAB BLOOD ORDERABLE S Final Result Performing Organization Address City/[facility]/ZIP Co de Phone Number [facility] ([place]) 1 [facility] [place] [address] * (ABNORMAL) CBC without differential (04/30/2024 2:34 [...] CDT 04/30/2024 3:56 AM CDT Joyce Guerrero NP LAB BLOOD ORDERABLE S Final Result TOM AL[facility]ARRAN ([place]) 1 [facility] [place] [address] * Phosphorus (04/30/2024 2:34 AM CDT) Pathologist [facility] Phosphorus, pl 2.7 2.3 - 4.5 mg/dL Blood 04/30/2024 2:34 AM CDT 04/30/2024 3:56 AM CDT Joyce Guerrero ENAMEL MACHINE OPERATOR LAB BLOOD ORDERABLE S Final Result TOM ALBARRAN ([place]) 1 [facility] [place] [address] * (ABNORMAL) Basic metabolic panel (04/30/2024 2:34 AM CDT) Pathologist [facility] Sodium 134(L) 135 - 145 mmol/L Potassium, [...] 8.4(L) 8.5 - 10.3 mg/dL [facility] ([place]) Blood 04/30/2024 2:34 AM CDT 04/30/2024 3:56 AM CDT Joyce Guerrero NP LAB BLOOD ORDERABLE S Final Result Performing Organization Address [facility]/ZIP Co de Phone Number TOM AL[facility]AN ([place]) 1 [facility] [place] [address] * POCT glucose (04/30/2024 2:04 AM CDT) Glucose, POC 141 70 - 199 mg/dL Blood 04/30/2024 2:04 AM CDT 04/30/2024 2:04 AM CDT Zaida Klein MD LAB POCT ORDERABLES - DEVICE Final Result Performing Organization Address [facility] Co de Phone Number TOM AL[facility]AN ([place]) 1 [facility] [place] [address] * POCT glucose (04/29/2024 8:40 PM CDT) Glucose, POC 167 70 - 199 mg/dL Blood 04/29/2024 8:40 PM CDT 04/29/2024 8:40 PM CDT Zaida Klein MD LAB POCT ORDERABLES - DEVICE Final Result Performing Organization Address City/[facility] Co de Phone Number TOM ALBARRAN ([place]) 1 [facility] [place] [address] * (ABNORMAL) Erythrocyte sedimentation rate (04/29/2024 4:53 PM CDT) Erythrocyte sedimentation rate 93(H) 1 - 20 mm/hr Blood 04/29/2024 4:53 PM CDT 04/29/2024 5:01 PM CDT us Joyce Guerrero NP LAB BLOOD ORDERABLE S Final Result TOM AL[facility]AN ([place]) 1 [facility] [place] [address] * POCT glucose (04/29/2024 4:47 PM CDT) Glucose, POC 160 70 - 199 mg/dL Blood 04/29/2024 4:47 PM CDT 04/29/2024 4:47 PM CDT us Zaida Klein MD LAB POCT ORDERABLES - DEVICE Final Result TOM AL[facility]ARRAN ([place]) 1 [facility] [place] [address] * POCT glucose (04/29/2024 11:27 AM CDT) Glucose, POC 176 70 - 199 mg/dL Blood 04/29/2024 11:2 7 AM CDT 04/29/2024 11:27 AM CDT us Zaida Klein MD LAB POCT ORDERABLES - DEVICE Final Result TOM AL[facility]ARRAN ([place]) 1 [facility] [place] [address] * POCT glucose (04/29/2024 7:38 AM CDT) Glucose, POC 129 70 - 199 mg/dL Blood 04/29/2024 7:38 AM CDT 04/29/2024 7:38 AM CDT us Zaida Klein MD LAB POCT ORDERABLES - DEVICE Final Result TOM [facility] ([place]) 1 [facility] [place] [address] * (ABNORMAL) eGFR (04/29/2024 3:07 AM CDT) eGFR 52(L) >=60 mL/min/1. 73 [...] CDT 04/29/2024 4:38 AM CDT Joyce Guerrero NP LAB BLOOD ORDERABLE S Final Result TOM [facility] ([place]) 1 [facility] [place] [address] * (ABNORMAL) CBC without differential (04/29/2024 3:07 AM CDT) Pathologist [facility] WBC 10.6(H) 3.8 - 9.9 K/cumm Hgb 9.7(L) 13.0 - 17.5 g/dL [facility] ([place]) Hct 30.5(L) 38.9 - 50.3 % [facility] ([place]) Plt 151 150 - 400 K/cumm [facility] ([place]) MPV 10.3 9.1 - 12.3 fL [facility] ([place]) RBC 3.23(L) 4.30 - 5.80 M/cumm [facility] ([place]) MCV 94.4 81.3 - 96.4 fL [facility] ([place]) MCH 30.0 27.1 - 33.3 pg [facility] ([place]) MCHC 31.8(L) 32.3 - 35.7 g/dL [facility] ([place]) RDW CV 17.7(H) 11.1 - 14.9 % [facility] ([place]) RDW SD 63.1(H) 35.7 - 48.1 fL [facility] ([place]) NRBC abs 0.00 0.00 - 0.01 K/cumm [facility] ([place]) Blood 04/29/2024 3:07 AM CDT 04/29/2024 3:28 AM CDT Joyce Guerrero ENAMEL MACHINE OPERATOR LAB BLOOD ORDERABLE S Final Result TOM AL[facility]ARRAN ([place]) 1 [facility] [place] [address] * (ABNORMAL) CRP (acute phase) (04/29/2024 3:07 AM CDT) CRP 169.8(H) <=10.0 mg/L Blood 04/29/2024 3:07 AM CDT 04/29/2024 3:57 PM CDT Joyce Guerrero ENAMEL MACHINE OPERATOR LAB BLOOD ORDERABLE S Final Result TOM AL[facility]ARRAN ([place]) 1 [facility] [place] [address] * Phosphorus (04/29/2024 3:07 AM CDT) Phosphorus, pl 2.7 2.3 - 4.5 mg/dL Blood 04/29/2024 3:07 AM CDT 04/29/2024 3:28 AM CDT Joyce Guerrero ENAMEL MACHINE OPERATOR LAB BLOOD ORDERABLE S Final Result TOM AL[facility]ARRAN ([place]) 1 [facility] Department [place] [address] * (ABNORMAL) Basic metabolic panel (04/29/2024 3:07 AM CDT) [facility] Sodium 135 135 - 145 mmol/L Potassium, pl 4.5 3.3 - 4.9 mmol/L [facility] ([place]) Chloride 103 97 - 110 mmol/L [facility] ([place]) CO2 21(L) 22 - 32 mmol/L [facility] ([place]) Anion gap 11 2 - 15 mmol/L [facility] ([place]) BUN 29(H) 6 - 25 mg/dL [facility] ([place]) Creatinine 1.36(H) 0.80 - 1.30 mg/dL [facility] ([place]) Glucose 125 70 - 199 mg/dL [facility] ([place]) Comment: Interpretive Data Fasting [...] Calcium 8.9 8.5 - 10.3 mg/dL [facility] ([place]) Blood 04/29/2024 3:07 AM CDT 04/29/2024 3:28 AM CDT Joyce Guerrero NP LAB BLOOD ORDERABLE S Final Result TOM ALBARRAN ([place]) 1 [facility] [place] [address] * POCT glucose (04/29/2024 2:07 AM CDT) Glucose, POC 126 70 - 199 mg/dL Blood 04/29/2024 2:07 AM CDT 04/29/2024 2:07 AM CDT us Zaida Klein MD LAB POCT ORDERABLES - DEVICE Final Result Performing Organization Address [facility] Co de Phone Number TOM ALBARRAN ([place]) 1 [facility] [place] [address] * POCT glucose (04/28/2024 8:28 PM CDT) Glucose, POC 155 70 - 199 mg/dL Blood 04/28/2024 8:28 PM CDT 04/28/2024 8:28 PM CDT us Zaida Klein MD LAB POCT ORDERABLES - DEVICE Final Result Performing Organization Address [facility] de Phone Number TOM [facility] ([place]) 1 [facility] [place] [address] * POCT glucose (04/28/2024 4:36 PM CDT) Glucose, POC 129 70 - 199 mg/dL Blood 04/28/2024 4:36 PM CDT 04/28/2024 4:36 PM CDT us Zaida Klein MD LAB POCT ORDERABLES - DEVICE Final Result Performing Organization Address [facility] Co de Phone Number TOM [facility] ([place]) 1 [facility] [place] [address] * POCT glucose (04/28/2024 11:37 AM CDT) Glucose, POC 169 70 - 199 mg/dL Blood 04/28/2024 11:3 7 AM CDT 04/28/2024 11:37 AM CDT us Zaida Klein MD LAB POCT ORDERABLES - DEVICE Final Result TOM ALBARRAN ([place]) 1 [facility] [place] [address] * POCT glucose (04/28/2024 7:26 AM CDT) Glucose, POC 112 70 - 199 mg/dL Blood 04/28/2024 7:26 AM CDT 04/28/2024 7:26 AM CDT Zaida Klein MD LAB POCT ORDERABLES - DEVICE Final Result Performing Organization Address City/[facility] Co de Phone Number TOM ALBARRAN ([place]) [address] [place] [address] * (ABNORMAL) eGFR (04/28/2024 3:24 AM CDT) [...] AM CDT 04/28/2024 3:50 AM CDT Joyce Shirley Yolanda ENAMEL MACHINE OPERATOR LAB BLOOD ORDERABLE S Final Result TOM ALBARRAN ([place]) 1 [facility] [place] [address] * (ABNORMAL) CBC without differential (04/28/2024 3:24 [...] 63.9(H) 35.7 - 48.1 fL [facility] ([facility]) NRBC abs 0.00 0.00 - 0.01 K/cumm [facility] ([place]) Blood 04/28/2024 3:24 AM CDT 04/28/2024 3:50 AM CDT us Joyce Guerrero ENAMEL MACHINE OPERATOR LAB BLOOD ORDERABLE S Final Result TOM AL[facility]ARRAN ([place]) 1 [facility] [place] [address] * Phosphorus (04/28/2024 3:24 AM CDT) Phosphorus, pl 2.8 2.3 - 4.5 mg/dL Blood 04/28/2024 3:24 AM CDT 04/28/2024 3:50 AM CDT us Joyce Guerrero NP LAB BLOOD ORDERABLE S Final Result TOM ALBARRAN ([place]) 1 [facility] [place] [address] * Magnesium (04/28/2024 3:24 AM CDT) Pathologist [facility] Magnesium 1.9 1.4 - 2.5 mg/dL Blood 04/28/2024 3:24 AM CDT 04/28/2024 3:50 AM CDT us Rigo Orona MD LAB BLOOD ORDERABLES Final Resu lt Performing Organization Address City/[facility]/ZIP Co de Phone Number TOM ALBARRAN ([place]) 1 [facility] [place] [address] * (ABNORMAL) Basic metabolic panel (04/28/2024 3:24 AM CDT) Sodium 131(L) 135 - 145 mmol/L Potassium, pl 4.8 3.3 - 4.9 mmol/L [facility] ([place]) Chloride 100 97 - 110 mmol/L [facility] ([place]) CO2 20(L) 22 - 32 mmol/L [facility] ([place]) Anion gap 10 2 - 15 mmol/L [facility] ([place]) BUN 32(H) 6 - 25 mg/dL [facility] ([place]) Creatinine 1.48(H) 0.80 - 1.30 mg/dL [facility] ([place]) Glucose 129 70 - 199 mg/dL [facility] ([place]) Comment: Interpretive Data Fasting glucose >/= [...] 8.6 8.5 - 10.3 mg/dL TOM AL[facility] ([place]) Blood 04/28/2024 3:24 AM CDT 04/28/2024 3:50 AM CDT us Joyce Guerrero NP LAB BLOOD ORDERABLE S Final Result TOM AL[facility] ([place]) 1 [facility] [place] [address] * POCT glucose (04/28/2024 2:15 AM CDT) Glucose, POC 130 70 - 199 mg/dL Comment:Glu2: RN/ Notified Blood 04/28/2024 2:15 AM CDT 04/28/2024 2:15 AM CDT us Zaida Klein MD LAB POCT ORDERABLES - DEVICE Final Result Performing Organization Address City/[facility] Co de Phone Number TOM AL[facility]AN ([place]) 1 [facility] [place] [address] * CT Chest PE (CTA) W Contrast [...] Electronically signed by Tesfaye Rubalcava M.D. KT: KT Report ID: [id number] Reading Location: [place] [address] Procedure Note Tesfaye Rubalcava MD - 04/28/2024 [...] Tesfaye Rubalcava M.D. KT: LORRAINE Report ID: [id number] Reading Location: [id number] Joyce Guerrero NP IMG CT PROCEDURES F inal Result * (ABNORMAL) POCT glucose (04/27/2024 7:21 PM CDT) Glucose, POC 213(H) 70 - 199 mg/dL Comment:Glu2: RN/ Notified Blood 04/27/2024 7:21 PM CDT 04/27/2024 7:21 PM CDT Zaida Klein MD LAB POCT ORDERABLES - DEVICE Final Result [facility] ([place]) 1 [facility] Department of Laboratories [place], [place] [id number] * POCT glucose (04/27/2024 4:31 PM CDT) Glucose, POC 131 70 - 199 mg/dL Blood 04/27/2024 4:31 PM CDT 04/27/2024 4:31 PM CDT us Zaida Klein MD LAB POCT ORDERABLES - DEVICE Final Result Performing Organization Address City/[facility]/ZIP Co de Phone Number TOM [facility] ([place]) 1 [facility] [place] [address] * POCT glucose (04/27/2024 11:49 AM CDT) [facility] Signature Glucose, POC 171 70 - 199 mg/dL Blood 04/27/2024 11:4 9 AM CDT 04/27/2024 11:49 AM CDT us Zaida Klein MD LAB POCT ORDERABLES - DEVICE Final Result Performing Organization Address [facility] de Phone Number TOM ALBARR[facility] ([place]) 1 [facility] [place] [address] * US Vein Duplex Lower Extremity Bilateral [...] Alicia Meyer M.D. FT: FT Report ID: [id number] Reading Location: [id number] Procedure Note Alicia Cobos MD - 04/27/2024 [...] Alicia Meyer M.D. FT: FT Report ID: [id number] Reading Location: [id number] Joyce Guerrero ENAMEL MACHINE OPERATOR IMG US PROCEDURES F inal Result * Lactate (04/27/2024 8:41 AM CDT) Lactate 1.1 0.7 - 2.0 mmol/L Blood 04/27/2024 8:41 AM CDT 04/27/2024 8:44 AM CDT us Rigo Orona MD LAB BLOOD ORDERABLES Final Resu lt TOM ALBARRAN ([place]) 1 [facility] Department [place] [address] * Blood culture Blood (04/27/2024 8:41 AM CDT) Report Final Report: No growth Comment:Testing performed by : [facility], 1 [facility], [place]., [address] Blood 04/27/2024 8:41 AM CDT 04/27/2024 12:15 PM CDT Narrative OTM ALBARRAN ([place]) - 05/01/2024 4:00 PM CDT [...] performance characteristics have been verified by the [facility] Microbiology Laboratory. For questions about this culture, contact the Microbiology Laboratory at [phone]. Interpretive data was last revised on 23. Joyce Guerrero NP LAB MICROBIOLOGY - GENERAL ORDERABLES Final Result OTM DEION ([place]) 1 [facility] Department [place] [address] * (ABNORMAL) eGFR (04/27/2024 8:35 AM CDT) [facility] eGFR 49(L) >=60 mL/min/1. 73 m2 Comment: [...] CDT 04/27/2024 8:44 AM CDT Joyce Guerrero NP LAB BLOOD ORDERABLE S Final Result TOM [facility] ([place]) 1 [facility] Department [place] [address] * (ABNORMAL) Blood culture Blood (04/27/2024 8:35 AM CDT) Direct Specimen Exam Stain: Gram Negative Bacilli Time to culture positivity (aerobic media): 10.7 hours Time to culture positivity (anaerobic media): 14.1 hours Notification of: Gram Negative Bacilli called to and read back by: Kalani Campo MLT ([phone]) on 04/27/2024 23:26:00 by: Ruben Staples Jr, MT Test result called to and read back by zora duncan on 04/28/2024 0212 by kalani campo Comment:Testing performed by : [facility], 1 [place]., [address] Direct Specimen Exam Molecular Analysis: Presumptive Escherichia [...] and read back by: Kalani See MLT ([phone]) on 04/28/2024 01:15:31 by: Ruben Staples Jr IA TOM ALBARRAN ([place]) Comment:Testing performed by : [facility], [address] [place] [address]., [address] Report Final Report: Escherichia coli The susceptibility pattern of this Escherichia coli indicates the possible production of an extended spectrum beta lactamase (ESBL). Patients infected with ESBL-producing organisms require contact isolation precautions. For therapeutic options for this organism, please contact infectious diseases. (.) TOM ALBARRAN ([place]) Comment:Testing performed by : [facility], [address] [place] [address]., [address] Organism ESCHERICHIA COLI ROJELIO ALBARRAN ([place]) Blood [...] performance characteristics have been verified by the [facility] Microbiology Laboratory. For questions about this culture, contact the Microbiology Laboratory at [phone]. Interpretive data was last revised on 23. [...] Escherichia coli Doxycycline INTERPRETATION Resistant Joyce Guerrero LAB MICROBIOLOGY - GENERAL ORDERABLES Final Result Performing Organization Address City/[facility]/ZIP Co de Phone Number TOM [facility] ([place]) 1 [facility] Department [place] [address] * (ABNORMAL) Erythrocyte sedimentation rate (04/27/2024 8:35 AM CDT) Pathologist [facility] Erythrocyte sedimentation rate 62(H) 1 - 20 mm/hr Blood 04/27/2024 8:35 AM CDT 04/27/2024 8:44 AM CDT Joyce Guerrero LAB BLOOD ORDERABLE S Final Result Performing Organization Address City/[facility]/ZIP Co de Phone Number [facility] ([place] [address] [place] [address] [place] [address] * (ABNORMAL) CBC without differential (04/27/2024 8:35 AM CDT) WBC 19.0(H) 3.8 - 9.9 K/cumm Hgb 9.8(L) 13.0 - 17.5 g/dL TOM [facility] ([place]) Hct 30.2(L) 38.9 - 50.3 % TOM [facility] ([place]) Plt 127(L) 150 - 400 K/cumm TOM [facility] ([place]) MPV 10.1 9.1 - 12.3 fL ROJELIONER [facility] ([place]) RBC 3.21(L) 4.30 - 5.80 M/cumm ROJELIONER [facility] ([place]) MCV 94.1 81.3 - 96.4 fL [facility] ([place]) MCH 30.5 27.1 - 33.3 pg TOM [facility] ([place]) MCHC 32.5 32.3 - 35.7 g/dL ROJELIONER [facility] ([place]) RDW CV 18.2(H) 11.1 - 14.9 % ROJELIONER [facility] ([place]) RDW SD 63.0(H) 35.7 - 48.1 fL ROJELIONER [facility] ([place]) NRBC abs 0.00 0.00 - 0.01 K/cumm ROJELIONER [facility] ([place]) Blood 04/27/2024 8:35 AM CDT 04/27/2024 8:44 AM CDT Joyce Guerrero ENAMEL MACHINE OPERATOR LAB BLOOD ORDERABLE S Final Result Performing Organization Address City/[facility]/ZIP Co de Phone Number TOM ALBARRAN ([place]) 1 [facility] [place] [place] [address] * (ABNORMAL) CRP (acute phase) (04/27/2024 8:35 AM CDT) CRP 190.0(H) <=10.0 mg/L Blood 04/27/2024 8:35 AM CDT 04/27/2024 8:44 AM CDT Joyce Guerrero ENAMEL MACHINE OPERATOR LAB BLOOD ORDERABLE S Final Result TOM ALBARRAN ([place]) 1 [facility] [place] [address] * Phosphorus (04/27/2024 8:35 AM CDT) Phosphorus, pl 2.7 2.3 - 4.5 mg/dL Blood 04/27/2024 8:35 AM CDT 04/27/2024 8:44 AM CDT Joyce Guerrero ENAMEL MACHINE OPERATOR LAB BLOOD ORDERABLE S Final Result TOM ALBARRAN ([place]) 1 [facility] [place] [address] * Magnesium (04/27/2024 8:35 AM CDT) Magnesium 1.7 1.4 - 2.5 mg/dL Blood 04/27/2024 8:35 AM CDT 04/27/2024 8:44 AM CDT Joyce Guerrero ENAMEL MACHINE OPERATOR LAB BLOOD ORDERABLE S Final Result Performing Organization Address [facility] de Phone Number TOM ALBARRAN ([place]) 1 [facility] [place] [address] * (ABNORMAL) Hepatic function panel (04/27/2024 8:35 AM CDT) Bilirubin, total 0.4 0.1 - 1.2 mg/dL [...] CDT 04/27/2024 8:44 AM CDT Joyce Guerrero ENAMEL MACHINE OPERATOR LAB BLOOD ORDERABLE S Final Result Performing Organization Address City/[facility]/ZIP Co de Phone Number TOM ALBARRAN ([place]) [address] Department [place] [address] * (ABNORMAL) Basic metabolic panel (04/27/2024 8:35 AM CDT) Sodium 132(L) 135 - 145 mmol/L Potassium, pl 4.5 3.3 - 4.9 mmol/L [facility] ([place]) Chloride 100 97 - 110 mmol/L [facility] ([place]) CO2 19(L) 22 - 32 mmol/L [facility] ([place]) Anion gap 13 2 - 15 mmol/L [facility] ([place]) BUN 27(H) 6 - 25 mg/dL [facility] ([place]) Creatinine 1.43(H) 0.80 - 1.30 mg/dL [facility] ([place]) Glucose 129 70 - 199 mg/dL [facility] ([place]) Comment: Interpretive Data Fasting glucose >/= [...] Calcium 8.6 8.5 - 10.3 mg/dL [facility] ([place]) Blood 04/27/2024 8:35 AM CDT 04/27/2024 8:44 AM CDT us Joyce Guerrero NP LAB BLOOD ORDERABLE S Final Result TOM ALBARRAN ([place]) 1 [facility] Department [place] [address] * POCT glucose (04/27/2024 8:00 AM CDT) Glucose, POC 141 70 - 199 mg/dL Blood 04/27/2024 8:00 AM CDT 04/27/2024 8:00 AM CDT us Zaida Klein MD LAB POCT ORDERABLES - DEVICE Final Result TOM [place] 1 [facility] Department [place] [address] * CT Knee Right W Contrast (04/26/2024 [...] seen. There does appear to be a tnfvg-tj-rprnbjdz anterior joint effusion visualized above the patella. Soft tissues appear grossly unremarkable. No other fluid collections are seen. IMPRESSION: Ncbso-jc-thksgadj anterior joint effusion is of questionable significance. The study is severely hampered metal artifact. THIS IS AN ELECTRONICALLY VERIFIED FINAL REPORT 04/26/2024 10:22 PM - Electronically signed by Tesfaye Dowell M.D. KH: MARIAJOSE Report ID: [id number] Reading Location: [id number] Procedure Note Tesfaye Dowell MD - 04/26/2024 [...] seen. There does appear to be a hpvdj-cc-rbtksoze anterior joint effusionvisualized above the patella. Soft tissues appear grossly unremarkable. No otherfluid collections are seen. IMPRESSION: Cyikr-oq-xgqodhgg anterior joint effusion is of questionablesignificance. The study is severely hampered metal artifact. THIS IS AN ELECTRONICALLY VERIFIED FINAL REPORT 04/26/2024 10:22 PM - Electronically signed by Tesfaye Dowell M.D. KH: MARIAJOSE Report ID: [id number] Reading Location: [id number] Mary SAVAGE [facility] PROCEDURES Final Result * (ABNORMAL) Urinalysis reflex to microscopic and culture Urine, bladder (04/26/2024 8:49 PM CDT) Color, ur Yellow Yellow Clarity, ur Turbid(A) Clear TOM A ([place]) Specific gravity, ur 1.020 1.003 - 1.030 TOM [facility] ([place]) pH, urine 5.0 TOM [facility] ([place]) Comment: Interpretive Data U rine pH is affected by diet, medications, systemic acid-base disturbances, and renal tubular function. pH may affect urinary stone formation. For example, urine pH below 6.0 may help reduce the tendency for calcium phosphate stones and pH greater than 6.0 may reduce the tendency for uric acid stone formation. Source: [facility] Laboratories Current Interpretive Data was last revised on [...] CDT Rigo Orona MD LAB MICROBIOLOGY - [facility] Final Result Performing Organization Address City/State/[facility] Co de Phone Number TOM [facility] ([place]) 1 [facility] Department [place] [address] * (ABNORMAL) Urinalysis, microscopic only (04/26/2024 8:49 [...] Reflex to urine culture will be performed. TOM [facility] ([place]) Urine, bladder 04/26/2024 8: 49 PM CDT 04/26/2024 8:52 PM CDT Rigo Orona MD LAB URINE ORDERABLES Final Resu lt TOM ALBARRAN ([place]) 1 [facility] Department [place] [address] * (ABNORMAL) Urine culture Urine, bladder (04/26/2024 [...] bacterial rui. (.) Comment:Testing performed by : [facility], [address] [place]., [address] Organism ESCHERICHIA COLI ROJELIO DEE [facility] ([place]) Organism PLUS GROWTH OF CLINICALLY INSIGNIFICANT RUI. TOM ALBARRAN ([place]) Urine, bladder 04/26/2024 8: 49 PM CDT 04/27/2024 4:40 AM CDT Narrative TOM [facility] ([place]) - 04/30/2024 12:37 PM CDT Urine culture reflexed based upon urinalysis results. Testing performed by [facility] Microbiology Laboratory ([phone]) Organism Antibiotic Method Susceptibility Escherichia coli Ampicillin [...] INTERPRETATION Resistant Escherichia coli Fosfomycin INTERPRETATION Susceptible Rigo Orona MD LAB MICROBIOLOGY - GENERAL ALLEN JEREZ Final Result [facility] [address] [place] [address] * XR Chest 1 Vw Portable (04/26/2024 [...] Brendan Amin M.D. BB: JULIANNE Report ID: [id number] Reading Location: [id number] Procedure Note Brendan Amin MD PhD - [...] Brendan Amin M.D. BB: JULIANNE Report ID: [id number] Reading Location: [id number] Mary SAVAGE IMG XR PROCEDURES Final Result [...] LAB BLOOD ORDERABLES Final Resu lt TOM [facility] [place]) 1 [facility] [place] [address] * (ABNORMAL) Differential, auto (04/26/2024 [...] LAB BLOOD ORDERABLES Final Resu lt TOM [facility] ([place]) 1 [facility] [employer] [place] [address] * (ABNORMAL) CBC with auto differential (04/26/2024 6:29 PM CDT) WBC 23.8(H) 3.8 - 9.9 K/cumm Hgb [...] LAB BLOOD ORDERABLES Final Resu lt TOM [facility] ([place]) 1 [facility] Department [place] [address] * (ABNORMAL) D-dimer, quantitative (04/26/2024 6:29 PM CDT) [facility] D-Dimer 2,624(H) <=499 ng/mL FEU [facility] ([place]) Comment: Interpretive data FDA approved the [...] 68, VTE cut-off 680 ng/ml FEU. References; Nancy HT et al. Brit Med J. 2013;346:f2492. Yanira et al. Annals Int Med. 2015;163:701-11. Current interpretive data was last revised on 2018. Blood 04/26/2024 6:29 PM CDT 04/26/2024 6:34 PM CDT us Mary SAVAGE LAB BLOOD ORDERABLES Final Resu lt TOM [facility] ([place]) 1 [facility] Department [place] [address] * (ABNORMAL) Comprehensive metabolic panel (04/26/2024 6:29 PM CDT) [facility] Sodium 135 135 - 145 mmol/L Potassium, pl 4.3 3.3 - 4.9 mmol/L [facility] ([place]) Chloride 102 97 - 110 mmol/L [facility] ([place]) CO2 18(L) 22 - 32 mmol/L [facility] ([place]) Anion gap 15 2 - 15 mmol/L [facility] ([place]) BUN 31(H) 6 - 25 mg/dL [facility] ([place]) Creatinine 1.51(H) 0.80 - 1.30 mg/dL [facility] ([place]) Glucose 120 70 - 199 mg/dL [facility] ([place]) [...] Final Resu lt TOM ALBARRAN ([place]) 1 [facility] [place] [address] * XR Knee Right 4 or More [...] signed by Tesfaye BILLY: MARIAJOSE Report ID: [id number] Reading Location: [place] [address] Procedure Note Tesfaye Dowell MD - 04/26/2024 [...] signed by Tesfaye BILLY: MARIAJOSE Report ID: [id number] Reading Location: [place] [address] Rigo Orona MD IMG XR PROCEDURES Final Result * (ABNORMAL) Hemoglobin A1c (01/22/2024 2:15 PM FILM DEVELOPING MACHINE OPERATOR) Hgb A1C 6.6(H) 4.0 - 5.6 % Comment:Testing performed by : [facility], [address] [place] [address], [place]., [address] Estimated Average Glucose 143 mg/dL TOM WILL Comment: The ADA recommends reporting an estimated Average Glucose (eAG) with all Hemoglobin A1c results using the equation derived from a study of 507 normal and diabetic adults. Minority populations were underrepresented and children were not included. (Diabetes Care 31:1214-8786, 2008). The eAG is not equivalent to a fasting glucose. Testing performed by: [facility], [address] [place] [address]., [address] Blood 01/22/2024 2:15 PM FILM DEVELOPING MACHINE OPERATOR 01/22/2024 8:36 PM FILM DEVELOPING MACHINE OPERATOR Randal Monterroso MD LAB BLOOD ORDERABLES Final Re sult Performing Organization Address [facility]/State/[facility] Co de Phone Number TOM WILL [address] [place] [address] * DIABETES EYE EXAM (01/20/2024 4:02 PM FILM DEVELOPING MACHINE OPERATOR) SCRIBED DIABETIC DILATED EYE EXAM Normal Mimi Everett MD HEALTH MAINTENANCE Final Result * Albumin Creatinine Ratio, Urine (05/06/2023 9:12 AM CDT) Albumin Ur <12.0 mg/L Comment: Interpretive Data No reference range established. Current interpretive data was last revised 2018. Creatinine Ur 83.9 mg/dL [facility] Comment: Interpretive Data No reference range established. Current interpretive data was last revised 2018. Albumin Creatinine Ratio, Ur <14 1 - 29 mg/g TOM Urine 05/06/2023 9:12 AM CDT 05/06/2023 1:40 PM CDT Randal Monterroso MD LAB URINE ORDERABLES Final Re sult Performing Organization Address [facility] Co de Phone Number TOM WILL [address] [place] [address] * Lipid panel (05/06/2023 9:12 AM CDT) [...] on 2017. Triglycerides 124 <=149 mg/dL TOM Comment: Interpretive Data Ages < or = [...] Pediatrics 2011;128:S213 2. NCEP Expert Panel. Circulation 2003;110:227 Current Interpretive Data was last revised on [...] LAB BLOOD ORDERABLES Final Re sult TOM [address] [place] [address] from Last 3 Months or Most Recently Relevant to Health Maintenance Additional Health Concerns Infection Onset Date Last Indicated MDR gram neg/ESBL 04/26/2024 05/06/2024 Insurance [facility] MEDICARE UHC MEDICARE ADVANTAGE [facility] MEDICARE ADVANTAGE Advance Directives For more information, please contact: [phone] * Full Code (Latest Code Status on [...] 9:23 AM 02/27/2018 9:23 AM Care Teams Glazing Superintendent Relationship Specialty Start Date End Date Randal Monterroso MD [address] [place] [address] PCP - General 02/27/18 Thelma Love, PT Physical Therapist Physical Therapy 06/11/17 Karissa aSlas PTA Smoking Tobacco Packer Hand Physical Therapy 06/17/17 Stewart Rahman MD [address] [place] [address] Consulting Physician Cardiovascular Disease 04/19/18 [place] [address] [address] Consulting Physician Cardiology 08/30/18 Angie Garcia MD [address] [place] [address] Consulting Physician Pain Management 08/12/19 Rolando Narvaez NP [address] [place] [address] Nurse Practitioner Pain Management 12/11/19 Grisel Almodovar OD [address] [place] [address] Consulting Physician Optometry 01/25/21 Horace Pacheco MD [address] [place] [address] Referring Physician Cardiology 06/21/21 Purvi Da Silva NP [address] [place] [address] Nurse Practitioner General Surgery 07/10/22 Jon Mares MD [address] [place] [address] Consulting Physician General Surgery 08/10/22 Randal Morales MD [address] [place] [address] Consulting Physician Nephrology 09/25/22 Chase Mancuso MD [address] [facility] [address]14 [place] [address] Surgeon Vascular Surgery 02/19/24 Agustin [place] MD PhD [address] [place] [address] Consulting Physician Neurosurgery 12/03/23
--- OUTSIDE RECORDS SUMMARY | 2024-06-18 13:57 | XMS_ITS | Encounter Summary ---
Author Organization [facility] Healthcare Address [address] [place] [address] Care Team Providers Care Melter Supervisor Open Hearth Furnace Name Role Phone RobbieThelma porras PT Unavailable Unavailable Karissa Salas PTA Unavailable Unavailable Salas Monterroso MD Primary Care Provider [phone] Stewart Rahman MD Unavailable Immanuel [place] MD Unavailable Angie Garcia MD Unavailable [phone] Rolando Narvaez LINE PATROLMAN Unavailable [phone] Grisel Almodovar OD Unavailable [phone] Horace Pacheco MD Unavailable [phone] Purvi Da Silva NP Unavailable [phone] Jon Mares MD Unavailable Salas Morales MD Unavailable [phone] Chase Mancuso MD Unavailable [phone] Agustin [place] MD PhD Unavailable [phone] Encounter Details Date Type Department Care Team (Late st Contact Info) Description 06/18/2024 Telephone [facility] Medical Group [facility] [address] [place] [id number] Salas Monterroso MD [address] [place] [address] Social History Tobacco Use Types Packs/Day Years Used Date Smoking Tobacco: Never Smokeless Tobacco: Never Alcohol Use Standard Drinks/Week Comments Yes 1 (1 standard drink = 0.6 oz pur e alcohol) occasionally [facility] Utilities Answer Date Recorded In the [...] week 04/27/2024 How often do you attend jew or christianity serv ices? Never 04/27/2024 Do you belong to any clubs o r organizations such as jew groups, unions, fraternal or athletic groups, or [...] any time in the past 12 m onths, were you homeless or living in a intermediate (including now)? No 04/27/2024 Personal Safety Answer Date Recorded Have you ever been in or are you currently in a harmful physical or emotional relationship or is someone making you feel afraid or unsafe? Denies 05/06/2024 Sex and Gender Information Value Date Recorded Sex Assigned at Not on file Legal Sex Male 11:53 PM FLIGHT OPERATIONS SPECIALIST Gender Identity Not on file Sexual Orientation Not on file documented as of this encounter Miscellaneous Notes * Telephone Encounter - Salas Monterroso MD - 06/18/2024 9:06 AM CDT Betzaida says she does not aspirate artificial joints. Probably best to send him to orthopedics if needed. * Telephone Encounter - Salas Monterroso MD - 06/18/2024 9:03 AM CDT What is the status of getting his right knee aspirated in Radiology? If not able to be done today or tomorrow, we can possibly refer him to orthopedics so they can do it, or one of our ANP is can do it if they feel comfortable aspirating an artificial joint. documented in this encounter Plan of Treatment Not on file documented as of this encounter Visit Diagnoses Not on filedocumented in this encounter Additional Health Concerns Infection Onset Date Last Indicated Resolved Time MDR gram neg/ESBL 04/26/2024 05/06/2024 documented as of this encounter Care Teams Melter Supervisor Open Hearth Furnace Relationship Specialty Start Date End Date Salas Monterroso MD [address] [place] [address] PCP - General 02/27/18 Thelma Love, PT Physical Therapist Physical Therapy 06/11/17 Karissa Salas PTA Scrap Worker Physical Therapy 06/17/17 Stewart Rahman MD [address] [address] Consulting Physician Cardiovascular Disease 04/19/18 [place] [id number] [address] Consulting Physician Cardiology 08/30/18 Angie Garcia MD [address] [place] [address] Consulting Physician Pain Management 08/12/19 Rolando Narvaez NP [address] [place] [address] Nurse Practitioner Pain Management 12/11/19 Grisel Almodovar OD [address] [place] [address] Consulting Physician Optometry 01/25/21 Horace Pacheco MD [address] [place] [address] Referring Physician Cardiology 06/21/21 Purvi Da Silva NP [address] [place] [address] Nurse Practitioner General Surgery 07/10/22 Jon Mares MD [address] [place] [address] Consulting Physician General Surgery 08/10/22 Salas Morales MD [address] [place] [address] Consulting Physician Nephrology 09/25/22 Chase Mancuso MD [address] [facility] [address]14 [place] [address] Surgeon Vascular Surgery 02/19/24 Agustin [place] MD PhD [address] [place] [address] Consulting Physician Neurosurgery 12/03/23 documented as of this encounter
--- OUTSIDE RECORDS SUMMARY | 2024-06-18 13:57 | XMS_ITS | Encounter Summary ---
Author Organization [facility] Healthcare Address [address] [place] [address] Care Team Providers Care Wood Boatbuilder Apprentice Name Role Phone Thelma Love PT Unavailable Unavailable Karissa Salas PTA Unavailable Unavailable Salas Monterroso MD Primary Care Provider [phone] Stewart Rahman MD Unavailable Immanuel Conway MD Unavailable Angie Garcia MD Unavailable [phone] Rolando Narvaez SPORTS PHYSIOLOGIST Unavailable [phone] Grisel Almodovar OD Unavailable [phone] Horace Pacheco MD Unavailable Purvi Da Silva NP Unavailable [phone] Jon Mares MD Unavailable Salas Morales MD Unavailable [phone] Chase Mancuso MD Unavailable [phone] Agustin Lancaster MD PhD Unavailable [phone] Encounter Details Date Type Department Care Team (Late st Contact Info) Description 06/06/2024 Results Follow-Up [facility] [address] [place] [id number] Salas Monterroso MD [address] [place] [address] Social History Tobacco Use Types Packs/Day Years Used Date Smoking Tobacco: Never Smokeless Tobacco: Never Alcohol Use Standard Drinks/Week Comments Yes 1 (1 standard drink = 0.6 oz pur e alcohol) occasionally [facility] Utilities Answer Date Recorded In [...] week 04/27/2024 How often do you attend tenriism or mandaen serv ices? Never 04/27/2024 Do you belong to any clubs o r organizations such as tenriism groups, unions, fraternal or athletic groups, or [...] any time in the past 12 m [facility], were you homeless or living in a intermediate (including now)? No 04/27/2024 Personal Safety Answer Date Recorded Have you ever been in or are you currently in a harmful physical or emotional relationship or is someone making you feel afraid or unsafe? Denies 05/06/2024 Sex and Gender Information Value Date Recorded Sex Assigned at Not on file Legal Sex Male 11:53 PM CLINICAL EDUCATION ACADEMIC COORDINATOR Gender Identity Not on file Sexual Orientation Not on file documented as of this encounter Plan of Treatment Not on file documented as of this encounter Visit Diagnoses Not on filedocumented in this encounter Additional Health Concerns Infection Onset Date Last Indicated Resolved Time MDR gram neg/ESBL 04/26/2024 05/06/2024 documented as of this encounter Care Teams Wood Boatbuilder Apprentice Relationship Specialty Start Date End Date Salas Monterroso MD [address] [place] [address] PCP - General 02/27/18 Thelma Love, PT Physical Therapist Physical Therapy 06/11/17 Karissa Salas PTA Loader Operator Physical Therapy 06/17/17 Stewart Rahman MD [address] [place] [address] Consulting Physician Cardiovascular Disease 04/19/18 [place] [address] [address] Consulting Physician Cardiology 08/30/18 Angie Garcia MD [address] [place], [place] [address] Consulting Physician Pain Management 08/12/19 Rolando Narvaez NP [address] [place], [place] [address] Nurse Practitioner Pain Management 12/11/19 Grisel Almodovar OD [address] [place] [address] Consulting Physician Optometry 01/25/21 Horace Pacheco MD [address] [place] [address] Referring Physician Cardiology 06/21/21 Purvi Da Silva NP [address] [place] [address] Nurse Practitioner General Surgery 07/10/22 Jon Mares MD [address] [place] [address] Consulting Physician General Surgery 08/10/22 Salas Morales MD [address] [facility] [address] [place] [id number] Consulting Physician Nephrology 09/25/22 Chase Mancuso MD [address] [facility] [address] [place] [address] Surgeon Vascular Surgery 02/19/24 Agustin Lancaster MD PhD [address] [place] [address] Consulting Physician Neurosurgery 12/03/23 documented as of this encounter
--- OUTSIDE RECORDS SUMMARY | 2024-06-18 13:57 | XMS_ITS | Encounter Summary ---
Author Organization [facility] Healthcare Address [address] [place] [address] Care Team Providers Care Neonatal Social Worker Name Role Phone RobbieThelma porras PT Unavailable Unavailable Karissa Salas PTA Unavailable Unavailable Salas Monterroso MD Primary Care Provider [phone] Stewart Rahman MD Unavailable Immanuel Conway MD Unavailable Angie Garcia MD Unavailable [phone] Rolando Narvaez COMMERCIAL PHOTOGRAPHER Unavailable [phone] Grisel Almodovar OD Unavailable [phone] Horace Pacheco MD Unavailable [phone] Purvi Da Silva NP Unavailable [phone] Jon Mares MD Unavailable aSlas Morales MD Unavailable [phone] Chase Mancuso MD Unavailable [phone] Agustin Lancaster MD PhD Unavailable [phone] Encounter Details Date Type Department Care Team (Late st Contact Info) Description 06/17/2024 Telephone [facility] [address] [place] [id number] Salas Monterroso MD [address] [place] [address] Social History Tobacco Use Types Packs/Day Years Used Date Smoking Tobacco: Never Smokeless Tobacco: Never Alcohol Use Standard Drinks/Week Comments Yes 1 (1 standard drink = 0.6 oz pur e alcohol) occasionally [facility] Utilities Answer Date Recorded In the past [...] week 04/27/2024 How often do you attend yazdanism or protestant serv ices? Never 04/27/2024 Do you belong to any clubs o r organizations such as yazdanism groups, unions, fraternal or athletic groups, or [...] any time in the past [address] [facility], were you homeless or living in a detention (including now)? No 04/27/2024 Personal Safety Answer Date Recorded Have you ever been in or are you currently in a harmful physical or emotional relationship or is someone making you feel afraid or unsafe? Denies 05/06/2024 Sex and Gender Information Value Date Recorded Sex Assigned at Not on file Legal Sex Male 11:53 PM INVOICE CONTROL CLERK Gender Identity Not on file Sexual Orientation Not on file documented as of this encounter Miscellaneous Notes * Telephone Encounter - Ann Marie Maria MA - 06/17/2024 11:40 AM CDT Needing to order Felicia 3 device for patient. Thanks documented in this encounter Plan of Treatment Not on file documented as of this encounter Visit Diagnoses Not on filedocumented in this encounter Additional Health Concerns Infection Onset Date Last Indicated Resolved Time MDR gram neg/ESBL 04/26/2024 05/06/2024 documented as of this encounter Care Teams Neonatal Social Worker Relationship Specialty Start Date End Date Salas Monterroso MD [address] [place] [address] PCP - General 02/27/18 Thelma Love, PT Physical Therapist Physical Therapy 06/11/17 Karissa Salas, SOFTWARE WRITER Planograph Operator Physical Therapy 06/17/17 Stewart Rahman MD [address] [place], [facility] Consulting Physician Cardiovascular Disease 04/19/18 [place] [address] [address] Consulting Physician Cardiology 08/30/18 Angie Garcia MD [address] [place] [address] Consulting Physician Pain Management 08/12/19 Rolando Narvaez NP [address] [place] [address] Nurse Practitioner Pain Management 12/11/19 Grisel Almodovar OD [address] [place] [address] Consulting Physician Optometry 01/25/21 Horace Pacheco MD [address] [place] [address] Referring Physician Cardiology 06/21/21 Purvi Da Silva NP [address] [place] [address] Nurse Practitioner General Surgery 07/10/22 Jon Mares MD [address] [place] [address] Consulting Physician General Surgery 08/10/22 Salas Morales MD [address] [place] [address] Consulting Physician Nephrology 09/25/22 Chase Mancuso MD [address] [facility] [address] [place] [address] Surgeon Vascular Surgery 02/19/24 Agustin Lancaster MD PhD [address] [place] [address] Consulting Physician Neurosurgery 12/03/23 documented as of this encounter
--- OUTSIDE RECORDS SUMMARY | 2024-06-18 13:57 | XMS_ITS | Encounter Summary ---
Author Organization [facility] Healthcare Address [address] [place] [address] Care Team Providers Care Linen Supply Load Builder Name Role Phone Robbiechiquita Thelma PT Unavailable Unavailable Karissa Salas PTA Unavailable Unavailable Salas Monterroso MD Primary Care Provider [phone] Stewatr Rahman MD Unavailable Immanuel Conway MD Unavailable Angie Garcia MD Unavailable [phone] Rolando Narvaez [facility] Unavailable [phone] Grisel Almodovar OD Unavailable [phone] Horace Pacheco MD Unavailable [phone] Purvi Da Silva [facility] Unavailable [phone] Jon Mares MD Unavailable Salas Morales MD Unavailable [phone] Chase Mancuso MD Unavailable [phone] Agustin Lancaster MD PhD Unavailable [phone] Reason for Visit * Reason Onset Date Comments IV Antibx /[facility] [place] 05/07/2024 [facility] [place] Facility Contact Number Frances [phone] Encounter Details Date Type Department Care Team (Late st Contact Info) Description 05/07/2024 Documentation [facility] [address] [facility] [address] [place] [address] Juliet Pineda LPN IV Antibx /[facility] [place] ([facility] [place] /Facility Contact Number Frances [phone]) Social History Tobacco Use Types Packs/Day Years Used Date Smoking Tobacco: Never Smokeless Tobacco: Never Alcohol Use Standard Drinks/Week Comments Yes 1 (1 standard drink = 0.6 oz pur e alcohol) occasionally [facility] Utilities Answer Date Recorded In the past 12 months has th e [employer], gas, oil, or water [employer] threatened to shut off services in your home? No 04/27/2024 Social Connection and Isolation Panel [NHANES] A nswer Date Recorded In a typical week, how many times do you talk on the phone with family, friends, or neighbors? Twice a week 04/27/2024 How often do you get together with friends or re latives? Twice a week 04/27/2024 How often do you attend adventism or sikhism serv ices? Never 04/27/2024 Do you belong to any clubs o r organizations such as adventism groups, unions, fraternal or athletic groups, or [...] time in the past 12 m [facility], were you homeless or living in a skilled nursing (including now)? No 04/27/2024 Personal Safety Answer Date Recorded Have you ever been in or are you currently in a harmful physical or emotional relationship or is someone making you feel afraid or unsafe? 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, right prosthetic knee septic arthritis Antibitoic Ertapenem 1 g IV daily Length 6 weeks Labs Weekly CBC w diff, BMP, ESR- Last Day 06/15/2024 Follow up 4-5 week per Magaly Barragan NP Notes * Juliet Pineda LPN - 05/07/2024 11:13 AM CDT Attempted to contacted patient and left message to contact office for hospital follow up * Juliet Pineda LPN - 05/07/2024 11:13 AM CDT Date of Documentation : 05/12 Attempted to Jasmin transportation at facility at [phone] left message to contact office for an appt > contacted frances to make sure they had lab results , emailed hospital note with information * Juliet Pineda LPN - 05/07/2024 11:13 AM CDT Date of Documentation : 05/13 Contacted facility and left message to call back to schedule * Juliet Pineda LPN - 05/07/2024 11:13 AM CDT Date of Documentation : 05/15 >attempted to speak with Jasmin to schedule transportation and voicemail was full * Juliet Pineda LPN - 05/07/2024 11:13 AM CDT Date of Documentation : 05/18 Daughter contacted office and scheduled follow up * Juliet Pineda LPN - 05/07/2024 11:13 AM CDT Date of Documentation : 06/03 Contacted facility at [phone] and left detailed message for lab results * Juliet Pineda LPN - 05/07/2024 11:13 AM CDT Date of Documentation : 06/12 Patient missed his appt yesterday , and per chart looks like another provider is following orders and he went to the hospital and seen another ID provider that changed his medication Attempted to contacted patient and left message to contact office * Juliet Pineda LPN - 05/07/2024 11:13 AM CDT Patient called back previously and will reach out to pcp for treatment plan documented in this encounter Plan of Treatment Not on file documented as of this encounter Visit Diagnoses Not on filedocumented in this encounter Additional Health Concerns Infection Onset Date Last Indicated Resolved Time MDR gram neg/ESBL 04/26/2024 05/06/2024 documented as of this encounter Care Teams Linen Supply Load Builder Relationship Specialty Start Date End Date Salas Monterroso MD [address] [place] [address] PCP - General 02/27/18 Thelma Love, PT Physical Therapist Physical Therapy 06/11/17 Karissa Salas PTA Clarification Operator Physical Therapy 06/17/17 Stewart Rahman MD [address] [place] [address] Consulting Physician Cardiovascular Disease 04/19/18 [place] [address] [place] [address] [place] [address] Consulting Physician Cardiology 08/30/18 Angie Garcia MD [address] [place], [place] [address] Consulting Physician Pain Management 08/12/19 Rolando Narvaez, MARIA T [address] [place], [place] [address] Nurse Practitioner Pain Management 12/11/19 Grisel Almodovar OD [address] [place] [address] Consulting Physician Optometry 01/25/21 Horace Pacheco MD [address] [place] [address] Referring Physician Cardiology 06/21/21 Purvi Da Silva NP [address] [place] [address] Nurse Practitioner General Surgery 07/10/22 Jon Mares MD [address] [place] [address] Consulting Physician General Surgery 08/10/22 Salas Morales MD [address] [facility] [address] [place], [facility] Consulting Physician Nephrology 09/25/22 Chase Mancuso MD [address] [facility] [address] [place] [address] Surgeon Vascular Surgery 02/19/24 Agustin Lancaster MD PhD [address] [place] [address] Consulting Physician Neurosurgery 12/03/23 documented as of this encounter
--- OUTSIDE RECORDS SUMMARY | 2024-06-18 13:57 | XMS_ITS | Encounter Summary ---
Author Organization [facility] Address [address] [place] [address] Phone Care Team Providers Care Platform Consultant Name Role Phone Provider, None Primary Care Provider Salas Samuels MD Primary Care Provider [phone] Encounter Details Date Type Department Care Team (Late st Contact Info) Description 01/06/2024 Nursing Facility [facility] [address] [place], [place] [address] [place] [address] Simon Smith, PAC [address] [place] [address] Social History Tobacco Use Types Packs/Day Years Used Date Smoking Tobacco: Never Assessed Sex and Gender Information Value Date Recorded Sex Assigned at Not on file Legal Sex Male 12:29 AM CDT Gender Identity Not on file Sexual Orientation Not on file documented as of this encounter Progress Notes * Simon Smith, SUSANNAH - 01/06/2024 11:59 PM CST [facility] PROGRESS NOTE Boni Green is a 83 y.o. male at [facility] for rehabilitation. Subjective: Interval History: I am seeing the patient for a skilled encounter. He is lying comfortably in his bed and says that he is feeling pretty good . He denies any acute concerns. He is wearing his cervical collar and reports that he wears it at all times. Nursing staff with no concerns about the patient. Past Medical History Positives Diagnosis Date Fracture 1970 BACK No family history on file. Social History Socioeconomic History Marital status: Spouse name: Not on file Number of children: Not on file Years of education: Not on file Highest education level: Not on file Occupational History Not on file Tobacco Use Smoking status: Not on file Smokeless tobacco: Not on file Substance and Sexual Activity Alcohol use: Not on file Drug use: Not on file Sexual activity: Not on file Other Topics Concern Not on file Social History Narrative Not on file Social Determinants of Health Financial Resource Needs: Not on file Food Insecurity Needs: Not on file Transportation Needs: Not on file Physical Activity: Not on file Stress: Not on file Social Integration: Not on file Intimate Partner Violence: Not on file Housing Stability: Not on file Past Surgical History: Procedure Laterality Date INGUINAL HERNIA REPAIR Bilateral LUMBAR FUSION Review of Systems: A 14 point comprehensive review of systems was negative except what is documented in interval history above. Objective: Exam: Vital Signs: Recent vital signs were reviewed in the electronic medical records at nursing facility and are unremarkable. General: Well developed, well nourished, in no distress Skin: Normal appearance, normal turgor, no rashes HEENT: Normocephalic, atraumatic, no flaring Eyes: nonicteric, intact extra occular movement, PERRL Neck: normal, supple, no lymphadenopathy - aspen c-collar in place. Heart: regular rate and rhythm, S1, S2 normal, no murmur, click, rub or gallop Lungs: clear to ausculation, normal respirations with no accessory muscle use, normal rate Abdominal: soft, non-tender; bowel sounds normal; no masses, no organomegaly Extremities: no deformities, joint mobility appears intact, no clubbing Neuro: Non-focal, CN intact, sensory and motor intact Psychological: alert and oriented X3, appropriate mood and affect, Intact judgement and memory Lab Results: 12/30/23 in the hosptial - CMP with cr 1.6. CBC with hgb 11. Imaging: None Assessment/Plan: Generalized weakness Receiving skilled therapy C2 Odontoid fracture Wearing cervical aspen collar at all times [facility] neurosurgery following - Dr. Lancaster. Conservative management CAD Hx of 3 vessel CABG in 2017 Continue aspirin therapy HTN Monitor blood pressures Continue current regimen GERD Well controlled VTE Prophylaxis: Activity I discussed advanced care planning with this patient. This note was dictated using M*Modal fluency dictation system and there may be errors in front office director. Despite proof reading the note, there may be mistakes and I apologize for those. By: Simon Smith, PAC, 01/06/24 Y NEEDLEWORKER documented in this encounter Plan of Treatment Not on file documented as of this encounter Visit Diagnoses Not on filedocumented in this encounter Care Teams Platform Consultant Relationship Specialty Start Date End Date Provider, None [place] PCP - General 07/28/20 01/09/24 Salas Monterroso MD [address] [place] [address] PCP - General Infectious Disease 01/10/24 documented as of this encounter
--- OUTSIDE RECORDS SUMMARY | 2024-06-18 13:57 | XMS_ITS | Encounter Summary ---
Author Organization [facility] Healthcare Address [address] [place] [address] Care Team Providers Care School Office Manager Name Role Phone RobbieThelma porras PT Unavailable Unavailable Karissa Salas PTA Unavailable Unavailable Salas Monterroso MD Primary Care Provider [phone] Stewart Rahman MD Unavailable Immanuel Conway MD Unavailable Angie Gracia MD Unavailable [phone] Rolando Narvaez ECHOCARDIOGRAPHER Unavailable [phone] Grisel Almodovar OD Unavailable [phone] Horace Pacheco MD Unavailable [phone] Purvi Da Silva NP Unavailable [phone] Jon Mares MD Unavailable Salas Morales MD Unavailable [phone] Chase Mancuso MD Unavailable [phone] Agustin Lancaster MD PhD Unavailable [phone] Encounter Details Date Type Department Care Team (Late st Contact Info) Description 06/17/2024 Telephone [facility] Medical Group [facility] [address] [place] [id number] Salas Monterroso MD [address] [place] [address] Social History Tobacco Use Types Packs/Day Years Used Date Smoking Tobacco: Never Smokeless Tobacco: Never Alcohol Use Standard Drinks/Week Comments Yes 1 (1 standard drink = 0.6 oz pur e alcohol) occasionally [facility] Utilities Answer Date Recorded In the past [...] week 04/27/2024 How often do you attend mosque or scientologist serv ices? Never 04/27/2024 Do you belong to any clubs o r organizations such as mosque groups, unions, fraternal or athletic groups, or [...] any time in the past 12 m [facility], were you homeless or living in a [place] [facility] [place] facility (including now)? No 04/27/2024 Personal Safety Answer Date Recorded Have you ever been in or are you currently in a harmful physical or emotional relationship or is someone making you feel afraid or unsafe? 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 I did fax that order over to [facility]. The knee aspiration order was entered and sent to [facility]. They should contact the patient to schedule but I did give the patient the number to scheduling in case they have not heard from anyone. LMOM documented in this encounter Plan of Treatment Not on file documented as of this encounter Visit Diagnoses Not on filedocumented in this encounter Additional Health Concerns Infection Onset Date Last Indicated Resolved Time MDR gram neg/ESBL 04/26/2024 05/06/2024 documented as of this encounter Care Teams School Office Manager Relationship Specialty Start Date End Date Salas Monterroso MD [address] [place] [address] PCP - General 02/27/18 Thelma Love, PT Physical Therapist Physical Therapy 06/11/17 Karissa Salas, MAMMAL KEEPER Cycle Analyst Physical Therapy 06/17/17 Stewart Rahman MD [address] [place] [address] Consulting Physician Cardiovascular Disease 04/19/18 [place] [address] [address] Consulting Physician Cardiology 08/30/18 Angie Garcia MD [address] [place] [address] Consulting Physician Pain Management 08/12/19 Rolando Narvaez NP [address] [place] [address] Nurse Practitioner Pain Management 12/11/19 Grisel Almodovar OD [address] [place] [address] Consulting Physician Optometry 01/25/21 Horace Pacheco MD [address] [place] [address] Referring Physician Cardiology 06/21/21 Purvi Da Silva NP [address] [place] [address] Nurse Practitioner General Surgery 07/10/22 Jon Mares MD [address] [place] [address] Consulting Physician General Surgery 08/10/22 Salas Morales MD [address] [place] [address] [place] [address] Consulting Physician Nephrology 09/25/22 Chase Mancuso MD [address] [facility] [address] [place] [address] Surgeon Vascular Surgery 02/19/24 Agustin Lancaster MD PhD [address] [place] [address] Consulting Physician Neurosurgery 12/03/23 documented as of this encounter
--- OUTSIDE RECORDS SUMMARY | 2024-06-18 13:57 | XMS_ITS | Clinical Summary ---
Author Organization [facility] Facility Address [address] [place] [id number] Care Team Providers Care Research Engineer Name Role Phone Thien Monterroso MD Primary Care Provider [phone] Allergies Active Allergy Reactions Criticality Noted Date Comments 5-Alpha Reductase Inhibitors 023 Muscle Pain Statins 07/24/2022 Sulfa Antibiotics 07/24/2022 Medications acetaminophen (TYLENOL) 500 MG tablet Take 500 mg by mouth every 8 (eight) hours if needed for mild pain Active albuterol HFA (PROVENTIL HFA;VENTOLIN HFA) 108 (90 Base) MCG/ACT inhaler Inhale 2 puffs every 4 (four) hours if needed for wheezing Active aspirin (ST LIZANDRO) 81 MG EC tablet Take 81 mg by mouth 1 (one) time each day Active busPIRone (BUSPAR) 10 MG tablet Take 10 mg by mouth at bed time Active donepezil (ARICEPT) 10 MG tablet Take 10 mg by mouth every night Active Evolocumab (Repatha SureClick) 140 MG/ML solution auto-injector Inject 140 mL under the skin every 14 (fourteen) days Active famotidine (PEPCID) 40 MG tablet Take 40 mg by mouth at bed time Active fluticasone (FLONASE) 50 MCG/ACT nasal spray Administer 1 spray into each nostril 1 (one) time each day Active isosorbide dinitrate (ISORDIL) 5 MG tablet Take 5 mg by mouth 1 (one) time each day Active metoprolol succinate XL (TOPROL XL) 25 MG 24 hr tablet Take 25 mg by mouth 1 (one) time each day Do not crush or chew. Active nitroglycerin (NITROSTAT) 0.[address] 0.4 mg under the tongue every 5 (five) minutes if needed for chest pain Active spironolactone (ALDACTONE) 25 MG tablet Take 25 mg by mouth 1 (one) time each day Active traMADol (ULTRAM) 50 MG tablet Take 50 mg by mouth every 6 (six) hours if needed for moderate pain Take 1-2 tablets by mouth every 8 hours as needed for pain. Active coenzyme Q-10 100 MG capsule Take 100 mg by mouth 1 (one) time each day Active Multiple Vitamins-Minera ls (ICAPS AREDS 2 PO) Take 1 capsule by mouth 2 (two) times a day Active Active Problems No known active problems Encounters Date Type Department Care Team Description 06/11/2024 Orders Only [facility]. [address] [facility] [address] [place] [address] Thelma Rodney MA from Last 3 Months Family History Medical History Relation Comments Heart attack Father Heart disease Father Hypertension Father Cancer Mother Hypertension Mother Relation Status Comments Father Mother Sister Alive Social History Tobacco Use Types Packs/Day Years Used Date Smoking Tobacco: Never Smokeless Tobacco: Never Tobacco Cessation:Counseling Given: Not Answered Alcohol Use Standard Drinks/Week Comments Not Currently 0 (1 standard drink = 0.6 oz pur e alcohol) Sex and Gender Information Value Date Recorded Sex Assigned at Not on file Legal Sex Male 12:33 PM EDT Gender Identity Not on file Sexual Orientation Not on file Last Filed Vital Signs Vital Sign Reading Time Taken Comments Blood Pressure 126/76 12/17/2023 1:09 PM [employer] Pulse 94 12/17/2023 1:09 PM [employer] Temperature 36.8 C (98.2 F) 12/17/2023 1:09 PM [employer] Respiratory Rate - - Oxygen Saturation 98% 12/17/2023 1:09 PM [employer] Inhaled Oxygen Concentration - - Weight 71.7 kg (158 lb) 12/17/2023 1:09 PM [employer] Height 175.3 cm (5' 9 ) 12/17/2023 1:09 PM [employer] Body Mass Index 23.33 12/17/2023 1:09 PM [employer] Plan of Treatment Health Maintenance Due Date Last Done Comments Diabetes: Ophthalmology Exam 07/25/2022 Diabetes: Pedal Pulse Checked 07/25/2022 Diabetes: Sensory Foot Exam 07/25/2022 Diabetes: Visual Foot Exam 07/25/2022 Diabetes: Hemoglobin A1C 08/17/2024 025, 01/22/2024, 11/30/2023, Additional history exists Pneumococcal Vaccine: 50+ Years Completed 12/19/2016, 02/02/2010 Influenza Vaccine Completed 12/13/2023, , 02/19/2019, Additional history exists Hepatitis B Vaccine Aged Out No longe r eligible based on patient's age to complete this topic Procedures Procedure Name Priority Date/Time Associated Diagnosis Comments HEMOGLOBIN A1C Routine 06/20/2022 from Last 3 Months or Most Recently Relevant to Health Maintenance Results * (ABNORMAL) Hemoglobin A1c (06/20/2022) Hemoglobin A1C 6.9(A) 4.0 - 5.6 Blood (Blood, Venous) 06/20/2022 [facility] Provider LAB BLOOD ORDERABLES Kailyn l Result from Last 3 Months or Most Recently Relevant to Health Maintenance Insurance [facility] [place] Care Teams Research Engineer Relationship Specialty Start Date End Date Thien Monterroso MD [address], [address] [place] [address] PCP - General Infectious Diseases 07/24/22
--- OUTSIDE RECORDS SUMMARY | 2024-06-18 13:57 | XMS_ITS | Encounter Summary ---
Author Organization [facility] Healthcare Address [address] [place] [address] Care Team Providers Care Pocket Cutter Name Role Phone Thelma Love PT Unavailable Unavailable Karissa Salas PTA Unavailable Unavailable Salas Monterroso MD Primary Care Provider [phone] Stewart Rahman MD Unavailable Immanuel Conway MD Unavailable Angie Garcia MD Unavailable [phone] Rolando Narvaez MOBILE HOME INSTALLER Unavailable [phone] Grisel Almodovar OD Unavailable [phone] Horace Pacheco MD Unavailable [phone] Purvi Da Silva NP Unavailable [phone] Jon Mares MD Unavailable Salas Morales MD Unavailable [phone] Chase Mancuso MD Unavailable [phone] Agustin Lancaster MD PhD Unavailable [phone] Reason for Referral * (Routine) - Pending Review Specialty Diagnoses / Procedures Referred By Contchano t Referred To Contact Diagnoses Acute right-sided weakness 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) Procedures Miscellaneous DME Salas Monterroso MD [address] [place] [address] Phone: tel: fax: Referral ID Status Reason Start Date Expiration Date V isits Requested Visits Authorized [id number] Pending Review 06/17/2024 07/17/2025 1 1 * Diagnostic Imaging (Routine) - Pending Review Specialty Diagnoses / Procedures Referred By Contac t Referred To Contact Diagnoses 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) Procedures FL Fluoro Guided Aspiration Knee Right Salas Monterroso MD [address] [place] [id number] Phone: tel: fax: [address] [phone] Referral ID Status Reason Start Date Expiration Date V isits Requested Visits Authorized [id number] Pending Review 06/17/2024 07/17/2025 1 1 Reason for Visit * Reason Comments Follow-up Encounter Details Date Type Department Care Team (Late st Contact Info) Description 06/17/2024 9:45 AM CDT Office Visit [facility] [address] [place] [phone] Salas Monterroso MD [address] [place] [address] Acute right-sided weakness (Primary Dx); Arthritis of [...] producing Escherichia coli; Coronary artery disease involving sleetmute heart without angina pectoris, unspecified vessel or lesion type Social History Tobacco Use Types Packs/Day Years Used Date Smoking Tobacco: Never Smokeless Tobacco: Never Tobacco Cessation:Counseling Given: Not Answered Alcohol Use Standard Drinks/Week Comments Yes 1 (1 standard drink = 0.6 oz pur e alcohol) occasionally [facility] Utilities Answer Date Recorded In [...] week 04/27/2024 How often do you attend congregational or denominational serv ices? Never 04/27/2024 Do you belong to any clubs o r organizations such as congregational groups, unions, fraternal or athletic groups, or [...] the past 12 m [facility], were you homeless or living in a [facility] (including now)? No 04/27/2024 Personal Safety Answer Date Recorded Have you ever been in or are you currently in a harmful physical or emotional relationship or is someone making you feel afraid or unsafe? Denies 05/06/2024 Sex and Gender Information Value Date Recorded Sex Assigned at Not on file Legal Sex Male 11:53 PM [employer] Gender Identity Not on file Sexual Orientation Not on file documented as of this encounter Last Filed Vital Signs Vital Sign Reading [...] Mass Index 22.38 06/17/2024 9:42 AM CDT documented in this encounter Patient Instructions * Patient Instructions* Salas Monterroso MD - 06/17/2024 9:45 AM CDT Consider getting the latest Covid vaccine/booster after reviewing current recommendations. If you get Covid and call within 5 days of symptom onset, we can prescribe medication to reduce the risk of severe disease. Consider getting the RSV vaccine (Respiratory Syncytial Virus, Arexvy or Abrysvo). The new shingles shot (Shingrix) is recommended unless previously received, or you never had chicken pox. Continue current medications. front desk monitor will order labs to be done now (CBC, BMP, acute phase CRP). front desk monitor will order right knee aspiration in radiology for history of septic arthritis. front desk monitor will order labs to be done before your next visit in 1 month (HbA1C, CMP, lipids, urine microalbumin ratio). Continue efforts to stay active and eat right. Follow up in 1 months, or sooner if needed. documented in this encounter Ordered Prescriptions Prescription Sig Dispense Quantity Refills Last Filled Start Date End Date aspirin 81 mg enteric coated tabletIndications: Deep Vein Thrombosis Prevention Take 1 tablet (81 mg total) by mouth 2 (two) times a day 06/17/2024 07/17/2024 polyethylene glycol (MIRALAX) 17 gram/dose bulk powderIndications: constipation Take 17 g by mouth daily as needed (Constipatio n.) 06/17/2024 documented in this encounter Progress Notes * Salas Monterroso MD - 06/17/2024 9:45 AM CDT This patient has verbally consented to recording this visit in order to utilize AI technology in generating this note. Boni Green presents for a 30 day follow-up after hospitalization for acute encephalopathy History of Present Illness Boni Green is an 83 year old male who presents for follow-up after recent hospitalization for aurinary tract infection and bacteremia. He was hospitalized twice recently, initially for a urinary tract infection and bacteremia, which also affected his right knee. He was discharged and then [facility] few daysfor right-sided weakness and mental status change before being sent to rehabilitation. He was discharged from rehab on June 09, 2024. No recent fevers, though he mentions feeling 'horrible' at timeswith a body temperature of 96.8??F instead of the normal 98.6??F. He experienced a mild headache and stomachache, which improved after taking stool softeners. He hasa history of a high white blood cell count during the infection, but recent labs from May 26, 2024, show a normal white count with mild to moderate anemia (hemoglobin 9.3). Urinalysis was normal. He has a history of right knee replacement, which was affected by the infection. He reports ongoingpain, especially after exercise, but is trying to stay active to alleviate the discomfort. He experienced constipation for a couple of days, leading to severe stomach cramps, which resolved after taking two pills and having a bowel movement. He reports very little coughing and occasional wheezing, which he attributes to seasonal allergies,though he has not been formally diagnosed. He has been experiencing frequent urination, approximately every hour, and some confusion or altered mental status, as noted by his caregiver, who observed him talking as if on the phone when he was not. He has a history of taking Repatha for cholesterol management but experienced chills from the injection, leading to discontinuation. Nexletol/bempedoic acid was too expensive. He has not been on cholesterol medication since his hospitalization. He is currently taking several medications, including Buspar 10 mg, Aricept 10 mg, albuterol as needed, Tylenol, tramadol, Flonase as needed, insulin lispro, metoprolol 25 mg (half a tablet), nitroglycerin as needed, spironolactone 25 mg, and an eye vitamin for macular health. He also uses Miralax occasionally for bowel management. Hospital admission and discharge information: 1. Date of interactive contact with the patient and/or caregiver 06/15/2024 2. Date of the easg-sa-drck visit 06/17/2024 3. Complexity of care: High Date of admission and discharge &c Admission Date/Time: 05/18/2024 Discharge Date: 05/21/2024 Primary Care Physician: Salas Monterroso MD Discharging Provider: Drew Mejia MD Discharged to [facility] [address] [address], date of discharge from rehab for 10/31/2024 Discharge Diagnoses: Acute metabolic encephalopathy, acute kidney injury Present on Admission: Hypertension Fracture Dementia (HCC) Cognitive impairment Chronic kidney disease Anemia Chronic CHF (congestive heart failure) ([facility]) Anxiety and depression COPD (chronic obstructive pulmonary disease) ([facility]) Septic arthritis of knee, right ([facility]) PAF (paroxysmal atrial fibrillation) ([facility]) DM type 2 (diabetes mellitus, type 2) ([facility]) CAD (coronary artery disease) Acute right-sided weakness Admitting Diagnoses: Acute metabolic encephalopathy HOSPITAL COURSE: Answers submitted by the patient for this visit: Abdominal Pain Questionnaire (Submitted on 06/16/2024) Chief Complaint: Abdominal pain Chronicity: new Onset: yesterday Onset quality: sudden Frequency: 2 to 4 times per day Progression since onset: gradually improving Pain location: suprapubic region Pain - numeric: 6/10 Pain quality: cramping Radiates to: does not radiate anorexia: Yes belching: No flatus: No hematochezia: No melena: No weight loss: Yes Aggravated by: certain positions, eating Relieved by: bowel movements Boni Green was admitted 05/18/2024 to [facility] with suspicion of CVA due to worsening mental status and weakness of the right side of the body. The patient was further evaluated with a CT scan of the head and CT angiogram which did not show any significant abnormalities and only showeda stenosis of the posterior cerebral artery which did not correspond to his transitional neurological findings. It seems that the etiology behind his decline in mental status was mostly dehydration and acute kidney injury. The patient was started on IV fluid resuscitation. His acute kidney injury resolved and his mental status improved progressively. By the time of discharge, he was up in the chair and back to his baseline. The patient was already being treated for a recent monoarthritis of theright knee with ESBL E coli which was also associated with septicemia with the same germ from a complicated urinary infection. He was already on IV antibiotics with ertapenem and the course of treatment will be completed on 06/09. We continued the same antibiotic during his stay. Considering the initial presentation with encephalopathy, we also broaden the spectrum of treatment by adding vancomycin and micafungin to his regimen but no specific germs that would support a disseminated infection were identified. The patient will be discharged to a new assisted facility to complete the course of the IV antibiotics and to get additional physical therapy and occupational therapy with the goal of going back home with home health care at the end of the rehabilitation course. Problem List Items Addressed This Visit Cardiac and Vasculature Hyperlipidemia associated with type 2 diabetes mellitus (HCC) (Chronic) Chronic, present for 10 or more years, see discussion elsewhere regarding recommendations. Relevant Medications insulin glargine 100 unit/mL (3 mL) pen for injection Other Relevant Orders Lipid panel Hypertension associated with type 2 diabetes mellitus (HCC) (Chronic) Chronic, present for 6-7 or more years, recommend continuing spironolactone and other medications listed elsewhere. Relevant Medications insulin glargine 100 unit/mL (3 mL) pen for injection Other Relevant Orders CBC with auto differential CRP (acute phase) Comprehensive metabolic panel Albumin Creatinine Ratio, Urine Paroxysmal atrial fibrillation (HCC) (Chronic) Chronic, diagnosed about 10 years ago, status post pulmonary vein isolation with subsequent church of sinus rhythm. Recommend continued clinical monitoring at office visits for possible recurrence. Relevant Medications aspirin 81 mg enteric coated tablet Coronary artery disease Chronic, present for 7-8 years or more, status post bypass grafting. Recommend continuing aspirin 81 mg daily and metoprolol XL 12.5 mg daily. He is intolerant of statins. For awhile he was receivingRepatha, but had a possible allergic reaction so I do not think it is a good choice. His professor of apologetics prescribed bempedoic acid but it was too expensive so we did not pick it up. Recommend he discussalternative treatments such as Inclisiran with his professor of apologetics Dr. Rahman at his appointment in July. Relevant Medications aspirin 81 mg enteric coated tablet Endocrine and Metabolic Type 2 diabetes mellitus with stage 2 chronic kidney disease, with long-term current use of insulin(HCC) (Chronic) Chronic, present for several years, EGFR fluctuates. We reviewed scanned labs from about three weeks ago and ordered follow-up labs to be done today. Return in one month, or sooner if needed. Relevant Medications insulin glargine 100 unit/mL (3 mL) pen for injection Other Relevant Orders Hemoglobin A1c Genitourinary and Reproductive Urinary tract infection due to extended-spectrum beta lactamase (ESBL) producing Escherichia coli Acute problem as of about a month ago, hospitalized and treated at [facility]. He denies any current significant urinary symptoms of concern. Urinalysis about three weeks ago, to be scanned into his record, is fairly unremarkable. We will monitor clinically with the appropriate referrals as needed. Infectious Diseases Septic arthritis (HCC) New problem as of about two months ago. He was admitted to [facility] about two monthsago with ESBL GNR sepsis and secondary infection of his right total knee joint. He received appropriate antibiotics. The knee was washed out. He completed the planned course through the end of May and antibiotics were discontinued, PICC line was pulled. Currently the right knee is mildly warm andred. There is a small joint effusion. He has some mild discomfort in the knee. We ordered an image guided aspirate to evaluate for inflammation versus infection. Follow-up early as needed. Relevant Orders FL Fluoro Guided Aspiration Knee Right Miscellaneous DME Neuro Acute right-sided weakness - Primary Acute problem about a month ago, was evaluated at [facility] hospitalized for about two days. No definite stroke or other cause was found. Recommend continuing aspirin 81 mg daily. Relevant Orders Miscellaneous DME Pulmonary and Pneumonias Mild intermittent asthma without complication (Chronic) Chronic, present for 30 or more years, years, recommend continuing albuterol rescue inhaler 90 mcg q.4 hours as needed. Chronic obstructive pulmonary disease (HCC) Mild, recommend continuing albuterol 90 mcg rescue inhaler as needed. Assessment & Plan Type 2 diabetes mellitus with stage 2 chronic kidney disease Blood sugars are well-controlled with current insulin regimen. No immediate concerns with kidney function. - Order labs to monitor diabetes and kidney function. Hypertension associated with type 2 diabetes mellitus Blood pressure is well-controlled with current medication regimen. Hyperlipidemia associated with type 2 diabetes mellitus Chills experienced with Repatha suggest a possible allergic reaction. Nexletol (bempedoic acid) is too expensive. Alternatives will be considered if Repatha is not affordable. - Discuss options with cardiology in one month - Consider alternatives if Repatha is not affordable. Urinary tract infection with bacteremia Recent hospitalization for UTI with bacteremia. No current symptoms of infection. No immediate needfor urologist referral as no major kidney issues are present. Right knee pain post-replacement Right knee is slightly warm with possible fluid accumulation. Recent infection history suggests need for further evaluation. - Arrange for knee aspiration in radiology to check for infection. Back pain Back pain persists, but stronger pain medication is not recommended due to potential for increased confusion. Mild intermittent asthma without complication Mild wheezing likely due to seasonal allergies. No recent use of albuterol inhaler. - Consider using albuterol inhaler as needed for wheezing. General Health Maintenance Recommendations for COVID booster, shingles vaccine, and RSV vaccine. - Consider COVID booster, shingles vaccine, and RSV vaccine. Recording duration: 21 minutes Review of Systems Constitutional: Negative for fever. HENT: Positive for hearing loss (chronic). Respiratory: Positive for cough (very little). Gastrointestinal: Positive for abdominal pain (stomach cramnps with constipation, better after BM) and constipation (for a couple of days). Negative for diarrhea and vomiting. Genitourinary: Positive for dysuria (Resolved, recent urinalysis normal) and frequency. Negative for hematuria. Musculoskeletal: Positive for arthralgias (right knee, after physical therapy, improving) and myalgias. Allergic/Immunologic: Positive for environmental allergies (springtime). Neurological: Positive for headaches (transient, better). BP 104/54 Pulse 82 Temp 36.5 ??C (97.7 ??F) (Temporal) Resp 16 Ht 175.3 cm (5' 9.02 ) Wt 68.8 kg (151 lb 9.6 oz) SpO2 98% BMI 22.38 kg/m?? Body mass index is 22.38 kg/m??. Wt Readings from Last 3 Encounters: 06/17/24 68.8 kg (151 lb 9.6 oz) 05/26/24 67.9 kg (149 lb 9.6 oz) 05/03/24 68.5 kg (151 lb) Physical Exam Constitutional: General: He is not in acute distress. Cardiovascular: Rate and Rhythm: Normal rate and regular rhythm. Heart sounds: No murmur heard. Pulmonary: Effort: Pulmonary effort is normal. Breath sounds: No wheezing or rales. Abdominal: Palpations: Abdomen is soft. Tenderness: There is no abdominal tenderness. There is no guarding. Musculoskeletal: General: Swelling (right knee, associated with mild warmth and redness and a small effusion.) present. Neurological: Mental Status: He is alert. Cranial Nerves: Cranial nerve deficit (slight suggestion of right facial weakness) present. Psychiatric: Mood and Affect: Mood normal. Comments: Mild global slowing of cognition, likely at least partly due to being extremely hard of hearing. Physical Exam NECK: No cervical, supraclavicular, or axillary lymphadenopathy. CHEST: Lungs clear to auscultation bilaterally, no crackles or wheezes. CARDIOVASCULAR: Regular heart rhythm, distant heart tones, no murmurs. Bilateral radial arteries normal. ABDOMEN: Abdomen non-tender. No hepatomegaly or splenomegaly. MUSCULOSKELETAL: Right knee warm with possible effusion. Results LABS Hb: 9.3 g/dL (05/26/2024) ISalas MD have personally reviewed pertinent inpatient and/or ED records, including discharge medications and [employer] if applicable. This patient's discharge medication list has been reviewed and reconciled with his outpatient medication list and has also been reviewed with patient and/or caregiver. I have noted any changes. New Medications Ordered This Visit Medications polyethylene glycol (MIRALAX) 17 gram/dose bulk powder Sig: Take 17 g by mouth daily as needed (Constipation.) insulin glargine 100 unit/mL (3 mL) pen for injection Sig: Inject 10 Units under the skin nightly aspirin 81 mg enteric coated tablet Sig: Take 1 tablet (81 mg total) by mouth 2 (two) times a day Current Outpatient Medications: acetaminophen, 1-2 tablet, oral, Q8H PRN albuterol HFA, 1 puff, inhalation, Q4H PRN busPIRone, 10 mg, oral, Nightly donepeziL, 10 mg, oral, Nightly fluticasone propionate, 1 spray, each nostril, Daily PRN insulin lispro, Inject 1-5 units under the skin 3 (three) times a day with meals. Blood glucose mg/dL 150-199: 3 unit, 200-249: 5 units, 250-299: 7 units, 300-349: 10 units, 350 or greater: 5 units. Notify provider for blood glucose greater than 299 mg/dL. metoprolol XL, 12.5 mg, oral, Daily nitroglycerin, 0.4 mg, sublingual, Q5 Min PRN pen needle, diabetic, Use to inject 1-4 times daily as directed. spironolactone, 25 mg, oral, Daily vit A/vit C/vit E/zinc/copper (PRESERVISION AREDS ORAL), Take by mouth aspirin, 81 mg, oral, BID insulin glargine, 10 Units, subcutaneous, Nightly polyethylene glycol, 17 g, oral, Daily PRN Patient Instructions Consider getting the latest Covid vaccine/booster after reviewing current recommendations. If you get Covid and call within 5 days of symptom onset, we can prescribe medication to reduce the risk of severe disease. Consider getting the RSV vaccine (Respiratory Syncytial Virus, Arexvy or Abrysvo). The new shingles shot (Shingrix) is recommended unless previously received, or you never had chicken pox. Continue current medications. front desk monitor will order labs to be done now (CBC, BMP, acute phase CRP). front desk monitor will order right knee aspiration in radiology for history of septic arthritis. front desk monitor will order labs to be done before your next visit in 1 month (HbA1C, CMP, lipids, urine microalbumin ratio). Continue efforts to stay active and eat right. Follow up in 1 months, or sooner if needed. documented in this encounter Miscellaneous Notes * Assessment & Plan Note - Salas Monterroso MD - 06/17/2024 6:17 PM CDT Associated Problem(s): Chronic obstructive pulmonary disease (HCC) Mild, recommend continuing albuterol 90 mcg rescue inhaler as needed. * Assessment & Plan Note - Salas Monterroso MD - 06/17/2024 6:08 PM CDT Associated Problem(s): Urinary tract infection due to extended-spectrum beta lactamase (ESBL) producing Escherichia coli Acute problem as of about a month ago, hospitalized and treated at [facility]. He denies any current significant urinary symptoms of concern. Urinalysis about three weeks ago, to be scanned into his record, is fairly unremarkable. We will monitor clinically with the appropriate referrals as needed. * Assessment & Plan Note - Salas Monterroso MD - 06/17/2024 6:05 PM CDT Associated Problem(s): Type 2 diabetes mellitus with stage 2 chronic kidney disease, with long-termcurrent use of insulin (HCC) Chronic, present for several years, EGFR fluctuates. We reviewed scanned labs from about three weeks ago and ordered follow-up labs to be done today. Return in one month, or sooner if needed. * Assessment & Plan Note - Salas Monterroso MD - 06/17/2024 6:04 PM CDT Associated Problem(s): Septic arthritis (HCC) New problem as of about two months ago. He was admitted to [facility] about two monthsago with ESBL GNR sepsis and secondary infection of his right total knee joint. He received appropriate antibiotics. The knee was washed out. He completed the planned course through the end of May and antibiotics were discontinued, PICC line was pulled. Currently the right knee is mildly warm andred. There is a small joint effusion. He has some mild discomfort in the knee. We ordered an image guided aspirate to evaluate for inflammation versus infection. Follow-up early as needed. * Assessment & Plan Note - Salas Monterroso MD - 06/17/2024 6:02 PM CDT Associated Problem(s): Paroxysmal atrial fibrillation (HCC) Chronic, diagnosed about 10 years ago, status post pulmonary vein isolation with subsequent church of sinus rhythm. Recommend continued clinical monitoring at office visits for possible recurrence. * Assessment & Plan Note - Salas Monterroso MD - 06/17/2024 6:01 PM CDT Associated Problem(s): Mild intermittent asthma without complication Chronic, present for 30 or more years, years, recommend continuing albuterol rescue inhaler 90 mcg q.4 hours as needed. * Assessment & Plan Note - Salas Monterroso MD - 06/17/2024 6:00 PM CDT Associated Problem(s): Hypertension associated with type 2 diabetes mellitus (HCC) Chronic, present for 6-7 or more years, recommend continuing spironolactone and other medications listed elsewhere. * Assessment & Plan Note - Salas Monterroso MD - 06/17/2024 6:00 PM CDT Associated Problem(s): Hyperlipidemia associated with type 2 diabetes mellitus (HCC) Chronic, present for 10 or more years, see discussion elsewhere regarding recommendations. * Assessment & Plan Note - Salas Monterroso MD - 06/17/2024 6:00 PM CDT Associated Problem(s): Coronary artery disease Chronic, present for 7-8 years or more, status post bypass grafting. Recommend continuing aspirin 81 mg daily and metoprolol XL 12.5 mg daily. He is intolerant of statins. For awhile he was receivingRepatha, but had a possible allergic reaction so I do not think it is a good choice. His professor of apologetics prescribed bempedoic acid but it was too expensive so we did not pick it up. Recommend he discussalternative treatments such as Inclisiran with his professor of apologetics Dr. Rahman at his appointment in July. * Assessment & Plan Note - Salas Monterroso MD - 06/17/2024 5:58 PM CDT Associated Problem(s): Acute right-sided weakness Acute problem about a month ago, was evaluated at [facility] hospitalized for about two days. No definite stroke or other cause was found. Recommend continuing aspirin 81 mg daily. documented in this encounter Plan of Treatment Scheduled Orders Name Type Priority Associated Diagnoses Order Schedule Comprehensive metabolic panel Lab Routine Hypertension associated with type 2 diabetes mellitus (HCC) Expected: 07/13/2024, Expires: 06/17/2025 Hemoglobin A1c Lab Routine Type 2 diabetes mellitus with stage 2 chronic kidney disease, with long-term current use of insulin (HCC) Expected: 07/13/2024, Expires: 06/17/2025 Albumin Creatinine Ratio, Urine Lab Routine Hypertension associated with type 2 diabetes mellitus (HCC) Expected: 07/13/2024, Expires: 06/17/2025 Lipid panel Lab Routine Hyperlipidemia associated with type 2 diabetes mellitus (HCC) Expected: 07/13/2024, Expires: 06/17/2025 FL Fluoro Guided Aspiration Knee Right Imaging Schedule Routine, Read Routine (OP Routine) 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) Expected: 06/17/2024, Expires: 06/17/2025 documented as of this encounter Results * (ABNORMAL) CRP (acute phase) (06/17/2024 11:02 AM CDT) Pathologist [facility] CRP 10.4(H) <=10.0 mg/L Comment:Testing performed by : [address], [address] Blood 06/17/2024 11:0 2 AM CDT 06/17/2024 6:22 PM CDT Salas Monterroso MD LAB BLOOD ORDERABLES Final Re sult [address] [place] [address] * (ABNORMAL) CBC with auto differential (06/17/2024 11:02 AM CDT) [facility] WBC 4.47 3.80 - 9.90 K/cumm Comment:Testing performed by : [address], [address] Hgb 9.9(L) 13.0 - 17.5 g/dL TOM Comment:Testing performed by : [address], [address] Hct 32.0(L) 38.9 - 50.3 % TOM Comment:Testing performed by : [address] [place]., [address] Plt 263 150 - 400 K/cumm CERNER Comment:Testing performed by : [facility], [address] [place] [address], [address] MPV 9.3 9.1 - 12.3 fL CERNER CH Comment:Testing performed by : [facility], [address] [place] [address], [address] RBC 3.29(L) 4.30 - 5.80 M/cumm CERNER CH Comment:Testing performed by : [facility], [address] [place] [address], [address] MCV 97.3(H) 81.3 - 96.4 fL CERNER CH Comment:Testing performed by : [facility], [address] [place] [address], [address] MCH 30.1 27.1 - 33.3 pg CERNER Comment:Testing performed by : [address], [address] MCHC 30.9(L) 32.3 - 35.7 g/dL CERNER Comment:Testing performed by : [address], [address] RDW CV 17.7(H) 11.1 - 14.9 % CERNER Comment:Testing performed by : [address], [address] RDW SD 63.2(H) 35.7 - 48.1 fL CERNER Comment:Testing performed by : [address], [address] NRBC abs 0.00 0.00 - 0.01 K/cumm CERNER Comment:Testing performed by : [address], [address] Blood 06/17/2024 11:0 2 AM CDT 06/17/2024 6:22 PM CDT Salas Monterroso MD LAB BLOOD ORDERABLES Final Re sult [address] Department [place] [address] documented in this encounter Visit Diagnoses Diagnosis Acute right-sided weakness- Primary Unspecified hemiplegia affecting unspecified side 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, with long-term current use of insulin (HCC) Hypertension associated with type 2 diabetes mellitus (HCC) Paroxysmal atrial fibrillation (HCC) Atrial fibrillation Chronic obstructive pulmonary disease, unspecified COPD type (HCC) Mild intermittent asthma without complication Hyperlipidemia associated with type 2 diabetes mellitus (HCC) Urinary tract infection due to extended-spectrum beta lactamase (ESBL) producing Escherichia coli Coronary artery disease involving sleetmute heart without angina pectoris, unspecified vessel or lesion type documented in this encounter Discontinued Medications Medication Sig Discontinue Reason Start Date End Da te ertapenem 1,000 mg in sterile water 10 mL IV syringeIndications:Bon e/Joint Infection Infuse 10 mL (1,000 mg total) into a venous catheter daily for 5 minutes at 120 mL/hr No longer taking - Do not display on AVS 05/06/2024 06/09/2024 bempedoic acid (Nexletol) 180 mg tablet Take 180 mg by mouth daily No longer taking - Do not display on AVS 04/14/2024 06/17/2024 oxyCODONE (ROXICODONE) 5 mg immediate release tabletIndications:Pain Take 1 tablet (5 mg total) by mouth every 6 (six) hours as needed for pain for up to 12 doses No longer taking - Do not display on AVS 05/09/2024 06/17/2024 polyethylene glycol (MIRALAX) 17 gram/dose bulk powderIndications:cons tipation Take 17 g by mouth daily 05/09/2024 06/17/2024 insulin regular in 0.9% sodium chloride (Myxredlin) 100 unit/100 mL (1 unit/mL) solution Infuse 100 Units/hr into a venous catheter at 100 mL/hr Alternate therapy 06/17/2024 aspirin 81 mg enteric coated tabletIndications:Deep Vein Thrombosis Prevention Take 1 tablet (81 mg total) by mouth 2 (two) times a day 05/09/2024 06/17/2024 traZODone (DESYREL) 50 mg tablet Take 1 tablet (50 mg total) by mouth nightly No longer taking - Do not display on AVS 05/09/2024 06/17/2024 documented as of this encounter Historical Medications * This list may reflect changes made after this encounter. insulin glargine 100 unit/mL (3 mL) pen for injection Inject 10 Units under the skin nightly 06/17/2024 added in this encounter Orders General Supply Count Last Ordered Date First Or dered Date MISCELLANEOUS DME 1 06/17/2024 documented in this encounter Additional Health Concerns Infection Onset Date Last Indicated Resolved Time MDR gram neg/ESBL 04/26/2024 05/06/2024 documented as of this encounter Care Teams Pocket Cutter Relationship Specialty Start Date End Date Salas Monterroso MD [address] [place] [address] PCP - General 02/27/18 Thelma Love, PT Physical Therapist Physical Therapy 06/11/17 Karissa Salas PTA Alcohol Rubber Physical Therapy 06/17/17 Stewart Rahman MD [address] [place] [address] Consulting Physician Cardiovascular Disease 04/19/18 [place] [id number] [address] Consulting Physician Cardiology 08/30/18 Angie Garcia MD [address] [place] [address] Consulting Physician Pain Management 08/12/19 Rolando Narvaez NP [address] [place] [address] Nurse Practitioner Pain Management 12/11/19 Grisel Almodovar OD [address] [place] [address] Consulting Physician Optometry 01/25/21 Horace Pacheco MD [address] [place] [address] Referring Physician Cardiology 06/21/21 Purvi Da Silva NP [address] [place] [address] Nurse Practitioner General Surgery 07/10/22 Jon Mares MD [address] [place] [address] Consulting Physician General Surgery 08/10/22 Salas Morales MD [address] [place] [address] Consulting Physician Nephrology 09/25/22 Chase Mancuso MD [address] [facility] [id number] [place] [address] Surgeon Vascular Surgery 02/19/24 Agustin [place] MD PhD [address] [place] [address] Consulting Physician Neurosurgery 12/03/23 documented as of this encounter
--- OUTSIDE RECORDS SUMMARY | 2024-06-18 13:57 | XMS_ITS | Encounter Summary ---
Author Organization [facility] Healthcare Address [address] [place] [address] Care Team Providers Care Associate Financial Planner Name Role Phone Thelma Love PT Unavailable Unavailable Karissa Salas PTA Unavailable Unavailable Salas Monterroso MD Primary Care Provider [phone] Stewart Rahman MD Unavailable Immanuel Conway MD Unavailable Angie Garcia MD Unavailable [phone] Rolando Narvaez VEGETABLE I FARMWORKER Unavailable [phone] Grisel Almodovar OD Unavailable [phone] Horace Pacheco MD Unavailable [phone] Purvi Da Silva NP Unavailable [phone] Jon Mares MD Unavailable Salas Morales MD Unavailable [phone] Chase Mancuso MD Unavailable [phone] Agustin [place] MD PhD Unavailable [phone] Encounter Details Date Type Department Care Team (Late st Contact Info) Description 06/18/2024 Results Follow-Up [facility] [address] [place] [id number] Salas Monterroso MD [address] [facility] [address] [place] [address] Social History Tobacco Use Types Packs/Day Years Used Date Smoking Tobacco: Never Smokeless Tobacco: Never Alcohol Use Standard Drinks/Week Comments Yes 1 (1 standard drink = 0.6 oz pur e alcohol) occasionally [facility] Utilities Answer Date Recorded In the past [...] week 04/27/2024 How often do you attend confucianism or hindu serv ices? Never 04/27/2024 Do you belong to any clubs o r organizations such as confucianism groups, unions, fraternal or athletic groups, or [...] any time in the past 12 m [facility], were you homeless or living in a nursing home (including now)? No 04/27/2024 Personal Safety Answer Date Recorded Have you ever been in or are you currently in a harmful physical or emotional relationship or is someone making you feel afraid or unsafe? 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 Gender Identity Not on file Sexual Orientation Not on file documented as of this encounter Plan of Treatment Not on file documented as of this encounter Visit Diagnoses Not on filedocumented in this encounter Additional Health Concerns Infection Onset Date Last Indicated Resolved Time MDR gram neg/ESBL 04/26/2024 05/06/2024 documented as of this encounter Care Teams Associate Financial Planner Relationship Specialty Start Date End Date Salas Monterroso MD [address] [place] [address] PCP - General 02/27/18 Thelma Love, PT Physical Therapist Physical Therapy 06/11/17 Karissa Salas PTA Superintendent Physical Therapy 06/17/17 Stewart Rahman MD [address] [place] [address] Consulting Physician Cardiovascular Disease 04/19/18 [place] [id number] [address] Consulting Physician Cardiology 08/30/18 Angie Garcia MD [address] [place], [place] [address] Consulting Physician Pain Management 08/12/19 Rolando Narvaez NP [address] [place], [place] [address] Nurse Practitioner Pain Management 12/11/19 Grisel Almodovar OD [address] [place] [address] Consulting Physician Optometry 01/25/21 Horace Pacheco MD [address] [place] [address] Referring Physician Cardiology 06/21/21 Purvi Da Silva NP [address] [place] [address] Nurse Practitioner General Surgery 07/10/22 Jon Mares MD [address] [place] [address] Consulting Physician General Surgery 08/10/22 Salas Morales MD [address] [facility] [address] [place] [id number] Consulting Physician Nephrology 09/25/22 Chase Mancuso MD [address] [facility] [id number] [place] [address] Surgeon Vascular Surgery 02/19/24 Agustin [place] MD PhD [address] [place] [address] Consulting Physician Neurosurgery 12/03/23 documented as of this encounter
[2024-06-18 19:30] LABS: Basophils Percent Auto 0.7 % (0.2-1.2); Eosinophils Absolute Auto 0.1 K/mm3 (0-0.3); Eosinophils Percent Auto 1.3 % (0-4.4); Hematocrit 33.9 % (42.0-52.0); Hemoglobin 10.5 g/dL (14.0-18.0); Immature Granulocyte Absolute 0.01 K/mm3 (0.00-0.031); Immature Granulocyte Percent A 0.2 % (0-0.5); Lymphocytes Absolute Auto 1.49 K/mm3 (0.9-3.2); Lymphocytes Percent Auto 32.7 % (18.3-44.2); Mean Corpuscular Hemoglobin 30.3 pg (26-34); Mean Platelet Volume 9.3 fl (7.4-10.4); Monocytes Absolute Auto 0.4 K/mm3 (0.1-0.6); Neutrophils Absolute Auto 2.6 K/mm3 (1.3-6.7); Neutrophils Percent Auto 56.1 % (45.5-73.1); Platelet Count Result 265 k/mm3 (150-375); Red Blood Count 3.46 M/mm3 (4.6-6.20); Red Cell Distribution Width 17.9 % (11.5-14.5); White Blood Count 4.6 K/mm3 (4.5-10.0)
[2024-06-18 19:37] LABS: Albumin Level 3.7 g/dL (3.5-5.1); Anion Gap 8 mmol/L (4-12); Blood Urea Nitrogen 26 mg/dL (9-20); Calcium 9.2 mg/dL (8.4-10.2); Carbon Dioxide 27 mmol/L (22-30); Chloride 107 mmol/L (98-107); Estimated Glomerular Filt Rate 59; Glucose 156 mg/dL (65-110); Phosphorus 3.7 mg/dL (2.5-4.5); Potassium 4.1 mmol/L (3.4-5.0); Sodium 142 mmol/L (137-145)
[2024-06-18 19:41] LABS: Iron 68 ug/dL (49-181)
[2024-06-18 19:42] LABS: Total Protein Urine Random 9 mg/dL; Ur Ttl Prot Creatinine Ratio 0.08 mg/mg (0-0.20)
[2024-06-18 19:50] LABS: Percent Iron Saturation 26 % (20-50)
[2024-06-18 19:52] LABS: Parathyroid Intact 23.6 pg/mL (14.5-75.2)
[2024-06-18 20:49] LABS: Hemoglobin A1C 5.8 % (<5.7)
== END 2024-06-18 13:45 | disposition home or self-care (01) ==
LOC: HOME HLTH 13:50
PROVIDERS: Visit Provider Internal Medicine Nephrology
DX: I12.9 Hypertensive chronic kidney disease with stage 1 through stage 4 chronic kidney disease, or unspecified chronic kidney disease (principal); N18.31 Chronic kidney disease, stage 3a; E11.21 Type 2 diabetes mellitus with diabetic nephropathy; D63.1 Anemia in chronic kidney disease; E11.22 Type 2 diabetes mellitus with diabetic chronic kidney disease
CPT/HCPCS: 80069; 82570; 83036; 83540; 83550; 83970; 84156; 85025